=== PATIENT | female | born 1965 | race Caucasian/White ===

== ENCOUNTER 2024-08-22 16:02 | Emergency (ER) | payer SELFPAY ==
--- OUTSIDE RECORDS SUMMARY | 2024-08-22 16:08 | XMS REPORT | Continuity of Care Document ---
Author Name Unknown Address [address] [place] [address] [facility] [place] Address [address] [place] [address] Care Team Providers Care Patent Solicitor Name Role Phone Willis Storey NP Primary Care Physician Lilian Neri Attending Clinician Unavailable Ankush Lewis MD Attending Clinician [phone] Chencho Montana DO Attending Clinician + Carlos Harman MD Attending Clinician [phone] CARLOS HARMAN Attending Clinician Unavailable [place] SERNA Attending Clinician XIOMARA Samuels Attending Clinician MOSHE Galvez Attending Clinician Unavailable ANGELIA ELDER Attending Clinician UnavailYAA Dennis Attending Clinician Unavaila MALISSA Rueda Attending Clinician Unavailable BILLY REYNAGA Attending Clinician Unavailable Pratibha Fitzgerald APRN Attending Clinician Unavail TJ Delatorre Attending Clinician Unav ailable BRITTON LEAL Attending Clinician UnavailSAGAR Krishnamurthy Attending Clinician Unavailable Joey Toure Attending Clinician Unava ilGuille Hutchison Attending Clinician Unavailable Bridgett Flores Attending Clinician Unavailable Nicky Goodwin PROJECT CONTROL ANALYST-C Attending Clinici an Unavailable Tardio-CerecedChencho clark DO Admitting Clinician + TARDIO-CERECEDACHENCHO Admitting Clinician Unav ailable JACKELYN KELLY Admitting Clinician Un available BILLY REYNAGA Admitting Clinician Unavailable Willis Storey Admitting Clinician Unavailab TJ Duncan Admitting Clinician Unav ailable GRAZYNA LOPEZ Admitting Clinician Unavailable Joey Toure Admitting Clinician Unava ilable Guille Montenegro Admitting Clinician Unavailable Bridgett Flores Admitting Clinician Unavailable Payers Payer Name Policy Type Policy Number Effective Date Expirati on Date Source [employer] [facility] [id number] 2023 00:00:00 Problems Condition Name Condition Details Condition Category Status Onset Date Resolution Date Last Treatment Date Treating Clinician Comments Source Alcoholic cirrhosis (CMS/HCC) Alcoholic cirrhosis (CMS/HCC) Disease Recurre [facility] 2023-05 00:00: 00 Reji Doll Anemia Anemia Disease Recurre [facility] 2023-05 00:00: 00 Reji Doll QT prolongati on QT prolongati on Disease Active 2023-05 00:00: 00 Reji Doll Alcohol use Alcohol use Disease Active 2023-05 00:00: 00 Reji Doll Chest pain Chest pain Disease Active 2023-05 00:00: 00 Reji Poon Epic DOC REF, ABN LABS DOC REF, ABN LABS Active 07/21/2023 [facility] Diagnosis Active 3-04 00:00: 00 2023-09-25 12:32:00 Reji Poon CANT STOP HICUPPING CANT STOP HICUPPING Active 01/23/2023 [facility] Diagnosis Active 9 00:00: 00 2023-01-23 15:47:00 Reji Poon ESSENTIAL (PRIMARY) HYPERTENSI ON ESSENTIAL (PRIMARY) HYPERTENSI ON Active [facility] Diagnosis Active 2023-09-25 12:32:00 Reji Poon Alcohol abuse (disorder) Alcohol abuse (disorder) Active Problem 01/26/2023 [facility] Problem Active 2023-01-26 03:28:27 Reji Poon ACUTE AND SUBACUTE HEPATIC FAILURE WITHOUT COMA ACUTE AND SUBACUTE HEPATIC FAILURE WITHOUT COMA Active [facility] Diagnosis Active 2023-08-11 07:36:00 Reji Poon ACUTE AND SUBACUTE HEPATIC FAILURE WITHO ACUTE AND SUBACUTE HEPATIC FAILURE WITHO Active [facility] Diagnosis Active 2023-09-25 12:32:00 Reji Poon ACUTE CHOLECYSTI TIS ACUTE CHOLECYSTI TIS Active [facility] Diagnosis Active 2023-09-25 12:32:00 Reji Poon Hypomagnes emia Hypomagnes emia Disease Resolve d 2023-05 00:00: 00 2024-04-10 00:00:00 2024-04-10 11:29:56 Reji Doll Simple obesity Simple obesity Disease Resolve d 2023-05 00:00: 00 2024-04-10 00:00:00 2024-04-10 11:29:55 Reji Poon Epic Hypokalemi a Hypokalemi a Disease Resolve d 2023-05 00:00: 00 2024-04-10 00:00:00 2024-04-10 11:29:54 Reji Doll History of Past Illness Condition Name Condition Details Condition Category Status Onset Date Resolution Date Last Treatment Date Treating Clinician Comments Source Hiccoughs (finding) Hiccoughs (finding) 01/23/2023 Diagnosis 01/26/2023 [facility] Diagnosis 2022-0 9-07 21:14: 00 2023-01-26 03:28:27 2023-01-26 03:28:27 Reji Poon Chest pain (finding) Chest pain (finding) 01/23/2023 Diagnosis 01/26/2023 [facility] Diagnosis 2022-0 9-07 21:14: 00 2023-01-26 03:28:27 2023-01-26 03:28:27 Reji Poon Allergies, Adverse Reactions, Alerts Allergy Name Allergy Type Status Severity Reaction(s) Onset Date Inactive Date Treating Clinician Comments Source Penicill ins Propensi ty to adverse reaction s Active Hives 2023-05 00:00: 00 Reji Poon [facility] Penicill ins DA Active DC ITCHING 2022-05 0-05 00:00: 00 [facility] Penicill ins DA Active DC ITCHING 2022-05 0-04 00:00: 00 [facility] Social History Social Habit Start Date Stop Date Quantity Comments Source Gender identity 2023-08-29 19:54:18 Identifies as female gender (finding) [facility] History of tobacco use Current smoker [facility] ASSERTION Possible [facility] Sexual orientation [facility] History of Social function 2024-04-10 00:00:00 2024-04-10 00:00:00 [facility] Smoking Status Start Date Stop Date Source Ex-smoker [facility] Medications Ordered Medication Name Filled Medication Name Start Date Stop Date Current Medication? Ordering Clinician Indication Dosage Frequency Signature (SIG) Comments Components Source QUEtiapine (SEROquel) tablet 50 mg QUEtiapine (SEROquel) tablet 50 mg 2023-05 21:00: 00 Yes 50mg Reji Poon [facility] furosemide (Lasix) 20 MG tablet furosemide (Lasix) 20 MG tablet 2023-05 12:40: 14 Yes 20mg Q24H Take 20 mg by mouth daily as needed. Reji Poon [facility] lactulose 20 gram/30 mL oral solution lactulose 20 gram/30 mL oral solution 2023-05 10:30: 00 Yes 20g Take 20 g by mouth 1 time each day at the same time. Reji Poon [facility] FLUoxetine (PROzac) capsule 20 mg FLUoxetine (PROzac) capsule 20 mg 2023-05 09:00: 00 Yes 20mg QD 20 mg, Oral, Daily, First dose on 04/10/24 at 0900 Reji Poon [facility] sodium chloride (NS) 0.9 % flush 10 mL sodium chloride (NS) 0.9 % flush 10 mL 2023-05 09:00: 00 Yes 10mL Q.5D 10 mL, Intravenou s, Every 12 hours scheduled, First dose on 04/10/24 at 0900, Administer at least once every 12 hours Reji Doll thiamine (Vitamin B-1) tablet 100 mg thiamine (Vitamin B-1) tablet 100 mg 2023-05 09:00: 00 04-15 08:59 :00 No 100mg QD 100 mg, Oral, Daily, First dose on 04/10/24 at 0900, For 5 days Reji Doll folic acid (Folvite) tablet 1 mg folic acid (Folvite) tablet 1 mg 2023-05 09:00: 00 04-15 08:59 :00 No 1mg QD 1 mg, Oral, Daily, First dose on 04/10/24 at 0900, For 5 days Reji Doll multivitami n (Theragran- M) tablet 1 tablet multivitami n (Theragran- M) tablet 1 tablet 2023-05 09:00: 00 04-15 08:59 :00 No 1{tbl} QD 1 tablet, Oral, Daily, First dose on 04/10/24 at 0900, For 5 doses Reji Doll enoxaparin (Lovenox) syringe 40 mg enoxaparin (Lovenox) syringe 40 mg 2023-05 08:15: 00 Yes 40mg 40 mg, Subcutaneo us, Every 24 hours, First dose on 04/10/24 at 0815, Indication s: VTE Prophylaxi s Reji Doll gabapentin (Neurontin) capsule 100 mg gabapentin (Neurontin) capsule 100 mg 2023-05 06:00: 00 Yes 100mg Q.[id number] 3D 100 mg, Oral, Every 8 hours scheduled, First dose on 04/10/24 at 0600 Reji Doll magnesium sulfate IVPB 2 g magnesium sulfate IVPB 2 g 2023-05 01:00: 00 04-10 04:14 :00 No 2g 2 g, Intravenou s, at 25 mL/hr, Administer over 2 Hours, Once, On 04/10/24 at 0100, For 1 dose [facility] Epic potassium chloride CR (Klor-Con M20) ER tablet 40 mEq potassium chloride CR (Klor-Con M20) ER tablet 40 mEq 2023-05 01:00: 00 04-10 02:13 :00 No 40meq 40 mEq, Oral, Once, On 04/10/24 at 0100, For 1 dose, For patients able to take medication s orally or via feeding tube >/= 14 Somali, may dissolve each 20 mEq tablet in 4 oz of water. Allow about 2 minutes for the tablets to disintegra te. Stir before giving to prepare slurry and administer . Please exclude patient's with feeding tube less than 14 Somali (Dobhoff, J-tube, etc) and pediatric and patients Do not crush or chew. Reji Doll sodium chloride (NS) 0.9 % flush 10 mL sodium chloride (NS) 0.9 % flush 10 mL 2023-05 00:58: 25 Yes 10mL 10 mL, Intravenou s, As needed, line care, Line Flush, Starting on 04/10/24 at 0058 Reji Doll Influenza Virus Vacc Split PF syringe 0.5 mL Influenza Virus Vacc Split PF syringe 0.5 mL 2023-05 00:58: 18 Yes .5mL 0.5 mL, Intramuscu lar, During hospitaliz ation, Starting on 04/10/24 at 0058, For 1 dose Reji Doll midodrine (Proamatine ) 5 MG tablet midodrine (Proamatine ) 5 MG tablet 2023-05 00:57: 21 Yes 86 5mg Q.[id number] 3D Take 5 mg by mouth in the morning and 5 mg at noon and 5 mg in the evening. Reji Poon Epic potassium chloride IVPB 10 mEq potassium chloride IVPB 10 mEq 2023-05 22:30: 00 04-10 05:51 :00 No 10meq Q1H 10 mEq, Intravenou s, at 100 mL/hr, Administer over 1 Hours, Every 1 hour, First dose on Fri04/09/24 at 2230, For 4 doses Reji Doll potassium chloride CR (Klor-Con M20) ER tablet 40 mEq potassium chloride CR (Klor-Con M20) ER tablet 40 mEq 2023-05 17:55: 00 04-09 18:10 :00 No 40meq 40 mEq, Oral, Once, On Fri04/09/24 at 1755, For 1 dose, For patients able to take medication s orally or via feeding tube >/= 14 Somali, may dissolve each 20 mEq tablet in 4 oz of water. Allow about 2 minutes for the tablets to disintegra te. Stir before giving to prepare slurry and administer . Please exclude patient's with feeding tube less than 14 Somali (Dobhoff, J-tube, etc) and pediatric and patients Do not crush or chew. Reji Doll famotidine (PF) (Pepcid) injection 20 mg famotidine (PF) (Pepcid) injection 20 mg 2023-05 16:55: 00 04-09 17:57 :00 No 20mg 20 mg, Intravenou s, Administer over 2 Minutes, Once, On Fri04/09/24 at 1655, For 1 dose Reji Doll methocarbam ol (Robaxin) tablet 500 mg methocarbam ol (Robaxin) tablet 500 mg 2023-05 16:55: 00 04-09 17:55 :00 No 500mg 500 mg, Oral, Once, On Fri04/09/24 at 1655, For 1 dose Reji Doll HYDROcodone -acetaminop hen (Titonka) 5-325 MG per tablet 1 tablet HYDROcodone -acetaminop hen (Titonka) 5-325 MG per tablet 1 tablet 2023-05 16:55: 00 04-09 17:55 :00 No 1{tbl} 1 tablet, Oral, Once, On Fri04/09/24 at 1655, For 1 dose Reji Doll ondansetron ODT (Zofran-ODT ) 4 MG disintegrat ing tablet ondansetron ODT (Zofran-ODT ) 4 MG disintegrat ing tablet 2023-05 0- 00:00: 00 Yes 4mg Q8H Take 4 mg by mouth every 8 hours if needed for nausea or vomiting. Reji Doll gabapentin (Neurontin) 100 MG capsule gabapentin (Neurontin) 100 MG capsule 7-16 00:00: 00 Yes 100mg Q.[id number] 3D Take 100 mg by mouth in the morning and 100 mg at noon and 100 mg in the evening. Reji Doll FLUoxetine (PROzac) 20 MG capsule FLUoxetine (PROzac) 20 MG capsule 2-15 00:00: 00 Yes 20mg QD Take 20 mg by mouth 1 time each day. Reji Poon [facility] QUEtiapine (SEROquel) 50 MG tablet QUEtiapine (SEROquel) 50 MG tablet 2022-05 2-09 00:00: 00 Yes 50mg Take 50 mg by mouth at bedtime. Reji Doll hydrOXYzine HCl (Atarax) 25 MG tablet hydrOXYzine HCl (Atarax) 25 MG tablet 2022-05 00:00: 00 Yes 1{tbl} Q.5D Take 1 tablet by mouth in the morning and 1 tablet in the evening. Reji Doll Reglan 10 mg oral tablet 01-23 21:13: 00 Yes See Instructio ns, 1 tab PO QID prn hiccups, # 28 tab, 0 Refill(s) Reji Poon Vital Signs Vital Name Observation Time Observation Value Comments S ource Heart rate 2024-04-10 12:31:20 74 /min [facility] Respiratory rate 2024-04-10 12:31:20 16 /min [facility] Oxygen saturation in Arterial blood by Pulse oximetry 2024-04-10 12:31:20 99 /min [facility] Systolic blood pressure 2024-04-10 12:31:10 115 mm[Hg] [facility] Diastolic blood pressure 2024-04-10 12:31:10 59 mm[Hg] [facility] Body temperature 2024-04-10 12:29:42 36.67 Nayana [facility] Body height 2024-04-09 15:22:00 162.6 cm [facility] Body weight 2024-04-09 15:22:00 83.734 kg [facility] BMI 2024-04-09 15:22:00 31.69 kg/m2 [facility] Heart rate 2024-04-10 12:31:20 74 /min [facility] Respiratory rate 2024-04-10 12:31:20 16 /min [facility] Oxygen saturation in Arterial blood by Pulse oximetry 2024-04-10 12:31:20 99 /min [facility] Systolic blood pressure 2024-04-10 12:31:10 115 mm[Hg] [facility] Diastolic blood pressure 2024-04-10 12:31:10 59 mm[Hg] [facility] Body temperature 2024-04-10 12:29:42 36.67 Nayana [facility] Body height 2024-04-09 15:22:00 162.6 cm [facility] Body weight 2024-04-09 15:22:00 83.734 kg [facility] BMI 2024-04-09 15:22:00 31.69 kg/m2 [facility] Temperature Oral (F) 2023-01-23 21:38:00 98.4 F [facility] Heart Rate 2023-01-23 21:38:00 [facility] Systolic (mm Hg) 2023-01-23 21:38:00 [facility] Di[facility] ([facility]) 2023-01-23 21:38:00 [facility] Height 2023-01-23 18:19:00 5 [ft_i] [facility] BMI Calculated 2023-01-23 18:19:00 [facility] Weight 2023-01-23 18:19:00 [facility] Procedures Procedure Date / Time Performed Performing Clinician Source TRANSTHORACIC ECHO (TTE) COMPLETE 2024-04-10 10:21:38 Flores Rebollar [facility] POC GLUCOSE UNSOLICITED RESULTS 2024-04-10 08:32:00 Carlos Harman [facility] BASIC METABOLIC PANEL 2024-04-10 03:51:00 Tardio -Chencho Olea [facility] MAGNESIUM LEVEL 2024-04-10 03:51:00 Tardio-Cerec hankChencho clark [facility] PHOSPHORUS LEVEL 2024-04-10 03:51:00 Tardio-Chencho Harper [facility] COMPLETE BLOOD COUNT W/DIFF AND PLATELET 2024-04-10 03:51:00 Tardio-Cereceda, Stephen [facility] COMPLETE BLOOD COUNT 2024-04-10 03:51:00 Tardio- Cereceda, Stephen [facility] AUTOMATED DIFFERENTIAL 2024-04-10 03:51:00 Smitadi o-Verna Oleais G [facility] POC GLUCOSE UNSOLICITED RESULTS 2024-04-10 00:18:00 Tardio-CerecedVerna clarkStephen [facility] BASIC METABOLIC PANEL 2024-04-09 21:40:00 Ankush Lewis [facility] UA WITH CULTURE IF INDICATED 2024-04-09 18:03:00 Ankush Lewis [facility] TROPONIN I HIGH SENSITIVITY CARESET (1ST HR) 2024-04-09 17:16:00 Brenda Ojeda [facility] XR CHEST 1 VIEW 2024-04-09 16:10:00 Ankush Lewis [facility] COMPREHENSIVE METABOLIC PANEL 2024-04-09 15:47:00 [facility] CREAT[facility] KINASE (CK TOTAL) 2024-04-09 15:47:00 [facility] LIPASE LEVEL 2024-04-09 15:47:00 Juana Ojeda [facility] MAGNESIUM LEVEL 2024-04-09 15:47:00 [facility] B-TYPE NATRIURETIC PEPTIDE 2024-04-09 15:47:00 [facility] COMPLETE BLOOD COUNT W/DIFF AND PLATELET 2024-04-09 15:47:00 Brenda Ojeda [facility] PROTIME-INR 2024-04-09 15:47:00 Juana Ojeda [facility] PTT 2024-04-09 15:47:00 [facility]OPONIN I HIGH SENSITIVITY CARESET 2024-04-09 15:47:00 Brenda Ojeda [facility] TROPONIN I HIGH SENSITIVITY CARESET (BASELINE) 2024-04-09 15:47:00 Brenda Ojedazabeth [facility] COMPLETE BLOOD COUNT 2024-04-09 15:47:00 Brenda Ojedazabeth [facility] AUTOMATED DIFFERENTIAL 2024-04-09 15:47:00 [facility] UA with culture if indicated 2024-04-09 00:00:00 [facility] [id number] 2023-04-22 00:00:00 [id number] [facility] [id number] 2023-02-20 00:00:00 [id number] [facility] ECG 12 lead (arrhythmia) [facility] Encounters Start Date/Time End Date/Time Encounter Type Admission Type Attending [facility] Care Facility Care Department Encounter ID Source 2024-04-13 00:00:00 2024-04-13 17:57:29 Patient Outreach Halle, Mara [facility] [id number] [facility] 2024-04-09 15:46:00 2024-04-10 12:40:00 Emergency Ankush LewisChencho Harper Dereje [facility] [id number] [facility] 2024-04-09 15:46:00 2024-04-10 12:40:00 Emergency Emergency CARLOS HARMAN [facility] General Medicine [id number] MHENE 2024-04-09 00:00:00 2024-04-09 20:28:49 [id number] [facility] 2024-02-13 17:15:00 2024-02-13 23:43:00 Emergency E [place] SERNA [place] [id number] [facility] 2024-02-06 18:16:00 2024-02-06 23:36:00 Emergency E XIOMARA CHRIS NE [place] [id number] [facility] 2024-01-06 15:02:00 2024-01-06 20:39:00 Emergency E MOSHE CARL [place]SE [place] [id number] [facility] 2023-12-30 16:14:00 2023-12-30 23:23:00 Emergency E XIOMARA CHRIS [place] [id number] [facility] 2023-12-11 15:33:00 2023-12-12 23:29:00 Emergency E ANGELIA ELDER MONSE [place] [id number] [facility] 2023-11-30 16:08:00 2023-12-02 16:19:00 Inpatient E YAA LOZANO [facility] MED [id number] [facility] 2023-11-25 10:02:00 2023-11-25 12:04:00 Emergency E MALISSA ZELAYA NE NE [id number] [facility] 2023-11-07 12:50:00 2023-11-13 13:09:00 Outpatient BILLY REYNAGA [facility] [id number] [facility] 2023-11-04 11:13:00 2023-11-07 12:14:00 Emergency E MOSHE CARL NE NE [id number] [facility] 2023-10-17 12:54:00 2023-10-17 12:54:00 Outpatient Pratibha Agustin [facility] [id number] [facility] 2023-09-04 10:54:00 2023-09-08 15:39:00 Inpatient E TJ MALAVE [place] MED [id number] [facility] 2023-09-07 09:00:00 2023-09-07 09:00:00 Outpatient BRITTON LEAL [facility] [id number] [facility] 2023-07-21 22:30:00 2023-08-08 14:26:00 Inpatient E SAGAR HINKLE [facility] [id number] [facility] 2023-06-29 19:34:00 2023-07-04 11:35:00 Inpatient EM Joey Toure HCAKW MAS [id number] [facility] 2023-04-22 09:27:00 2023-04-26 15:20:00 Inpatient EM Guille Montenegro HCAKW CARD [id number] [facility] 2023-02-20 14:58:00 2023-02-22 14:54:00 Inpatient EM Bridgett Flores HCAKW CARD [id number] [facility] 2023-01-23 12:47:00 2023-01-23 16:40:00 Emergency E MOSHE CARL [facility] [id number] [facility] 2022-11-13 16:14:00 2022-11-13 16:14:00 Outpatient ETHAN Moralesalmaz Nicky zuñiga HCAKW CPUL [id number] [facility] Results Test Description Test Time Test Comments Results Result Co mments Source [facility] [id number] 08:40:09* Test Item Value Reference Range Interpretation Comme nts POC Glu (test code = 6271897516) 102 mg/dL 70-99 H POC Performing Location (carlos t code = 7667382072) NE CDU Lab Interpretation (test cod e = 59228-4) Abnormal [facility] [id number] 00:20:32* Test Item Value Reference Range Interpretation Comme nts POC Glu (test code = 9101598586) 86 mg/dL 70-99 POC Glu Comment 1 (test code = 2003442206) Notified RN/MD POC Glu Comment 2 (test code = 7815362056) Cleaned Meter POC Performing Location (carlos t code = 8532060550) NE LAB [facility]- TOE(S) 2+V [id number] 15:00:00 [facility] 1965 Sex: F FAX: Willis Preston [phone] [place]: St: [facility] FAX: Nikkie Fitzgeraldreiveda DELI CLERK [phone] Name: ZAK MANDEL [facility] : 1965 Age/S: 57/F [address] Unit #: [id number] Loc: [place] [address] Phys: Pratibha Fitzgerald APRN Acct: [id number] Dis Date: Status: [facility] CLI PHONE #: [phone] Exam Date: 10/17/2023 1334 FAX #: [phone] Reason: CONTUSION OF RT LESSER TOE WO DAMAG E TO NAIL EXAMS: CPT CODE: [id number] XR TOE(S) 2+V RT [id number] EXAM: - XR TOE(S) 2+V RT LOCATION: [id number]: 57 years-year old Female with CONTUSION OF RT LESSER TOE WO DAMAGE TO NAIL COMPARISON: None available time of interpretation. FINDINGS: Frontal, oblique, and lateral views of the right 3rd toe are provided. There is a mildly displaced fracture of the 3rd proximal phalanx diaphysis. Remote fractures of the 4th and 5th proximal phalanges. No soft tissue findings are apparent. IMPRESSION: 1. Mildly displaced fracture of the 3rd proximal phalanx diaphysis. 2. Remote fractures of the 4th and 5th proximal phalanges. at 1500 Reported and signed by: Kingston Strickland MD CC: Willis Storey ORDNANCE OFFICER; Pratibha Fitzgerald Technologist:ROXY MA Trnscrd Date/Time/By: 10/23/2023 (1500) : By: [email or web address] PAGE 1 Signed Report FAX: Willis Preston [phone] [place]: St: [facility]P FAX: Pratibha Fitzgerald APRN [phone] Name: ZAK MANDEL JG [facility] : 1965 Age/S: 57/F [address] Unit #: [id number] Loc: [place] [address] Phys: Pratibha Fitzegrald APRN Acct: [id number] Dis Date: Status: [facility] CLI PHONE #: [phone] Exam Date: 10/17/2023 1334 FAX #: [phone] Reason: CONTUSION OF RT LESSER TOE WO DAMAGE TO NAIL EXAMS: CPT CODE: [id number] XR TOE(S) 2+V RT 29555 (Continued) Orig Print D/T: S: 10/23/2023 (1504) PAGE2 Signed Report- XR HIP W/PEL UNI 2+V RT 2023-10-23 15:00:00 [facility] : 1965 Sex: F FAX: Willis Preston [phone] [place]: St: [facility] FAX: Pratibha Fitzgerald DELI CLERK [phone] Name: ZAK MANDEL [facility] : 1965 Age/S: 57/F [address] Unit #: [id number] Loc: [place] [address] Phys: Pratibha Fitzgerald APRN Acct: [id number] Dis Date: Status: DEP CLI PHONE #: [phone] Exam Date: 10/17/2023 [facility] FAX #: [phone] Reason: PAIN IN RT HIP EXAMS: CPT CODE: [id number] XR HIP W/PEL UNI 2+[place] [id number] EXAM: - XR HIP W/PEL UNI 2+V RT LOCATION: H57 HISTORY: 57 years-year old Female with PAIN IN RT HIP COMPARISON: None available time of interpretation. FINDINGS: APand frog-leg lateral views of the right hip and single view of the pelvis are provided. No fractureor dislocation. Hip joint spaces are preserved. No soft tissue findings are apparent. IMPRESSION: No significant findings. at 1500 Reported and signed by: Kingston Strickland MD CC: Willis Storey ORDNANCE OFFICER; Pratibha Fitzgerald Technologist: ROXY MA Trnscrd Date/Time/By: 10/23/2023 (1500) : By: [email or web address] PAGE 1 Signed Report FAX: Willis Preston [phone] [place]: St: [facility]P FAX: Pratibha Fitzgerald DELI CLERK [phone] Name: ZAK MANDEL [facility] Abbi : 1965 Age/S: 57/F [address] Unit #: [id number] Loc: [place], [place] [address]Zrws: Pratibha Fitzgerald [place] Acct: [id number] Dis Date: Status: DEP CLI PHONE #: [phone] Exam Date: 10/17/2023 1333 FAX #: [phone] Reason: PAIN IN RT HIP EXAMS: CPT CODE: [id number] XR HIP W/PEL UNI 2+V [place] [id number] (Continued) Orig Print D/T: S: 10/23/2023 (1504) PAGE 2 Signed ReportCBC W/MANUAL [id number] 06:32:00* Test Item Value Reference Range Interpretation Comme nts WHITE BLOOD CELL (test code = WBC) 10.6 x10 3/uL 5.0-12.0 N RED BLOOD CELL (test code = RBC) 3.35 x10 6/uL 4.20-5.40 L HEMOGLOBIN (test code = HGB) 10.5 g/dL 12.0-16.0 L HEMATOCRIT (test code = HCT) 31.7 % 36.0-46.0 L MEAN CELL VOLUME (test code = MCV) 95 fL 81-99 N MEAN CELL HGB (test code = MCH) 31.3 pg 27-31 H MEAN CELL HGB CONCENTRATION (test code = MCHC) 33.1 g/dL 33-37 N RED CELL DISTRIBUTION WIDTH (test code = RDW) 19.9 % 11.5-15.5 H PLATELET COUNT (test code = PLT) 200 x10 3/uL 130-400 N MEAN PLATELET VOLUME (test c ode = MPV) 11.2 fL 9.4-16.4 N TOTAL CELLS COUNTED (test co de = TCC) 100 #CELLS SEGMENTED NEUTROPHILS (test code = SEG) 62 % 43-65 N LYMPHOCYTE (test code = LYMPH) 11 % 20.5-45.5 L ATYPICAL LYMPH (test code = ALYMPH) 12 % 0-1 H MONOCYTE (test code = MON) 15 % 5.5-11.7 H EOSINOPHIL (test code = EOS) 1 % 0.9-2.9 N POLYCHROMASIA (test code = POLC) 1+ NONE SEEN A HYPOCHROMIA (test code = HYPO) 1+ NONE SEEN A ANISOCYTOSIS (test code = ANISO) 2+ NONE SEEN A MACROCYTOSIS (test code = MACR) 2+ NONE SEEN A TARGET CELLS (test code = TGT) 2+ NONE SEEN A PLATELET ESTIMATE (test code = PLTEST) ADEQUATE ADEQUATE PLATELET MORPHOLOGY (test co de = PLTMORPH) NORMAL NORMAL COMPREHENSIVE METABOLIC [id number] 06:08:00* Test Item Value Reference Range Interpretation Comme nts SODIUM (test code = NA) 134 mmol/L 137-145 L POTASSIUM (test code = K) 3.8 mmol/L 3.4-5.0 N CHLORIDE (test code = CL) 99 mmol/L 98-107 N CARBON DIOXIDE (test code = CO2) 28 mmol/L 22-30 N ANION GAP (test code = GAP) 12 mmol/L 10-20 N GLUCOSE (test code = GLU) 86 mg/dL 74-106 N BLOOD UREA NITROGEN (test code = BUN) 4 mg/dL 7-17 L GLOMERULAR FILTRATION RATE (test code = GFR) 109 mL/min The Glomerular Filtration Rate is a calculated parameterbased on serum Creatinine, patient age and sex. GFR valuesless than 60 mL/min/1.73 square meters are indicative ofChronic Kidney Disease. Values less than 15 mL/min/1.73square meters indicate Kidney failure. The calculation forGFR is based on the CKD-EPI (2020) calculation. This formulais race indifferent and is the recommended formula for GFRby the National Kidney Foundation for Adults.The GFR will not calculate if the sex is unknown or if thepatient's age is <18 years. CREATININE (test code = CREAT) < 0.5 mg/dL 0.5-1.0 L TOTAL PROTEIN (test code = PROT) 5.8 g/dL 6.3-8.2 L "A positive bias may occur for patients taking Eltrombopag(a bone marrow stimulant used to treat thrombocytopenia andaplastic anemia)." ALBUMIN (test code = ALB) 3.0 g/dL 3.5-5.0 L CALCIUM (test code = CA) 8.6 mg/dL 8.4-10.2 N BILIRUBIN TOTAL (test code = BILT) 7.1 mg/dL 0.2-1.3 H "A positive b ias may occur for patients taking Eltrombopag(a bone marrow stimulant used to treat thrombocytopenia andaplastic anemia)." BILIRUBIN CONJUGATED (test code = BILCON) 3.7 mg/dL 0-0.3 H "A positive bias may occur for patients taking Eltrombopag(a bone marrow stimulant used to treat thrombocytopenia andaplastic anemia)." CONJUGATE D BILIRUBIN IS THE REPLACEMENT ASSAY FOR DIRECTBILIRUBIN. BILIRUBIN UNCONJUGATED (test code = BILUNC) 0.9 mg/dL 0-1.1 N SGOT/AST (test code = AST) 268 U/L 15-46 H SGPT/ALT (test code = ALT) 70 U/L 0-34 H ALKALINE PHOSPHATASE (test code = ALKP) 276 U/L 38-126 H INDEX HEMOLYSIS (test code = HEMINDEX) 21 Index/DL 0-100 N PROTHROMBIN [id number] 05:45:00* Test Item Value Reference Range Interpretation Comme nts PROTHROMBIN TIME PATIENT (test code = PTP) 17.3 SECONDS 9.4-12.5 H INTERNATIONAL NORMAL RATIO (test code = INR) 1.5 The INR is to be used only for monitoring ORAL ANTICOAGULANTTHERAPY. Indication INR Value1. Prophylaxis/treatment of: Venous Thrombosis, Pulmonary Embolism 2.0 - 3.02. Prevention of systemic embolism from: Tissue heart valves 2.0 - 3.0 Acute myocardial infarction (to present systemic embolism)* 2.0 - 3.0 Valvular heart disease 2.0 - 3.0 Atrial fibrillation 2.0 - 3.03. Mechanical prosthetic valves (high risk) 2.5 - 3.5 * If oral anticoagulant therapy is elected to preventrecurrent myocardial infarction, an INR of 2.5-3.5 isrecommended, consistent with Food and Drug Administrationrecommen dations. [id number] 05:31:00* Test Item Value Reference Range Interpretation Comme nts GLUBED (test code = GLUBED) 89 MG/DL 74-106 N [id number] 21:45:00* Test Item Value Reference Range Interpretation Comme nts GLUBED (test code = GLUBED) 85 MG/DL 74-106 N - HEPA IMAG INCL GB W [id number] 17:48:00 [facility] 1965 Sex: F FAX: Joey Toure [place]: St: ADM FAX: Ethan Short DO FAX: Willis Preston [phone] Name: ZAK MANDEL [facility] : 1965 Age/S: 57/F [address] Unit #: [id number] Loc: [address] [address] Phys: Ethan Short DO R1 Acct: [id number] Dis Date: Status: ADM IN PHONE #:[phone] Exam Date: 07/03/2023 1000 FAX #: [phone] Reason: dilated CBD, hydrop gallbladder EXAMS: CPT CODE: [id number] HEPA IMAG INCL GB W PHA [id number] EXAM: - HEPA IMAG INCL GB W PHA HISTORY: Dilated CBD, hydrops gallbladder. LOCATION CODE:T18 TECHNIQUE: Hepatobiliary imaging was obtained asper standard protocol after intravenous administration of 6.0 mCi Tc-99m mebrofenin. Additionally, the patient received 4.4 mcg CCK (sincalide) intravenously. COMPARISON: US 06/29/2023. CT 06/29/2023..FINDINGS: There is prompt, homogeneous uptake of radiopharmaceutical throughout the liver. There isprompt identification of the biliary tree, gallbladder, and bowel. The gallbladder ejection fraction is 21%. (Normal gallbladder ejection fraction is > 35%.) IMPRESSION: Abnormally low ejection fraction suggestive of biliary dyskinesia. Otherwise, unremarkable exam. at 1748 Reported and signed by: HUNG HOPKINS CC: Joey Toure MD; Ethan Short DO; Willis Storey ORDNANCE OFFICER Technologist: ATILIO SMITH (CT) [facility] [address] Date/Time/By: 07/03/2023 (4194) : By: [id number] PAGE 1 Signed Report FAX: Joey Toure: St: ADM FAX: Ethan Short DO FAX: Willis Preston Rafia [phone] Name: ZAK MANDEL [facility] : 1965 Age/S: 57/F [address] Unit #: [id number] Loc: [address] [address] Phys:Ethan Short DO R1 Acct: [id number] Dis Date: Status: ADM IN PHONE #: [phone] Exam Date: 07/03/2023 1000 FAX #: [phone] Reason: dilated CBD, hydrop gallbladder EXAMS: CPT CODE: [id number] HEPA IMAG INCL GB W PHA [id number] (Continued) Orig Print D/T: S: 07/03/2023 (8299) PAGE 2 Signed [id number] 16:20:00* Test Item Value Reference Range Interpretation Comme nts GLUBED (test code = GLUBED) 83 MG/DL 74-106 N [id number] 05:11:00* Test Item Value Reference Range Interpretation Comme nts GLUBED (test code = GLUBED) 77 MG/DL 74-106 N COMPREHENSIVE METABOLIC [id number] 05:00:00* Test Item Value Reference Range Interpretation Comme nts SODIUM (test code = NA) 133 mmol/L 137-145 L POTASSIUM (test code = K) 3.7 mmol/L 3.4-5.0 N CHLORIDE (test code = CL) 99 mmol/L 98-107 N CARBON DIOXIDE (test code = CO2) 29 mmol/L 22-30 N ANION GAP (test code = GAP) 9 mmol/L 10-20 L GLUCOSE (test code = GLU) 64 mg/dL 74-106 L BLOOD UREA NITROGEN (test code = BUN) 4 mg/dL 7-17 L GLOMERULAR FILTRATION RATE (test code = GFR) 115 mL/min The Glomerular Filtration Rate is a calculated parameterbased on serum Creatinine, patient age and sex. GFR valuesless than 60 mL/min/1.73 square meters are indicative ofChronic Kidney Disease. Values less than 15 mL/min/1.73square meters indicate Kidney failure. The calculation forGFR is based on the CKD-EPI (202) calculation. This formulais race indifferent and is the recommended formula for GFRby the National Kidney Foundation for Adults.The GFR will not calculate if the sex is unknown or if thepatient's age is <18 years. CREATININE (test code = CREAT) < 0.4 mg/dL 0.5-1.0 L TOTAL PROTEIN (test code = PROT) 5.2 g/dL 6.3-8.2 L "A positive bias may occur for patients taking Eltrombopag(a bone marrow stimulant used to treat thrombocytopenia andaplastic anemia)." ALBUMIN (test code = ALB) 2.6 g/dL 3.5-5.0 L CALCIUM (test code = CA) 8.3 mg/dL 8.4-10.2 L BILIRUBIN TOTAL (test code = BILT) 6.3 mg/dL 0.2-1.3 H "A positive b ias may occur for patients taking Eltrombopag(a bone marrow stimulant used to treat thrombocytopenia andaplastic anemia)." BILIRUBIN CONJUGATED (test code = BILCON) 3.4 mg/dL 0-0.3 H "A positive bias may occur for patients taking Eltrombopag(a bone marrow stimulant used to treat thrombocytopenia andaplastic anemia)." CONJUGATE D BILIRUBIN IS THE REPLACEMENT ASSAY FOR DIRECTBILIRUBIN. BILIRUBIN UNCONJUGATED (test code = BILUNC) 1.0 mg/dL 0-1.1 N SGOT/AST (test code = AST) 282 U/L 15-46 H SGPT/ALT (test code = ALT) 83 U/L 0-34 H ALKALINE PHOSPHATASE (test code = ALKP) 270 U/L 38-126 H INDEX HEMOLYSIS (test code = HEMINDEX) < 15 Index/DL 0-100 N CBC W/AUTO [id number] 04:45:00* Test Item Value Reference Range Interpretation Comme nts WHITE BLOOD CELL (test code = WBC) 9.9 x10 3/uL 5.0-12.0 N RED BLOOD CELL (test code = RBC) 3.43 x10 6/uL 4.20-5.40 L HEMOGLOBIN (test code = HGB) 10.7 g/dL 12.0-16.0 L HEMATOCRIT (test code = HCT) 32.2 % 36.0-46.0 L MEAN CELL VOLUME (test code = MCV) 94 fL 81-99 N MEAN CELL HGB (test code = MCH) 31.2 pg 27-31 H MEAN CELL HGB CONCENTRATION (test code = MCHC) 33.2 g/dL 33-37 N RED CELL DISTRIBUTION WIDTH (test code = RDW) 18.9 % 11.5-15.5 H PLATELET COUNT (test code = PLT) 195 x10 3/uL 130-400 N MEAN PLATELET VOLUME (test c ode = MPV) 11.0 fL 9.4-16.4 N NEUTROPHIL % (test code = NT%) 59.2 % 43-65 N IMMATURE GRANULOCYTE % (test code = IG%) 0.8 % 0.0-2.0 N LYMPHOCYTE % (test code = LY%) 19.3 % 20.5-45.5 L MONOCYTE % (test code = MO%) 17.6 % 5.5-11.7 H EOSINOPHIL % (test code = EO%) 2.5 % 0.9-2.9 N BASOPHIL % (test code = BA%) 0.6 % 0.2-1.0 N NUCLEATED RBC % (test code = NRBC%) 0.0 % 0-1.0 N NEUTROPHIL # (test code = NT#) 5.84 x10 3/uL 2.2-4.8 H IMMATURE GRANULOCYTE # (test code = IG#) 0.08 x10 3/uL 0-0.03 H LYMPHOCYTE # (test code = LY#) 1.91 x10 3/uL 1.3-2.9 N MONOCYTE # (test code = MO#) 1.74 x10 3/uL 0.3-0.8 H EOSINOPHIL # (test code = EO#) 0.25 x10 3/uL 0.0-0.2 H BASOPHIL # (test code = BA#) 0.06 x10 3/uL 0.0-0.1 N PROTHROMBIN [id number] 04:44:00* Test Item Value Reference Range Interpretation Comme nts PROTHROMBIN TIME PATIENT (test code = PTP) 16.8 SECONDS 9.4-12.5 H INTERNATIONAL NORMAL RATIO (test code = INR) 1.5 The INR is to be used only for monitoring ORAL ANTICOAGULANTTHERAPY. Indication INR Value1. Prophylaxis/treatment of: Venous Thrombosis, Pulmonary Embolism 2.0 - 3.02. Prevention of systemic embolism from: Tissue heart valves 2.0 - 3.0 Acute myocardial infarction (to present systemic embolism)* 2.0 - 3.0 Valvular heart disease 2.0 - 3.0 Atrial fibrillation 2.0 - 3.03. Mechanical prosthetic valves (high risk) 2.5 - 3.5 * If oral anticoagulant therapy is elected to preventrecurrent myocardial infarction, an INR of 2.5-3.5 isrecommended, consistent with Food and Drug Administrationrecommen dations. [id number] 16:37:00* Test Item Value Reference Range Interpretation Comme nts GLUBED (test code = GLUBED) 78 MG/DL 74-106 N [id number] 12:42:00* Test Item Value Reference Range Interpretation Comme nts GLUBED (test code = GLUBED) 92 MG/DL 74-106 N COMPREHENSIVE METABOLIC [id number] 05:54:00* Test Item Value Reference Range Interpretation Comme nts SODIUM (test code = NA) 133 mmol/L 137-145 L POTASSIUM (test code = K) 3.9 mmol/L 3.4-5.0 N CHLORIDE (test code = CL) 98 mmol/L 98-107 N CARBON DIOXIDE (test code = CO2) 28 mmol/L 22-30 N ANION GAP (test code = GAP) 11 mmol/L 10-20 N GLUCOSE (test code = GLU) 61 mg/dL 74-106 L BLOOD UREA NITROGEN (test code = BUN) 5 mg/dL 7-17 L GLOMERULAR FILTRATION RATE (test code = GFR) 115 mL/min The Glomerular Filtration Rate is a calculated parameterbased on serum Creatinine, patient age and sex. GFR valuesless than 60 mL/min/1.73 square meters are indicative ofChronic Kidney Disease. Values less than 15 mL/min/1.73square meters indicate Kidney failure. The calculation forGFR is based on the CKD-EPI (202) calculation. This formulais race indifferent and is the recommended formula for GFRby the National Kidney Foundation for Adults.The GFR will not calculate if the sex is unknown or if thepatient's age is <18 years. CREATININE (test code = CREAT) < 0.4 mg/dL 0.5-1.0 L TOTAL PROTEIN (test code = PROT) 5.7 g/dL 6.3-8.2 L "A positive bias may occur for patients taking Eltrombopag(a bone marrow stimulant used to treat thrombocytopenia andaplastic anemia)." ALBUMIN (test code = ALB) 3.2 g/dL 3.5-5.0 L CALCIUM (test code = CA) 8.5 mg/dL 8.4-10.2 N BILIRUBIN TOTAL (test code = BILT) 5.7 mg/dL 0.2-1.3 H "A positive b ias may occur for patients taking Eltrombopag(a bone marrow stimulant used to treat thrombocytopenia andaplastic anemia)." BILIRUBIN CONJUGATED (test code = BILCON) 3.6 mg/dL 0-0.3 H "A positive bias may occur for patients taking Eltrombopag(a bone marrow stimulant used to treat thrombocytopenia andaplastic anemia)." CONJUGATE D BILIRUBIN IS THE REPLACEMENT ASSAY FOR DIRECTBILIRUBIN. BILIRUBIN UNCONJUGATED (test code = BILUNC) 0.8 mg/dL 0-1.1 N SGOT/AST (test code = AST) 328 U/L 15-46 H SGPT/ALT (test code = ALT) 82 U/L 0-34 H ALKALINE PHOSPHATASE (test code = ALKP) 234 U/L 38-126 H INDEX HEMOLYSIS (test code = HEMINDEX) 31 Index/DL 0-100 N [id number] 05:54:00* Test Item Value Reference Range Interpretation Comme nts PHOSPHOROUS (test code = PHOS) 2.5 mg/dL 2.5-4.5 N [id number] 05:54:00* Test Item Value Reference Range Interpretation Comme nts MAGNESIUM (test code = MAG) 1.9 mg/dL 1.6-2.3 N [id number] 05:37:00* Test Item Value Reference Range Interpretation Comme nts GLUBED (test code = GLUBED) 76 MG/DL 74-106 N CBC W/AUTO [id number] 05:03:00* Test Item Value Reference Range Interpretation Comme nts WHITE BLOOD CELL (test code = WBC) 9.7 x10 3/uL 5.0-12.0 N RED BLOOD CELL (test code = RBC) 3.27 x10 6/uL 4.20-5.40 L HEMOGLOBIN (test code = HGB) 10.3 g/dL 12.0-16.0 L HEMATOCRIT (test code = HCT) 31.5 % 36.0-46.0 L MEAN CELL VOLUME (test code = MCV) 96 fL 81-99 N MEAN CELL HGB (test code = MCH) 31.5 pg 27-31 H MEAN CELL HGB CONCENTRATION (test code = MCHC) 32.7 g/dL 33-37 L RED CELL DISTRIBUTION WIDTH (test code = RDW) 18.6 % 11.5-15.5 H PLATELET COUNT (test code = PLT) 148 x10 3/uL 130-400 N MEAN PLATELET VOLUME (test c ode = MPV) 11.5 fL 9.4-16.4 N NEUTROPHIL % (test code = NT%) 59.5 % 43-65 N IMMATURE GRANULOCYTE % (test code = IG%) 0.5 % 0.0-2.0 N LYMPHOCYTE % (test code = LY%) 23.9 % 20.5-45.5 N MONOCYTE % (test code = MO%) 13.5 % 5.5-11.7 H EOSINOPHIL % (test code = EO%) 2.0 % 0.9-2.9 N BASOPHIL % (test code = BA%) 0.6 % 0.2-1.0 N NUCLEATED RBC % (test code = NRBC%) 0.0 % 0-1.0 N NEUTROPHIL # (test code = NT#) 5.78 x10 3/uL 2.2-4.8 H IMMATURE GRANULOCYTE # (test code = IG#) 0.05 x10 3/uL 0-0.03 H LYMPHOCYTE # (test code = LY#) 2.32 x10 3/uL 1.3-2.9 N MONOCYTE # (test code = MO#) 1.31 x10 3/uL 0.3-0.8 H EOSINOPHIL # (test code = EO#) 0.19 x10 3/uL 0.0-0.2 N BASOPHIL # (test code = BA#) 0.06 x10 3/uL 0.0-0.1 N [id number] 21:16:00* Test Item Value Reference Range Interpretation Comme nts GLUBED (test code = GLUBED) 101 MG/DL 74-106 N [id number] 17:12:00* Test Item Value Reference Range Interpretation Comme nts GLUBED (test code = GLUBED) 87 MG/DL 74-106 N [id number] 11:58:00* Test Item Value Reference Range Interpretation Comme nts GLUBED (test code = GLUBED) 103 MG/DL 74-106 N [id number] 06:06:00* Test Item Value Reference Range Interpretation Comme nts GLUBED (test code = GLUBED) 75 MG/DL 74-106 N COMPREHENSIVE METABOLIC [id number] 04:57:00* Test Item Value Reference Range Interpretation Comme nts SODIUM (test code = NA) 132 mmol/L 137-145 L POTASSIUM (test code = K) 3.3 mmol/L 3.4-5.0 L CHLORIDE (test code = CL) 97 mmol/L 98-107 L CARBON DIOXIDE (test code = CO2) 30 mmol/L 22-30 N ANION GAP (test code = GAP) 9 mmol/L 10-20 L GLUCOSE (test code = GLU) 73 mg/dL 74-106 L BLOOD UREA NITROGEN (test code = BUN) 5 mg/dL 7-17 L GLOMERULAR FILTRATION RATE (test code = GFR) 115 mL/min The Glomerular Filtration Rate is a calculated parameterbased on serum Creatinine, patient age and sex. GFR valuesless than 60 mL/min/1.73 square meters are indicative ofChronic Kidney Disease. Values less than 15 mL/min/1.73square meters indicate Kidney failure. The calculation forGFR is based on the CKD-EPI (2020) calculation. This formulais race indifferent and is the recommended formula for GFRby the National Kidney Foundation for Adults.The GFR will not calculate if the sex is unknown or if thepatient's age is <18 years. CREATININE (test code = CREAT) < 0.4 mg/dL 0.5-1.0 L TOTAL PROTEIN (test code = PROT) 5.8 g/dL 6.3-8.2 L "A positive bias may occur for patients taking Eltrombopag(a bone marrow stimulant used to treat thrombocytopenia andaplastic anemia)." ALBUMIN (test code = ALB) 3.3 g/dL 3.5-5.0 L CALCIUM (test code = CA) 8.4 mg/dL 8.4-10.2 N BILIRUBIN TOTAL (test code = BILT) 6.0 mg/dL 0.2-1.3 H "A positive b ias may occur for patients taking Eltrombopag(a bone marrow stimulant used to treat thrombocytopenia andaplastic anemia)." BILIRUBIN CONJUGATED (test code = BILCON) 3.4 mg/dL 0-0.3 H "A positive bias may occur for patients taking Eltrombopag(a bone marrow stimulant used to treat thrombocytopenia andaplastic anemia)." CONJUGATE D BILIRUBIN IS THE REPLACEMENT ASSAY FOR DIRECTBILIRUBIN. BILIRUBIN UNCONJUGATED (test code = BILUNC) 1.1 mg/dL 0-1.1 N SGOT/AST (test code = AST) 354 U/L 15-46 H SGPT/ALT (test code = ALT) 77 U/L 0-34 H ALKALINE PHOSPHATASE (test code = ALKP) 290 U/L 38-126 H INDEX HEMOLYSIS (test code = HEMINDEX) 19 Index/DL 0-100 N [id number] 04:57:00* Test Item Value Reference Range Interpretation Comme nts PHOSPHOROUS (test code = PHOS) 2.4 mg/dL 2.5-4.5 L [id number] 04:57:00* Test Item Value Reference Range Interpretation Comme nts MAGNESIUM (test code = MAG) 1.7 mg/dL 1.6-2.3 N CBC W/AUTO [id number] 04:37:00* Test Item Value Reference Range Interpretation Comme nts WHITE BLOOD CELL (test code = WBC) 9.5 x10 3/uL 5.0-12.0 N RED BLOOD CELL (test code = RBC) 3.49 x10 6/uL 4.20-5.40 L HEMOGLOBIN (test code = HGB) 10.8 g/dL 12.0-16.0 L HEMATOCRIT (test code = HCT) 33.0 % 36.0-46.0 L MEAN CELL VOLUME (test code = MCV) 95 fL 81-99 N MEAN CELL HGB (test code = MCH) 30.9 pg 27-31 N MEAN CELL HGB CONCENTRATION (test code = MCHC) 32.7 g/dL 33-37 L RED CELL DISTRIBUTION WIDTH (test code = RDW) 17.4 % 11.5-15.5 H PLATELET COUNT (test code = PLT) 159 x10 3/uL 130-400 N MEAN PLATELET VOLUME (test c ode = MPV) 11.3 fL 9.4-16.4 N NEUTROPHIL % (test code = NT%) 63.7 % 43-65 N IMMATURE GRANULOCYTE % (test code = IG%) 0.5 % 0.0-2.0 N LYMPHOCYTE % (test code = LY%) 22.7 % 20.5-45.5 N MONOCYTE % (test code = MO%) 9.6 % 5.5-11.7 N EOSINOPHIL % (test code = EO%) 2.7 % 0.9-2.9 N BASOPHIL % (test code = BA%) 0.8 % 0.2-1.0 N NUCLEATED RBC % (test code = NRBC%) 0.0 % 0-1.0 N NEUTROPHIL # (test code = NT#) 6.04 x10 3/uL 2.2-4.8 H IMMATURE GRANULOCYTE # (test code = IG#) 0.05 x10 3/uL 0-0.03 H LYMPHOCYTE # (test code = LY#) 2.15 x10 3/uL 1.3-2.9 N MONOCYTE # (test code = MO#) 0.91 x10 3/uL 0.3-0.8 H EOSINOPHIL # (test code = EO#) 0.26 x10 3/uL 0.0-0.2 H BASOPHIL # (test code = BA#) 0.08 x10 3/uL 0.0-0.1 N [id number] 21:35:00* Test Item Value Reference Range Interpretation Comme nts GLUBED (test code = GLUBED) 109 MG/DL 74-106 H [id number] 16:29:00* Test Item Value Reference Range Interpretation Comme nts GLUBED (test code = GLUBED) 88 MG/DL 74-106 N [id number] 11:46:00* Test Item Value Reference Range Interpretation Comme nts GLUBED (test code = GLUBED) 106 MG/DL 74-106 N COMPREHENSIVE METABOLIC [id number] 06:13:00* Test Item Value Reference Range Interpretation Comme nts SODIUM (test code = NA) 135 mmol/L 137-145 L POTASSIUM (test code = K) 3.4 mmol/L 3.4-5.0 N CHLORIDE (test code = CL) 98 mmol/L 98-107 CARBON DIOXIDE (test code = CO2) 34 mmol/L 22-30 H ANION GAP (test code = GAP) 6 mmol/L 10-20 L GLUCOSE (test code = GLU) 68 mg/dL 74-106 L BLOOD UREA NITROGEN (test code = BUN) 7 mg/dL 7-17 N GLOMERULAR FILTRATION RATE (test code = GFR) 115 mL/min The Glomerular Filtration Rate is a calculated parameterbased on serum Creatinine, patient age and sex. GFR valuesless than 60 mL/min/1.73 square meters are indicative ofChronic Kidney Disease. Values less than 15 mL/min/1.73square meters indicate Kidney failure. The calculation forGFR is based on the CKD-EPI (2020) calculation. This formulais race indifferent and is the recommended formula for GFRby the National Kidney Foundation for Adults.The GFR will not calculate if the sex is unknown or if thepatient's age is <18 years. CREATININE (test code = CREAT) < 0.4 mg/dL 0.5-1.0 L TOTAL PROTEIN (test code = PROT) 6.0 g/dL 6.3-8.2 L "A positive bias may occur for patients taking Eltrombopag(a bone marrow stimulant used to treat thrombocytopenia andaplastic anemia)." ALBUMIN (test code = ALB) 3.4 g/dL 3.5-5.0 L CALCIUM (test code = CA) 8.4 mg/dL 8.4-10.2 N BILIRUBIN TOTAL (test code = BILT) 4.8 mg/dL 0.2-1.3 H "A positive b ias may occur for patients taking Eltrombopag(a bone marrow stimulant used to treat thrombocytopenia andaplastic anemia)." BILIRUBIN CONJUGATED (test code = BILCON) 1.9 mg/dL 0-0.3 H "A positive bias may occur for patients taking Eltrombopag(a bone marrow stimulant used to treat thrombocytopenia andaplastic anemia)." CONJUGATE D BILIRUBIN IS THE REPLACEMENT ASSAY FOR DIRECTBILIRUBIN. BILIRUBIN UNCONJUGATED (test code = BILUNC) 1.8 mg/dL 0-1.1 H SGOT/AST (test code = AST) 250 U/L 15-46 H SGPT/ALT (test code = ALT) 65 U/L 0-34 H ALKALINE PHOSPHATASE (test code = ALKP) 268 U/L 38-126 H INDEX HEMOLYSIS (test code = HEMINDEX) 15 Index/DL 0-100 N [id number] 06:13:00* Test Item Value Reference Range Interpretation Comme nts PHOSPHOROUS (test code = PHOS) 3.6 mg/dL 2.5-4.5 N [id number] 06:13:00* Test Item Value Reference Range Interpretation Comme nts MAGNESIUM (test code = MAG) 1.4 mg/dL 1.6-2.3 L VITAMIN [id number] 06:13:00* Test Item Value Reference Range Interpretation Comme nts VITAMIN B12 (test code = VITB12) > 1000 pg/mL 239-931 H A positive bias may occur for patients taking BIOTINsupplements. FOLIC [id number] 06:13:00* Test Item Value Reference Range Interpretation Comme nts FOLIC ACID (test code = FOL) 7.28 ng/mL REFERENCE RANGE: 2.76 - >20 ng/mL A positive bias may occur on patients taking BIOTINsupplements. TSH REFLEX TO [id number] 06:13:00* Test Item Value Reference Range Interpretation Comme nts TSH REFLEX TO FT4 (test code = TSHREFLEX) 2.860 MIU/L 0.465-4.68 N A positive bias may occur for patients taking BIOTINsupplements. [id number] 06:02:00* Test Item Value Reference Range Interpretation Comme nts TROPONIN-I (test code = TROPI) < 0.012 ng/mL 0.012-0.033 L Please be advised of the updated reference ranges for the new Chemistry instrumentation. VITROS TROPONIN I CRITERIANORMAL PATIENT W/O CIRCULATING TNI: 0.012-0.033 ng/mLAMI DIAGNOSTIC CUTOFF: >/= 0.120 ng/mL~~~~~~~~~~~~~~~~~~~~~~ ~~~~~~~~~~~~~~~~~~~~~~~~~~~ ~~~~~~~~~~The use of serial sampling and testing protocol is arecommended practice.An elevated troponin level alone is often not sufficient fordiagnosis of myocardial infarction. Troponin results obtained by different assays may vary.Evaluation of the extent of myocardial damage based onincrease of troponin would be valid only if similarmethodology is used.~~~~~~~~~~~~~~~~~~~~~~ ~~~~~~~~~~~~~~~~~~~~~~~~~~~ ~~~~~~~~~~ A POSITIVE BIAS MAY OCCUR FOR PATIENTS TAKING BIOTIN SUPPLEMENTS~~~~~~~~~~~~~~~~ ~~~~~~~~~~~~~~~~~~~~~~~~~~~ ~~~~~~~~~~~~~~~~ [id number] 05:58:00* Test Item Value Reference Range Interpretation Comme nts GLUBED (test code = GLUBED) 68 MG/DL 74-106 L CBC W/AUTO [id number] 04:58:00* Test Item Value Reference Range Interpretation Comme nts WHITE BLOOD CELL (test code = WBC) 9.7 x10 3/uL 5.0-12.0 N RED BLOOD CELL (test code = RBC) 3.43 x10 6/uL 4.20-5.40 L HEMOGLOBIN (test code = HGB) 10.7 g/dL 12.0-16.0 L HEMATOCRIT (test code = HCT) 32.3 % 36.0-46.0 L MEAN CELL VOLUME (test code = MCV) 94 fL 81-99 N MEAN CELL HGB (test code = MCH) 31.2 pg 27-31 H MEAN CELL HGB CONCENTRATION (test code = MCHC) 33.1 g/dL 33-37 N RED CELL DISTRIBUTION WIDTH (test code = RDW) 17.5 % 11.5-15.5 H PLATELET COUNT (test code = PLT) 161 x10 3/uL 130-400 N MEAN PLATELET VOLUME (test c ode = MPV) 11.6 fL 9.4-16.4 N NEUTROPHIL % (test code = NT%) 64.1 % 43-65 N IMMATURE GRANULOCYTE % (test code = IG%) 0.6 % 0.0-2.0 N LYMPHOCYTE % (test code = LY%) 23.1 % 20.5-45.5 N MONOCYTE % (test code = MO%) 10.0 % 5.5-11.7 N EOSINOPHIL % (test code = EO%) 1.5 % 0.9-2.9 N BASOPHIL % (test code = BA%) 0.7 % 0.2-1.0 N NUCLEATED RBC % (test code = NRBC%) 0.0 % 0-1.0 N NEUTROPHIL # (test code = NT#) 6.24 x10 3/uL 2.2-4.8 H IMMATURE GRANULOCYTE # (test code = IG#) 0.06 x10 3/uL 0-0.03 H LYMPHOCYTE # (test code = LY#) 2.25 x10 3/uL 1.3-2.9 N MONOCYTE # (test code = MO#) 0.97 x10 3/uL 0.3-0.8 H EOSINOPHIL # (test code = EO#) 0.15 x10 3/uL 0.0-0.2 N BASOPHIL # (test code = BA#) 0.07 x10 3/uL 0.0-0.1 N LIPID PROFILE (CORONARY RISK)2023-06-29 23:49:00* Test Item Value Reference Range Interpretation Comme nts TRIGLYCERIDES (test code = TRIG) 163 mg/dL TRIGLYCERIDES REFERENCE RANGE:Normal: <150 mg/dLBorderline High: 150-199 mg/dLHigh: 200-499 mg/dLVery High: >=500 mg/dL CHOLESTEROL (test code = CHOL) 215 mg/dL CHOLESTEROL REFERENCE RANGE:DESIRABLE: < 200 mg/dLBORDERLINE: 200-239 mg/dLHIGH: >=240 mg/dL HDL CHOLESTEROL (test code = HDL) 91 mg/dL 40-59 H LIPOPROTEIN LDL (test code = LDLC) 116.98 mg/dL 32-99 H CORONARY RISK FACTOR (test code = RISK) 2.36 CHOL/HDL RISK MALE: 1/2 AVG 3.43 FEMALE: 1/2 AVG 3.27 AVG 4.97 AVG 4.44 2X AVG 9.55 2X AVG 7.05 3X AVG 23.39 3X AVG 11.04~~~~~~~~~~~~~~~ ~~~~~~~~~~~~~~~~~~~~ ~~~~~~~~~~~~~~~~~~~~ ~~~~~National Cholesterol Education (NCEP) Guidelines:~~~~~~~~~ ~~~~~~~~~~~~~~~~~~~~ ~~~~~~~~~~~~~~~~~~~~ ~~~~~~~~~~~ HDL Cholesterol<40mg/d L: HDL Cholesterol (Major risk factor for CHD)>60mg/dL: HDL Cholesterol (Negative risk factor for CHD)40-59mg/dL: Borderline Risk LDL Cholesterol<100mg/ dL: Desirable LDL-C iqpyuxidisryt506-638 mg/dL: Borderline High Risk LDL-C gxxupwtfujsqb328-912 mg/dL: High risk LDL-C concentration HDL-LDL Cholesterol is affected by a number of factors suchas smoking, age and sex.~~~~~~~~~~~~~~~~ ~~~~~~~~~~~~~~~~~~~~ ~~~~~~~~~~~~~~~~~~~~ ~~~~ PROTHROMBIN [id number] 23:43:00* Test Item Value Reference Range Interpretation Comme nts PROTHROMBIN TIME PATIENT (test code = PTP) 13.2 SECONDS 9.4-12.5 H INTERNATIONAL NORMAL RATIO (test code = INR) 1.2 The INR is to be used only for monitoring ORAL ANTICOAGULANTTHERAPY. Indication INR Value1. Prophylaxis/treatment of: Venous Thrombosis, Pulmonary Embolism 2.0 - 3.02. Prevention of systemic embolism from: Tissue heart valves 2.0 - 3.0 Acute myocardial infarction (to present systemic embolism)* 2.0 - 3.0 Valvular heart disease 2.0 - 3.0 Atrial fibrillation 2.0 - 3.03. Mechanical prosthetic valves (high risk) 2.5 - 3.5 * If oral anticoagulant therapy is elected to preventrecurrent myocardial infarction, an INR of 2.5-3.5 isrecommended, consistent with Food and Drug Administrationrecommen dations. THROMBOPLASTIN TIME [id number] 23:43:00* Test Item Value Reference Range Interpretation Comme nts THROMBOPLASTIN TIME PARTIAL (test code = PTT) 27.5 SECONDS 23.4-37.0 N Therapeutic Rang e for Heparin EFFECTIVE 11/25/12 Heparin IU/mL aPTT Seconds0.3 64.30.7 88.8 [id number] 22:18:00* Test Item Value Reference Range Interpretation Comme nts GLUBED (test code = GLUBED) 101 MG/DL 74-106 N - US ABDOMEN [id number] 17:43:00 [facility] 1965 Sex: F FAX: Babs Perez [place]: St: REG FAX: Willis Preston [phone] Name: PHILLIP MANDELZAK [facility] : 1965 Age/S: 57/F [address] Unit #: [id number] Loc: [place] [address] Phys: Babs Perez ORDNANCE OFFICER Acct: [id number] Dis Date: Status: REG ER PHONE #: [phone] Exam Date: 1703 FAX #: [phone] Reason: abd pain EXAMS: CPT CODE: [id number] US ABDOMEN LTD 53057PPKX: Abdominal ultrasound limited to the right upper quadrant Location: H24 HISTORY: Abdominal pain. COMPARISON: None available TECHNIQUE: Static, nicolas-scale images of the abdomen limited to the right upper quadrant were obtained. FINDINGS: Liver demonstrates diffusely increased echogenicity and coarsened echotexture. It measures 17.8 cm in length No focal mass lesions are identified. There is no ascites. Gallbladder is moderately distended. No gallbladder wall thickening. No gallstones or pericholecystic fluid. The common duct measures 7 mm which is mildly dilated. No intrahepatic biliary dilatation is seen. The pancreas is suboptimally visualized secondary to overlying gas. The right kidney measures 10.3 cm . Cortical thickness is normal. No mass or obstruction is present. The visualized aorta and inferior vena cava appear unremarkable. IMPRESSION: 1. Hepatomegaly with fatty infiltra tion of liver versus further hepatocellular disease. Please correlate with hepatic profile. 2. Hydropic gallbladder. No further sonographic evidence for acute cholecystitis. 3. Dilation of the commonbile duct. Please correlate with hepatic profile. Consider further characterization with ERCP or MRCP if of continued concern. PAGE 1 Signed Report (CONTINUED) FAX: Babs Perez [place]: St: REG FAX: Willis Preston [phone] Name: ZAK MANDEL [facility] : 1965 Age/S: 57/F [address] Unit #: [id number] Loc: [place] [address] Phys: Babs Perez ORDNANCE OFFICER Acct: [id number] Dis Date: Status: REG ER PHONE #: [phone] Exam Date: 06/29/20231702 FAX #: [phone] Reason: abd pain EXAMS: CPT CODE: [id number] US ABDOMEN LTD 80054 (Continued) Electronically Signedby Ke Bullard MD on 06/29/2023 at 1743 Reported and signed by: Ke Bullard MD CC: Babs Perez ORDNANCE OFFICER; Willis Storey NP Technologist: LUDA DOHERTY Trnwird Date/Time/By: 06/29/2023 (174) : By: [email or web address] PAGE 2 Signed Report FAX: Babs Perez [place]: St: [facility] FAX: Willis Preston [phone] Name: ZAK MANDEL [facility] : 1965 Age/S: 57/F [address] Unit #: [id number] Loc: [place] [address] Phys: Babs Perez NP Acct: [id number] Dis Date: Status:REG ER PHONE #: [phone] Exam Date: 06/29/20231702 FAX #: [phone] Reason: abd pain EXAMS: CPT CODE: [id number] US ABDOMEN LTD 90702 (Continued) Orig Print D/T: S: 06/29/2023 (1746) PAGE 3 Si gned ReportPOC VENOUS BLOOD [id number] 15:44:00* Test Item Value Reference Range Interpretation Comme nts ALLENS TEST (test code = ALLENS) Positive POC IONIZED CALCIUM (test code = POCCA) 1.07 MMOL/L 1.15-1.33 L POC VENOUS BLOOD GAS PH (carlos t code = POCPHV) 7.46 7.31-7.41 H POC VENOUS BLOOD GAS PCO2 (test code = ARMZAB6F) 44.1 mm/Hg 41-51 N POC VENOUS BLOOD GAS PO2 (test code = GILKY1X) 25.7 mm/Hg 30-40 L POC HCO3 VENOUS (test code = MTTEKB2I) 31.0 mmol/L 23-28 H POC BASE EXCESS VENOUS (test code = POCBEV) 6.1 mmol/L -2-+3 H POC O2 SATURATION VENOUS (test code = SLYU1YW) 50.0 % 50.0-80.0 N SODIUM (test code = NA/VBG) 139 mmol/l 138-146 N POTASSIUM (test code = K/VBG) 3.4 mmol/L 3.5-4.5 L CHLORIDE (test code = CL/VBG) 98 MEQ/L GLUCOSE (test code = GLU/VBG) 119 mg/dL 74-100 H POC SAMPLE SOURCE (test code = POCSAMPLE) Venous Descript Specimen Critical: Notify physician DR PIERRE (29-Jun-2414:43:53) No Read Back Indicated- CT ABD PELVIS [id number] 15:28:00 [facility] : 1965 Sex: F FAX: Babs Perez [place]: [facility]: [facility] FAX: Willis Preston [phone] Name: ZAK MANDEL [facility] AbbiDOB: 1965 Age/S: 57/F [address] Unit: [id number] Loc: [place] [address] Phys: Babs Perez ORDNANCE OFFICER Acct: [id number] Dis Date: Status: REG ER PHONE #: [phone] Exam Date: 06/29/2023 1430 FAX #: [phone] Reason: PERIUMBILICAL PAIN EXAMS: CPT CODE: [id number] CT ABD PELVIS W/CONT 32437 EXAM: - CT ABD PELVIS W/CONT Location: H24 INDICATION: PERIUMBILICAL PAIN COMPARISON:None Technique: Axial images of the abdomen, and pelvis were obtained after the administration of 100 mL Isovue 300 intravenous contrast. Coronal and sagittal reformatted images were created. One or more of the following dose reduction techniques were used: Automated exposure control, adjustment ofthe mA and/or kV according to patient size, and/or utilization of iterative reconstruction technique. GFR: , Creatinine: mg/dL DLP: mGy-cm. FINDINGS: Abdomen Lower thorax: No visualized abnormality. Hepatobiliary: Liver is enlarged. Extensive fatty infiltration is present. No discrete mass lesionsare seen. No biliary ductal dilatation. Gallbladder: No visualized abnormality. Spleen: No visualized abnormality. Pancreas: No visualized abnormality. Adrenals: No visualized abnormality. Kidneys: No visualized abnormality. Bowel: The small and large bowel loops are normal in caliber. There is noabnormal mural thickening or obstruction. A normal caliber appendix is seen in the right lower quadrant. Postoperative changes from sleeve gastrectomy. There is a small hiatal hernia. Vessels: No visualized abnormality. PAGE 1 Signed Report (CONTINUED) FAX: Babs Perez [place]: St: REG FAX: Willis Preston [phone] Name: ZAK MANDEL [facility] Abbi : 1965 Age/S: 57/F [address] Unit: [id number] Loc: [place] [address] Phys: Babs Perez NP Acct: [id number] Dis Date: Status: REG ER PHONE #: [phone] Exam Date: 06/29/2023 1430 FAX #: [phone] Reason: PERIUMBILICAL PAIN EXAMS: CPT CODE: [id number] CT ABD PELVIS W/CONT 12844 (Continued) Lymph nodes: No l ymphadenopathy Peritoneum/retroperitoneum: No intraabdominal free air or free fluid. FINDINGS: Pelvis Pelvic organs/bladder: The uterus and adnexa are within normal limits. The bladder is collapsed.There is no free pelvic fluid. Lymph nodes: No pelvic or inguinal adenopathy. Bones/soft tissues: Spondylosis noted in the lower lumbar spine. No discrete osteolytic or osteosclerotic lesions are seen. IMPRESSION: 1. Hepatomegaly with hepatic steatosis. Please correlate with hepatic profile. 2. Postoperative changes from sleeve gastrectomy.. at 1528 Reported and signed by: Ke Bullard MD CC: Babs Perez ORDNANCE OFFICER; Willis Ceballos chnologist: KEVIN MOSS Trnscrd Dt/Tm: 06/29/2023 (1528) [email or web address] OrigPrint D/T: S: 06/29/2023 (1531 PAGE 2 Signed ReportUA RFLX MICR CULT IF [id number] 14:10:00* Test Item Value Reference Range Interpretation Comme nts UA COLOR (test code = COLU) Dark-Maries Yellow UA APPEARANCE (test code = APPU) Turbid Clear A UA GLUCOSE DIPSTICK (test code = DGLUU) 50 (1+) Negative A UA BILIRUBIN DIPSTICK (test code = BILU) 2+ Negative A UA KETONE DIPSTICK (test code = KETU) Trace mg/dL Negative A UA SPECIFIC GRAVITY (test code = SGU) 1.039 <1.030 A UA BLOOD DIPSTICK (test code = JESSIE) 1+ Negative A UA PH DIPSTICK (test code = ARTHUR) 6.0 5.0-8.0 UA PROTEIN DIPSTICK (test code = PROU) 100 (2+) mg/dL Negative A UA UROBILINOGEN DIPSTICK (test code = URO) 4 mg/dL Negative UA NITRITE DIPSTICK (test code = PAPA) Negative Negative UA LEUKOCYTE ESTERASE DIPSTICK (test code = LEUU) NEGATIVE Negative UA WBC (test code = WBCUR) 51-100 /HPF See_Comment A >10 WBC/HPF = PYURIA PRESENT URINE CULTURE PROCESSED [Automated message] The system which generated this result transmitted reference range: <4-5. The reference range was not used to interpret this result as normal/abnormal. UA RBC (test code = RBCU) 11-20 /HPF See_Comment A [Automated message] The system which generated this result transmitted reference range: <4-5. The reference range was not used to interpret this result as normal/abnormal. UA BACTERIA (test code = BACU) None /HPF None-Rare UA SQUAMOUS CELLS (test code = SQU) 6-15 (FEW) /HPF See_Comment A [Automated message] The system which generated this result transmitted reference range: 0-5 (RARE). The reference range was not used to interpret this result as normal/abnormal. UA HYALINE CAST (test code = HYALU) >30 /LPF See_Comment A [Automated message] The system which generated this result transmitted reference range: <4-5. The reference range was not used to interpret this result as normal/abnormal. UA MUCUS (test code = MUCU) 4+ /LPF See_Comment A [Automated message] The system which generated this result transmitted reference range: <Rare. The reference range was not used to interpret this result as normal/abnormal. Indication for culture: RiskForSepsis-no oth srcSOURCE OF URINE: CLEAN CATCH BASIC METABOLIC [id number] 13:40:00* Test Item Value Reference Range Interpretation Comme nts SODIUM (test code = NA) 140 mmol/L 137-145 N POTASSIUM (test code = K) 3.6 mmol/L 3.4-5.0 N CHLORIDE (test code = CL) 88 mmol/L 98-107 L CARBON DIOXIDE (test code = CO2) 28 mmol/L 22-30 N ANION GAP (test code = GAP) 27 mmol/L 10-20 H GLUCOSE (test code = GLU) 126 mg/dL 74-106 H BLOOD UREA NITROGEN (test code = BUN) 7 mg/dL 7-17 N GLOMERULAR FILTRATION RATE (test code = GFR) 109 mL/min The Glomerular Filtration Rate is a calculated parameterbased on serum Creatinine, patient age and sex. GFR valuesless than 60 mL/min/1.73 square meters are indicative ofChronic Kidney Disease. Values less than 15 mL/min/1.73square meters indicate Kidney failure. The calculation forGFR is based on the CKD-EPI (202) calculation. This formulais race indifferent and is the recommended formula for GFRby the National Kidney Foundation for Adults.The GFR will not calculate if the sex is unknown or if thepatient's age is <18 years. CREATININE (test code = CREAT) 0.5 mg/dL 0.5-1.0 N CALCIUM (test code = CA) 9.2 mg/dL 8.4-10.2 N INDEX HEMOLYSIS (test code = HEMINDEX) < 15 Index/DL 0-100 N LIVER FUNCTION [id number] 13:40:00* Test Item Value Reference Range Interpretation Comme nts TOTAL PROTEIN (test code = PROT) 8.1 g/dL 6.3-8.2 N "A positive bias may occur for patients taking Eltrombopag(a bone marrow stimulant used to treat thrombocytopenia andaplastic anemia)." ALBUMIN (test code = ALB) 4.5 g/dL 3.5-5.0 N BILIRUBIN TOTAL (test code = BILT) 5.9 mg/dL 0.2-1.3 H "A positive b ias may occur for patients taking Eltrombopag(a bone marrow stimulant used to treat thrombocytopenia andaplastic anemia)." BILIRUBIN CONJUGATED (test code = BILCON) 2.0 mg/dL 0-0.3 H "A positive bias may occur for patients taking Eltrombopag(a bone marrow stimulant used to treat thrombocytopenia andaplastic anemia)." CONJUGATED BILIRUBIN IS THE REPLACEMENT ASSAY FOR DIRECTBILIRUBIN. BILIRUBIN UNCONJUGATED (test code = BILUNC) 2.3 mg/dL 0-1.1 H SGOT/AST (test code = AST) 356 U/L 15-46 H SGPT/ALT (test code = ALT) 85 U/L 0-34 H ALKALINE PHOSPHATASE (test code = ALKP) 392 U/L 38-126 H [id number] 13:40:00* Test Item Value Reference Range Interpretation Comme nts LIPASE (test code = LIP) 182 U/L 23-300 N CBC W/AUTO [id number] 13:24:00* Test Item Value Reference Range Interpretation Comme nts WHITE BLOOD CELL (test code = WBC) 10.3 x10 3/uL 5.0-12.0 N RED BLOOD CELL (test code = RBC) 4.06 x10 6/uL 4.20-5.40 L HEMOGLOBIN (test code = HGB) 12.6 g/dL 12.0-16.0 N HEMATOCRIT (test code = HCT) 37.3 % 36.0-46.0 N MEAN CELL VOLUME (test code = MCV) 92 fL 81-99 N MEAN CELL HGB (test code = MCH) 31.0 pg 27-31 N MEAN CELL HGB CONCENTRATION (test code = MCHC) 33.8 g/dL 33-37 N RED CELL DISTRIBUTION WIDTH (test code = RDW) 17.2 % 11.5-15.5 H PLATELET COUNT (test code = PLT) 200 x10 3/uL 130-400 N MEAN PLATELET VOLUME (test c ode = MPV) 11.0 fL 9.4-16.4 N NEUTROPHIL % (test code = NT%) 82.0 % 43-65 H IMMATURE GRANULOCYTE % (test code = IG%) 0.5 % 0.0-2.0 N LYMPHOCYTE % (test code = LY%) 9.1 % 20.5-45.5 L MONOCYTE % (test code = MO%) 7.7 % 5.5-11.7 N EOSINOPHIL % (test code = EO%) 0.0 % 0.9-2.9 L BASOPHIL % (test code = BA%) 0.7 % 0.2-1.0 N NUCLEATED RBC % (test code = NRBC%) 0.0 % 0-1.0 N NEUTROPHIL # (test code = NT#) 8.43 x10 3/uL 2.2-4.8 H IMMATURE GRANULOCYTE # (test code = IG#) 0.05 x10 3/uL 0-0.03 H LYMPHOCYTE # (test code = LY#) 0.93 x10 3/uL 1.3-2.9 L MONOCYTE # (test code = MO#) 0.79 x10 3/uL 0.3-0.8 N EOSINOPHIL # (test code = EO#) 0.00 x10 3/uL 0.0-0.2 N BASOPHIL # (test code = BA#) 0.07 x10 3/uL 0.0-0.1 N [id number] 12:46:00* Test Item Value Reference Range Interpretation Comme nts GLUBED (test code = GLUBED) 107 MG/DL 74-106 H [id number] 08:44:00* Test Item Value Reference Range Interpretation Comme nts GLUBED (test code = GLUBED) 137 MG/DL 74-106 H BASIC METABOLIC [id number] 06:03:00* Test Item Value Reference Range Interpretation Comme nts SODIUM (test code = NA) 140 mmol/L 137-145 N POTASSIUM (test code = K) 3.4 mmol/L 3.4-5.0 N CHLORIDE (test code = CL) 101 mmol/L 98-107 N CARBON DIOXIDE (test code = CO2) 32 mmol/L 22-30 H ANION GAP (test code = GAP) 9 GLUCOSE (test code = GLU) 91 mg/dL 74-106 N BLOOD UREA NITROGEN (test code = BUN) 3 mg/dL 7-17 L GLOMERULAR FILTRATION RATE (test code = GFR) 109 mL/min The Glomerular Filtration Rate is a calculated parameterbased on serum Creatinine, patient age and sex. GFR valuesless than 60 mL/min/1.73 square meters are indicative ofChronic Kidney Disease. Values less than 15 mL/min/1.73square meters indicate Kidney failure. The calculation forGFR is based on the CKD-EPI (2020) calculation. This formulais race indifferent and is the recommended formula for GFRby the National Kidney Foundation for Adults.The GFR will not calculate if the sex is unknown or if thepatient's age is <18 years. CREATININE (test code = CREAT) 0.5 mg/dL 0.5-1.0 N CALCIUM (test code = CA) 8.5 mg/dL 8.4-10.2 N INDEX HEMOLYSIS (test code = HEMINDEX) 17 Index/DL 0-100 N [id number] 06:03:00* Test Item Value Reference Range Interpretation Comme nts MAGNESIUM (test code = MAG) 1.5 mg/dL 1.6-2.3 L CBC W/AUTO [id number] 05:33:00* Test Item Value Reference Range Interpretation Comme nts WHITE BLOOD CELL (test code = WBC) 6.7 x10 3/uL 5.0-12.0 N RED BLOOD CELL (test code = RBC) 3.33 x10 6/uL 4.20-5.40 L HEMOGLOBIN (test code = HGB) 10.4 g/dL 12.0-16.0 L HEMATOCRIT (test code = HCT) 31.6 % 36.0-46.0 L MEAN CELL VOLUME (test code = MCV) 95 fL 81-99 N MEAN CELL HGB (test code = MCH) 31.2 pg 27-31 H MEAN CELL HGB CONCENTRATION (test code = MCHC) 32.9 g/dL 33-37 L RED CELL DISTRIBUTION WIDTH (test code = RDW) 18.1 % 11.5-15.5 H PLATELET COUNT (test code = PLT) 173 x10 3/uL 130-400 N MEAN PLATELET VOLUME (test c ode = MPV) 11.2 fL 9.4-16.4 N NEUTROPHIL % (test code = NT%) 52.6 % 43-65 N IMMATURE GRANULOCYTE % (test code = IG%) 0.3 % 0.0-2.0 N LYMPHOCYTE % (test code = LY%) 25.4 % 20.5-45.5 N MONOCYTE % (test code = MO%) 15.9 % 5.5-11.7 H EOSINOPHIL % (test code = EO%) 5.1 % 0.9-2.9 H BASOPHIL % (test code = BA%) 0.7 % 0.2-1.0 N NUCLEATED RBC % (test code = NRBC%) 0.0 % 0-1.0 N NEUTROPHIL # (test code = NT#) 3.54 x10 3/uL 2.2-4.8 N IMMATURE GRANULOCYTE # (test code = IG#) 0.02 x10 3/uL 0-0.03 N LYMPHOCYTE # (test code = LY#) 1.71 x10 3/uL 1.3-2.9 N MONOCYTE # (test code = MO#) 1.07 x10 3/uL 0.3-0.8 H EOSINOPHIL # (test code = EO#) 0.34 x10 3/uL 0.0-0.2 H BASOPHIL # (test code = BA#) 0.05 x10 3/uL 0.0-0.1 N [id number] 21:48:00* Test Item Value Reference Range Interpretation Comme nts GLUBED (test code = GLUBED) 110 MG/DL 74-106 H [id number] 17:23:00* Test Item Value Reference Range Interpretation Comme nts GLUBED (test code = GLUBED) 94 MG/DL 74-106 N [id number] 12:12:00* Test Item Value Reference Range Interpretation Comme nts GLUBED (test code = GLUBED) 99 MG/DL 74-106 N [id number] 09:48:00* Test Item Value Reference Range Interpretation Comme nts GLUBED (test code = GLUBED) 119 MG/DL 74-106 H [id number] 07:25:00* Test Item Value Reference Range Interpretation Comme nts PHOSPHOROUS (test code = PHOS) 2.7 mg/dL 2.5-4.5 N [id number] 07:25:00* Test Item Value Reference Range Interpretation Comme nts MAGNESIUM (test code = MAG) 1.5 mg/dL 1.6-2.3 L COMPREHENSIVE METABOLIC [id number] 07:25:00* Test Item Value Reference Range Interpretation Comme nts SODIUM (test code = NA) 139 mmol/L 137-145 N POTASSIUM (test code = K) 3.7 mmol/L 3.4-5.0 N CHLORIDE (test code = CL) 104 mmol/L 98-107 N CARBON DIOXIDE (test code = CO2) 30 mmol/L 22-30 N ANION GAP (test code = GAP) 9 GLUCOSE (test code = GLU) 93 mg/dL 74-106 N BLOOD UREA NITROGEN (test code = BUN) 2 mg/dL 7-17 L GLOMERULAR FILTRATION RATE (test code = GFR) 115 mL/min The Glomerular Filtration Rate is a calculated parameterbased on serum Creatinine, patient age and sex. GFR valuesless than 60 mL/min/1.73 square meters are indicative ofChronic Kidney Disease. Values less than 15 mL/min/1.73square meters indicate Kidney failure. The calculation forGFR is based on the CKD-EPI (2020) calculation. This formulais race indifferent and is the recommended formula for GFRby the National Kidney Foundation for Adults.The GFR will not calculate if the sex is unknown or if thepatient's age is <18 years. CREATININE (test code = CREAT) < 0.4 mg/dL 0.5-1.0 L TOTAL PROTEIN (test code = PROT) 6.1 g/dL 6.3-8.2 L "A positive bias may occur for patients taking Eltrombopag(a bone marrow stimulant used to treat thrombocytopenia andaplastic anemia)." ALBUMIN (test code = ALB) 3.6 g/dL 3.5-5.0 N CALCIUM (test code = CA) 8.3 mg/dL 8.4-10.2 L BILIRUBIN TOTAL (test code = BILT) 1.3 mg/dL 0.2-1.3 N "A positive b ias may occur for patients taking Eltrombopag(a bone marrow stimulant used to treat thrombocytopenia andaplastic anemia)." BILIRUBIN CONJUGATED (test code = BILCON) 0 mg/dL 0-0.3 N "A positive bias may occur for patients taking Eltrombopag(a bone marrow stimulant used to treat thrombocytopenia andaplastic anemia)." CONJUGATE D BILIRUBIN IS THE REPLACEMENT ASSAY FOR DIRECTBILIRUBIN. BILIRUBIN UNCONJUGATED (test code = BILUNC) 0.6 mg/dL 0-1.1 N SGOT/AST (test code = AST) 177 U/L 15-46 H SGPT/ALT (test code = ALT) 59 U/L 0-34 H ALKALINE PHOSPHATASE (test code = ALKP) 146 U/L 38-126 H INDEX HEMOLYSIS (test code = HEMINDEX) 26 Index/DL 0-100 N CBC W/AUTO [id number] 07:08:00* Test Item Value Reference Range Interpretation Comme nts WHITE BLOOD CELL (test code = WBC) 7.2 x10 3/uL 5.0-12.0 N RED BLOOD CELL (test code = RBC) 3.66 x10 6/uL 4.20-5.40 L HEMOGLOBIN (test code = HGB) 11.6 g/dL 12.0-16.0 L HEMATOCRIT (test code = HCT) 35.5 % 36.0-46.0 L MEAN CELL VOLUME (test code = MCV) 97 fL 81-99 N MEAN CELL HGB (test code = MCH) 31.7 pg 27-31 H MEAN CELL HGB CONCENTRATION (test code = MCHC) 32.7 g/dL 33-37 L RED CELL DISTRIBUTION WIDTH (test code = RDW) 17.7 % 11.5-15.5 H PLATELET COUNT (test code = PLT) 155 x10 3/uL 130-400 N MEAN PLATELET VOLUME (test c ode = MPV) 11.2 fL 9.4-16.4 N NEUTROPHIL % (test code = NT%) 54.1 % 43-65 N IMMATURE GRANULOCYTE % (test code = IG%) 0.4 % 0.0-2.0 N LYMPHOCYTE % (test code = LY%) 25.5 % 20.5-45.5 N MONOCYTE % (test code = MO%) 13.7 % 5.5-11.7 H EOSINOPHIL % (test code = EO%) 5.3 % 0.9-2.9 H BASOPHIL % (test code = BA%) 1.0 % 0.2-1.0 N NUCLEATED RBC % (test code = NRBC%) 0.0 % 0-1.0 N NEUTROPHIL # (test code = NT#) 3.91 x10 3/uL 2.2-4.8 N IMMATURE GRANULOCYTE # (test code = IG#) 0.03 x10 3/uL 0-0.03 N LYMPHOCYTE # (test code = LY#) 1.84 x10 3/uL 1.3-2.9 N MONOCYTE # (test code = MO#) 0.99 x10 3/uL 0.3-0.8 H EOSINOPHIL # (test code = EO#) 0.38 x10 3/uL 0.0-0.2 H BASOPHIL # (test code = BA#) 0.07 x10 3/uL 0.0-0.1 N [id number] 21:16:00* Test Item Value Reference Range Interpretation Comme nts GLUBED (test code = GLUBED) 93 MG/DL 74-106 N [id number] 16:50:00* Test Item Value Reference Range Interpretation Comme nts GLUBED (test code = GLUBED) 106 MG/DL 74-106 N [id number] 12:45:00* Test Item Value Reference Range Interpretation Comme nts GLUBED (test code = GLUBED) 120 MG/DL 74-106 H [id number] 08:44:00* Test Item Value Reference Range Interpretation Comme nts GLUBED (test code = GLUBED) 121 MG/DL 74-106 H - US ABDOMEN [id number] 07:20:00 [facility] : 1965 Sex: F FAX: Bobby Huber DO R1 [place]: St: ADM FAX: Guille Montenegro DO FAX: Willis Preston [phone] Name: MANDEL,ZAK [facility] : 1965 Age/S: 57/F [id number] Unit #: [id number] Loc: C.[address] [place] [address] Phys: Bobby Hubre Acct: [id number] Dis Date: Status: ADM IN PHONE #: [phone] Exam Date: 04/23/20232005 FAX #: [phone] Reason: Suspect Alcoholic Cirrhosis EXAMS: CPTCODE: [id number] US ABDOMEN LTD 09350 EXAM: - US ABDOMEN LTD HISTORY: Suspect Alcoholic Cirrhosis Location code:C3 COMPARISON: None available time of interpretation. TECHNIQUE: Grayscale B-mode and color Doppler sonographic images of the right upper quadrant were obtained. FINDINGS: Liver: Right hepatic lobe length: 17.7 cm Parenchyma/Contour: Increased echogenicity to the hepatic parenchyma is present. Main portal vein: Patent with normal (hepatopetal) flow. Biliary ducts: No intrahepatic biliary ductal dilation. Common duct measures 5 mm in diameter at the mark hepatis. Gallbladder: Unremarkable. No cholelithiasis. No gallbladder wall thickening or pericholecystic fluid. Pancreas: The visualized portions of the pancreas are unremarkable. Right Kidney: The right kidney has a normal sonographic appearance. No solid mass lesion is seen. No hydronephrosis is present. Renal cortical thickness and echogenicity is within normal limits. Length: 10.2 cm Other: No ascites in the visualized abdomen. IMPRESSION: 1. Hepatomegaly with hepatic steatosis is present. at 0720 Reported and signed by: Kevin Linn MD PAGE 1 Signed Report (CONTINUED) FAX: Bobby Huber DO R1 [place]: St: [facility] FAX: Guille Montenegro DO FAX: Willis Preston [phone] Name: ZAK MANDEL [facility] : 1965 Age/S: 57/F [address] Unit #: [id number] Loc: C.[address] [place] [address] Phys: Bobby Huber DO Acct: [id number] Dis Date: Status: ADM IN PHONE #: [phone] Exam Date: 04/23/20232005 FAX #: [phone] Reason: Suspect Alcoholic Cirrhosis EXAMS: CPT CODE: [id number] ABDOMEN LTD 02537 (Continued) CC: Bobby Huber DO; Guille Montenegro DO; Willis Storey NP Technologist: KATHERINE Barroso Date/Time/By: 04/24/2023 (0720) : By: [email or web address] PAGE 2 Signed Report FAX: MayoPaulBobby DO R1 [place]: St: ADM FAX: Guille Montenegro DO FAX: Willis Preston [phone] Name: ZAK MANDEL [facility] : 1965 Age/S: 57/F [address] Unit #: [id number] Loc: [address] [place] [id number] Phys: Bobby Huber DO Acct: [id number] Dis Date: Status: ADM IN PHONE #: [phone] Exam Date: 04/23/20232005 FAX #: [phone] Reason: Suspect Alcoholic Cirrhosis EXAMS: CPT CODE: [id number] ABDOMEN LTD 28942 (Continued) Orig Print D/T: S: 04/24/2023 (0723) PAGE 3 Signed Report COMPREHENSIVE METABOLIC [id number] 06:17:00* Test Item Value Reference Range Interpretation Comme nts SODIUM (test code = NA) 141 mmol/L 137-145 N POTASSIUM (test code = K) 3.4 mmol/L 3.4-5.0 N CHLORIDE (test code = CL) 105 mmol/L 98-107 N CARBON DIOXIDE (test code = CO2) 31 mmol/L 22-30 H ANION GAP (test code = GAP) 8 GLUCOSE (test code = GLU) 88 mg/dL 74-106 N BLOOD UREA NITROGEN (test code = BUN) 5 mg/dL 7-17 L GLOMERULAR FILTRATION RATE (test code = GFR) 109 mL/min The Glomerular Filtration Rate is a calculated parameterbased on serum Creatinine, patient age and sex. GFR valuesless than 60 mL/min/1.73 square meters are indicative ofChronic Kidney Disease. Values less than 15 mL/min/1.73square meters indicate Kidney failure. The calculation forGFR is based on the CKD-EPI (202) calculation. This formulais race indifferent and is the recommended formula for GFRby the National Kidney Foundation for Adults.The GFR will not calculate if the sex is unknown or if thepatient's age is <18 years. CREATININE (test code = CREAT) 0.5 mg/dL 0.5-1.0 N TOTAL PROTEIN (test code = PROT) 5.8 g/dL 6.3-8.2 L "A positive bias may occur for patients taking Eltrombopag(a bone marrow stimulant used to treat thrombocytopenia andaplastic anemia)." ALBUMIN (test code = ALB) 3.3 g/dL 3.5-5.0 L CALCIUM (test code = CA) 8.2 mg/dL 8.4-10.2 L BILIRUBIN TOTAL (test code = BILT) 1.6 mg/dL 0.2-1.3 H "A positive b ias may occur for patients taking Eltrombopag(a bone marrow stimulant used to treat thrombocytopenia andaplastic anemia)." BILIRUBIN CONJUGATED (test code = BILCON) 0 mg/dL 0-0.3 N "A positive bias may occur for patients taking Eltrombopag(a bone marrow stimulant used to treat thrombocytopenia andaplastic anemia)." CONJUGATE D BILIRUBIN IS THE REPLACEMENT ASSAY FOR DIRECTBILIRUBIN. BILIRUBIN UNCONJUGATED (test code = BILUNC) 0.7 mg/dL 0-1.1 N SGOT/AST (test code = AST) 201 U/L 15-46 H SGPT/ALT (test code = ALT) 51 U/L 0-34 H ALKALINE PHOSPHATASE (test code = ALKP) 146 U/L 38-126 H INDEX HEMOLYSIS (test code = HEMINDEX) < 15 Index/DL 0-100 N [id number] 06:17:00* Test Item Value Reference Range Interpretation Comme nts PHOSPHOROUS (test code = PHOS) 2.4 mg/dL 2.5-4.5 L [id number] 06:17:00* Test Item Value Reference Range Interpretation Comme nts MAGNESIUM (test code = MAG) 1.7 mg/dL 1.6-2.3 N CBC W/AUTO [id number] 06:06:00* Test Item Value Reference Range Interpretation Comme nts WHITE BLOOD CELL (test code = WBC) 6.7 x10 3/uL 5.0-12.0 N RED BLOOD CELL (test code = RBC) 3.40 x10 6/uL 4.20-5.40 L HEMOGLOBIN (test code = HGB) 10.5 g/dL 12.0-16.0 L HEMATOCRIT (test code = HCT) 32.9 % 36.0-46.0 L MEAN CELL VOLUME (test code = MCV) 97 fL 81-99 N MEAN CELL HGB (test code = MCH) 30.9 pg 27-31 N MEAN CELL HGB CONCENTRATION (test code = MCHC) 31.9 g/dL 33-37 L RED CELL DISTRIBUTION WIDTH (test code = RDW) 17.4 % 11.5-15.5 H PLATELET COUNT (test code = PLT) 128 x10 3/uL 130-400 L MEAN PLATELET VOLUME (test c ode = MPV) 11.2 fL 9.4-16.4 N NEUTROPHIL % (test code = NT%) 50.8 % 43-65 N IMMATURE GRANULOCYTE % (test code = IG%) 0.3 % 0.0-2.0 N LYMPHOCYTE % (test code = LY%) 31.0 % 20.5-45.5 N MONOCYTE % (test code = MO%) 11.4 % 5.5-11.7 N EOSINOPHIL % (test code = EO%) 5.6 % 0.9-2.9 H BASOPHIL % (test code = BA%) 0.9 % 0.2-1.0 N NUCLEATED RBC % (test code = NRBC%) 0.0 % 0-1.0 N NEUTROPHIL # (test code = NT#) 3.42 x10 3/uL 2.2-4.8 N IMMATURE GRANULOCYTE # (test code = IG#) 0.02 x10 3/uL 0-0.03 N LYMPHOCYTE # (test code = LY#) 2.09 x10 3/uL 1.3-2.9 N MONOCYTE # (test code = MO#) 0.77 x10 3/uL 0.3-0.8 N EOSINOPHIL # (test code = EO#) 0.38 x10 3/uL 0.0-0.2 H BASOPHIL # (test code = BA#) 0.06 x10 3/uL 0.0-0.1 N [id number] 12:16:00* Test Item Value Reference Range Interpretation Comme nts GLUBED (test code = GLUBED) 89 MG/DL 74-106 N ACUTE HEPATITIS [id number] 08:23:00* Test Item Value Reference Range Interpretation Comme nts HEP A AB TOTAL ONLY (test code = HAVAB) POSITIVE NEGATIVE A A COPY OF TH IS RESULT MUST BE SENT TO INFECTION CONTROL- ~~~~~~~~~~~~~~~~~~~~~~~~ ~~~~~~~~~~~~~~~~~~~~~~~~ ~~~~~~~~~~~~THIS TEST DETECTS TOTAL ANTIBODIES TO HEPATITIS A, AND DOESNOT DIFFERENTIATE BETWEEN IGG AND IGM.~~~~~~~~~~~~~~~~~~~~ ~~~~~~~~~~~~~~~~~~~~~~~~ ~~~~~~~~~~~~~~~~ A POSITIVE BIAS MAY OCCUR IN PATIENTS TAKING BIOTIN SUPPLEMENTS~~~~~~~~~~~~~ ~~~~~~~~~~~~~~~~~~~~~~~~ ~~~~~~~~~~~~~~~~~~~~~~~ HEP A AB IGM QUAL (test code = HAVMAB) NEGATIVE NEGATIVE A positive bias may occur for patients taking BIOTINsupplements. AG HEPATITIS B SURFACE (test code = HBSAG) NEGATIVE NEGATIVE HEP B CORE AB IGM QL (test code = HBCMAB) NEGATIVE NEGATIVE AB HEPATITIS C (test code = HCVAB) NEGATIVE NEGATIVE COMPREHENSIVE METABOLIC [id number] 06:40:00* Test Item Value Reference Range Interpretation Comme nts SODIUM (test code = NA) 138 mmol/L 137-145 N POTASSIUM (test code = K) 3.1 mmol/L 3.4-5.0 L CHLORIDE (test code = CL) 101 mmol/L 98-107 N CARBON DIOXIDE (test code = CO2) 31 mmol/L 22-30 H ANION GAP (test code = GAP) 10 GLUCOSE (test code = GLU) 86 mg/dL 74-106 N BLOOD UREA NITROGEN (test code = BUN) 6 mg/dL 7-17 L GLOMERULAR FILTRATION RATE (test code = GFR) 109 mL/min The Glomerular Filtration Rate is a calculated parameterbased on serum Creatinine, patient age and sex. GFR valuesless than 60 mL/min/1.73 square meters are indicative ofChronic Kidney Disease. Values less than 15 mL/min/1.73square meters indicate Kidney failure. The calculation forGFR is based on the CKD-EPI (202) calculation. This formulais race indifferent and is the recommended formula for GFRby the National Kidney Foundation for Adults.The GFR will not calculate if the sex is unknown or if thepatient's age is <18 years. CREATININE (test code = CREAT) 0.5 mg/dL 0.5-1.0 N TOTAL PROTEIN (test code = PROT) 5.7 g/dL 6.3-8.2 L "A positive bias may occur for patients taking Eltrombopag(a bone marrow stimulant used to treat thrombocytopenia andaplastic anemia)." ALBUMIN (test code = ALB) 3.4 g/dL 3.5-5.0 L CALCIUM (test code = CA) 8.0 mg/dL 8.4-10.2 L BILIRUBIN TOTAL (test code = BILT) 1.9 mg/dL 0.2-1.3 H "A positive b ias may occur for patients taking Eltrombopag(a bone marrow stimulant used to treat thrombocytopenia andaplastic anemia)." BILIRUBIN CONJUGATED (test code = BILCON) 0 mg/dL 0-0.3 N "A positive bias may occur for patients taking Eltrombopag(a bone marrow stimulant used to treat thrombocytopenia andaplastic anemia)." CONJUGATE D BILIRUBIN IS THE REPLACEMENT ASSAY FOR DIRECTBILIRUBIN. BILIRUBIN UNCONJUGATED (test code = BILUNC) 1.0 mg/dL 0-1.1 N SGOT/AST (test code = AST) 192 U/L 15-46 H SGPT/ALT (test code = ALT) 57 U/L 0-34 H ALKALINE PHOSPHATASE (test code = ALKP) 140 U/L 38-126 H INDEX HEMOLYSIS (test code = HEMINDEX) < 15 Index/DL 0-100 N [id number] 06:40:00* Test Item Value Reference Range Interpretation Comme nts PHOSPHOROUS (test code = PHOS) 2.8 mg/dL 2.5-4.5 N [id number] 06:40:00* Test Item Value Reference Range Interpretation Comme nts MAGNESIUM (test code = MAG) 1.9 mg/dL 1.6-2.3 N CBC W/AUTO [id number] 06:02:00* Test Item Value Reference Range Interpretation Comme nts WHITE BLOOD CELL (test code = WBC) 8.2 x10 3/uL 5.0-12.0 N RED BLOOD CELL (test code = RBC) 3.48 x10 6/uL 4.20-5.40 L HEMOGLOBIN (test code = HGB) 10.9 g/dL 12.0-16.0 L HEMATOCRIT (test code = HCT) 33.3 % 36.0-46.0 L MEAN CELL VOLUME (test code = MCV) 96 fL 81-99 N MEAN CELL HGB (test code = MCH) 31.3 pg 27-31 H MEAN CELL HGB CONCENTRATION (test code = MCHC) 32.7 g/dL 33-37 L RED CELL DISTRIBUTION WIDTH (test code = RDW) 17.1 % 11.5-15.5 H PLATELET COUNT (test code = PLT) 120 x10 3/uL 130-400 L MEAN PLATELET VOLUME (test c ode = MPV) 11.6 fL 9.4-16.4 N NEUTROPHIL % (test code = NT%) 58.5 % 43-65 N IMMATURE GRANULOCYTE % (test code = IG%) 0.5 % 0.0-2.0 N LYMPHOCYTE % (test code = LY%) 25.0 % 20.5-45.5 N MONOCYTE % (test code = MO%) 10.7 % 5.5-11.7 N EOSINOPHIL % (test code = EO%) 4.4 % 0.9-2.9 H BASOPHIL % (test code = BA%) 0.9 % 0.2-1.0 N NUCLEATED RBC % (test code = NRBC%) 0.0 % 0-1.0 N NEUTROPHIL # (test code = NT#) 4.81 x10 3/uL 2.2-4.8 H IMMATURE GRANULOCYTE # (test code = IG#) 0.04 x10 3/uL 0-0.03 H LYMPHOCYTE # (test code = LY#) 2.05 x10 3/uL 1.3-2.9 N MONOCYTE # (test code = MO#) 0.88 x10 3/uL 0.3-0.8 H EOSINOPHIL # (test code = EO#) 0.36 x10 3/uL 0.0-0.2 H BASOPHIL # (test code = BA#) 0.07 x10 3/uL 0.0-0.1 N [id number] 23:36:00* Test Item Value Reference Range Interpretation Comme [facility] GLUBED (test code = GLUBED) 75 MG/DL 74-106 N [id number] 22:07:00* Test Item Value Reference Range Interpretation Comme nts GLUBED (test code = GLUBED) 67 MG/DL 74-106 L LIPID PROFILE (CORONARY RISK)2023-04-22 11:37:00* Test Item Value Reference Range Interpretation Comme nts TRIGLYCERIDES (test code = TRIG) 143 mg/dL TRIGLYCERIDES REFERENCE RANGE:Normal: <150 mg/dLBorderline High: 150-199 mg/dLHigh: 200-499 mg/dLVery High: >=500 mg/dL CHOLESTEROL (test code = CHOL) 226 mg/dL CHOLESTEROL REFERENCE RANGE:DESIRABLE: < 200 mg/dLBORDERLINE: 200-239 mg/dLHIGH: >=240 mg/dL HDL CHOLESTEROL (test code = HDL) > 110 mg/dL 40-59 H LIPOPROTEIN LDL (test code = LDLC) 103.48 mg/dL 32-99 H CORONARY RISK FACTOR (test code = RISK) 2.00 CHOL/HDL RISK MALE: 1/2 AVG 3.43 FEMALE: 1/2 AVG 3.27 AVG 4.97 AVG 4.44 2X AVG 9.55 2X AVG 7.05 3X AVG 23.39 3X AVG 11.04~~~~~~~~~~~~~~~ ~~~~~~~~~~~~~~~~~~~~ ~~~~~~~~~~~~~~~~~~~~ ~~~~~National Cholesterol Education (NCEP) Guidelines:~~~~~~~~~ ~~~~~~~~~~~~~~~~~~~~ ~~~~~~~~~~~~~~~~~~~~ ~~~~~~~~~~~ HDL Cholesterol<40mg/d L: HDL Cholesterol (Major risk factor for CHD)>60mg/dL: HDL Cholesterol (Negative risk factor for CHD)40-59mg/dL: Borderline Risk LDL Cholesterol<100mg/ dL: Desirable LDL-C -906 mg/dL: Borderline High Risk LDL-C hycyfalgzbaaw001-376 mg/dL: High risk LDL-C concentration HDL-LDL Cholesterol is affected by a number of factors suchas smoking, age and sex.~~~~~~~~~~~~~~~~ ~~~~~~~~~~~~~~~~~~~~ ~~~~~~~~~~~~~~~~~~~~ ~~~~ [id number] 11:32:00* Test Item Value Reference Range Interpretation Comme nts AMMONIA (test code = AMM) 48 umol/L 9-30 HH BASIC METABOLIC [id number] 08:25:00* Test Item Value Reference Range Interpretation Comme nts SODIUM (test code = NA) 136 mmol/L 137-145 L POTASSIUM (test code = K) 3.8 mmol/L 3.4-5.0 N CHLORIDE (test code = CL) 94 mmol/L 98-107 L CARBON DIOXIDE (test code = CO2) 28 mmol/L 22-30 N ANION GAP (test code = GAP) 18 GLUCOSE (test code = GLU) 92 mg/dL 74-106 N BLOOD UREA NITROGEN (test code = BUN) 9 mg/dL 7-17 N GLOMERULAR FILTRATION RATE (test code = GFR) 105 mL/min The Glomerular Filtration Rate is a calculated parameterbased on serum Creatinine, patient age and sex. GFR valuesless than 60 mL/min/1.73 square meters are indicative ofChronic Kidney Disease. Values less than 15 mL/min/1.73square meters indicate Kidney failure. The calculation forGFR is based on the CKD-EPI (2020) calculation. This formulais race indifferent and is the recommended formula for GFRby the National Kidney Foundation for Adults.The GFR will not calculate if the sex is unknown or if thepatient's age is <18 years. CREATININE (test code = CREAT) 0.6 mg/dL 0.5-1.0 N CALCIUM (test code = CA) 9.0 mg/dL 8.4-10.2 N INDEX HEMOLYSIS (test code = HEMINDEX) 87 Index/DL 0-100 N LIVER FUNCTION [id number] 08:25:00* Test Item Value Reference Range Interpretation Comme nts TOTAL PROTEIN (test code = PROT) 7.1 g/dL 6.3-8.2 N "A positive bias may occur for patients taking Eltrombopag(a bone marrow stimulant used to treat thrombocytopenia andaplastic anemia)." ALBUMIN (test code = ALB) 4.4 g/dL 3.5-5.0 N BILIRUBIN TOTAL (test code = BILT) 2.9 mg/dL 0.2-1.3 H "A positive b ias may occur for patients taking Eltrombopag(a bone marrow stimulant used to treat thrombocytopenia andaplastic anemia)." BILIRUBIN CONJUGATED (test code = BILCON) 0.5 mg/dL 0-0.3 H "A positive bias may occur for patients taking Eltrombopag(a bone marrow stimulant used to treat thrombocytopenia andaplastic anemia)." CONJUGATED BILIRUBIN IS THE REPLACEMENT ASSAY FOR DIRECTBILIRUBIN. BILIRUBIN UNCONJUGATED (test code = BILUNC) 1.1 mg/dL 0-1.1 N SGOT/AST (test code = AST) 229 U/L 15-46 H SGPT/ALT (test code = ALT) 68 U/L 0-34 H ALKALINE PHOSPHATASE (test code = ALKP) 167 U/L 38-126 H [id number] 08:25:00* Test Item Value Reference Range Interpretation Comme nts MAGNESIUM (test code = MAG) 1.2 mg/dL 1.6-2.3 L [id number] 08:25:00* Test Item Value Reference Range Interpretation Comme nts ALCOHOL (test code = ALC) < 10 mg/dL <10 ~~~~~~~~~~~~~~~~ ~~~~~~ ~~~~~~~~~~~~~~~~~~~~~~ ~~~~~~ RESULTS ARE TO BE USED FOR MEDICAL PURPOSES ONLY.FOR LEGAL PURPOSES THE SPECIMEN MUST BE COLLECTED BY A CHAINOF CUSTODY. LEGAL TESTING IS NOT PERFORMED BY THIS FACILITY. ~~~~~~~~~~~~~~~~~~~~~~ ~~~~~~~~~~~~~~~~~~~~~~ ~~~~~~ PROTHROMBIN [id number] 07:57:00* Test Item Value Reference Range Interpretation Comme nts PROTHROMBIN TIME PATIENT (test code = PTP) 13.4 SECONDS 9.4-12.5 H INTERNATIONAL NORMAL RATIO (test code = INR) 1.2 The INR is to be used only for monitoring ORAL ANTICOAGULANTTHERAPY. Indication INR Value1. Prophylaxis/treatment of: Venous Thrombosis, Pulmonary Embolism 2.0 - 3.02. Prevention of systemic embolism from: Tissue heart valves 2.0 - 3.0 Acute myocardial infarction (to present systemic embolism)* 2.0 - 3.0 Valvular heart disease 2.0 - 3.0 Atrial fibrillation 2.0 - 3.03. Mechanical prosthetic valves (high risk) 2.5 - 3.5 * If oral anticoagulant therapy is elected to preventrecurrent myocardial infarction, an INR of 2.5-3.5 isrecommended, consistent with Food and Drug Administrationrecommen dations. CBC W/AUTO [id number] 07:55:00* Test Item Value Reference Range Interpretation Comme nts WHITE BLOOD CELL (test code = WBC) 8.3 x10 3/uL 5.0-12.0 N RED BLOOD CELL (test code = RBC) 3.96 x10 6/uL 4.20-5.40 L HEMOGLOBIN (test code = HGB) 12.3 g/dL 12.0-16.0 N HEMATOCRIT (test code = HCT) 37.6 % 36.0-46.0 N MEAN CELL VOLUME (test code = MCV) 95 fL 81-99 N MEAN CELL HGB (test code = MCH) 31.1 pg 27-31 H MEAN CELL HGB CONCENTRATION (test code = MCHC) 32.7 g/dL 33-37 L RED CELL DISTRIBUTION WIDTH (test code = RDW) 17.0 % 11.5-15.5 H PLATELET COUNT (test code = PLT) 144 x10 3/uL 130-400 N MEAN PLATELET VOLUME (test c ode = MPV) 11.7 fL 9.4-16.4 N NEUTROPHIL % (test code = NT%) 74.8 % 43-65 H IMMATURE GRANULOCYTE % (test code = IG%) 0.5 % 0.0-2.0 N LYMPHOCYTE % (test code = LY%) 15.1 % 20.5-45.5 L MONOCYTE % (test code = MO%) 8.2 % 5.5-11.7 N EOSINOPHIL % (test code = EO%) 0.6 % 0.9-2.9 L BASOPHIL % (test code = BA%) 0.8 % 0.2-1.0 N NUCLEATED RBC % (test code = NRBC%) 0.0 % 0-1.0 N NEUTROPHIL # (test code = NT#) 6.24 x10 3/uL 2.2-4.8 H IMMATURE GRANULOCYTE # (test code = IG#) 0.04 x10 3/uL 0-0.03 H LYMPHOCYTE # (test code = LY#) 1.26 x10 3/uL 1.3-2.9 L MONOCYTE # (test code = MO#) 0.68 x10 3/uL 0.3-0.8 N EOSINOPHIL # (test code = EO#) 0.05 x10 3/uL 0.0-0.2 N BASOPHIL # (test code = BA#) 0.07 x10 3/uL 0.0-0.1 N DRUGS OF ABUSE [id number] 07:47:00* Test Item Value Reference Range Interpretation Comme nts UR COCAINE (test code = COCAU) NEGATIVE NEGATIVE CUTOFF >/= 300 N G/ML UR THC CANABINOIDS QL SQN (test code = CANU) NEGATIVE NEGATIVE CUTOFF >/ = 20 NG/ML UR AMPHETAMINE QL SQN (test code = AMPHU) NEGATIVE NEGATIVE CUTOFF >/= 5 00 NG/ML UR BARBITURATE QUAL (test code = BARBQLU) NEGATIVE NEGATIVE CUTOFF >/= 200 NG/ML UR BENZODIAZEPINE (test code = BENZU) POSITIVE NEGATIVE A CUTOFF >/= 200 N G/ML UR OPIATES QUAL (test code = OPIAQLU) NEGATIVE NEGATIVE CUTOFF >/= 300 N G/ML UR PHENCYCLIDINE (PCP) (test code = PHENCU) NEGATIVE NEGATIVE CUTOFF >/= 25 NG/ML A Positive drug screen result provides only a "PreliminaryPositive" test result.If a confirmation of positive result is necessary, a morespecific confirmatory test must be ordered by the physician. Drug screens are performed for medical (i.e. treatment)purposes only. Unconfirmed screening results must not beused for non-medical purposes (e.g employment testing). UA RFLX MICR CULT IF [id number] 07:15:00* Test Item Value Reference Range Interpretation Comme nts UA GLUCOSE DIPSTICK (test code = DGLUU) Negative MG/DL Negative UA BILIRUBIN DIPSTICK (test code = BILU) 1+ Negative A UA KETONE DIPSTICK (test code = KETU) 15 (1+) mg/dL Negative A UA SPECIFIC GRAVITY (test code = SGU) 1.021 <1.030 UA BLOOD DIPSTICK (test code = JESSIE) Negative Negative UA PH DIPSTICK (test code = ARTHUR) 6.0 5.0-8.0 UA PROTEIN DIPSTICK (test code = PROU) 30 (1+) mg/dL Negative A UA UROBILINOGEN DIPSTICK (test code = URO) 4.0 mg/dL Negative A UA NITRITE DIPSTICK (test code = PAPA) Negative Negative UA LEUKOCYTE ESTERASE DIPSTICK (test code = LEUU) NEGATIVE Negative UA WBC (test code = WBCUR) 0-3 /HPF See_Comment <10 WBC/HPF = PYURIA ABSENT URINE CULTURE NOT INDICATED [Automated message] The system which generated this result transmitted reference range: <4-5. The reference range was not used to interpret this result as normal/abnormal. UA RBC (test code = RBCU) 0-3 /HPF See_Comment [Automated message] The system which generated this result transmitted reference range: <4-5. The reference range was not used to interpret this result as normal/abnormal. UA BACTERIA (test code = BACU) Rare /HPF None-Rare UA COLOR (test code = COLU) Sera Yellow A UA APPEARANCE (test code = APPU) Clear Clear UA SQUAMOUS CELLS (test code = SQU) 6-15 (FEW) /HPF See_Comment A [Automated message] The system which generated this result transmitted reference range: 0-5 (RARE). The reference range was not used to interpret this result as normal/abnormal. UA HYALINE CAST (test code = HYALU) 6-10 /LPF See_Comment A [Automated message] The system which generated this result transmitted reference range: <4-5. The reference range was not used to interpret this result as normal/abnormal. UA MUCUS (test code = MUCU) 1+ /LPF See_Comment A [Automated message] The system which generated this result transmitted reference range: <Rare. The reference range was not used to interpret this result as normal/abnormal. Indication for culture: Suprapubic PainSOURCE OF URINE: CLEAN CATCHUR HCG QUAL 2023-04-22 07:15:00* Test Item Value Reference Range Interpretation Comme nts UR HCG QUAL (test code = HCGQLU) NEGATIVE NEGATIVE Indication for culture: Suprapubic PainSOURCE OF URINE: CLEAN CATCH- DUP VEIN UNI [id number] 14:15:00 [facility] : 1965 Sex: F FAX: Bridgett Falcon DO [place]: St: ADM FAX: Willis Preston [phone] FAX: Dea Johnson MD R2 Name: ZAK MANDEL [facility] : 1965 Age/S: 57/F [address] Unit #: [id number] Loc: C.[address] [place] [address] Phys: Dea Johnson MD R2 Acct: [id number] Dis Date: Status: ADM IN PHONE #: [phone] Exam Date: 02/22/2023 1358 FAX #: [phone] Reason: left leg hematoma EXAMS: CPT CODE: [id number] [place] [id number] LOCATION: H19 INDICATION:Hematoma STUDY: Duplex venous ultrasound examination of the left leg. COMPARISON: None TECHNIQUE: Grayscale, color Doppler and spectral images of the left lower extremity venous system was performed. FINDINGS: The common femoral, femoral (proximal, mid, and distal aspects), popliteal, anterior tibial and posterior tibial veins are compressiblewithout evidence of a filling defect to suggest venous thrombosis. Spectral images demonstrate normal augmentation. In the area of concern is a hypoechoic structure measuring 2.9 x 1.0 x 4.0 cm without internal vascularity. IMPRESSION: No evidence of DVT within the visualized portions of the deep veins. Hypoechoic area within the subcutaneous fat at the area of concern, this could reflect a chronic hematoma or other fluid collection. An abscess is not entirely excluded. Electronically Signedby Hemant Brito MD on 02/22/2023 at 1415 Reported and signed by: Hemant Brito MD CC: Bridgett Flores DO; Willis Storey ORDNANCE OFFICER; Dea Johnson MD Technologist: MANUEL FERRO [facility] Date/Time/By: ([id number]) : By: [email or web address] PAGE 1 Signed Report FAX: Bridgett Falcon DO [place]: St: [facility] FAX: Willis Preston [phone] FAX: Dea Johnson MD R2 Name: ZAK MANDEL [facility] : 1965 Age/S: 57/F [address] Unit #: [id number] Loc: C.[id number] [place] [address] Phys: Dea Johnson MD R2 Acct: [id number] Dis Date: Status: ADM IN PHONE #: [phone] Exam Date: 02/22/2023 9604 FAX #: [phone] Reason: left leg hematoma EXAMS: CPT CODE: [id number] [place] [address] (Continued) Orig Print D/T: S: 02/22/2023 (5738) PAGE 2 Signed ReportGLUBED 2023-02-22 13:07:00* Test Item Value Reference Range Interpretation Comme nts GLUBED (test code = GLUBED) 122 MG/DL 74-106 H [id number] 09:08:00* Test Item Value Reference Range Interpretation Comme nts GLUBED (test code = GLUBED) 100 MG/DL 74-106 N COMPREHENSIVE METABOLIC [id number] 05:22:00* Test Item Value Reference Range Interpretation Comme nts SODIUM (test code = NA) 135 mmol/L 137-145 L POTASSIUM (test code = K) 3.4 mmol/L 3.4-5.0 N CHLORIDE (test code = CL) 103 mmol/L 98-107 N CARBON DIOXIDE (test code = CO2) 27 mmol/L 22-30 N ANION GAP (test code = GAP) 8 GLUCOSE (test code = GLU) 102 mg/dL 74-106 N BLOOD UREA NITROGEN (test code = BUN) 5 mg/dL 7-17 L GLOMERULAR FILTRATION RATE (test code = GFR) 109 mL/min The Glomerular Filtration Rate is a calculated parameterbased on serum Creatinine, patient age and sex. GFR valuesless than 60 mL/min/1.73 square meters are indicative ofChronic Kidney Disease. Values less than 15 mL/min/1.73square meters indicate Kidney failure. The calculation forGFR is based on the CKD-EPI (2020) calculation. This formulais race indifferent and is the recommended formula for GFRby the National Kidney Foundation for Adults.The GFR will not calculate if the sex is unknown or if thepatient's age is <18 years. CREATININE (test code = CREAT) 0.5 mg/dL 0.5-1.0 N TOTAL PROTEIN (test code = PROT) 6.9 g/dL 6.3-8.2 N "A positive bias may occur for patients taking Eltrombopag(a bone marrow stimulant used to treat thrombocytopenia andaplastic anemia)." ALBUMIN (test code = ALB) 4.0 g/dL 3.5-5.0 N CALCIUM (test code = CA) 8.6 mg/dL 8.4-10.2 N BILIRUBIN TOTAL (test code = BILT) 2.2 mg/dL 0.2-1.3 H "A positive b ias may occur for patients taking Eltrombopag(a bone marrow stimulant used to treat thrombocytopenia andaplastic anemia)." BILIRUBIN CONJUGATED (test code = BILCON) 0 mg/dL 0-0.3 N "A positive bias may occur for patients taking Eltrombopag(a bone marrow stimulant used to treat thrombocytopenia andaplastic anemia)." CONJUGATE D BILIRUBIN IS THE REPLACEMENT ASSAY FOR DIRECTBILIRUBIN. BILIRUBIN UNCONJUGATED (test code = BILUNC) 1.6 mg/dL 0-1.1 H SGOT/AST (test code = AST) 197 U/L 15-46 H SGPT/ALT (test code = ALT) 64 U/L 0-34 H ALKALINE PHOSPHATASE (test code = ALKP) 137 U/L 38-126 H INDEX HEMOLYSIS (test code = HEMINDEX) < 15 Index/DL 0-100 N [id number] 05:22:00* Test Item Value Reference Range Interpretation Comme nts PHOSPHOROUS (test code = PHOS) 2.6 mg/dL 2.5-4.5 N [id number] 05:22:00* Test Item Value Reference Range Interpretation Comme nts MAGNESIUM (test code = MAG) 1.6 mg/dL 1.6-2.3 N CBC W/AUTO [id number] 04:57:00* Test Item Value Reference Range Interpretation Comme nts WHITE BLOOD CELL (test code = WBC) 6.8 x10 3/uL 5.0-12.0 N RED BLOOD CELL (test code = RBC) 3.89 x10 6/uL 4.20-5.40 L HEMOGLOBIN (test code = HGB) 11.9 g/dL 12.0-16.0 L HEMATOCRIT (test code = HCT) 36.3 % 36.0-46.0 N MEAN CELL VOLUME (test code = MCV) 93 fL 81-99 N MEAN CELL HGB (test code = MCH) 30.6 pg 27-31 N MEAN CELL HGB CONCENTRATION (test code = MCHC) 32.8 g/dL 33-37 L RED CELL DISTRIBUTION WIDTH (test code = RDW) 18.1 % 11.5-15.5 H PLATELET COUNT (test code = PLT) 138 x10 3/uL 130-400 N MEAN PLATELET VOLUME (test c ode = MPV) 10.9 fL 9.4-16.4 N NEUTROPHIL % (test code = NT%) 61.8 % 43-65 N IMMATURE GRANULOCYTE % (test code = IG%) 0.3 % 0.0-2.0 N LYMPHOCYTE % (test code = LY%) 25.2 % 20.5-45.5 N MONOCYTE % (test code = MO%) 8.3 % 5.5-11.7 N EOSINOPHIL % (test code = EO%) 4.0 % 0.9-2.9 H BASOPHIL % (test code = BA%) 0.4 % 0.2-1.0 N NUCLEATED RBC % (test code = NRBC%) 0.0 % 0-1.0 N NEUTROPHIL # (test code = NT#) 4.22 x10 3/uL 2.2-4.8 N IMMATURE GRANULOCYTE # (test code = IG#) 0.02 x10 3/uL 0-0.03 N LYMPHOCYTE # (test code = LY#) 1.72 x10 3/uL 1.3-2.9 N MONOCYTE # (test code = MO#) 0.57 x10 3/uL 0.3-0.8 N EOSINOPHIL # (test code = EO#) 0.27 x10 3/uL 0.0-0.2 H BASOPHIL # (test code = BA#) 0.03 x10 3/uL 0.0-0.1 N [id number] 20:55:00* Test Item Value Reference Range Interpretation Comme nts GLUBED (test code = GLUBED) 118 MG/DL 74-106 H [id number] 17:29:00* Test Item Value Reference Range Interpretation Comme nts GLUBED (test code = GLUBED) 101 MG/DL 74-106 N [id number] 12:58:00* Test Item Value Reference Range Interpretation Comme nts GLUBED (test code = GLUBED) 106 MG/DL 74-106 N [id number] 09:27:00* Test Item Value Reference Range Interpretation Comme nts GLUBED (test code = GLUBED) 97 MG/DL 74-106 N HGBA1C - GLYCOSYLATED [id number] 06:51:00* Test Item Value Reference Range Interpretation Comme nts GLYCOSYLATED HEMOGLOBIN (HA1C) (test code = GLYHGB) 4.7 % 0-5.9 N Current dexter delines recommend a treatment goal of <7% fordiabetic patients. A1c may be overestimated in diabeticpatients exhibiting poor control and who are alsoheterozygous or homozygous for HgbS or HgbC. Totalglycohemoglobin is a better indicator of diabetic control inpatients with these hemoglobin variants. COMPREHENSIVE METABOLIC [id number] 05:38:00* Test Item Value Reference Range Interpretation Comme nts SODIUM (test code = NA) 134 mmol/L 137-145 L POTASSIUM (test code = K) 3.8 mmol/L 3.4-5.0 N CHLORIDE (test code = CL) 99 mmol/L 98-107 N CARBON DIOXIDE (test code = CO2) 24 mmol/L 22-30 N ANION GAP (test code = GAP) 15 GLUCOSE (test code = GLU) 76 mg/dL 74-106 N BLOOD UREA NITROGEN (test code = BUN) 7 mg/dL 7-17 N GLOMERULAR FILTRATION RATE (test code = GFR) 115 mL/min The Glomerular Filtration Rate is a calculated parameterbased on serum Creatinine, patient age and sex. GFR valuesless than 60 mL/min/1.73 square meters are indicative ofChronic Kidney Disease. Values less than 15 mL/min/1.73square meters indicate Kidney failure. The calculation forGFR is based on the CKD-EPI (202) calculation. This formulais race indifferent and is the recommended formula for GFRby the National Kidney Foundation for Adults.The GFR will not calculate if the sex is unknown or if thepatient's age is <18 years. CREATININE (test code = CREAT) < 0.4 mg/dL 0.5-1.0 L TOTAL PROTEIN (test code = PROT) 6.8 g/dL 6.3-8.2 N "A positive bias may occur for patients taking Eltrombopag(a bone marrow stimulant used to treat thrombocytopenia andaplastic anemia)." ALBUMIN (test code = ALB) 3.8 g/dL 3.5-5.0 N CALCIUM (test code = CA) 8.2 mg/dL 8.4-10.2 L BILIRUBIN TOTAL (test code = BILT) 2.1 mg/dL 0.2-1.3 H "A positive b ias may occur for patients taking Eltrombopag(a bone marrow stimulant used to treat thrombocytopenia andaplastic anemia)." BILIRUBIN CONJUGATED (test code = BILCON) 0 mg/dL 0-0.3 N "A positive bias may occur for patients taking Eltrombopag(a bone marrow stimulant used to treat thrombocytopenia andaplastic anemia)." CONJUGATE D BILIRUBIN IS THE REPLACEMENT ASSAY FOR DIRECTBILIRUBIN. BILIRUBIN UNCONJUGATED (test code = BILUNC) 1.4 mg/dL 0-1.1 H SGOT/AST (test code = AST) 220 U/L 15-46 H SGPT/ALT (test code = ALT) 73 U/L 0-34 H ALKALINE PHOSPHATASE (test code = ALKP) 130 U/L 38-126 H INDEX HEMOLYSIS (test code = HEMINDEX) 59 Index/DL 0-100 N [id number] 05:38:00* Test Item Value Reference Range Interpretation Comme nts PHOSPHOROUS (test code = PHOS) 2.0 mg/dL 2.5-4.5 L [id number] 05:38:00* Test Item Value Reference Range Interpretation Comme nts MAGNESIUM (test code = MAG) 2.2 mg/dL 1.6-2.3 N CBC W/AUTO [id number] 05:18:00* Test Item Value Reference Range Interpretation Comme nts WHITE BLOOD CELL (test code = WBC) 7.1 x10 3/uL 5.0-12.0 N RED BLOOD CELL (test code = RBC) 4.03 x10 6/uL 4.20-5.40 L HEMOGLOBIN (test code = HGB) 12.7 g/dL 12.0-16.0 N HEMATOCRIT (test code = HCT) 37.8 % 36.0-46.0 N MEAN CELL VOLUME (test code = MCV) 94 fL 81-99 N MEAN CELL HGB (test code = MCH) 31.5 pg 27-31 H MEAN CELL HGB CONCENTRATION (test code = MCHC) 33.6 g/dL 33-37 N RED CELL DISTRIBUTION WIDTH (test code = RDW) 18.3 % 11.5-15.5 H PLATELET COUNT (test code = PLT) 154 x10 3/uL 130-400 N MEAN PLATELET VOLUME (test c ode = MPV) 11.3 fL 9.4-16.4 N NEUTROPHIL % (test code = NT%) 54.9 % 43-65 N IMMATURE GRANULOCYTE % (test code = IG%) 0.4 % 0.0-2.0 N LYMPHOCYTE % (test code = LY%) 29.9 % 20.5-45.5 N MONOCYTE % (test code = MO%) 10.6 % 5.5-11.7 N EOSINOPHIL % (test code = EO%) 3.3 % 0.9-2.9 H BASOPHIL % (test code = BA%) 0.9 % 0.2-1.0 N NUCLEATED RBC % (test code = NRBC%) 0.0 % 0-1.0 N NEUTROPHIL # (test code = NT#) 3.87 x10 3/uL 2.2-4.8 N IMMATURE GRANULOCYTE # (test code = IG#) 0.03 x10 3/uL 0-0.03 N LYMPHOCYTE # (test code = LY#) 2.11 x10 3/uL 1.3-2.9 N MONOCYTE # (test code = MO#) 0.75 x10 3/uL 0.3-0.8 N EOSINOPHIL # (test code = EO#) 0.23 x10 3/uL 0.0-0.2 H BASOPHIL # (test code = BA#) 0.06 x10 3/uL 0.0-0.1 N [id number] 20:59:00* Test Item Value Reference Range Interpretation Comme nts GLUBED (test code = GLUBED) 105 MG/DL 74-106 N [id number] 17:55:00* Test Item Value Reference Range Interpretation Comme nts GLUBED (test code = GLUBED) 92 MG/DL 74-106 N [id number] 15:54:00* Test Item Value Reference Range Interpretation Comme nts AMMONIA (test code = AMM) < 9 umol/L 9-30 L COMPREHENSIVE METABOLIC [id number] 15:53:00* Test Item Value Reference Range Interpretation Comme nts SODIUM (test code = NA) 138 mmol/L 137-145 N POTASSIUM (test code = K) 3.8 mmol/L 3.4-5.0 N CHLORIDE (test code = CL) 101 mmol/L 98-107 N CARBON DIOXIDE (test code = CO2) 26 mmol/L 22-30 N ANION GAP (test code = GAP) 15 GLUCOSE (test code = GLU) 86 mg/dL 74-106 N BLOOD UREA NITROGEN (test code = BUN) 6 mg/dL 7-17 L GLOMERULAR FILTRATION RATE (test code = GFR) 109 mL/min The Glomerular Filtration Rate is a calculated parameterbased on serum Creatinine, patient age and sex. GFR valuesless than 60 mL/min/1.73 square meters are indicative ofChronic Kidney Disease. Values less than 15 mL/min/1.73square meters indicate Kidney failure. The calculation forGFR is based on the CKD-EPI (2020) calculation. This formulais race indifferent and is the recommended formula for GFRby the National Kidney Foundation for Adults.The GFR will not calculate if the sex is unknown or if thepatient's age is <18 years. CREATININE (test code = CREAT) 0.5 mg/dL 0.5-1.0 N TOTAL PROTEIN (test code = PROT) 7.4 g/dL 6.3-8.2 N "A positive bias may occur for patients taking Eltrombopag(a bone marrow stimulant used to treat thrombocytopenia andaplastic anemia)." ALBUMIN (test code = ALB) 4.3 g/dL 3.5-5.0 N CALCIUM (test code = CA) 8.1 mg/dL 8.4-10.2 L BILIRUBIN TOTAL (test code = BILT) 2.1 mg/dL 0.2-1.3 H "A positive b ias may occur for patients taking Eltrombopag(a bone marrow stimulant used to treat thrombocytopenia andaplastic anemia)." BILIRUBIN CONJUGATED (test code = BILCON) 0 mg/dL 0-0.3 N "A positive bias may occur for patients taking Eltrombopag(a bone marrow stimulant used to treat thrombocytopenia andaplastic anemia)." CONJUGATE D BILIRUBIN IS THE REPLACEMENT ASSAY FOR DIRECTBILIRUBIN. BILIRUBIN UNCONJUGATED (test code = BILUNC) 1.0 mg/dL 0-1.1 N SGOT/AST (test code = AST) 317 U/L 15-46 H SGPT/ALT (test code = ALT) 89 U/L 0-34 H ALKALINE PHOSPHATASE (test code = ALKP) 153 U/L 38-126 H INDEX HEMOLYSIS (test code = HEMINDEX) < 15 Index/DL 0-100 N [id number] 15:53:00* Test Item Value Reference Range Interpretation Comme nts PHOSPHOROUS (test code = PHOS) 3.4 mg/dL 2.5-4.5 N GAMMA GLUTAMYL [id number] 15:53:00* Test Item Value Reference Range Interpretation Comme nts GAMMA GLUTAMYL TRANSPEPTIDAS E (test code = GGT) 662 U/L 12-58 H [id number] 15:53:00* Test Item Value Reference Range Interpretation Comme nts AMYLASE (test code = ANURADHA) 56 U/L 30-110 N [id number] 15:53:00* Test Item Value Reference Range Interpretation Comme nts LIPASE (test code = LIP) 98 U/L 23-300 N [id number] 15:53:00* Test Item Value Reference Range Interpretation Comme nts MAGNESIUM (test code = MAG) 1.3 mg/dL 1.6-2.3 L [id number] 15:53:00* Test Item Value Reference Range Interpretation Comme nts ALCOHOL (test code = ALC) < 10 mg/dL <10 ~~~~~~~~~~~~~~~~ ~~~~~~ ~~~~~~~~~~~~~~~~~~~~~~ ~~~~~~ RESULTS ARE TO BE USED FOR MEDICAL PURPOSES ONLY.FOR LEGAL PURPOSES THE SPECIMEN MUST BE COLLECTED BY A CHAINOF CUSTODY. LEGAL TESTING IS NOT PERFORMED BY THIS FACILITY. ~~~~~~~~~~~~~~~~~~~~~~ ~~~~~~~~~~~~~~~~~~~~~~ ~~~~~~ CBC W/AUTO [id number] 15:33:00* Test Item Value Reference Range Interpretation Comme nts WHITE BLOOD CELL (test code = WBC) 7.4 x10 3/uL 5.0-12.0 N RED BLOOD CELL (test code = RBC) 4.05 x10 6/uL 4.20-5.40 L HEMOGLOBIN (test code = HGB) 12.5 g/dL 12.0-16.0 N HEMATOCRIT (test code = HCT) 37.9 % 36.0-46.0 N MEAN CELL VOLUME (test code = MCV) 94 fL 81-99 N MEAN CELL HGB (test code = MCH) 30.9 pg 27-31 N MEAN CELL HGB CONCENTRATION (test code = MCHC) 33.0 g/dL 33-37 N RED CELL DISTRIBUTION WIDTH (test code = RDW) 18.3 % 11.5-15.5 H PLATELET COUNT (test code = PLT) 161 x10 3/uL 130-400 N MEAN PLATELET VOLUME (test c ode = MPV) 10.4 fL 9.4-16.4 N NEUTROPHIL % (test code = NT%) 76.5 % 43-65 H IMMATURE GRANULOCYTE % (test code = IG%) 1.0 % 0.0-2.0 N LYMPHOCYTE % (test code = LY%) 13.7 % 20.5-45.5 L MONOCYTE % (test code = MO%) 7.5 % 5.5-11.7 N EOSINOPHIL % (test code = EO%) 0.3 % 0.9-2.9 L BASOPHIL % (test code = BA%) 1.0 % 0.2-1.0 N NUCLEATED RBC % (test code = NRBC%) 0.0 % 0-1.0 N NEUTROPHIL # (test code = NT#) 5.63 x10 3/uL 2.2-4.8 H IMMATURE GRANULOCYTE # (test code = IG#) 0.07 x10 3/uL 0-0.03 H LYMPHOCYTE # (test code = LY#) 1.01 x10 3/uL 1.3-2.9 L MONOCYTE # (test code = MO#) 0.55 x10 3/uL 0.3-0.8 N EOSINOPHIL # (test code = EO#) 0.02 x10 3/uL 0.0-0.2 N BASOPHIL # (test code = BA#) 0.07 x10 3/uL 0.0-0.1 N PROTHROMBIN [id number] 15:28:00* Test Item Value Reference Range Interpretation Comme nts PROTHROMBIN TIME PATIENT (test code = PTP) 12.6 SECONDS 9.4-12.5 H INTERNATIONAL NORMAL RATIO (test code = INR) 1.1 The INR is to be used only for monitoring ORAL ANTICOAGULANTTHERAPY. Indication INR Value1. Prophylaxis/treatment of: Venous Thrombosis, Pulmonary Embolism 2.0 - 3.02. Prevention of systemic embolism from: Tissue heart valves 2.0 - 3.0 Acute myocardial infarction (to present systemic embolism)* 2.0 - 3.0 Valvular heart disease 2.0 - 3.0 Atrial fibrillation 2.0 - 3.03. Mechanical prosthetic valves (high risk) 2.5 - 3.5 * If oral anticoagulant therapy is elected to preventrecurrent myocardial infarction, an INR of 2.5-3.5 isrecommended, consistent with Food and Drug Administrationrecommen dations. THROMBOPLASTIN TIME [id number] 15:28:00* Test Item Value Reference Range Interpretation Comme nts THROMBOPLASTIN TIME PARTIAL (test code = PTT) 33.7 SECONDS 23.4-37.0 N Therapeutic Rang e for Heparin EFFECTIVE 11/25/12 Heparin IU/mL aPTT Seconds0.3 64.30.7 88.8 BASIC METABOLIC [id number] 20:31:00* Test Item Value Reference Range Interpretation Comme nts SODIUM (test code = NA) 147 mmol/L 137-145 H POTASSIUM (test code = K) 3.5 mmol/L 3.4-5.0 N CHLORIDE (test code = CL) 107 mmol/L 98-107 N CARBON DIOXIDE (test code = CO2) 28 mmol/L 22-30 N ANION GAP (test code = GAP) 16 GLUCOSE (test code = GLU) 91 mg/dL 74-106 N BLOOD UREA NITROGEN (test code = BUN) 7 mg/dL 7-17 N GLOMERULAR FILTRATION RATE (test code = GFR) 105 mL/min The Glomerular Filtration Rate is a calculated parameterbased on serum Creatinine, patient age and sex. GFR valuesless than 60 mL/min/1.73 square meters are indicative ofChronic Kidney Disease. Values less than 15 mL/min/1.73square meters indicate Kidney failure. The calculation forGFR is based on the CKD-EPI (2020) calculation. This formulais race indifferent and is the recommended formula for GFRby the National Kidney Foundation for Adults.The GFR will not calculate if the sex is unknown or if thepatient's age is <18 years. CREATININE (test code = CREAT) 0.6 mg/dL 0.5-1.0 N CALCIUM (test code = CA) 8.5 mg/dL 8.4-10.2 N INDEX HEMOLYSIS (test code = HEMINDEX) 29 Index/DL 0-100 N LIVER FUNCTION [id number] 20:31:00* Test Item Value Reference Range Interpretation Comme nts TOTAL PROTEIN (test code = PROT) 7.6 g/dL 6.3-8.2 N "A positive bias may occur for patients taking Eltrombopag(a bone marrow stimulant used to treat thrombocytopenia andaplastic anemia)." ALBUMIN (test code = ALB) 4.4 g/dL 3.5-5.0 N BILIRUBIN TOTAL (test code = BILT) 1.2 mg/dL 0.2-1.3 N "A positive b ias may occur for patients taking Eltrombopag(a bone marrow stimulant used to treat thrombocytopenia andaplastic anemia)." BILIRUBIN CONJUGATED (test code = BILCON) 0 mg/dL 0-0.3 N "A positive bias may occur for patients taking Eltrombopag(a bone marrow stimulant used to treat thrombocytopenia andaplastic anemia)." CONJUGATED BILIRUBIN IS THE REPLACEMENT ASSAY FOR DIRECTBILIRUBIN. BILIRUBIN UNCONJUGATED (test code = BILUNC) 0.2 mg/dL 0-1.1 N SGOT/AST (test code = AST) 510 U/L 15-46 H SGPT/ALT (test code = ALT) 107 U/L 0-34 H ALKALINE PHOSPHATASE (test code = ALKP) 152 U/L 38-126 H [id number] 20:31:00* Test Item Value Reference Range Interpretation Comme nts ACETAMINOPHEN (test code = ACET) <10 ug/mL 10-30 L [id number] 20:31:00* Test Item Value Reference Range Interpretation Comme nts SALICYLATE (test code = HERBER) < 1.0 mg/dL Negative <2.0 mg/dLTherapeutic Range <20 mg/dL [id number] 20:31:00* Test Item Value Reference Range Interpretation Comme nts ALCOHOL (test code = ALC) 394 mg/dL <10 HH ~~~~~~~~~~~~~~~~ ~~~~~~~ ~~~~~~~~~~~~~~~~~~~~~~~ ~~~~ RESULTS ARE TO BE USED FOR MEDICAL PURPOSES ONLY.FOR LEGAL PURPOSES THE SPECIMEN MUST BE COLLECTED BY A CHAINOF CUSTODY. LEGAL TESTING IS NOT PERFORMED BY THIS FACILITY. ~~~~~~~~~~~~~~~~~~~~~~~ ~~~~~~~~~~~~~~~~~~~~~~~ ~~~~ DRUGS OF ABUSE [id number] 20:13:00* Test Item Value Reference Range Interpretation Comme nts UR COCAINE (test code = COCAU) NEGATIVE NEGATIVE CUTOFF >/= 300 N G/ML UR THC CANABINOIDS QL SQN (test code = CANU) NEGATIVE NEGATIVE CUTOFF >/ = 20 NG/ML UR AMPHETAMINE QL SQN (test code = AMPHU) NEGATIVE NEGATIVE CUTOFF >/= 5 00 NG/ML UR BARBITURATE QUAL (test code = BARBQLU) NEGATIVE NEGATIVE CUTOFF >/= 200 NG/ML UR BENZODIAZEPINE (test code = BENZU) NEGATIVE NEGATIVE CUTOFF >/= 200 N G/ML UR OPIATES QUAL (test code = OPIAQLU) NEGATIVE NEGATIVE CUTOFF >/= 300 N G/ML UR PHENCYCLIDINE (PCP) (test code = PHENCU) NEGATIVE NEGATIVE CUTOFF >/= 25 NG/ML A Positive drug screen result provides only a "PreliminaryPositive" test result.If a confirmation of positive result is necessary, a morespecific confirmatory test must be ordered by the physician. Drug screens are performed for medical (i.e. treatment)purposes only. Unconfirmed screening results must not beused for non-medical purposes (e.g employment testing). URINALYSIS [id number] 20:11:00* Test Item Value Reference Range Interpretation Comme nts UA COLOR (test code = COLU) Yellow Yellow UA APPEARANCE (test code = APPU) Clear Clear UA GLUCOSE DIPSTICK (test code = DGLUU) Negative Negative UA BILIRUBIN DIPSTICK (test code = BILU) Negative Negative UA KETONE DIPSTICK (test code = KETU) Trace mg/dL Negative A UA SPECIFIC GRAVITY (test code = SGU) 1.009 <1.030 UA BLOOD DIPSTICK (test code = JESSIE) Negative Negative UA PH DIPSTICK (test code = ARTHUR) 6.0 5.0-8.0 UA PROTEIN DIPSTICK (test code = PROU) NEGATIVE mg/dL Negative UA UROBILINOGEN DIPSTICK (test code = URO) 4.0 mg/dL Negative A UA NITRITE DIPSTICK (test code = PAPA) Negative Negative UA LEUKOCYTE ESTERASE DIPSTICK (test code = LEUU) NEGATIVE Negative UA WBC (test code = WBCU) 0-3 /HPF See_Comment [Automated message] The system which generated this result transmitted reference range: <4-5. The reference range was not used to interpret this result as normal/abnormal. UA RBC (test code = RBCU) NONE /HPF See_Comment [Automated message] The system which generated this result transmitted reference range: <4-5. The reference range was not used to interpret this result as normal/abnormal. UA BACTERIA (test code = BACU) None /HPF None-Rare UA SQUAMOUS CELLS (test code = SQU) 0-5 (RARE) /HPF See_Comment [Automated message] The system which generated this result transmitted reference range: 0-5 (RARE). The reference range was not used to interpret this result as normal/abnormal. UA MUCUS (test code = MUCU) Rare /LPF See_Comment A [Automated message] The system which generated this result transmitted reference range: <Rare. The reference range was not used to interpret this result as normal/abnormal. CBC W/AUTO [id number] 19:40:00* Test Item Value Reference Range Interpretation Comme nts WHITE BLOOD CELL (test code = WBC) 8.9 x10 3/uL 5.0-12.0 N RED BLOOD CELL (test code = RBC) 4.13 x10 6/uL 4.20-5.40 L HEMOGLOBIN (test code = HGB) 12.7 g/dL 12.0-16.0 N HEMATOCRIT (test code = HCT) 38.2 % 36.0-46.0 N MEAN CELL VOLUME (test code = MCV) 93 fL 81-99 N MEAN CELL HGB (test code = MCH) 30.8 pg 27-31 N MEAN CELL HGB CONCENTRATION (test code = MCHC) 33.2 g/dL 33-37 N RED CELL DISTRIBUTION WIDTH (test code = RDW) 18.8 % 11.5-15.5 H PLATELET COUNT (test code = PLT) 135 x10 3/uL 130-400 N MEAN PLATELET VOLUME (test c ode = MPV) 12.4 fL 9.4-16.4 N NEUTROPHIL % (test code = NT%) 43.1 % 43-65 N IMMATURE GRANULOCYTE % (test code = IG%) 0.7 % 0.0-2.0 N LYMPHOCYTE % (test code = LY%) 44.8 % 20.5-45.5 N MONOCYTE % (test code = MO%) 5.5 % 5.5-11.7 N EOSINOPHIL % (test code = EO%) 4.8 % 0.9-2.9 H BASOPHIL % (test code = BA%) 1.1 % 0.2-1.0 H NUCLEATED RBC % (test code = NRBC%) 0.0 % 0-1.0 N NEUTROPHIL # (test code = NT#) 3.85 x10 3/uL 2.2-4.8 N IMMATURE GRANULOCYTE # (test code = IG#) 0.06 x10 3/uL 0-0.03 H LYMPHOCYTE # (test code = LY#) 4.00 x10 3/uL 1.3-2.9 H MONOCYTE # (test code = MO#) 0.49 x10 3/uL 0.3-0.8 N EOSINOPHIL # (test code = EO#) 0.43 x10 3/uL 0.0-0.2 H BASOPHIL # (test code = BA#) 0.10 x10 3/uL 0.0-0.1 N [id number] 19:44:30* Test Item Value Reference Range Interpretation Comme nts RADRPT (test code = RADRPT) PROCEDURE INFORMATION: Exam: XR Chest Exam date and time: 01/23/2023 2:29 PM Age: 57 years old Clinical indication: /sharp chest pain TECHNIQUE: Imaging protocol: Radiologic exam of the chest. Views: 1 view. COMPARISON: No relevant prior studies available. FINDINGS: Lungs: No confuent reticular opacities. No consolidation. Pleural spaces: No pleural effusion. No pneumothorax. Heart/Mediastinum: Within normal limits. Bones/joints: Unremarkable as visualized. IMPRESSION: No acute cardiopulmonary findings. Madie Walker DO On 01/23/2023 14:43:17; [id number] [id number] 19:37:00* Test Item Value Reference Range Interpretation Comme nts HS Troponin I 1 Hr (test cod e = HS Troponin I 1 Hr) 3 [facility] AND [id number] 18:46:00* Test Item Value Reference Range Interpretation Comme nts UA Color (test code = UA Color) Colorless *NA*(01/23/23 1:46 PM) [facility] HospitalGrdgkkjCSRKQDVYG4555-40-35 18:31:00* Test Item Value Reference Range Interpretation Comme nts Glucose Lvl (test code = Glucose Lvl) 106 70-99 [facility]ul[facility]FW[facility]NYF6262-76-30 18:31:00* Test Item Value Reference Range Interpretation Comme nts WBC (test code = WBC) 7.9 3.7-10.4 [facility]2023-06-28 17:04:00 [facility] : 1965 Sex: F FAX: Aron Goodwin [place]: St: REG FAX: Willis Preston [phone] [facility]: 1965 Age/S: 56/F [address] Unit #: [id number] Loc: [place] [address] Phys: Nicky Goodwin 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 The original markings on the machine state right lower extremity, but the images have been edited by the electro mechanical technologist to show that this is for the leftlower extremity. The worksheet also states left lower extremity. COMPARISON: None FINDINGS: Vascular: Sonographic interrogation of the lower extremity venous system demonstrates appropriate flow, phasicity, and augmentation where possible. There is no evidence of venous thrombus. IMPRESSION: 1. Noevidence of venous thrombus. at 1704 Reported and signed by: MOSES DE SOUZA MD CC: Nicky Goodwin; Willis Storey NP Technologist: LONG Bell Trnalejandro Date/Time/By: 11/13/2022 (1701) : By: [email or web address] PAGE 1 Signed Report FAX: Aron Goodwin [place]: St: REG FAX: Willis Preston [phone] Name: ZAK MANDEL [facility] : 1965 Age/S: 56/F [address] Unit #: [id number] Loc: [place] [address] Phys: Nicky Goodwin Acct: [id number] Dis Date: Status: REG CLI PHONE #: [phone] Exam Date: 11/13/20221700 FAX #: [phone] Reason: EDEMA EXAMS: CPT CODE: [id number] [place] [address] (Continued) Orig Print D/T: S: 11/13/2022 (1707) PAGE 2 Signed Report Consult Notes Date/Time Note Provider Source 2024-04-10 09:48:46 Consults Cardiology [facility] History Of Present Illness 58-year-old woman past medical history alcoholic cirrhosis, alcohol use presenting with chest pain. Patient stated that chest pain has been going on for a week, randomly comes and goes, left precordial, radiates to left shoulder and left fingers tingling, episodes last for a while. Upon chart review, 04/10/2024 sodium/potassium/renal function/troponin x 2/WBC unremarkable, mag 1.92, H&H /29.2. 04/10/2024 EKG sinus rhythm 60s, prolonged QT. Cardiology was consulted for chest pain. 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 Past Medical History She has no past medical history on file. Surgical History She has no past surgical history on file. Social History She reports that she has quit smoking. She has never been exposed to tobacco smoke. She does not have any smokeless tobacco history on file. No history on file for alcohol use and drug use. Family History No family history on file. Allergies Penicillins Medications Medications Prior to Admission Medication Sig Dispense Refill Last Dose/Taking FLUoxetine (PROzac) 20 MG capsule Take 20 mg by mouth 1 time each day. 04/09/2024 Morning furosemide (Lasix) 20 MG tablet Take 20 mg by mouth daily as needed. 04/09/2024 Morning gabapentin (Neurontin) 100 MG capsule Take 100 mg by mouth in the morning and 100 mg at noon and 100 mg in the evening. Past Week hydrOXYzine HCl (Atarax) 25 MG tablet Take 1 tablet by mouth in the morning and 1 tablet in the evening. Past Month lactulose 20 gram/30 mL oral solution Take 20 g by mouth 1 time each day at the same time. 04/09/2024 Morning midodrine (Proamatine) 5 MG tablet Take 5 mg by mouth in the morning and 5 mg at noon and 5 mg in the evening. Past Week ondansetron ODT (Zofran-ODT) 4 MG disintegrating tablet Take 4 mg by mouth every 8 hours if needed for nausea or vomiting. More than a month QUEtiapine (SEROquel) 50 MG tablet Take 50 mg by mouth at bedtime. Past Month Review of Systems Constitutional: Negative. HENT: Negative. Eyes: Negative. Respiratory: Negative. Cardiovascular: Positive for chest pain. Gastrointestinal: Negative. Endocrine: Negative. Genitourinary: Negative. Musculoskeletal: Negative. Skin: Negative. Allergic/Immunologic: Negative. Neurological: Negative. Hematological: Negative. Psychiatric/Behavioral: Negative. Physical Exam: Constitutional: Appearance: Normal appearance. HENT: Head: Normocephalic and atraumatic. Nose: Nose normal. Mouth/Throat: Mouth: Mucous membranes are moist. Eyes: Extraocular Movements: Extraocular movements intact. Cardiovascular: Rate and Rhythm: Normal rate and regular rhythm. Pulses: Normal pulses. Heart sounds: Normal heart sounds. Pulmonary: Effort: Pulmonary effort is normal. Breath sounds: Normal breath sounds. Abdominal: Palpations: Abdomen is soft. Musculoskeletal: General: Normal range of motion. Cervical back: Normal range of motion and neck supple. Skin: General: Skin is warm and dry. Capillary Refill: Capillary refill takes less than 2 seconds. Neurological: General: No focal deficit present. Mental Status: She is alert and oriented to person, place, and time. Psychiatric: Mood and Affect: Mood normal. Behavior: Behavior normal. Last Recorded Vitals Blood pressure 101/54, pulse 72, temperature 36.6 ?C (97.8 ?F), resp. rate 16, height 1.626 m (5' 4"), weight 83.7 kg (184 lb 9.6 oz), SpO2 100%. Assessment & Plan 58-year-old woman past medical history alcoholic cirrhosis, alcohol use presenting with chest pain. Patient stated that chest pain has been going on for a week, randomly comes and goes, left precordial, radiates to left shoulder and left fingers tingling, episodes last for a while. Upon chart review, 04/10/2024 sodium/potassium/renal function/troponin x 2/WBC unremarkable, mag 1.92, H&H 9/29.2. 04/10/2024 EKG sinus rhythm 60s, prolonged QT. Cardiology was consulted for chest pain. 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 #Precordial chest pain #Prolonged QT -Troponin x2 unremarkable. ACS has been ruled out -Prolonged QT on EKG due to antidepressant, antipsychotic, hypokalemia upon arrival -Echo pending. If echo ok, can be discharged from cardiology standpoint and follow up with us outpatient for further cardiac work up including stress test. Plan was discussed with primary. On behalf of [facility], thank you kindly for the consult. Plan was discussed with Dr. Mao. Cosigned by Kaden Mao MD at 04/10/2024 11:45 AM [facility]ITY [facility] PROGRAM COORDINATOR [facility] COORDINATOR [facility]GRAM COORDINATOR Associated attestation - Kaden Mao MD - 04/10/2024 11:45 AM COMMUNITY HEALTH PROGRAM COORDINATOR Agree with ORDNANCE OFFICER note. ECHO is normal, BP is stable, troponins are negative. Potassium is being replaced. She does not need any further inpatient workup and can be dispo home from cardiac standpoint for outpatient evaluation. [facility] 2024-04-10 09:47:20 NUTRITION ASSESSMENT - ADULT Nutrition Diagnosis: Nutrition Diagnosis: No nutrition diagnosis at this time No nutrition diagnosis at this time. Can update as more intake/ info is available. Interventions: Continue with current diet at this time. Care Coordination Orders Placed This Encounter Procedures Inpatient consult to Hospitalist Standing Status: Standing Number of Occurrences: 1 Reason for Consult?: Hypokalemia, QTc prolongation Inpatient screening referral to Nutrition Services Standing Status: Standing Number of Occurrences: 1 Inpatient consult to Cardiology Standing Status: Standing Number of Occurrences: 1 Reason for Consult?: chest pain Nutrition Diet / Supplement / Parenteral / Enteral Orders Dietary Orders (From admission, onward) Start Ordered 04/10/24 0059 Adult Diet Heart Healthy Diet effective now Question: Diet type Answer: Heart Healthy 04/10/24 0058 Nutrition Medications folic acid - 1 MG multivitamin thiamine - 100 MG Labs Nutrition Labs (720h ago, onward) Start Ordered 04/10/24 0300 Phosphorus Level Morning draw Question: Release to patient Answer: Immediate 04/10/248 04/10/24 0300 Magnesium Level Morning draw Question: Release to patient Answer: Immediate 04/10/245704/10/24 0300 Basic Metabolic Panel Morning draw Question: Release to patient Answer: Immediate 04/10/248 04/09/242121 Basic metabolic panel STAT Question: Release to patient Answer: Immediate 04/09/24212004/09/24 151 Comprehensive metabolic panel STAT Question: Release to patient Answer: Immediate 04/09/24 15104/09/24 1519 Magnesium level STAT Question: Release to patient Answer: Immediate 04/09/24 151 *K had been low but is now improved. Lytes are being corrected. NUTRITION RISK: Moderate, in 5-7 days Next Date for Nutrition Services Follow Up: 04/16/24 Will follow as a moderate risk as intake pattern is not established. Current Nutrition: Dietary Orders (From admission, onward) Start Ordered 04/10/2458 Adult Diet Heart Healthy Diet effective now Question: Diet type Answer: Heart Healthy 04/10/2457 TPN Orders (720h ago, onward) None No data found. Nutrition Visit Information: (04/10). Pt seen this AM. No notes wounds. Last BM prior to admission. Labs reviewed. Wt reviewed. No wt hx in EMR. Fluid related wt changes are anticipated. Folic acid and thiamin noted. Chest pain reported. No nausea, vomiting, diarrhea, constipation. No chewing/swallowing issues. Current diet is appropriate at this time. Anthropometrics: Height: 162.6 cm (5' 4") Height Method: Stated Weight: 83.7 kg (184 lb 9.6 oz) Body mass index is 31.69 kg/m?. [place] body weight: 54.7 kg (120 lb 9.5 oz) Adjusted ideal body weight: 66.3 kg (146 lb 3.1 oz) No wt hx available. Pt unsure of UBW. Estimated Nutrition Needs: Calculated Energy Needs Using Equations Height: 1.626 m (5' 4") Temp: 36.6 ?C (97.8 ?F) Estimated Protein Needs (g/kg) Protein Lower Range: 1.0 (g/kg) Protein Upper Range: 1.2 Fluid Needs Fluid Needs Method: mL/kg/day (mL/kg) Fluid Needs: 25 Nutrition Physical Findings per vacuum kettle cook: Orientation Level: Oriented X4 Gastrointestinal (WDL): X Abdomen Inspection: Soft Abdominal Tenderness: Soft Bowel Sounds: All quadrants Bowel Sounds (All Quadrants): Active Last BM Date: 04/06/24 LUE: Full movement RUE: Full movement LLE: Full movement RLE: Full movement Nutrition Focused Physical Exam - Muscles and Fat: Assessment of Muscle Status Date Assessed: 04/10/24 Muscle Status: No deficits noted Assessment of Fat Status Date Assessed: 04/10/24 Fat Status: No deficits noted Basic Information: Admitting diagnosis: Hypokalemia [E87.6] Prolonged Q-T interval on ECG [R94.31] Chest pain, unspecified type [R07.9] Clinical course: 58-year-old female with past medical history of alcoholic cirrhosis, alcohol use presenting with chest pain. Patient states that she has been having chest pain for the past 6 days. Located on the left side of her chest and radiates to her left arm. Mainly worsening with movement. States it is worse when she is laying in her bed And Goes up to stand. Some associated pain with movement of her upper extremities. 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 In the ED troponin was negative x 2. Reports tenderness to palpation on the left side of her chest wall. Health Status: Allergies Allergen Reactions Penicillins Hives Current Facility-Administered Medications: enoxaparin (Lovenox) syringe 40 mg, 40 mg, Subcutaneous, q24h, Carlos Harman MD, 40 mg at 04/10/24 0920 FLUoxetine (PROzac) capsule 20 mg, 20 mg, Oral, Daily, CHERY Mistry, 20 mg at 04/10/24 0920 folic acid (Folvite) tablet 1 mg, 1 mg, Oral, Daily, Stephen Tardio-Cereceda, DO, 1 mg at 04/10/24 0920 gabapentin (Neurontin) capsule 100 mg, 100 mg, Oral, q8h ARACELY, Stephen Tardio-Cereceda, DO, 100 mg at 04/10/24 0616 Influenza Virus Vacc Split PF syringe 0.5 mL, 0.5 mL, Intramuscular, During hospitalization, Stephen Tardio-Cereceda, DO lactulose (Chronulac) 10 GM/15ML solution 20 g, 20 g, Oral, q24h, CHERY Mistry midodrine (Proamatine) tablet 5 mg, 5 mg, Oral, TID PRN, Stephen Tardio-Cereceda, DO multivitamin (Theragran-M) tablet 1 tablet, 1 tablet, Oral, Daily, Stephen Tardio-Cereceda, DO, 1 tablet at 04/10/24 0920 QUEtiapine (SEROquel) tablet 50 mg, 50 mg, Oral, Nightly, CHERY Mistry sodium chloride (NS) 0.9 % flush 10 mL, 10 mL, Intravenous, q12h ARACELY, Stephen Tardio-Cereceda, DO sodium chloride (NS) 0.9 % flush 10 mL, 10 mL, Intravenous, PRN, Tsephen Tardio-Cereceda, DO thiamine (Vitamin B-1) tablet 100 mg, 100 mg, Oral, Daily, Stephen Tardio-Cereceda, DO, 100 mg at 04/10/24 0920 Food Insecurity: No Food Insecurity (04/10/2024) Hunger Vital Sign Worried About Running Out of Food in the Last Year: Never true Ran Out of Food in the Last Year: Never true Review / Management: LABS 72 HRS: Sodium Lvl Date/Time Value Ref Range Status 04/10/2024 03:51 AM 143 136 - 145 mEq/L Final Potassium Lvl Date/Time Value Ref Range Status 04/10/2024 03:51 AM 4.0 3.4 - 4.5 mEq/L Final Comment: This result was previously suppressed from the chart. Magnesium Date/Time Value Ref Range Status 04/10/2024 03:51 AM 1.92 1.6 - 2.60 mg/dL Final Phosphorus Lvl Date/Time Value Ref Range Status 04/10/2024 03:51 AM 3.0 2.4 - 5.1 mg/dL Final Albumin Lvl Date/Time Value Ref Range Status 04/09/2024 03:47 PM 3.3 (L) 3.4 - 5.0 g/dL Final Glucose Lvl Date/Time Value Ref Range Status 04/10/2024 03:51 AM 87 70 - 99 mg/dL Final Comment: Adult reference range values reflect the clinical guidelines of the [place] [employer]. POC Glu Date/Time Value Ref Range Status 04/10/2024 08:32 AM 102 (H) 70 - 99 mg/dL Final Creatinine Lvl Date/Time Value Ref Range Status 04/10/2024 03:51 AM 0.67 0.55 - 1.02 mg/dL Final BUN Date/Time Value Ref Range Status 04/10/2024 03:51 AM 11 9 - 23 mg/dL Final Iron Date/Time Value Ref Range Status 07/25/2023 03:53 PM 42 (L) 45 - 160 mcg/dl Final Comment: Lab test performed by: [facility] [address] [id number] ADRIAN BOONE MD,PHD. TIBC Date/Time Value Ref Range Status 07/25/2023 03:53 PM 127 (L) 250 - 450 mcg/dl Final % Iron Saturation Date/Time Value Ref Range Status 07/25/2023 03:53 PM 33 16 - 45 % (calc) Final Ferritin Lvl Date/Time Value Ref Range Status 07/25/2023 03:53 PM 202 5 - 204 ng/mL Final Calcium Lvl Date/Time Value Ref Range Status 04/10/2024 03:51 AM 8.8 8.3 - 10.6 mg/dL Final I/O 24 HRS: No intake or output data in the 24 hours ending 04/10/24 0949 Monitoring and Evaluation: Weights, labs, oral intakes, skin integrity GOAL: >90% of estimated needs met: Susan Will MS, RD [facility] History and Physical Notes Date/Time Note Provider Source 2024-04-10 00:59:09 History of Present Illness 58-year-old female with past medical history of alcoholic cirrhosis, alcohol use presenting with chest pain. Patient states that she has been having chest pain for the past 6 days. Located on the left side of her chest and radiates to her left arm. Mainly worsening with movement. States it is worse when she is laying in her bed And Goes up to stand. Some associated pain with movement of her upper extremities. 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 In the ED troponin was negative x 2. Reports tenderness to palpation on the left side of her chest wall. Labs showed potassium of 2.8. EKG showed prolongation of QTc to 518. Previous EKGs with a 460s. ED gave potassium however repeat was still low at 2.8. Requested admission for further repletion and telemetry monitoring. Patient is on daily furosemide. States she was previously taking potassium supplementation but ran out. ROS 12 point ROS negative other than above Vitals Blood pressure 117/58, pulse 62, temperature 36.6 ?C (97.9 ?F), temperature source Oral, resp. rate 19, height 1.626 m (5' 4"), weight 83.7 kg (184 lb 9.6 oz), SpO2 97%. Physical Exam Vitals signs reviewed GEN: No acute distress, Conversant EYES: anicteric sclerae HENT: Atraumatic, Moist mucous membranes NECK: trachea midline, supple LUNGS: Clear to auscultation bilaterally, no respiratory distress Chest tenderness to palpation CV: Regular rate and rhythm, no peripheral edema ABD: soft, nontender, nondistended PSYCH: Appropriate affect, alert and orientated to person, place, and time Labs and Images Labs and images reviewed as below Assessment & Plan Hypokalemia Presenting with low potassium that did not improve with supplementation in the ED. Assiciatd with prolonged QTC to 518 compared from baseline of 450-470 Will give PO and IV potassium Give magnesium IV Cont to trend labs and replete as needed Telemetry Hold furosemide for now Hypomagnesemia QT prolongation Chest pain Appears mostly musculoskeletal Troponin neg x2 Conservative management Alcoholic cirrhosis (CMS/HCC) (HCC) Will hold furosemide as above Consider spironolactone on dc Simple obesity Per bmi Anemia Chronically low Denies any bleeding Alcohol use [facility] protocol with folic acid and thiamine DVT Prophylaxis scd Disposition Admit to Inpatient [facility] PROGRAM COORDINATOR Lang Poon Notes Date/Time Note Provider Source [id number] 17:57:39* Lilian Neri - 04/13/2024 5:56 PM COMMUNITY HEALTH PROGRAM COORDINATOR Patient declines additional follow up. Case to be closed. [facility]2024-11-26 17:57:39 [facility] [id number] 17:57:39 [facility] [id number] 12:40:18* Behavioral Health - Outpatient (Routine) - Pending Review Specialty Diagnoses / Procedures Referred By Dileep ann Referred To Contact Behavioral Health / Psychiatry Diagnoses Depression, unspecified depression type Procedures LA OFFICE/OUTPATIENT NEW HIGH MDM 60-[place] [address] [place] [address] Phone: tel: fax: [facility] Phone: tel: Referral ID Status Reason Start Date Expiration Date Visits Requested Visits Authorized [id number] Pending Review Specialty Services Required 10/07/[address] [facility]2024-11-23 12:40:18* * Auth/Cert (Routine) Specialty Diagnoses / Procedures Referred By Dileep ann Referred To Contact Diagnoses Hypokalemia Prolonged Q-T interval on ECG Chest pain, unspecified type Procedures [place] [address] [place] [address] Phone: tel: fax: [facility] (Clinical Observation) [address] [place] [address] Phone: tel: Referral ID Status Reason Start Date Expiration Date Visits Re quested Visits Authorized [id number] 1 1 [facility] [id number] 12:40:18 [facility] [id number] 12:40:18* Audit-C Score Answer Date of Assessment Author 5 04/10/2024 12:30 AM Maddie Bills RN * Intimate Partner Violence Question Answer Date of Assessment Author Within the last year, have y ou been humiliated or emotionally abused in other ways by your partner or ex-partner? No 04/10/2024 12:30 AM COMMUNITY HEALTH PROGRAM COORDINATOR Hare, Sahra, RN Within the last year, have y ou been afraid of your partner or ex-partner? No 04/10/2024 12:30 AM Sahra Bills R N Within the last year, have y ou been raped or forced to have any kind of sexual activity by your partner or ex-partner? No 04/10/2024 12:30 AM Sahra Bills R N Within the last year, have y ou been kicked, hit, slapped, or otherwise physically hurt by your partner or ex-partner? No 04/10/2024 12:30 AM Sahra Bills R N * * Calculated C-SSRS Risk Score (Lifetime/Recent) Answer Date of Assessment Author Moderate Risk 04/09/2024 11:51 PM Maddie Bills RN * [place] Suicide Severity Rating Scale (Screener/Recent Self-Report) Question Answer Date of Assessment Author 1. Wish to be (Past 1 Month) No 024 11:51 PM Sahra Bills RN 2. Non-Specific Active Suici shama Thoughts (Past 1 Month) No 04/09/2024 11:51 PM Kate Bills RN 6. Suicidal Behavior (Lifetime) Yes 4 11:51 PM Sahra Bills RN 6. Suicidal Behavior (3 Months) No 4 11:51 PM Sahra Bills RN [facility] [id number] 12:40:18Pending Results Scheduled Orders Name Type Priority Associated Diagnoses Orde r Schedule UA with culture if indicated Lab STAT STAT (Lab) for 1 Occurrences starting 04/09/2024 until 04/09/2024 Scheduled Referrals Name Type Priority Associated Diagnoses Orde r Schedule Ambulatory referral to Behavioral Health Outpatient Referral Routine Depression, unspecified depression type Expected: 04/10/2024 (Approximate), Expires: 10/08/2024 Health Maintenance Due Date Last Done Comments CT Colonography 1965 Colonoscopy 1965 Colorectal Cancer Screening 1965 Diabetes: Hemoglobin A1C 1965 FIT-DNA 1965 FIT 1965 FOBT 1965 Lipid Panel 1965 Sigmoidoscopy 1965 Annual Physical 1968 Pneumococcal Vaccine: Pediat rics (0 to 5 Years) and At-Risk Patients (6 to 64 Years) (1 of 2 - PCV) 12/18/1971 Diabetes: Foot Exam 12/18/1975 Diabetes: Retinopathy Screening 12/18/1975 DTaP/Tdap/Td Vaccines (1 - Tdap) 1984 Diabetes: Urine Protein Screening 1984 Hepatitis A Vaccines (1 of 2 - Risk 2-dose series) 1984 Hepatitis B Vaccines (1 of 3 - 19+ 3-dose series) 1984 Pap Smear 1986 Cervical Cancer Screening 12/18/1995 HPV/Cotest 12/18/1995 Mammogram 2005 Zoster Vaccines (1 of 2) 12/18/2015 Influenza Vaccine (#1) 2024 HIB Vaccines Aged Out No longer eligi ble based on patient's age to complete this topic HPV Vaccines Aged Out No longer eligi ble based on patient's age to complete this topic IPV Vaccines Aged Out No longer eligi ble based on patient's age to complete this topic Meningococcal Vaccine Aged Out No tori olivia eligible based on patient's age to complete this topic Rotavirus Vaccines Aged Out No longer eligible based on patient's age to complete this topic [facility] [id number] 12:40:18 Diagnosis Chest pain - Primary Unspecified chest pain Hypokalemia Hypopotassemia Prolonged Q-T interval on ECG Nonspecific abnormal electrocardiogram (ECG) (EKG) Chest pain, unspecified type Depression, unspecified depr ession type Hypokalemia Hypopotassemia Hypomagnesemia Disorders of magnesium metabolism QT prolongation Alcoholic cirrhosis (CMS/HCC) (HCC) Alcoholic cirrhosis of liver Simple obesity Obesity, unspecified Anemia Unspecified anemia Alcohol use Other problems related to lifestyle [facility] [id number] 12:40:18 [facility] [id number] 11:59:14 Images from the original note were not included. [id number] What Is Angina? Angina is a warning sign that your heart muscle isn't getting enough oxygen-rich blood and is at risk for damage. Medicines, certain medical procedures, and lifestyle changes can help control angina. Talk with your healthcare provider about how to prevent angina and what to do if you get it. How does angina feel? Angina is most often described as chest pain, but this can be misleading. Angina isn't always painful, and it isn?t always felt in the chest. Angina might feel like: ? Discomfort, an aching, sharp, dull, or burning sensation, tightness or squeezing, or pressure that comes and goes. You may feel it in your chest, back, belly (abdomen), arm, shoulder, neck, or jaw. Other symptoms may include: ? Severe tiredness (fatigue) that gets worse, or feeling more tired than normal for no clear reason ? Shortness of breath while doing something that used to be easy ? Heartburn, indigestion, upset stomach (nausea), rapid heart rate, or sweating ? Feeling lightheaded or fainting Call 911 Call 911 right away if any of your symptoms: ? Last more than a few minutes ? Go away and come back ? Happen at rest and don't go away after taking nitroglycerin as prescribed by your healthcare provider ? Keep getting worse You could be having a heart attack (acute myocardial infarction). Don't drive to the hospital yourself or have someone else drive you. Call 911 for an ambulance to transport you. The emergency medical numerical control operator can start treating you right away. When does angina happen? ? Angina usually happens during activity. It can also occur when you have emotional stress or after a large meal. Sometimes angina can happen when the weather is too hot or too cold. All of these things can put more stress on your body and your heart. ? You may have unstable angina if angina: o Starts occurring more often o Lasts longer o Happens even when you're resting, sleeping, or doing little physical activity o Causes more discomfort It?s a sign that your heart problem may be getting worse. You need to call your healthcare provider right away. Last Reviewed Date: 2023 00:00:00 ? 0634-1513 [employer]. All rights reserved. This information is not intended as a substitute for professional medical care. Always follow your healthcare professional's instructions. [facility] [id number] 11:59:13 Images from the original note were not included. [id number] Chest Wall Pain: Costochondritis The chest pain that you have had today is caused by costochondritis. This condition is caused by an inflammation of the cartilage that joins your ribs to your breastbone. It's not caused by heart or lung problems. Your care team has made sure that the chest pain you feel is not from a life-threatening cause of chest pain such as heart attack or blood clot in the lung. The inflammation may have been brought on by a blow to the chest, lifting heavy objects, intense exercise, or an illness that made you cough and sneeze a lot. It often occurs during times of emotional stress. It can be painful, but it's not dangerous. The pain gets worse with movement and certain positions. The pain may also be worse when you take a deep breath, cough, or sneeze. Costochondritis usually goes away in 1 to 2 weeks. But it may happen again. Rarely, a more serious condition may cause similar symptoms. That?s why it?s important to watch for the warning signs listed below. Home care Follow these guidelines when caring for yourself at home: ? If you feel that emotional stress is a cause of your condition, think about what's causing the stress. It may or may not be obvious. Learn healthy ways to deal with the stress in your life. These can include regular exercise, muscle relaxation, meditation, or taking a little time out for yourself. ? You may use acetaminophen, ibuprofen, or naproxen to control pain, unless another pain medicine was prescribed. If you have liver or kidney disease or ever had a stomach ulcer, talk with your health care provider before using these medicines. ? A hot, wet compress or heating pad can help ease the pain. Use this with or without a medicated skin cream that helps relieves pain. ? Do stretches as advised by your provider. You may need to rest for the first few days. Avoid strenuous activity that makes the pain worse. ? Take any prescribed medicines as directed. Follow-up care Follow up with your health care provider, or as advised. Call 911 Call 911 if: ? The pain feels different, gets worse, lasts longer, or spreads into your shoulder, arm, neck, jaw, or back. ? You faint. ? You have shortness of breath or trouble breathing. When to get medical advice Call your health care provider or seek medical care right away if: ? Pain gets worse when you breathe. ? You feel weak or dizzy. ? You cough up dark-colored sputum or blood. ? You have a fever of 100.4?F (38?C) or higher, or as advised by your provider. Last Reviewed Date: 2024 00:00:00 ? [id number] [employer]. All rights reserved. This information is not intended as a substitute for professional medical care. Always follow your healthcare professional's instructions. [facility]2024-11-23 11:59:11 Images from the original note were not included. [id number] Uncertain Causes of Chest Pain Chest pain can happen for a number of reasons. Sometimes the cause can't be determined. If your condition does not seem serious, and your pain does not appear to be coming from your heart, your healthcare provider may recommend watching it closely. Sometimes the signs of a serious problem take more time to appear. Many problems not related to your heart can cause chest pain. These include: ? Musculoskeletal. Costochondritis is an inflammation of the tissues around the ribs that can occur from trauma or overuse injuries, or a strain of the muscles of the chest wall. ? Respiratory. Pneumonia, collapsed lung (pneumothorax), or inflammation of the lining of the chest and lungs (pleurisy). ? Gastrointestinal. Esophageal reflux, heartburn, ulcers, or gallbladder disease. ? Anxiety and panic disorders ? Nerve compression and inflammation ? Rare problems such as aortic aneurysm or aortic dissection (a swelling of the large artery coming out of the heart or a tear in the wall of the artery), or pulmonary embolism (a blood clot in the lungs). Home care After your visit, follow these recommendations: ? Rest today and avoid strenuous activity. ? Take any prescribed medicine as directed. ? Be aware of any recurrent chest pain and notice any changes Follow-up care Follow up with your healthcare provider if you don't start to feel better within 24 hours, or as advised. Call 911 Call 911 if any of these occur: ? A change in the type of pain: if it feels different, becomes more severe, lasts longer, or begins to spread into your shoulder, arm, neck, jaw or back ? Shortness of breath or increased pain with breathing ? Weakness, dizziness, or fainting ? Rapid heartbeat ? Crushing sensation in your chest ? Coughing up more than a small amount of blood. When to seek medical advice Call your healthcare provider right away if any of the following occur: ? Cough with dark colored sputum (phlegm) or small amount of blood ? Fever of 100.4?F (38?C) or higher, or as directed by your healthcare provider ? Swelling, pain or redness in one leg Last Reviewed Date: 2021 00:00:00 ? [id number] [employer]. All rights reserved. This information is not intended as a substitute for professional medical care. Always follow your healthcare professional's instructions. [facility]2024-11-23 09:31:55 The patient is Moderately Stable - Low risk of patient condition declining or worsening The patient's goals for the shift include To feel better The clinical goals for the shift include Clinical improvement [facility]2024-11-22 23:51:00 The patient is Moderately Stable - Low risk of patient condition declining or worsening The patient's goals for the shift include remaining fall free. The clinical goals for the shift include remaining fall free. [facility]2024-11-22 20:28:58* Lilian Neri - 04/09/2024 8:22 PM [facility] Patient FTF to request assistance with healthcare services. CHW educated patient on PCP/Medical Home or provided CHW educated patient on Good Rx or provided CHW educated patient on Nurse Health Line or provided CHW educated patient on Educate on ER usage or provided Continuing Care [address] [address] Request Status: Accepted Services: Disease Management, Disease Screenings, Health Education, Housing Insecurity Services, Medications for Mental Health, Mental Health Services, Primary Care Resource for: Adolescent Education, Caregiver Education and Work, Caregiver Health, Child Education, Depression, Housing Stability, Stress Good RX No address on file Website: www.[employer] Request Status: Accepted Services: Prescription Assistance Resource for: Financial Resource Strain Nurse Health Line No address on file Request Status: Accepted Services: Help Hotlines Resource for: Caregiver Health, Depression, Stress Patient stated is waiting for [facility] Approval. Follow up needed active. Follow up by ER Navigator or case to be closed. N [id number] 20:28:58 [facility] CenterDhgsrhi3702-18-80 20:28:58 [facility] [id number] 20:28:58* Calculated C-SSRS Risk Score (Lifetime/Recent) Answer Date of Assessment Author No Risk Indicated 04/09/2024 3:25 PM Edita Caceres RN * [place] Suicide Severity Rating Scale (Screener/Recent Self-Report) Question Answer Date of Assessment Author 1. Wish to be (Past 1 Month) No 024 3:25 PM Edita Caceres RN 2. Non-Specific Active Suici shama Thoughts (Past 1 Month) No 04/09/2024 3:25 PM Edita Caecres, CHRIS 6. Suicidal Behavior (Lifetime) No 4 3:25 PM Edita Caceres RN [facility] [id number] 14:30:00* PROCEDURE INFORMATION: Exam: US Abdomen, Limited Exam date and time: 07/31/2023 2:38 PM Age: 57 years old Clinical indication: Other- see reason for consult/para TECHNIQUE: Imaging protocol: Real time ultrasound of the abdomen with image documentation. Limited exam focused on the appendix. COMPARISON: ABDOMEN RUQ US 07/21/2023 7:38 PM FINDINGS: Intraperitoneal space: Limited evaluation of the abdomen demonstrates no significant ascites. IMPRESSION: No significant ascites. Dagmar Granda MD On 07/31/2023 15:19:01; [id number] 20:50:00* Radiation Dose CTDIVOL = 0 (mGy): DLP = 1363 (mGy-cm) PROCEDURE INFORMATION: Exam: CT Abdomen And Pelvis Without Contrast Exam date and time: 07/28/2023 8:57 PM Age: 57 years old Clinical indication: /hx of ETOH hepatitis and worsening abdominal pain TECHNIQUE: Imaging protocol: Computed tomography of the abdomen and pelvis without contrast. Radiation optimization: All CT scans at this facility use at least one of these dose optimization techniques: automated exposure control; mA and/or kV adjustment per patient size (includes targeted exams where dose is matched to clinical indication); or iterative reconstruction. COMPARISON: ABDOMEN WO CONTRAST MRI 07/22/2023 1:21 AM RADIATION DOSE METRICS: Total DLP (mGy-cm): 1363 FINDINGS: Lungs: Hypoventilation atelectasis. Liver: Diffuse decreased attenuation of the liver parenchyma. Hepatomegaly, stable. Gallbladder and bile ducts: Again, the gallbladder is significantly distended containing small gallstones. Pancreas: Normal. No ductal dilation. Spleen: Normal. No splenomegaly. Adrenal glands: Normal. No mass. Kidneys and ureters: Normal. No hydronephrosis. Stomach and bowel: Status post gastric bypass. Appendix: Appendix not definitively identified. No secondary evidence of appendicitis. Intraperitoneal space: Small to moderate volume ascites. No intra-abdominal free air. No suspicious fluid collection. Vasculature: Unremarkable. No abdominal aortic aneurysm. Lymph nodes: Unremarkable. No enlarged lymph nodes. Urinary bladder: Unremarkable as visualized. Reproductive: Unremarkable as visualized. Bones/joints: Unremarkable. No acute fracture. Soft tissues: Mild anasarca. IMPRESSION: 1. Again, the gallbladder is significantly distended containing small gallstones. Mild pericholecystic fluid unchanged. If there is concern for acute cholecystitis, consider further evaluation with nuclear medicine HIDA scan. 2. Stable hepatomegaly. Diffuse decreased attenuation of the liver parenchyma may reflect hepatic steatosis versus intrinsic limiting. 3. Small to moderate volume ascites. Gisela Amato MD On 07/29/2023 09:32:01; [id number] 01:57:20* PROCEDURE INFORMATION: Exam: MR Abdomen Without Contrast Exam date and time: 07/22/2023 1:21 AM Age: 57 years old Clinical indication: /elevate t bili TECHNIQUE: Imaging protocol: Magnetic resonance imaging of the abdomen without contrast. COMPARISON: ABDOMEN/PELVIS W IV CONTRAST CT 07/21/2023 8:56 PM FINDINGS: Liver: Liver shows enlargement up to 23.1 cm size. Hepatic parenchyma shows signal loss on out of phase images. No mass. Gallbladder and bile ducts: Distended gallbladder shows fluid fluid level. No ductal dilation. Common bile duct shows normal caliber up to 6 mm diameter without appreciable filling defect. Nonspecific trace pericholecystic fluid Pancreas: Unremarkable. No ductal dilation. Spleen: Unremarkable. No splenomegaly. Adrenal glands: Unremarkable. No mass. Kidneys and ureters: Unremarkable. No solid mass. No hydronephrosis. Stomach and bowel: Visualized stomach and intestines are unremarkable. Intraperitoneal space: Nonspecific trace ascites in the paracolic gutters. Vasculature: No abdominal aortic aneurysm. Bones/joints: Unremarkable. Soft tissues: Unremarkable. IMPRESSION: Gallbladder fluid fluid level suggestive of sludge. Nonspecific trace ascites and pericholecystic fluid Hepatomegaly and hepatic steatosis Amaury Akers MD On 07/22/2023 03:05:00; [id number] 20:50:00* Radiation Dose CTDIVOL = 0 (mGy): DLP = 1155 (mGy-cm) PROCEDURE INFORMATION: Exam: CT Abdomen And Pelvis With Contrast Exam date and time: 07/21/2023 8:56 PM Age: 57 years old Clinical indication: /abd pain TECHNIQUE: Imaging protocol: Computed tomography of the abdomen and pelvis with contrast. Radiation optimization: All CT scans at this facility use at least one of these dose optimization techniques: automated exposure control; mA and/or kV adjustment per patient size (includes targeted exams where dose is matched to clinical indication); or iterative reconstruction. Contrast material: OMNI 350; Contrast volume: 75 ml; Contrast route: INTRAVENOUS (IV); COMPARISON: ABDOMEN RUQ US 07/21/2023 7:38 PM RADIATION DOSE METRICS: Total DLP (mGy-cm): 1155 FINDINGS: Liver: Hepatomegaly with mildly nodular liver contour compatible with cirrhosis. No liver mass. Gallbladder and bile ducts: Hydropic gallbladder with mild hyperdense gallbladder stones/sludge. Trace pericholecystic fluid is noted, nonspecific in the setting of cirrhosis and ascites. Pancreas: Normal. No ductal dilation. Spleen: Spleen is normal in size and appearance. Adrenal glands: Normal. No mass. Kidneys and ureters: Normal. No hydronephrosis. Stomach and bowel: Changes of gastric sleeve. No acute abnormality of the stomach. Normal duodenum. Normal small bowel. Mild colonic diverticulosis. No CT evidence of acute diverticulitis. Appendix: Appendix not visualized. No CT evidence of acute appendicitis. Intraperitoneal space: Mild ascites in the abdomen and pelvis. Vasculature: No acute vascular abnormality. No abdominal aortic aneurysm. Lymph nodes: Unremarkable. No enlarged lymph nodes. Urinary bladder: Unremarkable as visualized. Reproductive: Unremarkable as visualized. Bones/joints: No acute osseous abnormality or aggressive osseous lesion. Moderate to severe degenerative facet arthrosis at the lumbosacral junction. Soft tissues: Jnka-qc-rdqzqzzf superficial soft tissue edema noted. IMPRESSION: 1. Hepatomegaly with mildly nodular liver contour compatible with cirrhosis. 2. Mild ascites in the abdomen and pelvis. 3. Hydropic gallbladder with mild hyperdense gallbladder stones/sludge. 4. Trace pericholecystic fluid is noted, nonspecific in the setting of cirrhosis and ascites. 5. If there is concern for acute cholecystitis, consider further evaluation with nuclear medicine HIDA scan. 6. Zdzq-jf-tnkwkgdi superficial soft tissue edema noted. 7. Mild colonic diverticulosis and other chronic findings as described. Rusty Peterson MD On 07/21/2023 22:15:34; [id number] 19:30:00* PROCEDURE INFORMATION: Exam: US Abdomen, Limited; Right Upper Quadrant Exam date and time: 07/21/2023 7:38 PM Age: 57 years old Clinical indication: Pain; Additional info: /abd pain TECHNIQUE: Imaging protocol: Real time ultrasound of the abdomen with image documentation. Limited exam focused on the right upper quadrant. COMPARISON: No relevant prior studies available. FINDINGS: Limitations: Limited due to bowel gas and patient's body habitus. Liver: Liver is enlarged. Liver measures 20.6 cm. No focal liver lesion is seen. Mildly increased echogenicity of the liver parenchyma. Gallbladder: Gallbladder is distended up to 11 cm. Thickened gallbladder wall up to 6.7 mm. Sonographic Eid sign is negative. Sludge seen in the gallbladder. There are no gallstones or pericholecystic fluid. Biliary ducts: The intrahepatic bile ducts are not dilated. The common bile duct is not seen, obscured by bowel gas. Pancreas: The visualized portions of the pancreas appear unremarkable. Right kidney: The right kidney measures 9.7 x 4.4 x 5.8 cm. Cortical thickness is 1.12 cm. There is normal renal contour and morphology, with normal parenchymal echotexture. There is no hydronephrosis. Aorta: Visualized portions appear unremarkable. Inferior vena cava: Visualized portions appear unremarkable. Portal venous: Main portal vein shows hepatopetal flow. Intraperitoneal space: There is trace right abdominal ascites. IMPRESSION: 1. Distended gallbladder with thickened wall, positive sonographic Eid sign and gallbladder sludge may represent acalculous cholecystitis in appropriate clinical setting. Nuclear medicine HIDA scan may be beneficial. 2. Hepatomegaly. Hepatic steatosis. 3. CBD is not visualized, obscured by bowel gas. Catalino Felton MD On 07/21/2023 20:47:27; [id number] 16:20:00* PROCEDURE INFORMATION: Exam: XR Chest Exam date and time: 07/21/2023 4:38 PM Age: 57 years old Clinical indication: /sob, fluid overload TECHNIQUE: Imaging protocol: Radiologic exam of the chest. Views: 1 view. COMPARISON: CR CHEST 1VIEW DX 01/23/2023 2:29 PM FINDINGS: Lungs: Mild prominence of the interstitium which may relate to mild edema. Correlate for superimposed infiltrate. Pleural spaces: No pleural effusion. No pneumothorax. Heart/Mediastinum: No cardiomegaly. Diaphragm: Stable elevation of the right hemidiaphragm. Bones/joints: No acute fracture. IMPRESSION: Mild prominence of the interstitium which may relate to mild edema. Correlate for superimposed infiltrate. Cal Garcia MD On 07/21/2023 16:54:13; [id number] [facility] [id number] 10:46:[id number] [facility] [address] [place] [address] PATIENT NAME: ZAK MANDEL ADMIT DATE: 06/29/23 ACCOUNT NO: [id number] ROOM NO: [place] [address] AGE: 57 REPORT TYPE: 360 - QUERY RESPONSE DOCUMENT SEX: F ADMITTING PHYSICIAN:Joey Toure MD ATTENDING PHYSICIAN:Joey Toure MD Provider Query QUERY TEXT: POA Indicator 360MD Query related questions should be directed to:[facility] Coding Query Helpline Please indicate if the diagnosis of [alcoholic hepatitis] was present on admission? The patient's Clinical Indicators include: alcoholic hepatitis-Hospitalist progress note 06/30/2023 Options provided: -- Yes -- No -- W -- Other - I will add my own diagnosis -- Dismiss - Not applicable / Not valid -- Dismiss - Clinically unable to determine / Unknown -- Assign to another provider QUERY RESPONSE: Yes- The condition was present at the time of inpatient admission. Query created by: Jonathan Anna on 07/08/2023 12:31 AM at 1046 PATIENT NAME: ZAK MANDEL 10:46:00 [id number] [facility] [address] [place] [address] PATIENT NAME: ZAK MANDEL ADMIT DATE: 06/29/23 ACCOUNT NO: [id number] ROOM NO: [place] [address] AGE: 57 REPORT TYPE: 360 - QUERY RESPONSE DOCUMENT SEX: F ADMITTING PHYSICIAN:Joey Toure MD ATTENDING PHYSICIAN:Joey Toure MD Provider Query QUERY TEXT: Condition General 360MD Query related questions should be directed to:[facility] Coding Query Helpline Based on your medical judgment and the clinical indicators listed below kindly specify the underlying cause of the patient's Abdominal pain (Alcohol withdrawal,Alcoholic hepatitis,Abdominal pain unspecified, or other more appropriate diagnosis)? The patient's Clinical Indicators include: alcohol withdrawal-DS 07/04/2023 alcoholic hepatitis-DS 07/04/2023 Patient feels much better.Abdominal pain is very mild-Gastroenterology progress note 07/04/2023 Options provided: -- Respond - Create new note now -- Dismiss - Not applicable / Not valid -- Dismiss - Clinically unable to determine / Unknown -- Assign to another provider QUERY RESPONSE: Provider was clinically unable to determine a response for this query Query created by: Jonathan Anna on 07/08/2023 1:14 AM at 1046 PATIENT NAME: ZAK MANDEL 11:08:00 [facility] Gastroenterology Progress Note REPORT#:[id number] REPORT STATUS: Signed REPORT INITIALIZATION DATE:07/04/23 TIME: 110 PATIENT: ZAK MANDEL UNIT #: [id number] ROOM[address]BED: [address] : [address] AGE: 57 SEX: F ATTEND: Joey Toure MD ADM AUTHOR: Vaughn Montenegro MD REPT SERVICE DT/TIME: 07/04/23 1108 * ALL edits or amendments must be made on the electronic/computer document * Subjective HPI: Patient feels much better. Abdominal pain is very mild. She was able to tolerate a sandwich from [employer] this morning. HIDA scan shows good adequate uptake and passage into the bowel. Gallbladder EF is 21%. Objective General VS/I O: Last Documented: Result Date Time Pulse Ox 94 07/04 826 B/P 99/64 07/04 826 B/P Mean 75.8 07/04 826 O2 Delivery Room air 07/04 826 Temp 97.9 07/04 826 Pulse 98 07/04 826 Resp 17 07/04 826 24 hour I O ending at 0700: 07/04 0700 07/03 1900 Intake Total 180 Output Total Balance 180 Intake, Oral 180 PATIENT WEIGHT: Weight (lb): 242 Weight (oz): 8.14 Weight (kg): 110.000 Medications: Active Meds + DC'd Last 24 Hrs Polyethylene Glycol (MIRALAX) 1 PKT DAILY PRN PRN PO (CKD) Diazepam (VALIUM) 5 MG DAILY PO Sincalide (KINEVAC) 4.4 MCG ONCE IV (DC) Dextrose/Water (D10%W) 125 ML ASDIR PRN IV (CKD) Ondansetron HCl (ZOFRAN 4 MG/2 ML INJ) 8 MG Q8H IV Fluoxetine HCl (PROzac) 20 MG DAILY PO Folic Acid (FOLIC ACID) 1 MG DAILY PO Multivitamins Therapeutic (THERAGRAN) 1 TAB DAILY PO Sodium Chloride (SODIUM CHLORIDE FLUSH) 5 ML Q12HR IV Thiamine HCl (VITAMIN B-1) 100 MG DAILY PO Insulin Human Lispro (HumaLOG) LOW DOSE SCALE Q6HR SUBQ Glucagon (GLUCAGON) 1 MG ASDIR PRN IM Sodium Chloride (SODIUM CHLORIDE 0.9%) 250 ML ASDIR PRN IV Sodium Chloride (NACL 0.9%) 10 ML ASDIR PRN IV Sodium Chloride (SODIUM CHLORIDE FLUSH) 5 ML ASDIR PRN IV Acetaminophen (TYLENOL REGULAR) 650 MG Q6H PRN PRN PO Lidocaine (LIDODERM) 2 PATCH DAILY TOPICAL Morphine Sulfate (morphine) 2 MG Q4H PRN PRN IV Naloxone HCl (NARCAN) 0.4 MG Q2M PRN PRN IV Oxycodone HCl (ROXICODONE,OXYIR) 5 MG Q4H PRN PRN PO Lorazepam (LORazepam) 1 MG Q2H PRN PRN PO Lorazepam (LORazepam) 2 MG Q2H PRN PRN PO Lorazepam (ATIVAN) 1 MG Q2H PRN PRN IV Lorazepam (ATIVAN) 2 MG Q2H PRN PRN IV Dietitian nutrition assessment The data set between the solid lines has been imported from the dietitian's assessment. BMI Calculated: 44.4 Nutrition related diagnosis: Nutrition diagnosis details: Nutrition problem: Nutrition etiology: Nutrition signs and symptoms: Nutrition prescription: Dietitian name: Assessment completed: Physical Exam General appearance: alert, awake Neck: full range of motion Abdomen: non-tender, soft Extremities: moves all, normal range of motion Neuro/TALENT ACQUISITION ASSOCIATE: alert, oriented X 3 Skin: dry, intact Results Findings/Data: Laboratory Tests 07/04/23 05: [Embedded Image Not Available] Creatinine < 0.5 L Laboratory Tests 07/04 0502 2110 1534 Chemistry Sodium (137 - 145 mmol/L) 134 L Potassium (3.4 - 5.0 mmol/L) 3.8 Chloride (98 - 107 mmol/L) 99 Carbon Dioxide (22 - 30 mmol/L) 28 Anion Gap (10 - 20 mmol/L) 12 BUN (7 - 17 mg/dL) 4 L Creatinine (0.5 - 1.0 mg/dL) < 0.5 L Glomerular Filtr Rate (mL/min) 109 Glucose (74 - 106 mg/dL) 86 POC Glucose (74 - 106 MG/DL) 89 85 83 Calcium (8.4 - 10.2 mg/dL) 8.6 Total Bilirubin (0.2 - 1.3 mg/dL) 7.1 H Conjugated Bilirubin (0 - 0.3 mg/dL) 3.7 H Unconjugated Bilirubin (0 - 1.1 mg/dL) 0.9 AST (15 - 46 U/L) 268 H ALT (0 - 34 U/L) 70 H Total Alk Phosphatase (38 - 126 U/L) 276 H Total Protein (6.3 - 8.2 g/dL) 5.8 L Albumin (3.5 - 5.0 g/dL) 3.0 L Specimen Hemolysis (0 - 100 Index/DL) 21 Laboratory Tests 07/04 521 Coagulation INR 1.5 PT Patient/Control Mix (9.4 - 12.5 SECONDS) 17.3 H Laboratory Tests 07/04 521 Hematology WBC (5.0 - 12.0 x10 3/uL) 10.6 RBC (4.20 - 5.40 x10 6/uL) 3.35 L Hgb (12.0 - 16.0 g/dL) 10.5 L Hct (36.0 - 46.0 %) 31.7 L MCV (81 - 99 fL) 95 MCH (27 - 31 pg) 31.3 H MCHC (33 - 37 g/dL) 33.1 RDW (11.5 - 15.5 %) 19.9 H Plt Count (130 - 400 x10 3/uL) 200 MPV (9.4 - 16.4 fL) 11.2 Total Counted (#CELLS) 100 Seg Neutrophils % (43 - 65 %) 62 Lymphocytes % (Manual) (20.5 - 45.5 %) 11 L Atypical Lymphs % (0 - 1 %) 12 H Monocytes % (Manual) (5.5 - 11.7 %) 15 H Eosinophils % (Manual) (0.9 - 2.9 %) 1 Platelet Estimate (ADEQUATE) ADEQUATE Plt Morphology Comment (NORMAL) NORMAL Polychromasia (NONE SEEN) 1+ H Hypochromasia (NONE SEEN) 1+ H Anisocytosis (NONE SEEN) 2+ H Macrocytosis (NONE SEEN) 2+ H Target Cells (NONE SEEN) 2+ H Diagnosis, Assessment Plan Free Text A P: Patient is a 57 year old female with hx of alcohol abuse, HTN admitted due to alcohol withdrawal. Suspect patient with alcoholic hepatitis. RUQ US negative, mild dilation. HIDA scan shows adequate uptake and passage into bowels. EF 21%. She is clinically improved with stable LFTs. Does not meet criteria for steroids. Suspect gallbladder dyskinesia 2/2 hepatic inflammation Recs: - Aggressive oral nutrition - Okay to discharge home from gi standpoint. Can follow up with me to trend labs - Alcohol cessation. Counseled patient. - Consider outpatient surgical eval for gallbladder dyskinesia if symptoms persists, but needs to stop alcohol at 1112 RPT #:[id number] END OF [id number] 11:04:00 [facility] ([facility]) Clinical Note REPORT#:[id number] REPORT STATUS: Signed REPORT INITIALIZATION DATE:07/04/23 TIME: 1103 PATIENT: ZAK MANDEL UNIT #: [id number] ROOM[address]: [address] : [address] AGE: 57 SEX: F ATTEND: Joey Toure MD ADM AUTHOR: Joey Toure MD REPT SERVICE DT/TIME: 07/04/23 1104 * ALL edits or amendments must be made on the electronic/computer document * Clinical Note Note: I have seen and examined the patient with resident team, agree with plan. Subjective: No chest pain or Shortness of breath. No nausea or vomitng. No abdominal pain. No obvious bleeding. Looks comfortable in the bed. Tolerating diet, feels ready to go home. General appearance: Alert and comfortable CVS: Normal s1 s2 Lungs: Cleart to ascultation bilaterally Abdomen: soft, BS+, no tenderness Extremities: No lower extremity edema 57 yo with ETOH abuse, advised to quit. Hepatomegaly/ fatty liver, CBD dilatation, HIDA showed biliary dyskinesia, GI On board, rec o/p f/u. MIcroscopic hematuria will need f/u with PCP. Plan discussed with patient, answered all ?'s. DC hoome today. f/u with PCP and GI. f/u with surgery PRN if develops abdpain. Total time spent today greater than 36 minutes. at 1105 RPT #:[id number] END OF [id number] 10:10:00 [facility] Hospitalist Discharge Summary REPORT#:[id number] REPORT STATUS: Signed REPORT INITIALIZATION DATE:07/04/23 TIME: 1010 PATIENT: ZAK MANDEL UNIT #: [id number] ROOM/BED: [address] : [birth year] AGE: 57 SEX: F ATTEND: Joey Toure MD ADM AUTHOR: Candi Vasquez MD R1 REPT SERVICE DT/TIME: 07/04/23 1010 * ALL edits or amendments must be made on the electronic/computer document * Candi Vasquez 07/04/23 1010: General Information Discharge date: 07/04/23 Discharge diagnosis: alcohol withdrawal, alcoholic hepatitis Hospital course: This is a 57 yo F with pmh of alcohol abuse and HTN who presented to [facility] with sxs of alcohol withdrawal. CIWA on admit 16. In the ED, she was given 1L LR, 5mg diazepam, and 100mg thiamine. Her vitals were significant for BP 178/113 and tachycardia 110. Labs significant for AST 356, ALT 85, alk phos 392, unconjugated bili 2.3, con bili 2. She was treated for alcohol withdrawal during admit. She was started on diazepam tid which was tapered the last few days. CT abd/pel showed hepatomegaly with hepatic steatosis. Abd US showed the same + hydropic gallbladder and dilated CBD 7mm. GI was consulted and ordered MRCP to rule out biliary obstruction. Pt was unable to perform MRCP due to having metal plate in arm so HIDA scan was ordered instead. HIDA results showed low gallbladder EF 21% suggesting biliary dyskinesis and no stones. Her home lisinopril was held due to her SBP being in 90-100s. She was advised to discontinue on discharge and to f/u with her PCP within 1-2 weeks. She was also advised to f/u with GI, Dr. Montenegro in 1-2 weeks. Recommend to pt to f/u with surgery for evaluation of biliary dyskinesia if her sxs worsen/persists. She was advised to take to her PCP about resuming acamprosate for her alcohol use. She was explained to complications of fpc alcohol use and she verbally understood the risks and was agreeable to stop. Refills were sent for fluoxetine and prescription was sent for protonix. Free Text DxA P Notes Free text DxA P notes: 57 yo F pmh of depression, alcohol abuse, and hypertension presented to the ED with tremors and vomiting being admitted for alcohol withdrawal #Alcohol Withdrawal #hx Alcohol abuse PAWSS: 7 - CIWA: 16 on admit > 7 > 0 - CIWA protocol in place - started on folate, mutivitamin, and diazepam tid - continue to monitor for sxs of withdrawal - we will start tapering diazepam bid > daily #alcoholic hepatitis #hepatomegaly #hepatic steatosis - 3 year hx of heavy alcohol abuse - AST 356, ALT 85, alk phos 392 - Maddrey's score: 6.9 > good prognosis, no need for glucocorticoid therapy - Abs us shows hepatomegaly with fatty infiltration - pt also takes 2 tylenol daily and was advised to decrease/stop her intake - pt was informed - GI consulted: ordered HIDA > 21% EF of gallbladder, biliary dyskinesia likely hepatic inflammation - daily LFTs #Hydropic Gallbladder #CBD dilation without stone #hepatomegaly - afebrile, WBC 10.3 - on admit: Total Bili 4.3, ConBili 2, Uncongbili 2.3 - Abd US shows CBD dilation 7mm without stone, hydropic gallbladder - GI consulted: unable to perform MRCP as pt has metal plate in arm - HIDA ordered; 21% EF of gallbladder, biliary dyskinesia likely hepatic inflammation #Mixed Metabolic alkalosis and acidosis #Metabolic acidosis with AG #Metabolic alkalosis likely 2/2 to alcohol abuse and vomitng - pH 7.46/44/31; AG 24 - will continue to monitor - zofran prn for nausua #Asymptomatic bacteruria afebrile, HR 110, WBC 10.3 - UA: +1blood, WBC 51-100, (-)estrase/nitrite - UC negative - no need for abx #HTN - holding home lisinopril 40mg due to low BP #Depression -resume home prozac 20mg DVT: Lovenox Diet: FLD Code: Full Discussed with Dr. Toure Med Rec Med Rec Discharge meds: Stop taking the following medications: LISINOPRIL (ZESTRIL) 20 MG TAB 40 MILLIGRAM ORAL DAILY. FLUoxetine (PROzac) 20 MG CAP 20 MILLIGRAM ORAL DAILY. Days = 30 Qty = 30 Continue taking these medications: ERGOCALCIFEROL (VITAMIN D2) 1,250 MCG (50,000 UNIT) CAP 50,000 UNITS ORAL EVERY 7 DAYS. Comments: TAKE 1 CAPSULE BY MOUTH ONCE A WEEK FOR 12 WEEKS; #12 - SIG Obtained From [facility] THIAMINE (VITAMIN B-1) 100 MG TAB 100 MILLIGRAM ORAL DAILY. Days = 30 Qty = 30 FOLIC ACID (FOLIC ACID) 0.4 MG TAB 0.4 MILLIGRAM ORAL DAILY. Days = 30 Qty = 30 CYANOCOBALAMIN (VITAMIN B-12) 50 MCG TAB 50 MICROGRAM ORAL DAILY. Days = 30 Qty = 30 Start taking the following new medications: FLUoxetine (PROzac) 20 MG CAP 20 MILLIGRAM ORAL EVERY MORNING. Days = 30 Qty = [address] (PROTONIX) 40 MG TAB.DR 40 MILLIGRAM ORAL DAILY. Qty = 30 No Refills Objective VS/I O Last Documented: Result Date Time Pulse Ox 94 07/04 826 B/P 99/64 07/04 826 B/P Mean 75.8 07/04 826 O2 Delivery Room air 07/04 826 Temp 36.6 07/04 826 Pulse 98 07/04 826 Resp 17 07/04 826 24 hour I O ending at 0700: 07/04 0700 07/03 1900 Intake Total 180 Output Total Balance 180 Intake, Oral 180 General appearance: alert, awake, oriented Head/Eyes: atraumatic, normocephalic ENT: dry mucosal membrane, normal dentition Neck: full range of motion, non-tender Cardiovascular: normal heart sounds, regular rate rhythm Respiratory: aerating well, clear to auscultation, symmetric expansion Abdomen: obese, non-tender, normal bowel sounds, soft Genitourinary: flank pain, no urinary catheter Extremities: moves all, no edema Results Findings/Data: Laboratory Tests: 07/04 07/04 07/03 07/03 0522 0502 2110 1534 Chemistry Sodium (137 - 145 mmol/L) 134 L Potassium (3.4 - 5.0 mmol/L) 3.8 Chloride (98 - 107 mmol/L) 99 Carbon Dioxide (22 - 30 mmol/L) 28 Anion Gap (10 - 20 mmol/L) 12 BUN (7 - 17 mg/dL) 4 L Creatinine (0.5 - 1.0 mg/dL) < 0.5 L Glomerular Filtr Rate (mL/min) 109 Glucose (74 - 106 mg/dL) 86 POC Glucose (74 - 106 MG/DL) 89 85 83 Calcium (8.4 - 10.2 mg/dL) 8.6 Total Bilirubin (0.2 - 1.3 mg/dL) 7.1 H Conjugated Bilirubin (0 - 0.3 mg/dL) 3.7 H Unconjugated Bilirubin (0 - 1.1 mg/dL) 0.9 AST (15 - 46 U/L) 268 H ALT (0 - 34 U/L) 70 H Total Alk Phosphatase (38 - 126 U/L) 276 H Total Protein (6.3 - 8.2 g/dL) 5.8 L Albumin (3.5 - 5.0 g/dL) 3.0 L Specimen Hemolysis (0 - 100 Index/DL) 21 Coagulation INR 1.5 PT Patient/Control Mix (9.4 - 12.5 SECONDS) 17.3 H Hematology WBC (5.0 - 12.0 x10 3/uL) 10.6 RBC (4.20 - 5.40 x10 6/uL) 3.35 L Hgb (12.0 - 16.0 g/dL) 10.5 L Hct (36.0 - 46.0 %) 31.7 L MCV (81 - 99 fL) 95 MCH (27 - 31 pg) 31.3 H MCHC (33 - 37 g/dL) 33.1 RDW (11.5 - 15.5 %) 19.9 H Plt Count (130 - 400 x10 3/uL) 200 MPV (9.4 - 16.4 fL) 11.2 Total Counted (#CELLS) 100 Seg Neutrophils % (43 - 65 %) 62 Lymphocytes % (Manual) (20.5 - 45.5 %) 11 L Atypical Lymphs % (0 - 1 %) 12 H Monocytes % (Manual) (5.5 - 11.7 %) 15 H Eosinophils % (Manual) (0.9 - 2.9 %) 1 Platelet Estimate (ADEQUATE) ADEQUATE Plt Morphology Comment (NORMAL) NORMAL Polychromasia (NONE SEEN) 1+ H Hypochromasia (NONE SEEN) 1+ H Anisocytosis (NONE SEEN) 2+ H Macrocytosis (NONE SEEN) 2+ H Target Cells (NONE SEEN) 2+ H Results: labs reviewed, vital signs reviewed, current med profile rev'd Discharge Instructions PCP PCP follow-up: PCP: Willis Storey NP Discharge to: Home/Self Care Additional Discharge Routines: PCP Follow-Up, [employer] Follow-Up Diet: Regular Follow-up Appointments PCP follow-up: PCP: Willis Storey NP PCP follow up timeframe: In 6 days Special instructions: f/u with PCP in 1 week with CBC, CMP and UA Consulting provider 1: Provider 1: Vaughn Montenegro MD Provider 1 (free text): f/u with GI clinc in 1-2 weeks Specialty: Gastroenterology Consulting provider 2: Provider 2 (free-text): f/u with surgery as needed Special instructions: quit alcohol Joey Tourerafia 07/05/23 1233: Attestations Physician Attestation Agree w/findings plan: I have seen and examined the patient with resident team, agree with plan. Subjective: No chest pain or Shortness of breath. No nausea or vomitng. No abdominal pain. No obvious bleeding. Looks comfortable in the bed. Tolerating diet, feels ready to go home. General appearance: Alert and comfortable CVS: Normal s1 s2 Lungs: Cleart to ascultation bilaterally Abdomen: soft, BS+, no tenderness Extremities: No lower extremity edema 57 yo with ETOH abuse, advised to quit. Hepatomegaly/ fatty liver, CBD dilatation, HIDA showed biliary dyskinesia, GI On board, rec o/p f/u. MIcroscopic hematuria will need f/u with PCP. Plan discussed with patient, answered all ?'s. DC hoome today. f/u with PCP and GI. f/u with surgery PRN if develops abdpain. Total time spent today greater than 36 minutes. at 1446 at 1233 RPT #:[id number] END OF [id number] 16:43:00 [facility] Gastroenterology Progress Note REPORT#:[id number] REPORT STATUS: Signed REPORT INITIALIZATION DATE:07/03/23 TIME: 1642 PATIENT: ZAK MANDEL UNIT #: [id number] ROOM/BED: [address] : [birth year] AGE: 57 SEX: F ATTEND: Joey Toure MD ADM AUTHOR: Ethan Short DO R1 REPT SERVICE DT/TIME: 07/03/23 1643 * ALL edits or amendments must be made on the electronic/computer document * Ethan Short 07/03/23 1643: Subjective Chief complaint: Nausea HPI: Patient going to [facility] today. Continues to have nausea, unable to keep down solid food. Able to tolerate liquids. Review of Systems GI: Reports: nausea, vomiting. All systems rev neg: except as marked Objective General VS/I O: Last Documented: Result Date Time Pulse Ox 97 07/03 1535 B/P 114/80 07/03 153 B/P Mean 91.6 07/03 153 O2 Delivery Room air 07/03 1534 Temp 36.8 07/03 153 Pulse 103 07/03 153 Resp 17 07/03 1535 24 hour I O ending at 0700: 07/03 0700 07/02 1900 Intake Total 220 Output Total Balance 220 Intake, Oral 220 Number Voids 3 PATIENT WEIGHT: Weight (lb): 242 Weight (oz): 8.14 Weight (kg): 110.000 Physical Exam Neck: full range of motion Respiratory: aerating well, clear to auscultation Abdomen: tenderness (epigastric) Extremities: moves all, normal range of motion Neuro/TALENT ACQUISITION ASSOCIATE: alert, oriented X 3 Skin: dry, intact Results Findings/Data: Laboratory Tests 07/03/23 0405: [Embedded Image Not Available] Creatinine < 0.4 L Laboratory Tests 07/03 07/03 07/03 1534 0459 0405 Chemistry Sodium (137 - 145 mmol/L) 133 L Potassium (3.4 - 5.0 mmol/L) 3.7 Chloride (98 - 107 mmol/L) 99 Carbon Dioxide (22 - 30 mmol/L) 29 Anion Gap (10 - 20 mmol/L) 9 L BUN (7 - 17 mg/dL) 4 L Creatinine (0.5 - 1.0 mg/dL) < 0.4 L Glomerular Filtr Rate (mL/min) 115 Glucose (74 - 106 mg/dL) 64 L POC Glucose (74 - 106 MG/DL) 83 77 Calcium (8.4 - 10.2 mg/dL) 8.3 L Total Bilirubin (0.2 - 1.3 mg/dL) 6.3 H Conjugated Bilirubin (0 - 0.3 mg/dL) 3.4 H Unconjugated Bilirubin (0 - 1.1 mg/dL) 1.0 AST (15 - 46 U/L) 282 H ALT (0 - 34 U/L) 83 H Total Alk Phosphatase (38 - 126 U/L) 270 H Total Protein (6.3 - 8.2 g/dL) 5.2 L Albumin (3.5 - 5.0 g/dL) 2.6 L Specimen Hemolysis (0 - 100 Index/DL) < 15 Laboratory Tests 07/03 404 Coagulation INR 1.5 PT Patient/Control Mix (9.4 - 12.5 SECONDS) 16.8 H Laboratory Tests 07/03 404 Hematology WBC (5.0 - 12.0 x10 3/uL) 9.9 RBC (4.20 - 5.40 x10 6/uL) 3.43 L Hgb (12.0 - 16.0 g/dL) 10.7 L Hct (36.0 - 46.0 %) 32.2 L MCV (81 - 99 fL) 94 MCH (27 - 31 pg) 31.2 H MCHC (33 - 37 g/dL) 33.2 RDW (11.5 - 15.5 %) 18.9 H Plt Count (130 - 400 x10 3/uL) 195 MPV (9.4 - 16.4 fL) 11.0 Neut % (Auto) (43 - 65 %) 59.2 Lymph % (Auto) (20.5 - 45.5 %) 19.3 L [place] % (Auto) (5.5 - 11.7 %) 17.6 H Eos % (Auto) (0.9 - 2.9 %) 2.5 Baso % (Auto) (0.2 - 1.0 %) 0.6 Neut # (Auto) (2.2 - 4.8 x10 3/uL) 5.84 H Lymph # (Auto) (1.3 - 2.9 x10 3/uL) 1.91 [place] # (Auto) (0.3 - 0.8 x10 3/uL) 1.74 H Eos # (Auto) (0.0 - 0.2 x10 3/uL) 0.25 H Baso # (Auto) (0.0 - 0.1 x10 3/uL) 0.06 Immature Gran % (0.0 - 2.0 %) 0.8 Nucleated RBC % (0 - 1.0 %) 0.0 Diagnosis, Assessment Plan Free Text A P: Patient is a 57 year old female with hx of alcohol abuse, HTN admitted due to alcohol withdrawal. GI was consulted due to dilated 7mm CBD and elevated LFTs. #Hydropic Gallbladder #alcoholic hepatitis #CBD dilation without stone #hepatomegaly and steatosis #elevated ammonia -afebrile, WBC 10.3, has RUQ tenderness -Dilated CBD 7mm on US -ConBili 3.6<3.4<2, Uncongbili 0.8<1.1<2.3 -AST 356, ALT 85, alk phos 392, ggt 662 -ammonia 48 -US: Hepatomegaly with fatty infiltration of liver versus further hepatocellular disease. CBD 7mm, gallbladder moderately distended -MDF 14 therefore no steroids indicated for alcoholic hepatitis -MRCP cannot ne performed due metal plate in patient's left arm not compatible with MRI, HIDA pending -if positive HIDA will consider ERCP with Dr. Weston -continue supportive care for alcoholic hepatitis, if can't tolerate fluids then will consider NG tube for feeding Plan discussed with Vaughn Lynch 07/03/232044: Attestations Teaching Physician Attestation F/U visit w/ resident: I saw the patient with the resident and agree with the resident's findings and plan. Patient feeling much better today. HIDA scan completed today shows good uptake and passage into small bowel. EF shows 21%. Possible delay in setting of alcoholic hepatitis. Can consider outpatient surgical evaluation if RUQ abdominal pain discomfort persists. LFTs stable. Agressive nutriiton. No steroids indicated. Alcohol cessation. at 1645 at 204 RPT #:[id number] END OF [id number] 06:50:00 [facility] REPORT#:[id number] REPORT STATUS: Signed REPORT INITIALIZATION DATE:07/03/23 TIME: 649 PATIENT: ZAK MANDEL UNIT #: [id number] ROOM/BED: [address] : [birth year] AGE: 57 SEX: F ATTEND: Joey Toure MD ADM AUTHOR: Candi Vasquez MD R1 REPT SERVICE DT/TIME: 07/03/23 0650 * ALL edits or amendments must be made on the electronic/computer document * Candi Vasqeuz 07/03/23 0650: Subjective Chief complaint: Alcohol withdrawal HPI: pt seen today at bedside, no acute events overnight; CIWA 0; denies n/v/abd pain; is feeling the best she's felt since admit; states she stills feels slight vibration of her skin but better than before went for first part of HIDA this AM, will be going back after 11am; had large BMs last night Review of Systems Free Text ROS Notes Free Text ROS Notes: 10 point ros negative except as documented for hpi Objective General VS/I O: Vital Signs: Date Time Temp Pulse Resp B/P B/P Pulse O2 O2 Flow FiO2 Mean Ox Delivery Rate 07/03 0419 36.9 94 13 120/72 87.7 95 07/02 2359 36.8 99 13 109/69 81.9 94 07/02 2013 36.7 113 14 126/79 95.0 96 07/02 1154 98 17 92/61 71.5 95 24 hour I O ending at 0700: 07/03 0700 07/02 1900 Intake Total 220 Output Total Balance 220 Intake, Oral 220 Number Voids 3 PATIENT WEIGHT: Weight (lb): 242 Weight (oz): 8.14 Weight (kg): 110.000 Medications: Active Meds + DC'd Last 24 Hrs Polyethylene Glycol (MIRALAX) 1 PKT DAILY PRN PRN PO (CKD) Diazepam (VALIUM) 5 MG DAILY PO Sincalide (KINEVAC) 4.4 MCG ONCE IV (CKD) Dextrose/Water (D10%W) 125 ML ASDIR PRN IV (CKD) Ondansetron HCl (ZOFRAN 4 MG/2 ML INJ) 8 MG Q8H IV Lactated Ringer's (LACTATED RINGERS) 500 ML BOLUS ONCE ONE IV (DC) Diazepam (VALIUM) 5 MG BID PO (DC) Polyethylene Glycol (MIRALAX) 1 PKT BID PO (DC) Sennosides (SENNA) 1 TAB DAILY PO (DC) Fluoxetine HCl (PROzac) 20 MG DAILY PO Folic Acid (FOLIC ACID) 1 MG DAILY PO Multivitamins Therapeutic (THERAGRAN) 1 TAB DAILY PO Sodium Chloride (SODIUM CHLORIDE FLUSH) 5 ML Q12HR IV Thiamine HCl (VITAMIN B-1) 100 MG DAILY PO Insulin Human Lispro (HumaLOG) LOW DOSE SCALE Q6HR SUBQ Dextrose/Water (DEXTROSE 50% SYR) 25 ML ASDIR PRN IV (DC) Glucagon (GLUCAGON) 1 MG ASDIR PRN IM Ondansetron HCl (ZOFRAN 4 MG/2 ML INJ) 4 MG Q4H PRN PRN IV (DC) Sodium Chloride (SODIUM CHLORIDE 0.9%) 250 ML ASDIR PRN IV Sodium Chloride (NACL 0.9%) 10 ML ASDIR PRN IV Sodium Chloride (SODIUM CHLORIDE FLUSH) 5 ML ASDIR PRN IV Acetaminophen (TYLENOL REGULAR) 650 MG Q6H PRN PRN PO Lidocaine (LIDODERM) 2 PATCH DAILY TOPICAL Morphine Sulfate (morphine) 2 MG Q4H PRN PRN IV Naloxone HCl (NARCAN) 0.4 MG Q2M PRN PRN IV Oxycodone HCl (ROXICODONE,OXYIR) 5 MG Q4H PRN PRN PO Lorazepam (LORazepam) 1 MG Q2H PRN PRN PO Lorazepam (LORazepam) 2 MG Q2H PRN PRN PO Lorazepam (ATIVAN) 1 MG Q2H PRN PRN IV Lorazepam (ATIVAN) 2 MG Q2H PRN PRN IV Physical Exam General appearance: alert, awake, oriented Head/Eyes: atraumatic, normocephalic ENT: dry mucosal membrane, normal dentition Neck: full range of motion, non-tender Cardiovascular: normal heart sounds, regular rate rhythm Respiratory: aerating well, clear to auscultation, symmetric expansion Abdomen: obese, non-tender, normal bowel sounds, soft Genitourinary: flank pain, no urinary catheter Extremities: moves all, no edema Results Findings/Data: Laboratory Tests 07/03 07/03 07/02 07/02 0459 0405 1540 1152 Chemistry Sodium (137 - 145 mmol/L) 133 L Potassium (3.4 - 5.0 mmol/L) 3.7 Chloride (98 - 107 mmol/L) 99 Carbon Dioxide (22 - 30 mmol/L) 29 Anion Gap (10 - 20 mmol/L) 9 L BUN (7 - 17 mg/dL) 4 L Creatinine (0.5 - 1.0 mg/dL) < 0.4 L Glomerular Filtr Rate (mL/min) 115 Glucose (74 - 106 mg/dL) 64 L POC Glucose (74 - 106 MG/DL) 77 78 92 Calcium (8.4 - 10.2 mg/dL) 8.3 L Total Bilirubin (0.2 - 1.3 mg/dL) 6.3 H Conjugated Bilirubin (0 - 0.3 mg/dL) 3.4 H Unconjugated Bilirubin (0 - 1.1 mg/dL) 1.0 AST (15 - 46 U/L) 282 H ALT (0 - 34 U/L) 83 H Total Alk Phosphatase (38 - 126 U/L) 270 H Total Protein (6.3 - 8.2 g/dL) 5.2 L Albumin (3.5 - 5.0 g/dL) 2.6 L Specimen Hemolysis (0 - 100 Index/DL) < 15 Laboratory Tests 07/03 0405 Coagulation INR 1.5 PT Patient/Control Mix (9.4 - 12.5 SECONDS) 16.8 H Laboratory Tests 07/03 0405 Hematology WBC (5.0 - 12.0 x10 3/uL) 9.9 RBC (4.20 - 5.40 x10 6/uL) 3.43 L Hgb (12.0 - 16.0 g/dL) 10.7 L Hct (36.0 - 46.0 %) 32.2 L MCV (81 - 99 fL) 94 MCH (27 - 31 pg) 31.2 H MCHC (33 - 37 g/dL) 33.2 RDW (11.5 - 15.5 %) 18.9 H Plt Count (130 - 400 x10 3/uL) 195 MPV (9.4 - 16.4 fL) 11.0 Neut % (Auto) (43 - 65 %) 59.2 Lymph % (Auto) (20.5 - 45.5 %) 19.3 L [place] % (Auto) (5.5 - 11.7 %) 17.6 H Eos % (Auto) (0.9 - 2.9 %) 2.5 Baso % (Auto) (0.2 - 1.0 %) 0.6 Neut # (Auto) (2.2 - 4.8 x10 3/uL) 5.84 H Lymph # (Auto) (1.3 - 2.9 x10 3/uL) 1.91 [place] # (Auto) (0.3 - 0.8 x10 3/uL) 1.74 H Eos # (Auto) (0.0 - 0.2 x10 3/uL) 0.25 H Baso # (Auto) (0.0 - 0.1 x10 3/uL) 0.06 Immature Gran % (0.0 - 2.0 %) 0.8 Nucleated RBC % (0 - 1.0 %) 0.0 Results: labs reviewed, vital signs reviewed, current med profile rev'd Diagnosis, Assessment Plan Free Text DxA P Notes Free text DxA P notes: 57 yo F pmh of depression, alcohol abuse, and hypertension presented to the ED with tremors and vomiting being admitted for alcohol withdrawal #Alcohol Withdrawal #hx Alcohol abuse PAWSS: 7 - CIWA: 16 on admit > 7 > 0 - CIWA protocol in place - started on folate, mutivitamin, and diazepam tid - continue to monitor for sxs of withdrawal - we will start tapering diazepam bid > daily #alcoholic hepatitis #hepatomegaly - 3 year hx of heavy alcohol abuse - AST 356, ALT 85, alk phos 392 - Maddrey's score: 6.9 > good prognosis, no need for glucocorticoid therapy - Abs us shows hepatomegaly with fatty infiltration - pt also takes 2 tylenol daily and was advised to decrease/stop her intake - pt was informed - GI consulted: awaiting HIDA results - daily LFTs #Hydropic Gallbladder #CBD dilation without stone #hepatomegaly #hepatic steatosis - afebrile, WBC 10.3 - on admit: Total Bili 4.3, ConBili 2, Uncongbili 2.3 - Abd US shows CBD dilation 7mm without stone, hydropic gallbladder - GI consulted: unable to perform MRCP as pt has metal plate in arm - HIDA ordered; per GI, if positive, will consider ERCP with Dr. Weston #Mixed Metabolic alkalosis and acidosis #Metabolic acidosis with AG #Metabolic alkalosis likely 2/2 to alcohol abuse and vomitng - pH 7.46/44/31; AG 24 - will continue to monitor - zofran prn for nausua #Asymptomatic bacteruria afebrile, HR 110, WBC 10.3 - UA: +1blood, WBC 51-100, (-)estrase/nitrite - UC negative - no need for abx #HTN - holding home lisinopril 40mg due to low BP #Depression -resume home prozac 20mg Plan: - f/u HIDA results - will discharge today or tmr depending of HIDA results DVT: Lovenox Diet: FLD Code: Full Discussed with Joey Mullins 07/03/23 1702: Attestations Physician Attestation Agree w/findings plan: I have seen and examined the patient with resident team, agree with plan. Subjective: No chest pain or Shortness of breath. Nausea and vomitng better today. No abdominal pain. No obvious bleeding. Looks comfortable in the bed. General appearance: Alert and comfortable CVS: Normal s1 s2 Lungs: Cleart to ascultation bilaterally Abdomen: soft, BS+, no tenderness Extremities: No lower extremity edema 57 yo with ETOH abuse, advised to quit. Hepatomegaly/ fatty liver, CBD dilatation, HIDA scan pending, GI On board. MIcroscopic hematuria will need f/u with PCP. Plan discussed with patient, answered all ?'s. DC barrier: pending HIDA scan at 1215 at 1703 RPT #:[id number] END OF [id number] 11:48:00 [facility] ([facility] Clinical Note REPORT#:[id number] REPORT STATUS: Signed REPORT INITIALIZATION DATE:07/02/23 TIME: 114 PATIENT: ZAK MANDEL UNIT #: [id number] ROOM/BED: [address] : [birth year] AGE: 57 SEX: F ATTEND: Joey Toure MD ADM AUTHOR: Joey Toure MD REPT SERVICE DT/TIME: 07/02/23 1148 * ALL edits or amendments must be made on the electronic/computer document * Clinical Note Note: I have seen and examined the patient with resident team, agree with plan. Subjective: No chest pain or Shortness of breath. c/o Nausea, had 1 vomitng yesterday and 1 this morning. No abdominal pain. No obvious bleeding. Looks comfortable in the bed. General appearance: Alert and comfortable CVS: Normal s1 s2 Lungs: Cleart to ascultation bilaterally Abdomen: soft, BS+, no tenderness Extremities: No lower extremity edema 57 yo with ETOH abuse, advised to quit. Hepatomegaly/ fatty liver, CBD dilatation, plan for HIDA scan today, GI On board. MIcroscopic hematuria will need f/u with PCP. Plan discussed with patient, answered all ?'s at 1149 RPT #:[id number] END OF [id number] 11:08:00 [facility] ([facility]) Gastroenterology Progress Note REPORT#:[id number] REPORT STATUS: Signed REPORT INITIALIZATION DATE:07/02/23 TIME: 1108 PATIENT: ZAK MANDEL UNIT #: [id number] ROOM/BED: [address] : [birth year] AGE: 57 SEX: F ATTEND: Joey Toure MD ADM AUTHOR: Ethan Short DO R1 REPT SERVICE DT/TIME: 07/02/23 1108 * ALL edits or amendments must be made on the electronic/computer document * Ethan Short 07/02/23 1108: Subjective Chief complaint: Nausea HPI: Patient continues to report nausea and some RUQ pain. Vomited today with breakfast. Will have HIDA today. Denies hallucinations. Review of Systems GI: Reports: abdominal pain, nausea, vomiting. All systems rev neg: except as marked Objective General VS/I O: Last Documented: Result Date Time Pulse Ox 93 07/02 814 B/P 114/75 07/02 814 B/P Mean 88.3 07/02 0815 Temp 36.6 07/02 08 Pulse 105 07/02 08 Resp 18 07/02 0815 O2 Delivery Room air 07/01 1541 PATIENT WEIGHT: Weight (lb): 242 Weight (oz): 8.14 Weight (kg): 110.000 Physical Exam Neck: full range of motion Respiratory: aerating well, clear to auscultation Abdomen: tenderness (epigastric) Extremities: moves all, normal range of motion Neuro/TALENT ACQUISITION ASSOCIATE: alert, oriented X 3 Skin: dry, intact Results Findings/Data: Laboratory Tests 07/02/23 0420: [Embedded Image Not Available] Creatinine < 0.4 L Laboratory Tests 07/02 07/02 07/01 07/01 07/01 0458 0420 2054 1540 1116 Chemistry Sodium (137 - 145 mmol/L) 133 L Potassium (3.4 - 5.0 mmol/L) 3.9 Chloride (98 - 107 mmol/L) 98 Carbon Dioxide (22 - 30 mmol/L) 28 Anion Gap (10 - 20 mmol/L) 11 BUN (7 - 17 mg/dL) 5 L Creatinine (0.5 - 1.0 mg/dL) < 0.4 L Glomerular Filtr Rate (mL/min) 115 Glucose (74 - 106 mg/dL) 61 L POC Glucose (74 - 106 MG/DL) 76 101 87 103 Calcium (8.4 - 10.2 mg/dL) 8.5 Phosphorus (2.5 - 4.5 mg/dL) 2.5 Magnesium (1.6 - 2.3 mg/dL) 1.9 Total Bilirubin (0.2 - 1.3 mg/dL) 5.7 H Conjugated Bilirubin (0 - 0.3 mg/dL) 3.6 H Unconjugated Bilirubin (0 - 1.1 mg/dL) 0.8 AST (15 - 46 U/L) 328 H ALT (0 - 34 U/L) 82 H Total Alk Phosphatase (38 - 126 U/L) 234 H Total Protein (6.3 - 8.2 g/dL) 5.7 L Albumin (3.5 - 5.0 g/dL) 3.2 L Specimen Hemolysis (0 - 100 Index/DL) 31 Laboratory Tests 07/02 0420 Hematology WBC (5.0 - 12.0 x10 3/uL) 9.7 RBC (4.20 - 5.40 x10 6/uL) 3.27 L Hgb (12.0 - 16.0 g/dL) 10.3 L Hct (36.0 - 46.0 %) 31.5 L MCV (81 - 99 fL) 96 MCH (27 - 31 pg) 31.5 H MCHC (33 - 37 g/dL) 32.7 L RDW (11.5 - 15.5 %) 18.6 H Plt Count (130 - 400 x10 3/uL) 148 MPV (9.4 - 16.4 fL) 11.5 Neut % (Auto) (43 - 65 %) 59.5 Lymph % (Auto) (20.5 - 45.5 %) 23.9 [place] % (Auto) (5.5 - 11.7 %) 13.5 H Eos % (Auto) (0.9 - 2.9 %) 2.0 Baso % (Auto) (0.2 - 1.0 %) 0.6 Neut # (Auto) (2.2 - 4.8 x10 3/uL) 5.78 H Lymph # (Auto) (1.3 - 2.9 x10 3/uL) 2.32 [place] # (Auto) (0.3 - 0.8 x10 3/uL) 1.31 H Eos # (Auto) (0.0 - 0.2 x10 3/uL) 0.19 Baso # (Auto) (0.0 - 0.1 x10 3/uL) 0.06 Immature Gran % (0.0 - 2.0 %) 0.5 Nucleated RBC % (0 - 1.0 %) 0.0 Diagnosis, Assessment Plan Free Text A P: Patient is a 57 year old female with hx of alcohol abuse, HTN admitted due to alcohol withdrawal. GI was consulted due to dilated 7mm CBD and elevated LFTs. #Hydropic Gallbladder #alcoholic hepatitis #CBD dilation without stone #hepatomegaly and steatosis #elevated ammonia -afebrile, WBC 10.3, has RUQ tenderness -Dilated CBD 7mm on US -ConBili 3.6<3.4<2, Uncongbili 0.8<1.1<2.3 -AST 356, ALT 85, alk phos 392, ggt 662 -ammonia 48 -US: Hepatomegaly with fatty infiltration of liver versus further hepatocellular disease. CBD 7mm, gallbladder moderately distended -MDF 14 therefore no steroids indicated for alcoholic hepatitis -MRCP cannot ne performed due metal plate in patient's left arm not compatible with MRI, HIDA pending -if positive HIDA will consider ERCP with Dr. Weston -continue supportive care for alcoholic hepatitis, if can't tolerate fluids then will consider NG tube for feeding Plan discussed with Vaughn Lynch 07/02/23 6271: Attestations Teaching Physician Attestation F/U visit w/ resident: I saw the patient with the resident and agree with the resident's findings and plan. Unable to tolerate solid foods today. She prefers full liquid diet. She is able to tolerate full liquid and able to eat entire plate. Patient with plans for HIDA today to assess hydropic GB/dilated CBD. Do ssuspect it may be related to alcoholic liver disease. Steroids not indicated due to low MDF. Recommend agressive nutrition with ensure supplements. Monitor LFTs and INR. at 1435 at 7271 RPT #:[id number] END OF [id number] 06:49:00 [facility] Hospitalist Progress Note REPORT#:[id number] REPORT STATUS: Signed REPORT INITIALIZATION DATE:07/02/23 TIME: 648 PATIENT: ZAK MANDEL UNIT #: [id number] ROOM/BED: [address] : [birth year] AGE: 57 SEX: F ATTEND: Joey Toure MD ADM AUTHOR: Candi Vasquez MD R1 REPT SERVICE DT/TIME: 07/02/23 0649 * ALL edits or amendments must be made on the electronic/computer document * Candi Vasquez 07/02/23 0649: Subjective Chief complaint: Alcohol withdrawal HPI: pt seen today at bedside, no acute events overnight; CIWA 0; complaining of n/v when she eats' made NPO for lunch as HIDA is scheduled for around that time Review of Systems Free Text ROS Notes Free Text ROS Notes: 10 point ros negative except as documented for hpi Objective General VS/I O: Vital Signs: Date Time Temp Pulse Resp B/P B/P Pulse O2 O2 Flow FiO2 Mean Ox Delivery Rate 07/02 1154 98 17 92/61 71.5 95 07/02 0815 36.6 105 18 114/75 88.3 93 07/02 0459 36.8 87 14 101/68 78.8 93 07/02 0040 36.6 88 14 104/65 78.3 95 07/01 2055 37.4 105 14 102/63 76.2 96 07/01 1541 37.0 109 17 100/67 77.8 93 Room air PATIENT WEIGHT: Weight (lb): 242 Weight (oz): 8.14 Weight (kg): 110.000 Medications: Active Meds + DC'd Last 24 Hrs Diazepam (VALIUM) 5 MG BID PO Polyethylene Glycol (MIRALAX) 1 PKT BID PO (CKD) Sennosides (SENNA) 1 TAB DAILY PO (CKD) Polyethylene Glycol (MIRALAX) 1 PKT DAILY PO (DC) Lactated Ringer's (LACTATED RINGERS) 500 ML BOLUS ONCE ONE IV (DC) Diazepam (VALIUM) 5 MG TID PO (DC) Fluoxetine HCl (PROzac) 20 MG DAILY PO Folic Acid (FOLIC ACID) 1 MG DAILY PO Multivitamins Therapeutic (THERAGRAN) 1 TAB DAILY PO Sodium Chloride (SODIUM CHLORIDE FLUSH) 5 ML Q12HR IV Thiamine HCl (VITAMIN B-1) 100 MG DAILY PO Insulin Human Lispro (HumaLOG) LOW DOSE SCALE Q6HR SUBQ Dextrose/Water (DEXTROSE 50% SYR) 25 ML ASDIR PRN IV (CKD) Glucagon (GLUCAGON) 1 MG ASDIR PRN IM Ondansetron HCl (ZOFRAN 4 MG/2 ML INJ) 4 MG Q4H PRN PRN IV Sodium Chloride (SODIUM CHLORIDE 0.9%) 250 ML ASDIR PRN IV Sodium Chloride (NACL 0.9%) 10 ML ASDIR PRN IV Sodium Chloride (SODIUM CHLORIDE FLUSH) 5 ML ASDIR PRN IV Acetaminophen (TYLENOL REGULAR) 650 MG Q6H PRN PRN PO Lidocaine (LIDODERM) 2 PATCH DAILY TOPICAL Morphine Sulfate (morphine) 2 MG Q4H PRN PRN IV (DA) Naloxone HCl (NARCAN) 0.4 MG Q2M PRN PRN IV Oxycodone HCl (ROXICODONE,OXYIR) 5 MG Q4H PRN PRN PO (DA) Lorazepam (LORazepam) 1 MG Q2H PRN PRN PO Lorazepam (LORazepam) 2 MG Q2H PRN PRN PO Lorazepam (ATIVAN) 1 MG Q2H PRN PRN IV Lorazepam (ATIVAN) 2 MG Q2H PRN PRN IV Physical Exam General appearance: alert, awake, oriented Head/Eyes: atraumatic, normocephalic ENT: dry mucosal membrane, normal dentition Neck: full range of motion, non-tender Cardiovascular: normal heart sounds, regular rate rhythm Respiratory: aerating well, clear to auscultation, symmetric expansion Abdomen: obese, tenderness (moderate RUQ), normal bowel sounds, soft Genitourinary: flank pain, no urinary catheter Extremities: moves all, no edema Results Findings/Data: Laboratory Tests 07/02 07/02 07/01 07/01 3898 0420 2054 1540 Chemistry Sodium (137 - 145 mmol/L) 133 L Potassium (3.4 - 5.0 mmol/L) 3.9 Chloride (98 - 107 mmol/L) 98 Carbon Dioxide (22 - 30 mmol/L) 28 Anion Gap (10 - 20 mmol/L) 11 BUN (7 - 17 mg/dL) 5 L Creatinine (0.5 - 1.0 mg/dL) < 0.4 L Glomerular Filtr Rate (mL/min) 115 Glucose (74 - 106 mg/dL) 61 L POC Glucose (74 - 106 MG/DL) 76 101 87 Calcium (8.4 - 10.2 mg/dL) 8.5 Phosphorus (2.5 - 4.5 mg/dL) 2.5 Magnesium (1.6 - 2.3 mg/dL) 1.9 Total Bilirubin (0.2 - 1.3 mg/dL) 5.7 H Conjugated Bilirubin (0 - 0.3 mg/dL) 3.6 H Unconjugated Bilirubin (0 - 1.1 mg/dL) 0.8 AST (15 - 46 U/L) 328 H ALT (0 - 34 U/L) 82 H Total Alk Phosphatase (38 - 126 U/L) 234 H Total Protein (6.3 - 8.2 g/dL) 5.7 L Albumin (3.5 - 5.0 g/dL) 3.2 L Specimen Hemolysis (0 - 100 Index/DL) 31 Laboratory Tests 07/02 0420 Hematology WBC (5.0 - 12.0 x10 3/uL) 9.7 RBC (4.20 - 5.40 x10 6/uL) 3.27 L Hgb (12.0 - 16.0 g/dL) 10.3 L Hct (36.0 - 46.0 %) 31.5 L MCV (81 - 99 fL) 96 MCH (27 - 31 pg) 31.5 H MCHC (33 - 37 g/dL) 32.7 L RDW (11.5 - 15.5 %) 18.6 H Plt Count (130 - 400 x10 3/uL) 148 MPV (9.4 - 16.4 fL) 11.5 Neut % (Auto) (43 - 65 %) 59.5 Lymph % (Auto) (20.5 - 45.5 %) 23.9 [place] % (Auto) (5.5 - 11.7 %) 13.5 H Eos % (Auto) (0.9 - 2.9 %) 2.0 Baso % (Auto) (0.2 - 1.0 %) 0.6 Neut # (Auto) (2.2 - 4.8 x10 3/uL) 5.78 H Lymph # (Auto) (1.3 - 2.9 x10 3/uL) 2.32 [place] # (Auto) (0.3 - 0.8 x10 3/uL) 1.31 H Eos # (Auto) (0.0 - 0.2 x10 3/uL) 0.19 Baso # (Auto) (0.0 - 0.1 x10 3/uL) 0.06 Immature Gran % (0.0 - 2.0 %) 0.5 Nucleated RBC % (0 - 1.0 %) 0.0 Results: labs reviewed, vital signs reviewed, current med profile rev'd Diagnosis, Assessment Plan Free Text DxA P Notes Free text DxA P notes: 57 yo F pmh of depression, alcohol abuse, and hypertension presented to the ED with tremors and vomiting being admitted for alcohol withdrawal #Alcohol Withdrawal #hx Alcohol abuse PAWSS: 7 - CIWA: 16 on admit > 7 > 0 - CIWA protocol in place - started on folate, mutivitamin, and diazepam tid - continue to monitor for sxs of withdrawal - we will start tapering diazepam to bid, will decrease to dx tomorrow #alcoholic hepatitis #hepatomegaly - 3 year hx of heavy alcohol abuse - AST 356, ALT 85, alk phos 392 - Maddrey's score: 6.9 > good prognosis, no need for glucocorticoid therapy - Abs us shows hepatomegaly with fatty infiltration - pt also takes 2 tylenol daily and was advised to decrease/stop her intake - pt was informed - GI consulted: awaiting HIDA - daily LFTs #Hydropic Gallbladder #CBD dilation without stone #hepatomegaly #hepatic steatosis - afebrile, WBC 10.3 - on admit: Total Bili 4.3, ConBili 2, Uncongbili 2.3 - Abd US shows CBD dilation 7mm without stone, hydropic gallbladder - GI consulted: unable to perform MRCP as pt has metal plate in arm - HIDA ordered; per GI, if positive, will consider ERCP with Dr. Weston #Mixed Metabolic alkalosis and acidosis #Metabolic acidosis with AG #Metabolic alkalosis likely 2/2 to alcohol abuse and vomitng - pH 7.46/44/31; AG 24 - will continue to monitor - zofran prn for nausua #Asymptomatic bacteruria afebrile, HR 110, WBC 10.3 - UA: +1blood, WBC 51-100, (-)estrase/nitrite - UC negative - no need for abx #HTN - holding home lisinopril 40mg due to low BP #Depression -resume home prozac 20mg Plan: - f/u HIDA results DVT: Lovenox Diet: FLD Code: Full Discussed with Joey Mullins 07/02/23 1321: Attestations Physician Attestation Agree w/findings plan: I have seen and examined the patient with resident team, agree with plan. Subjective: No chest pain or Shortness of breath. c/o Nausea, had 1 vomitng yesterday and 1 this morning. No abdominal pain. No obvious bleeding. Looks comfortable in the bed. General appearance: Alert and comfortable CVS: Normal s1 s2 Lungs: Cleart to ascultation bilaterally Abdomen: soft, BS+, no tenderness Extremities: No lower extremity edema 57 yo with ETOH abuse, advised to quit. Hepatomegaly/ fatty liver, CBD dilatation, plan for HIDA scan today, GI On board. MIcroscopic hematuria will need f/u with PCP. Plan discussed with patient, answered all ?'s at 1159 at 1321 RPT #:[id number] END OF [id number] 09:08:00 [facility] ([facility]) Gastroenterology Progress Note REPORT#:[id number] REPORT STATUS: Signed REPORT INITIALIZATION DATE:07/01/23 TIME: 907 PATIENT: ZAK MANDEL UNIT #: [id number] ROOM/BED: [address] : [birth year] AGE: 57 SEX: F ATTEND: Joey Toure MD ADM AUTHOR: Ethan Short DO R1 REPT SERVICE DT/TIME: 07/01/23 0908 * ALL edits or amendments must be made on the electronic/computer document * Ethan Short 07/01/23 0908: Subjective Chief complaint: Nausea HPI: Patient continues to report nausea and some RUQ pain. Denies hallucinations today. Review of Systems All systems rev neg: except as marked Objective General VS/I O: Last Documented: Result Date Time Pulse Ox 93 07/01 1118 B/P 96/63 07/01 1118 B/P Mean 73.7 07/01 1118 O2 Delivery Room air 07/01 111 Temp 37.0 07/01 111 Pulse 87 07/01 1118 Resp 16 07/01 1118 24 hour I O ending at 0700: 07/01 0700 06/30 1900 Intake Total 1220.00 Output Total Balance 1220.00 Intake, IV 900.00 Intake, Oral 320 Patient 110 kg Weight Weight Estimated Measurement Method PATIENT WEIGHT: Weight (lb): 242 Weight (oz): 8.14 Weight (kg): 110.000 Physical Exam Neck: full range of motion Respiratory: aerating well, clear to auscultation Abdomen: tenderness (epigastric) Extremities: moves all, normal range of motion Neuro/TALENT AC[employer]ISITION ASSOCIATE: alert, oriented X 3 Skin: dry, intact Results Findings/Data: Laboratory Tests 07/01/23 0409: [Embedded Image Not Available] Creatinine < 0.4 L Laboratory Tests 07/01 07/01 07/01 06/30 06/30 1116 0540 0409 2021 1551 Chemistry Sodium (137 - 145 mmol/L) 132 L Potassium (3.4 - 5.0 mmol/L) 3.3 L Chloride (98 - 107 mmol/L) 97 L Carbon Dioxide (22 - 30 mmol/L) 30 Anion Gap (10 - 20 mmol/L) 9 L BUN (7 - 17 mg/dL) 5 L Creatinine (0.5 - 1.0 mg/dL) < 0.4 L Glomerular Filtr Rate (mL/min) 115 Glucose (74 - 106 mg/dL) 73 L POC Glucose (74 - 106 MG/DL) 103 75 109 H 88 Calcium (8.4 - 10.2 mg/dL) 8.4 Phosphorus (2.5 - 4.5 mg/dL) 2.4 L Magnesium (1.6 - 2.3 mg/dL) 1.7 Total Bilirubin (0.2 - 1.3 mg/dL) 6.0 H Conjugated Bilirubin (0 - 0.3 mg/dL) 3.4 H Unconjugated Bilirubin (0 - 1.1 mg/dL) 1.1 AST (15 - 46 U/L) 354 H ALT (0 - 34 U/L) 77 H Total Alk Phosphatase (38 - 126 U/L) 290 H Total Protein (6.3 - 8.2 g/dL) 5.8 L Albumin (3.5 - 5.0 g/dL) 3.3 L Specimen Hemolysis (0 - 100 Index/DL) 19 Laboratory Tests 07/01 0409 Hematology WBC (5.0 - 12.0 x10 3/uL) 9.5 RBC (4.20 - 5.40 x10 6/uL) 3.49 L Hgb (12.0 - 16.0 g/dL) 10.8 L Hct (36.0 - 46.0 %) 33.0 L MCV (81 - 99 fL) 95 MCH (27 - 31 pg) 30.9 MCHC (33 - 37 g/dL) 32.7 L RDW (11.5 - 15.5 %) 17.4 H Plt Count (130 - 400 x10 3/uL) 159 MPV (9.4 - 16.4 fL) 11.3 Neut % (Auto) (43 - 65 %) 63.7 Lymph % (Auto) (20.5 - 45.5 %) 22.7 [place] % (Auto) (5.5 - 11.7 %) 9.6 Eos % (Auto) (0.9 - 2.9 %) 2.7 Baso % (Auto) (0.2 - 1.0 %) 0.8 Neut # (Auto) (2.2 - 4.8 x10 3/uL) 6.04 H Lymph # (Auto) (1.3 - 2.9 x10 3/uL) 2.15 [place] # (Auto) (0.3 - 0.8 x10 3/uL) 0.91 H Eos # (Auto) (0.0 - 0.2 x10 3/uL) 0.26 H Baso # (Auto) (0.0 - 0.1 x10 3/uL) 0.08 Immature Gran % (0.0 - 2.0 %) 0.5 Nucleated RBC % (0 - 1.0 %) 0.0 Diagnosis, Assessment Plan Free Text A P: Patient is a 57 year old female with hx of alcohol abuse, HTN admitted due to alcohol withdrawal. GI was consulted due to dilated 7mm CBD and elevated LFTs. #Hydropic Gallbladder #elevated liver enzymes #CBD dilation without stone #hepatomegaly and steatosis #elevated ammonia -afebrile, WBC 10.3, has RUQ tenderness -Dilated CBD 7mm on US -ConBili 3.4<2, Uncongbili 1.1<2.3 -AST 356, ALT 85, alk phos 392, ggt 662 -alcoholic hepatitis vs. obstructive hepatitis -ammonia 48 -US: Hepatomegaly with fatty infiltration of liver versus further hepatocellular disease. CBD 7mm, gallbladder moderately distended -MDF 14 therefore no steroids indicated for alcoholic hepatitis -MRCP cannot ne performed due metal plate in patient's left arm not compatible with MRI, HIDA ordered -if positive HIDA will consider ERCP with Dr. Weston Plan discussed with Vaughn Lynch 07/01/232045: Attestations Teaching Physician Attestation F/U visit w/ resident: I saw the patient with the resident and agree with the resident's findings and plan. Feels better today. Abdominal pain better as well but still there. Suspect hydropic gallbladder with CBD dilation 2/2 alcoholic hepatitis. Unable to obtain mrcp due to metal plate in arm. Will check HIDA scan. Contineu agressive nutrition. Supplement with ensure/glucerna. at 1204 at 2049 RPT #:[id number] END OF [id number] 06:26:00 [facility]) Hospitalist Progress Note REPORT#:[id number] REPORT STATUS: Signed REPORT INITIALIZATION DATE:07/01/23 TIME: 625 PATIENT: ZAK MANDEL UNIT #: [id number] ROOM/BED: [address] : [birth year] AGE: 57 SEX: F ATTEND: Joey Toure MD ADM AUTHOR: Candi Vasquez MD R1 REPT SERVICE DT/TIME: 07/01/23625 * ALL edits or amendments must be made on the electronic/computer document * Candi Vasquez 07/01/23 0626: Subjective Chief complaint: Alcohol withdrawal HPI: pt seen today at bedside, no acute events overnight; CIWA 0; is feeling much better and relaxed Review of Systems Free Text ROS Notes Free Text ROS Notes: 10 point ros negative except as documented for hpi Objective General VS/I O: Vital Signs: Date Time Temp Pulse Resp B/P B/P Pulse O2 O2 Flow FiO2 Mean Ox Delivery Rate 07/01 1118 37.0 87 16 96/63 73.7 93 Room air 07/01 0810 37.1 81 16 93/59 70.2 97 Room air 07/01 0541 36.8 81 18 98/65 76.2 95 07/01 0101 36.9 87 18 94/55 67.7 95 06/30 1552 36.8 80 16 98/65 75.8 94 Room air 24 hour I O ending at 0700: 07/01 0700 06/30 1900 Intake Total 1220.00 Output Total Balance 1220.00 Intake, IV 900.00 Intake, Oral 320 Patient 110 kg Weight Weight Estimated Measurement Method PATIENT WEIGHT: Weight (lb): 242 Weight (oz): 8.14 Weight (kg): 110.000 Medications: Active Meds + DC'd Last 24 Hrs Lactated Ringer's (LACTATED RINGERS) 500 ML BOLUS ONCE ONE IV (DC) Magnesium (MAGNESIUM SULFATE 1GM) 100 ML ONCE ONE IV (DC) Potassium Chloride (K-DUR) 40 MEQ ONCE ONE PO (DC) Diazepam (VALIUM) 5 MG TID PO Fluoxetine HCl (PROzac) 20 MG DAILY PO Folic Acid (FOLIC ACID) 1 MG DAILY PO Lisinopril (LISINOPRIL) 40 MG DAILY PO (DC) Multivitamins Therapeutic (THERAGRAN) 1 TAB DAILY PO Sodium Chloride (SODIUM CHLORIDE FLUSH) 5 ML Q12HR IV Thiamine HCl (VITAMIN B-1) 100 MG DAILY PO Insulin Human Lispro (HumaLOG) LOW DOSE SCALE Q6HR SUBQ Dextrose/Water (DEXTROSE 50% SYR) 25 ML ASDIR PRN IV (CKD) Glucagon (GLUCAGON) 1 MG ASDIR PRN IM Ondansetron HCl (ZOFRAN 4 MG/2 ML INJ) 4 MG Q4H PRN PRN IV Sodium Chloride (SODIUM CHLORIDE 0.9%) 250 ML ASDIR PRN IV Sodium Chloride (NACL 0.9%) 10 ML ASDIR PRN IV Sodium Chloride (SODIUM CHLORIDE FLUSH) 5 ML ASDIR PRN IV Acetaminophen (TYLENOL REGULAR) 650 MG Q6H PRN PRN PO Lidocaine (LIDODERM) 2 PATCH DAILY TOPICAL Morphine Sulfate (morphine) 2 MG Q4H PRN PRN IV Naloxone HCl (NARCAN) 0.4 MG Q2M PRN PRN IV Oxycodone HCl (ROXICODONE,OXYIR) 5 MG Q4H PRN PRN PO Lactated Ringer's (LACTATED RINGERS) 1,000 ML .[id number] IV (DC) Lorazepam (LORazepam) 1 MG Q2H PRN PRN PO Lorazepam (LORazepam) 2 MG Q2H PRN PRN PO Lorazepam (ATIVAN) 1 MG Q2H PRN PRN IV Lorazepam (ATIVAN) 2 MG Q2H PRN PRN IV Physical Exam General appearance: awake, oriented Head/Eyes: atraumatic, normocephalic ENT: dry mucosal membrane, normal dentition Neck: full range of motion, non-tender Cardiovascular: normal heart sounds, regular rate rhythm Respiratory: aerating well, clear to auscultation, symmetric expansion Abdomen: obese, tenderness (moderate RUQ), normal bowel sounds, soft Genitourinary: flank pain, no urinary catheter Extremities: moves all, no edema Results Findings/Data: Laboratory Tests 07/01 07/01 07/01 06/30 06/30 1116 0540 0409 2022 1551 Chemistry Sodium (137 - 145 mmol/L) 132 L Potassium (3.4 - 5.0 mmol/L) 3.3 L Chloride (98 - 107 mmol/L) 97 L Carbon Dioxide (22 - 30 mmol/L) 30 Anion Gap (10 - 20 mmol/L) 9 L BUN (7 - 17 mg/dL) 5 L Creatinine (0.5 - 1.0 mg/dL) < 0.4 L Glomerular Filtr Rate (mL/min) 115 Glucose (74 - 106 mg/dL) 73 L POC Glucose (74 - 106 MG/DL) 103 75 109 H 88 Calcium (8.4 - 10.2 mg/dL) 8.4 Phosphorus (2.5 - 4.5 mg/dL) 2.4 L Magnesium (1.6 - 2.3 mg/dL) 1.7 Total Bilirubin (0.2 - 1.3 mg/dL) 6.0 H Conjugated Bilirubin (0 - 0.3 mg/dL) 3.4 H Unconjugated Bilirubin (0 - 1.1 mg/dL) 1.1 AST (15 - 46 U/L) 354 H ALT (0 - 34 U/L) 77 H Total Alk Phosphatase (38 - 126 U/L) 290 H Total Protein (6.3 - 8.2 g/dL) 5.8 L Albumin (3.5 - 5.0 g/dL) 3.3 L Specimen Hemolysis (0 - 100 Index/DL) 19 Laboratory Tests 07/01 0409 Hematology WBC (5.0 - 12.0 x10 3/uL) 9.5 RBC (4.20 - 5.40 x10 6/uL) 3.49 L Hgb (12.0 - 16.0 g/dL) 10.8 L Hct (36.0 - 46.0 %) 33.0 L MCV (81 - 99 fL) 95 MCH (27 - 31 pg) 30.9 MCHC (33 - 37 g/dL) 32.7 L RDW (11.5 - 15.5 %) 17.4 H Plt Count (130 - 400 x10 3/uL) 159 MPV (9.4 - 16.4 fL) 11.3 Neut % (Auto) (43 - 65 %) 63.7 Lymph % (Auto) (20.5 - 45.5 %) 22.7 [place] % (Auto) (5.5 - 11.7 %) 9.6 Eos % (Auto) (0.9 - 2.9 %) 2.7 Baso % (Auto) (0.2 - 1.0 %) 0.8 Neut # (Auto) (2.2 - 4.8 x10 3/uL) 6.04 H Lymph # (Auto) (1.3 - 2.9 x10 3/uL) 2.15 [place] # (Auto) (0.3 - 0.8 x10 3/uL) 0.91 H Eos # (Auto) (0.0 - 0.2 x10 3/uL) 0.26 H Baso # (Auto) (0.0 - 0.1 x10 3/uL) 0.08 Immature Gran % (0.0 - 2.0 %) 0.5 Nucleated RBC % (0 - 1.0 %) 0.0 Results: labs reviewed, vital signs reviewed, current med profile rev'd Diagnosis, Assessment Plan Free Text DxA P Notes Free text DxA P notes: 57 yo F pmh of depression, alcohol abuse, and hypertension presented to the ED with tremors and vomiting being admitted for alcohol withdrawal #Alcohol Withdrawal #hx Alcohol abuse PAWSS: 7 - CIWA: 16 on admit > 7 - CIWA protocol in place - started on folate, mutivitamin, and diazepam tid - continue to monitor for sxs of withdrawal #alcoholic hepatitis #hepatomegaly - 3 year hx of heavy alcohol abuse - AST 356, ALT 85, alk phos 392 - Maddrey's score: 6.9 > good prognosis, no need for glucocorticoid therapy - Abs us shows hepatomegaly with fatty infiltration - pt also takes 2 tylenol daily and was adivsed to decrease/stop her intake - pt was informed - GI consulted - daily LFTs #Hydropic Gallbladder #CBD dilation without stone #hepatomegaly #hepatic steatosis - afebrile, WBC 10.3 - on admit: Total Bili 4.3, ConBili 2, Uncongbili 2.3 - Abd US shows CBD dilation 7mm without stone, hydropic gallbladder - GI consulted: unable to perform MRCP as pt has metal plate in arm - HIDA ordered; per GI, if positive, will consider ERCP with Dr. Weston #Mixed Metabolic alkalosis and acidosis #Metabolic acidosis with AG #Metabolic alkalosis likely 2/2 to alcohol abuse and vomitng - pH 7.46/44/31; AG 24 - will continue to monitor - zofran prn for nausua #Asymptomatic bacteruria afebrile, HR 110, WBC 10.3 - UA: +1blood, WBC 51-100, (-)estrase/nitrite - UC negative - no need for abx #HTN - holding home lisinopril 40mg due to low BP #Depression -resume home prozac 20mg DVT: Lovenox Diet: regular Code: Full Discussed with Joey Mullins 07/01/23 2210: Attestations Physician Attestation Agree w/findings plan: I have seen and examined the patient with resident team, agree with plan. Subjective: No chest pain or Shortness of breath. No Nausea or abdominal pain. No obvious bleeding. Looks comfortable in the bed. General appearance: Alert and comfortable CVS: Normal s1 s2 Lungs: Cleart to ascultation bilaterally Abdomen: soft, BS+, no tenderness Extremities: No lower extremity edema 57 yo with ETOH abuse, advised to quit. Hepatomegaly/ fatty liver, CBD dilatation, plan for ERCP, GI On board. MIcroscopic hematuria will need f/u with PCP. Plan discussed with patient, answered all ?'s at 1306 at 2210 RPT #:[id number] END OF [id number] 08:55:00 [facility] ([facility]) GE Consultation Note REPORT#:[id number] REPORT STATUS: Signed REPORT INITIALIZATION DATE:06/30/23 TIME: 854 PATIENT: ZAK MANDEL UNIT #: [id number] ROOM/BED: [address] : [birth year] AGE: 57 SEX: F ATTEND: Layla Mott MD ADM AUTHOR: Ethan Short DO R1 REPT SERVICE DT/TIME: 06/30/23 0855 * ALL edits or amendments must be made on the electronic/computer document * Ethan Short 06/30/23 0855: History of Present Illness Chief complaint: Nausea HPI: Patient is a 57 year old female with pmh of depression, alcohol abuse, and hypertension presented to the ED with tremors and vomiting being admitted for alcohol withdrawal Patient was hospitalized 04/26/23 for alcohol withdrawal and supposed to take acamprostate but wanted to try and taper off alcohol on her own. Patient reports drinking 1 bottle of vodka daily prior to quitting drinking. She attempted to stop drinking on Friday but had some tremorts with chills, diaphoresis and developed tactiles hallucination in her legs which is what brought her in. In the ED patient had AST 300, ALT 85, ALP 392, GGT 600. US abd showed hepatomegaly with fatty infiltration of liver versus further hepatocellular disease, dilated CBD 7mm, gallbladder moderately distended. GI was consulted for liver failure and dilated CBD. MRCP pending. History - Adult longitudinal Past medical history: Reports: Diabetes mellitus, Hypertension. Past surgical history: Reports: Bariatric procedure. Alcohol use: Alcohol use (15 or more drinks per week) Drug use: Denies recreational drugs Smoking status for patients 13 years old or older: Never Smoker Allergies: Coded Allergies: Penicillins (Mild, ITCHING 02/20/23) REDNESS,RASH Ambulatory status: Independent Review of Systems GI: Reports: nausea. Psych: Reports: other (tactile hallucination). All systems rev neg: except as marked Objective Physical Exam VS/I O: Last Documented: Result Date Time Pulse Ox 94 06/30 155 B/P 98/65 06/30 1552 B/P Mean 75.8 06/30 1552 O2 Delivery Room air 06/30 155 Temp 36.8 06/30 1552 Pulse 80 06/30 1552 Resp 16 06/30 1552 24 hour I O ending at 0700: 06/30 0700 06/29 1900 Intake Total 920.00 Output Total Balance 920.00 Intake, IV 900.00 Intake, Oral 20 Patient 110 kg Weight Weight Estimated Measurement Method PATIENT WEIGHT: Weight (lb): 242 Weight (oz): 8.14 Weight (kg): 110.000 General appearance: alert, awake, oriented Neck: full range of motion Respiratory: aerating well, clear to auscultation Abdomen: tenderness (epigastric) Extremities: moves all, normal range of motion Neuro/TALENT ACQUISITION ASSOCIATE: alert, oriented X 3 Skin: dry, intact Results Findings/Data: Laboratory Tests 06/30/23 0328: [Embedded Image Not Available] Creatinine < 0.4 L Laboratory Tests 02/12 02/12 02/12 02/12 02/12 1551 1134 0442 0328 0328 Chemistry Sodium (137 - 145 mmol/L) 135 L Potassium (3.4 - 5.0 mmol/L) 3.4 Chloride (98 - 107 mmol/L) 98 Carbon Dioxide (22 - 30 mmol/L) 34 H Anion Gap (10 - 20 mmol/L) 6 L BUN (7 - 17 mg/dL) 7 Creatinine (0.5 - 1.0 mg/dL) < 0.4 L Glomerular Filtr Rate (mL/min) 115 Glucose (74 - 106 mg/dL) 68 L POC Glucose (74 - 106 MG/DL) 88 106 68 L Calcium (8.4 - 10.2 mg/dL) 8.4 Phosphorus (2.5 - 4.5 mg/dL) 3.6 Magnesium (1.6 - 2.3 mg/dL) 1.4 L Total Bilirubin (0.2 - 1.3 mg/dL) 4.8 H Conjugated Bilirubin (0 - 0.3 mg/dL) 1.9 H Unconjugated Bilirubin (0 - 1.1 1.8 H mg/dL) AST (15 - 46 U/L) 250 H ALT (0 - 34 U/L) 65 H Total Alk Phosphatase (38 - 126 U/L) 268 H Troponin I (0.012 - 0.033 ng/mL) < 0.012 L Total Protein (6.3 - 8.2 g/dL) 6.0 L Albumin (3.5 - 5.0 g/dL) 3.4 L Vitamin B12 (239 - 931 pg/mL) > 1000 H Folate (ng/mL) 7.28 TSH (0.465 - 4.68 MIU/L) 2.860 Specimen Hemolysis (0 - 100 15 Index/DL) 06/291 8 Chemistry POC Glucose (74 - 106 MG/DL) 101 Triglycerides (mg/dL) 163 Cholesterol (mg/dL) 215 LDL Cholesterol Measurd (32 - 99 mg/dL) 116.98 H HDL Cholesterol (40 - 59 mg/dL) 91 H Coronary Risk Interp 2.36 Laboratory Tests 06/29 2141 Coagulation INR 1.2 PTT (Jennifer) (23.4 - 37.0 SECONDS) 27.5 PT Patient/Control Mix (9.4 - 12.5 SECONDS) 13.2 H Laboratory Tests 02/12 0328 Hematology WBC (5.0 - 12.0 x10 3/uL) 9.7 RBC (4.20 - 5.40 x10 6/uL) 3.43 L Hgb (12.0 - 16.0 g/dL) 10.7 L Hct (36.0 - 46.0 %) 32.3 L MCV (81 - 99 fL) 94 MCH (27 - 31 pg) 31.2 H MCHC (33 - 37 g/dL) 33.1 RDW (11.5 - 15.5 %) 17.5 H Plt Count (130 - 400 x10 3/uL) 161 MPV (9.4 - 16.4 fL) 11.6 Neut % (Auto) (43 - 65 %) 64.1 Lymph % (Auto) (20.5 - 45.5 %) 23.1 [place] % (Auto) (5.5 - 11.7 %) 10.0 Eos % (Auto) (0.9 - 2.9 %) 1.5 Baso % (Auto) (0.2 - 1.0 %) 0.7 Neut # (Auto) (2.2 - 4.8 x10 3/uL) 6.24 H Lymph # (Auto) (1.3 - 2.9 x10 3/uL) 2.25 [place] # (Auto) (0.3 - 0.8 x10 3/uL) 0.97 H Eos # (Auto) (0.0 - 0.2 x10 3/uL) 0.15 Baso # (Auto) (0.0 - 0.1 x10 3/uL) 0.07 Immature Gran % (0.0 - 2.0 %) 0.6 Nucleated RBC % (0 - 1.0 %) 0.0 Diagnosis, Assessment Plan Free Text DxA P Notes Free Text DxA P Notes: Patient is a 57 year old female with hx of alcohol abuse, HTN admitted due to alcohol withdrawal. GI was consulted due to dilated 7mm CBD and elevated LFTs. #Hydropic Gallbladder #elevated liver enzymes #CBD dilation without stone #hepatomegaly and steatosis #elevated ammonia -afebrile, WBC 10.3, eid negative -Dilated CBD 7mm on US -ConBili 2, Uncongbili 2.3 -AST 356, ALT 85, alk phos 392, ggt 662 -alcoholic hepatitis vs. obstructive hepatitis -ammonia 48 -US: Hepatomegaly with fatty infiltration of liver versus further hepatocellular disease. CBD 7mm, gallbladder moderately distended -MRCP orderd Plan discussed with Vaughn Lynch 06/30/23 1550: Attestations Teaching Physician Attestation 1st visit w/ resident: I was present with the resident during the history and exam. I discussed the case with the resident and agree with the findings and plan as documented in the resident's note. 57 year old female with a hx of depression, etoh abuse, htn who presentsed with fatigue, tremors, and worsening RUQ abdominal pain. She was found to have elevated liver enzymes on admission. TB 4.3, AP 392, AST 356, ALT 85. She had RUQ US that showed hepatic steatosis, hydropic gallbladder and dilated CBD. Unclear if her elevation is secondary to alcoholic hepatitis vs gallstone disease? No gallstones or sludge seen on US though. Would obtain MRCP but patient has metal plate (not MRI compatible) in her arm. Dilation and hydropic gallbladder 2/2 alcoholic hepatitis vs obstruction. Will d/w Dr Weston for possible ERCP. Otherwise MDF is 14, no steroids are indicated in this patient if it was truly all alcoholic hepatitis. Continue supportive care with agressive nutrition. Supplement at bedtime. at 1825 at 3751 RPT #:[id number] END OF [id number] 06:41:00 [facility] REPORT#:[id number] REPORT STATUS: Signed REPORT INITIALIZATION DATE:06/30/23 TIME: 640 PATIENT: ZAK MANDEL UNIT #: [id number] ROOM/BED: [address] : [birth year] AGE: 57 SEX: F ATTEND: Joey Toure MD ADM AUTHOR: Candi Vasquez MD R1 REPT SERVICE DT/TIME: 06/30/23 0641 * ALL edits or amendments must be made on the electronic/computer document * Candi Vasquez 06/30/23 0641: Subjective Chief complaint: Alcohol withdrawal HPI: pt seen today at bedside AAOx3, no acute events overnight; CIWA score 7: slight tremors and sweating, mod itching and pins/needles sensation; endorses RUQ abd pain, eid sign positive, has pain after eating for the last year Review of Systems Free Text ROS Notes Free Text ROS Notes: 10 point ros negative except as documented for hpi Objective General VS/I O: Vital Signs: Date Time Temp Pulse Resp B/P B/P Pulse O2 O2 Flow FiO2 Mean Ox Delivery Rate 06/30 0758 36.7 91 17 121/79 93.0 95 Room air 06/30 0444 36.9 77 17 116/74 88.3 94 06/30 0005 36.8 83 16 112/73 86.3 94 06/29 2053 36.6 88 20 132/85 100.4 94 06/29 1407 36.9 87 18 143/83 102.9 94 06/29 1218 36.9 110 18 178/113 134.6 97 06/29 1218 36.9 110 18 178/113 134.6 97 24 hour I O ending at 0700: 06/30 0700 06/29 1900 Intake Total 920.00 Output Total Balance 920.00 Intake, IV 900.00 Intake, Oral 20 Patient 110 kg Weight Weight Estimated Measurement Method PATIENT WEIGHT: Weight (lb): Weight (oz): Weight (kg): 110.000 Medications: Active Meds + DC'd Last 24 Hrs Diazepam (VALIUM) 5 MG TID PO Fluoxetine HCl (PROzac) 20 MG DAILY PO Folic Acid (FOLIC ACID) 1 MG DAILY PO Lisinopril (LISINOPRIL) 40 MG DAILY PO Multivitamins Therapeutic (THERAGRAN) 1 TAB DAILY PO Sodium Chloride (SODIUM CHLORIDE FLUSH) 5 ML Q12HR IV Thiamine HCl (VITAMIN B-1) 100 MG DAILY PO Magnesium Sulfate (MAGNESIUM SULFATE 2GM) 50 ML ONCE ONE IV (DC) Insulin Human Lispro (HumaLOG) LOW DOSE SCALE Q6HR SUBQ Dextrose/Water (DEXTROSE 50% SYR) 25 ML ASDIR PRN IV (CKD) Glucagon (GLUCAGON) 1 MG ASDIR PRN IM Ondansetron HCl (ZOFRAN 4 MG/2 ML INJ) 4 MG Q4H PRN PRN IV Sodium Chloride (SODIUM CHLORIDE 0.9%) 250 ML ASDIR PRN IV Sodium Chloride (NACL 0.9%) 10 ML ASDIR PRN IV Sodium Chloride (SODIUM CHLORIDE FLUSH) 5 ML ASDIR PRN IV Acetaminophen (TYLENOL REGULAR) 650 MG Q6H PRN PRN PO Lidocaine (LIDODERM) 2 PATCH DAILY TOPICAL Morphine Sulfate (morphine) 2 MG Q4H PRN PRN IV Naloxone HCl (NARCAN) 0.4 MG Q2M PRN PRN IV Oxycodone HCl (ROXICODONE,OXYIR) 5 MG Q4H PRN PRN PO Lactated Ringer's (LACTATED RINGERS) 1,000 ML .[id number] IV Lorazepam (LORazepam) 1 MG Q2H PRN PRN PO Lorazepam (LORazepam) 2 MG Q2H PRN PRN PO Lorazepam (ATIVAN) 1 MG Q2H PRN PRN IV Lorazepam (ATIVAN) 2 MG Q2H PRN PRN IV Lorazepam (LORazepam) 2 MG Q2H PRN PRN PO (DC) Lorazepam (LORazepam) 4 MG Q2H PRN PRN PO (DC) Lorazepam (ATIVAN) 2 MG Q2H PRN PRN IV (DC) Lorazepam (ATIVAN) 4 MG Q2H PRN PRN IV (DC) Multivitamins (MVI-12) 10 ML ONCE ONE IV (DC) Thiamine HCl (THIAMINE HCL) 100 MG Folic Acid (FOLVITE MDV) 1 MG Sodium Chloride (SODIUM CHLORIDE 0.9%) 1,000 ML Sodium Chloride (SODIUM CHLORIDE FLUSH) 5 ML Q12HR IV (DC) Sodium Chloride (SODIUM CHLORIDE FLUSH) 5 ML ASDIR PRN IV (DC) Sodium Chloride (NACL 0.9%) 10 ML ASDIR PRN IV (DC) Sodium Chloride (SODIUM CHLORIDE 0.9%) 250 ML ASDIR PRN IV (DC) Morphine Sulfate (morphine) 4 MG Q4H PRN PRN IV (DC) Ondansetron HCl (ZOFRAN 4 MG/2 ML INJ) 4 MG Q4H PRN PRN IV (DC) Thiamine HCl (THIAMINE HCL) 100 MG X1ED STA IV (DC) Diazepam (VALIUM) 5 MG X1ED STA PO (DC) Iopamidol (ISOVUE-370 100ML) 85 ML .STK-MED ONE IV (DC) Lactated Ringer's (LACTATED RINGERS) 1,000 ML X1ED STA IV (DC) Ondansetron HCl (ZOFRAN 4 MG/2 ML INJ) 4 MG X1ED STA IV (DC) Morphine Sulfate (morphine) 4 MG X1ED STA IV (DC) Physical Exam General appearance: alert, awake, oriented Head/Eyes: atraumatic, normocephalic ENT: dry mucosal membrane, normal dentition Neck: full range of motion, non-tender Cardiovascular: normal heart sounds, regular rate rhythm Respiratory: aerating well, clear to auscultation, symmetric expansion Abdomen: obese, tenderness (moderate RUQ), normal bowel sounds, soft Genitourinary: flank pain, no urinary catheter Extremities: moves all, no edema Results Findings/Data: Laboratory Tests 06/29 1540 Blood Gas Gaston Test Positive VBG pH (7.31 - 7.41) 7.46 H VBG pCO2 (41 - 51 mm/Hg) 44.1 VBG pO2 (30 - 40 mm/Hg) 25.7 L VBG HCO3 (23 - 28 mmol/L) 31.0 H VBG O2 Saturation (50.0 - 80.0 %) 50.0 VBG Base Excess (-2 - +3 mmol/L) 6.1 H Sodium (138 - 146 mmol/l) 139 Potassium (3.5 - 4.5 mmol/L) 3.4 L Chloride (MEQ/L) 98 Glucose (74 - 100 mg/dL) 119 H Ionized Calcium (1.15 - 1.33 MMOL/L) 1.07 L Instrument (Specimen Descript) Venous Laboratory Tests 06/30 06/30 06/30 06/29 0442 0328 0328 2141 Chemistry Sodium (137 - 145 mmol/L) 135 L Potassium (3.4 - 5.0 mmol/L) 3.4 Chloride (98 - 107 mmol/L) 98 Carbon Dioxide (22 - 30 mmol/L) 34 H Anion Gap (10 - 20 mmol/L) 6 L BUN (7 - 17 mg/dL) 7 Creatinine (0.5 - 1.0 mg/dL) < 0.4 L Glomerular Filtr Rate (mL/min) 115 Glucose (74 - 106 mg/dL) 68 L POC Glucose (74 - 106 MG/DL) 68 L Calcium (8.4 - 10.2 mg/dL) 8.4 Phosphorus (2.5 - 4.5 mg/dL) 3.6 Magnesium (1.6 - 2.3 mg/dL) 1.4 L Total Bilirubin (0.2 - 1.3 mg/dL) 4.8 H Conjugated Bilirubin (0 - 0.3 mg/dL) 1.9 H Unconjugated Bilirubin (0 - 1.1 mg/dL) 1.8 H AST (15 - 46 U/L) 250 H ALT (0 - 34 U/L) 65 H Total Alk Phosphatase (38 - 126 U/L) 268 H Troponin I (0.012 - 0.033 ng/mL) < 0.012 L Total Protein (6.3 - 8.2 g/dL) 6.0 L Albumin (3.5 - 5.0 g/dL) 3.4 L Triglycerides (mg/dL) 163 Cholesterol (mg/dL) 215 LDL Cholesterol Me[place] (32 - 99 mg/dL) 116.98 H HDL Cholesterol (40 - 59 mg/dL) 91 H Coronary Risk Interp 2.36 Vitamin B12 (239 - 931 pg/mL) > 1000 H Folate (ng/mL) 7.28 TSH (0.465 - 4.68 MIU/L) 2.860 Specimen Hemolysis (0 - 100 Index/DL) 06/29 2058 1302 Chemistry Sodium (137 - 145 mmol/L) 140 Potassium (3.4 - 5.0 mmol/L) 3.6 Chloride (98 - 107 mmol/L) 88 L Carbon Dioxide (22 - 30 mmol/L) 28 Anion Gap (10 - 20 mmol/L) 27 H BUN (7 - 17 mg/dL) 7 Creatinine (0.5 - 1.0 mg/dL) 0.5 Glomerular Filtr Rate (mL/min) 109 Glucose (74 - 106 mg/dL) 126 H POC Glucose (74 - 106 MG/DL) 101 Calcium (8.4 - 10.2 mg/dL) 9.2 Total Bilirubin (0.2 - 1.3 mg/dL) 5.9 H Conjugated Bilirubin (0 - 0.3 mg/dL) 2.0 H Unconjugated Bilirubin (0 - 1.1 mg/dL) 2.3 H AST (15 - 46 U/L) 356 H ALT (0 - 34 U/L) 85 H Total Alk Phosphatase (38 - 126 U/L) 392 H Total Protein (6.3 - 8.2 g/dL) 8.1 Albumin (3.5 - 5.0 g/dL) 4.5 Lipase (23 - 300 U/L) 182 Specimen Hemolysis (0 - 100 Index/DL) < 15 Laboratory Tests 06/29 2142 Coagulation INR 1.2 PTT (Dillon) (23.4 - 37.0 SECONDS) 27.5 PT Patient/Control Mix (9.4 - 12.5 SECONDS) 13.2 H Laboratory Tests 06/30 06/29 0328 1302 Hematology WBC (5.0 - 12.0 x10 3/uL) 9.7 10.3 RBC (4.20 - 5.40 x10 6/uL) 3.43 L 4.06 L Hgb (12.0 - 16.0 g/dL) 10.7 L 12.6 Hct (36.0 - 46.0 %) 32.3 L 37.3 MCV (81 - 99 fL) 94 92 MCH (27 - 31 pg) 31.2 H 31.0 MCHC (33 - 37 g/dL) 33.1 33.8 RDW (11.5 - 15.5 %) 17.5 H 17.2 H Plt Count (130 - 400 x10 3/uL) 161 200 MPV (9.4 - 16.4 fL) 11.6 11.0 Neut % (Auto) (43 - 65 %) 64.1 82.0 H Lymph % (Auto) (20.5 - 45.5 %) 23.1 9.1 L [place] % (Auto) (5.5 - 11.7 %) 10.0 7.7 Eos % (Auto) (0.9 - 2.9 %) 1.5 0.0 L Baso % (Auto) (0.2 - 1.0 %) 0.7 0.7 Neut # (Auto) (2.2 - 4.8 x10 3/uL) 6.24 H 8.43 H Lymph # (Auto) (1.3 - 2.9 x10 3/uL) 2.25 0.93 L [place] # (Auto) (0.3 - 0.8 x10 3/uL) 0.97 H 0.79 Eos # (Auto) (0.0 - 0.2 x10 3/uL) 0.15 0.00 Baso # (Auto) (0.0 - 0.1 x10 3/uL) 0.07 0.07 Immature Gran % (0.0 - 2.0 %) 0.6 0.5 Nucleated RBC % (0 - 1.0 %) 0.0 0.0 Laboratory Tests 06/29 1302 Urines Urine Color (Yellow) Dark-Maries Urine Appearance (Clear) Turbid H Urine pH (5.0 - 8.0) 6.0 Ur Specific [place] (<1.030) 1.039 H Urine Protein (Negative mg/dL) 100 (2+) H Urine Glucose (UA) (Negative) 50 (1+) H Urine Ketones (Negative mg/dL) Trace H Urine Blood (Negative) 1+ H Urine Nitrite (Negative) Negative Urine Bilirubin (Negative) 2+ H Urine Urobilinogen (Negative mg/dL) 4 Ur Leukocyte Esterase (Negative) NEGATIVE Urine RBC (<4 - 5 /HPF) 11-20 H Urine WBC (<4 - 5 /HPF) 51-100 H Ur Squamous Epith Cells (0 - 5 (RARE) /HPF) 6-15 (FEW) H Urine Bacteria (None - Rare /HPF) None Hyaline Casts (<4 - 5 /LPF) >30 H Urine Mucus (<Rare /LPF) 4+ H Radiology data: Recent Impressions: CAT SCAN - CT ABD PELVIS W/CONT 06/29 1330 Report Impression - Status: SIGNED Entered: 06/29/2023 1531 IMPRESSION: 1. Hepatomegaly with hepatic steatosis. Please correlate with hepatic profile. 2. Postoperative changes from sleeve gastrectomy.. Impression By: Ke Mcneill MD ULTRASOUND - US ABDOMEN LTD 06/29 1703 Report Impression - Status: SIGNED Entered: 06/29/2023 1746 IMPRESSION: 1. Hepatomegaly with fatty infiltration of liver versus further hepatocellular disease. Please correlate with hepatic profile. 2. Hydropic gallbladder. No further sonographic evidence for acute cholecystitis. 3. Dilation of the common bile duct. Please correlate with hepatic profile. Consider further characterization with ERCP or MRCP if of continued concern. Impression By: Ke Mcneill MD Results: labs reviewed, vital signs reviewed, CT results reviewed, US results reviewed, current med profile rev'd Diagnosis, Assessment Plan Free Text DxA P Notes Free text DxA P notes: 57 yo F pmh of depression, alcohol abuse, and hypertension presented to the ED with tremors and vomiting being admitted for alcohol withdrawal #Alcohol Withdrawal #hx Alcohol abuse PAWSS: 7 - CIWA: 16 on admit > 7 - CIWA protocol in place - started on folate, mutivitamin, and diazepam tid - continue to monitor for sxs of withdrawal #alcoholic hepatitis #hepatomegaly - 3 year hx of heavy alcohol abuse - AST 356, ALT 85, alk phos 392 - Maddrey's score: 6.9 > good prognosis, no need for glucocorticoid therapy - Abs us shows hepatomegaly with fatty infiltration - pt also takes 2 tylenol daily and was adivsed to decrease/stop her intake - pt was informed - GI consulted - daily LFTs #Hydropic Gallbladder #CBD dilation without stone #hepatomegaly #hepatic steatosis - afebrile, WBC 10.3 - on admit: Total Bili 4.3, ConBili 2, Uncongbili 2.3 - Abd US shows CBD dilation 7mm without stone, hydropic gallbladder - GI consulted: ordered MRCP #Mixed Metabolic alkalosis and acidosis #Metabolic acidosis with AG #Metabolic alkalosis likely 2/2 to alcohol abuse and vomitng - pH 7.46/44/31; AG 24 - will continue to monitor - zofran prn for nausua #Asymptomatic bacteruria afebrile, HR 110, WBC 10.3 - UA: +1blood, WBC 51-100, (-)estrase/nitrite - UC negative - will continue to monitor #HTN -resume home linsiopril 40mg #Depression -resume home prozac 20mg DVT: Lovenox Diet: Clears Code: Full Discussed with Layla Alberto 07/28/23 1359: Attestations Physician Attestation Agree w/findings plan: I personally saw and examined the patient. I have reviewed and agree with the resident's findings, including all diagnostic interpretations and treatment plan as written. I was present for the louis portions of any procedures performed. at 1503 at 1259 RPT #:[id number] END OF [id number] 20:11:00 [facility] ([facility]) Hospitalist History Physical REPORT#:[id number] REPORT STATUS: Signed REPORT INITIALIZATION DATE:06/29/23 TIME: 2010 PATIENT: ZAK MANDEL UNIT #: [id number] ROOM[address]BED: [address] : [birth year] AGE: 57 SEX: F ATTEND: Layla Mott MD ADM AUTHOR: Adia Medina DO R1 REPT SERVICE DT/TIME: 06/29/232010 * ALL edits or amendments must be made on the electronic/computer document * Adia Medina 06/29/232010: History of Present Illness HPI Chief complaint: Alcohol withdrawal HPI: 57 yo F pmh of depression, alcohol abuse, and hypertension presented to the ED with tremors and vomiting being admitted for alcohol withdrawal Patient was hospitalized 04/26/23 for alcohol withdrawal and supposed to take acamprostate but wanted to try and taper off alcohol on her own and went to . She was sober for 2 weeks but was prompted to drink after issues at work and stopped going to . Since then she has been drinking about 1 pint of vodka per day. She attempted to stop drinking on but had some hallucinations and started to drink stop hallucinations. Patient attempted to stop drinking again at 10pm but woke up at 4 am and started vomiting with tremors, chills, diaphoresis and became increasingly anxious due to tactiles distubance in her legs then developed a headache. She had her last drink around that time but her told her to come to the hospital for help. She currently has some hallucincations where strings are coming from ceilings and pictures/windows start to move. She has some minor anxiety. Patient reports chest pain closer to her shoulders that is worse with touch. She reports feeling dizzy and getting short of breath when walking and when laying flat. She reports belching, bloating, and nausea. She denies auditory hallucinations, dysuria. PCP: Dr. Storey ([facility]) PMed Lisinopril 40mg Prozac 20mg Allergies: penicillins Famhx Father: unknown Mother: Alcohol withdrawal Social etho: 3 years ago started drinking when she moved from [place] Smoke: Quit smoking in 2006 Drug: Quit Meth 2006 Currently lives with ED Course: BP 178/83, afebrile, HR 110, WBC 10.3, Hbg 12.6, MVC 92, Na 140, Cl 88, HCO 28, AG 24, Tbili 4.3, AST 356, ALT 85, alk phos 392, UA: +1blood, WBC 51 -100, (-)estrase/nitrite, US: Hepatomegaly with fatty infiltration of liver versus further hepatocellular disease. CBD 7mm. diazepam 5mg, zofran, 1 L LR, Morphine, GI consulted, Toxocology consulted History Social History Alcohol use: Alcohol use (15 or more drinks per week) Drug use: Denies recreational drugs Smoking status for patients 13 years old or older: Never Smoker Medication/Allergy-Vaccine Hx Allergies: Coded Allergies: Penicillins (Mild, ITCHING 02/20/23) REDNESS,RASH Review of Systems Free Text ROS Notes Free Text ROS Notes: 10 point ros negative except as documented for hpi OBJECTIVE VS/I O: Vital Signs Date Temp Pulse Resp B/P B/P Mean Pulse Ox FiO2 06/29-06/30 36.6-36.9 83-110 16-20 112-178/73-11 86.3-134.6 94-97 3 Last Documented: Result Date Time Pulse Ox 94 06/30 0005 B/P 112/73 06/30 0005 B/P Mean 86.3 06/30 0005 Temp 36.8 06/30 0005 Pulse 83 06/30 0005 Resp 16 06/30 0005 24 hour I O ending at 0700: 06/30 0700 06/29 1900 Intake Total 920.00 Output Total Balance 920.00 Intake, IV 900.00 Intake, Oral 20 Patient 110 kg Weight Weight Estimated Measurement Method Patient Weight and BMI Weight (kg): 110.000 BMI: 44.4 General appearance: alert, awake, oriented Head/Eyes: atraumatic ENT: dry mucosal membrane Neck: full range of motion Cardiovascular: normal heart sounds, regular rate rhythm Respiratory: aerating well, clear to auscultation, symmetric expansion Abdomen: obese, tenderness, normal bowel sounds, soft Genitourinary: flank pain Extremities: moves all, no edema Results Radiology data: Recent Impressions: CAT SCAN - CT ABD PELVIS W/CONT 06/29 1330 Report Impression - Status: SIGNED Entered: 06/29/2023 1531 IMPRESSION: 1. Hepatomegaly with hepatic steatosis. Please correlate with hepatic profile. 2. Postoperative changes from sleeve gastrectomy.. Impression By: Ke Mcneill MD ULTRASOUND - US ABDOMEN LTD 06/29 1703 Report Impression - Status: SIGNED Entered: 06/29/2023 1746 IMPRESSION: 1. Hepatomegaly with fatty infiltration of liver versus further hepatocellular disease. Please correlate with hepatic profile. 2. Hydropic gallbladder. No further sonographic evidence for acute cholecystitis. 3. Dilation of the common bile duct. Please correlate with hepatic profile. Consider further characterization with ERCP or MRCP if of continued concern. Impression By: Ke Mcneill MD Diagnosis, Assessment Plan Free Text A P: 57 yo F pmh of depression, alcohol abuse, and hypertension presented to the ED with tremors and vomiting being admitted for alcohol withdrawal #Alcohol Withdrawal #Alcohol abuse PAWSS: 7 CIWA: 16 -CIWA protocol -folate -mutivitamin #Hydropic Gallbladder #choledocholithiasis afebrile, WBC 10.3 Dilated CBD 7mm, Total Bili 4.3 ConBili 2, Uncongbili 2.3 AST 356, ALT 85, alk phos 392 US: Hepatomegaly with fatty infiltration of liver versus further hepatocellular disease. CBD 7mm R factor: 0.7 (Cholestatic) -MRCP -GI consulted #Mixed Metabolic alkalosis and acidosis #Metabolic acidosis with AG 2/2 etho #Metabolic alkalosis 2/2 vomiting pH 7.46/44/31; AG 24 -Monitor #Asymptomatic bacteruria afebrile, HR 110, WBC 10.3 UA: +1blood, WBC 51-100, (-)estrase/nitrite -monitor #HTN BP 178/83 -linsiopril 40mg #Depression -prozac 20mg DVT: Lovenox Diet: Clears Code: Full Discussed with Dr. Barnard MIPS Advance Care Planning [x] I confirmed that the patient's Advance Care Plan is present, code status is documented, or surrogate decision maker is listed in the patient s medical record. [SATISFIES [facility] PERFORMANCE] If Yes, Stop Here [facility] Med Reconciliation [x] I have utilized all available immediate resources to obtain, update, or review the patient s current medications (including all prescriptions, over-the- counter products, herbals, cannabis/cannabidiol products, and vitamin/mineral/ dietary (nutritional) supplements). [[facility] PERFORMANCE] If Yes, Stop Here Rashi Barnard 06/30/23 0621: Attestations Physician Attestation Agree w/findings plan: I saw and discussed the patient with the resident and agree with the findings and plan as documented by the resident. at 0504 at 0621 RPT #:[id number] END OF [id number] 19:00:00 [facility]) EMERGENCY PROVIDER REPORT REPORT#:[id number] REPORT STATUS: Signed DATE:06/29/23 TIME: 1899 PATIENT: ZAK MANDEL UNIT #: [id number] ROOM/BED: [address] AGE: 57 SEX: F PCP PHYS: Willis Storey ORDNANCE OFFICER SERVICE AUTHOR: Babs Perez ORDNANCE OFFICER * ALL edits or amendments must be made on the electronic/computer document * Babs Perez 06/29/231899: HPI-Abd Pain F 40 and Over Free Text HPI Notes Free Text HPI Notes 57-year-old female with PMH DM, HTN, sleeve gastrectomy, alcoholism, c/o n/v, R- sided abd pain x5 days, not associated with meals. Reports 7 episodes of vomiting over the last 24 hours. Denies diarrhea, constipation, fever, chills, chest pain, shortness of breath. Reports she drinks "a pint to a fifth" daily x2 years. Last drink yesterday d/t n/v. Reports COVID pna 3 weeks ago. General Confirmed Patient Yes Patient Type New patient Initial Greet Date/Time 06/29/23 1215 Assumed Care at Time 1215 Date 06/29/[address] [facility] Presentation Chief Complaint Abdominal pain Hx Obtained From Patient Sudden in Onset? No Progression since Onset Gradually worsening Quality Aching, Sharp Radiation No: Does not radiate. Migration/Movement None Pain/Sev: Onset Pain level 3 out of 10 Pain/Sev: Current Pain level 9 out of 10 Review of Systems ROS Statements All systems rev neg except as marked. Free Text ROS Notes Free Text ROS Notes ROS Statements All systems rev neg except as marked. CONSTITUTIONAL: denies fever, chills, malaise EYES: Denies blurred vision/visual changes, eye pain Ears: denies ringing in ears, ear pain CARDIOVASCULAR: denies chest pain, palpitations RESPIRATORY: denies shortness of breath, cough GI: denies diarrhea, constipation, blood in vomit or stool, dark tarry stool; reports nausea, vomiting, abdominal pain : denies hematuria, dysuria MUSCULOSKELETAL: denies neck pain, muscle pain, joint pain SKIN: denies lesions, rashes NEUROLOGIC: denies headache, dizziness, numbness, tingling or weakness PSYCHIATRIC: denies mood disturbances, denies problems with anxiety Past Medical History - Adult Stated Complaint VOMITING Allergies Coded Allergies: Penicillins (Mild, ITCHING 02/20/23) REDNESS,RASH Past Medical History: Reports: Diabetes mellitus, Hypertension. Past Surgical History: Reports: Bariatric procedure. Alcohol Use Alcohol use (15 or more drinks per week) Drug Use Denies recreational drugs Smoking status for patients 13 years old or older: Never Smoker Ambulatory Status Independent Physical Exam Vital Signs Vital Signs First Documented: Result Date Time Pulse Ox 97 06/29 1218 B/P 178/113 06/29 1218 B/P Mean 134.6 06/29 1218 Temp 98.4 06/29 1218 Pulse 110 06/29 1218 Resp 18 06/29 1218 Last Documented: Result Date Time Pulse Ox 94 06/29 1407 B/P 143/83 06/29 1407 B/P Mean 102.9 06/29 1407 Temp 98.4 06/29 1407 Pulse 87 / 1407 Resp 18 06/29 1407 Review of Vital Signs Reviewed Free Text PE Notes Free Text PE Notes General: AOx4, appears uncomfortable but nontoxic Head: NC, AT Neck: supple, no JVD Eyes: PERRL, EOMi, no photophobia; +icterus Resp: B/L BS clear, no distress, speaking full sentences CV: RRR, nml cap refill, nml pulses Abd: soft, BS x4, no guarding, no rigidity, no rebound tenderness, negative Eid sign, negative McBurney point tenderness, +TTP RUQ and RLQ Back: FROM w/o pain, No CVAT Ext: no pitting edema. FROM Skin: no rashes/diaphoresis/swelling. nml skin turgor; +mild jaundice Neuro: 5/5 ext strength x4, no focal neuro deficits Psych: nml affect/mood Interpretation Diagnostics Lab Results Interpretation Results Laboratory Tests 06/29/23 1302: [Embedded Image Not Available] Laboratory Tests: 06/29 06/29 1540 1302 Blood Gas Gaston Test Positive VBG pH (7.31 - 7.41) 7.46 H VBG pCO2 (41 - 51 mm/Hg) 44.1 VBG pO2 (30 - 40 mm/Hg) 25.7 L VBG HCO3 (23 - 28 mmol/L) 31.0 H VBG O2 Saturation (50.0 - 80.0 %) 50.0 VBG Base Excess (-2 - +3 mmol/L) 6.1 H Sodium (138 - 146 mmol/l) 139 Potassium (3.5 - 4.5 mmol/L) 3.4 L Chloride (MEQ/L) 98 Glucose (74 - 100 mg/dL) 119 H Ionized Calcium (1.15 - 1.33 MMOL/L) 1.07 L Instrument (Specimen Descript) Venous Chemistry Sodium (137 - 145 mmol/L) 140 Potassium (3.4 - 5.0 mmol/L) 3.6 Chloride (98 - 107 mmol/L) 88 L Carbon Dioxide (22 - 30 mmol/L) 28 Anion Gap (10 - 20 mmol/L) 27 H BUN (7 - 17 mg/dL) 7 Creatinine (0.5 - 1.0 mg/dL) 0.5 Glomerular Filtr Rate (mL/min) 109 Glucose (74 - 106 mg/dL) 126 H Calcium (8.4 - 10.2 mg/dL) 9.2 Total Bilirubin (0.2 - 1.3 mg/dL) 5.9 H Conjugated Bilirubin (0 - 0.3 mg/dL) 2.0 H Unconjugated Bilirubin (0 - 1.1 mg/dL) 2.3 H AST (15 - 46 U/L) 356 H ALT (0 - 34 U/L) 85 H Total Alk Phosphatase (38 - 126 U/L) 392 H Total Protein (6.3 - 8.2 g/dL) 8.1 Albumin (3.5 - 5.0 g/dL) 4.5 Lipase (23 - 300 U/L) 182 Specimen Hemolysis (0 - 100 Index/DL) < 15 Hematology WBC (5.0 - 12.0 x10 3/uL) 10.3 RBC (4.20 - 5.40 x10 6/uL) 4.06 L Hgb (12.0 - 16.0 g/dL) 12.6 Hct (36.0 - 46.0 %) 37.3 MCV (81 - 99 fL) 92 MCH (27 - 31 pg) 31.0 MCHC (33 - 37 g/dL) 33.8 RDW (11.5 - 15.5 %) 17.2 H Plt Count (130 - 400 x10 3/uL) 200 MPV (9.4 - 16.4 fL) 11.0 Neut % (Auto) (43 - 65 %) 82.0 H Lymph % (Auto) (20.5 - 45.5 %) 9.1 L [place] % (Auto) (5.5 - 11.7 %) 7.7 Eos % (Auto) (0.9 - 2.9 %) 0.0 L Baso % (Auto) (0.2 - 1.0 %) 0.7 Neut # (Auto) (2.2 - 4.8 x10 3/uL) 8.43 H Lymph # (Auto) (1.3 - 2.9 x10 3/uL) 0.93 L [place] # (Auto) (0.3 - 0.8 x10 3/uL) 0.79 Eos # (Auto) (0.0 - 0.2 x10 3/uL) 0.00 Baso # (Auto) (0.0 - 0.1 x10 3/uL) 0.07 Immature Gran % (0.0 - 2.0 %) 0.5 Nucleated RBC % (0 - 1.0 %) 0.0 Urines Urine Color (Yellow) Dark-Maries Urine Appearance (Clear) Turbid H Urine pH (5.0 - 8.0) 6.0 Ur Specific [place] (<1.030) 1.039 H Urine Protein (Negative mg/dL) 100 (2+) H Urine Glucose (UA) (Negative) 50 (1+) H Urine Ketones (Negative mg/dL) Trace H Urine Blood (Negative) 1+ H Urine Nitrite (Negative) Negative Urine Bilirubin (Negative) 2+ H Urine Urobilinogen (Negative mg/dL) 4 Ur Leukocyte Esterase (Negative) NEGATIVE Urine RBC (<4 - 5 /HPF) 11-20 H Urine WBC (<4 - 5 /HPF) 51-100 H Ur Squamous Epith Cells (0 - 5 (RARE) /HPF) 6-15 (FEW) H Urine Bacteria (None - Rare /HPF) None Hyaline Casts (<4 - 5 /LPF) >30 H Urine Mucus (<Rare /LPF) 4+ H Microbiology: Date/Time Procedure - Status Source Growth 06/29 1410 Urine Culture - COMP URINE Recent Impressions: CAT SCAN - CT ABD PELVIS W/CONT 06/29 1330 Report Impression - Status: SIGNED Entered: 06/29/2023 1531 IMPRESSION: 1. Hepatomegaly with hepatic steatosis. Please correlate with hepatic profile. 2. Postoperative changes from sleeve gastrectomy.. Impression By: Ke Mcneill MD ULTRASOUND - US ABDOMEN [facility] 06/29 1703 Report Impression - Status: SIGNED Entered: 06/29/2023 1746 IMPRESSION: 1. Hepatomegaly with fatty infiltration of liver versus further hepatocellular disease. Please correlate with hepatic profile. 2. Hydropic gallbladder. No further sonographic evidence for acute cholecystitis. 3. Dilation of the common bile duct. Please correlate with hepatic profile. Consider further characterization with ERCP or MRCP if of continued concern. Impression By: Ke Mcneill MD Lab Imaging Statement Laboratory radiographic studies reviewed and considered in the medical decision-making. ECG #1 Interpretation ECG Documented in MUSE Yes Date 06/29/23 Time 1223 Interpreted by and reviewed by me, ED physician NL ECG Interpretation No STEMI Rate 109 Rhythm sinus tachycardia Re-Evaluation MDM Free Text MDM Notes Additional Text 57-year-old female with PMH DM, HTN, sleeve gastrectomy, alcoholism, c/o n/v, R- sided abd pain x5 days, not associated with meals. Reports 7 episodes of vomiting over the last 24 hours. Denies diarrhea, constipation, fever, chills, chest pain, shortness of breath. Reports she drinks "a pint to a fifth" daily x2 years. Last drink yesterday d/t n/v. Reports COVID pna 3 weeks ago. Broad differentials considered and included below: History obtained from the patient. Independent review and interpretation of studies were performed by me including: -Labs: CBC without leukocytosis to suggest infection, no severe anemia CMP: total bili 5.9, was 1.3 in Apr 2023 conj bili 2.0 uncon bili 2.3 ast 356, was 177 in Apr 2023 alt 85 total alk phos 392 Lipase 182 and without evidence of pancreatitis UA -EKG sinus tachycardia, rate 109 Independent review of study by me including: Imaging: CT AP with contrast shows enlarged liver and extensive fatty infiltration. No acute findings. RUQ ultrasound shows hepatomegaly with steatosis. Gallbladder is moderately distended without wall thickening or pericholecystic fluid. No stones. CBD 7 mm. Medications received in ED: morphine, Zofran, LR, thiamine and Valium Response to therapies and reevaluation: Nausea resolved, pain improved Unlikely AAA- location inconsistent, no bruits Unlikely Mes Isch- HPI inconsistent, does not coincide with meals, other dx more likely Unlikely kidney stone- no radiation to back or CVA tenderness, no dysuria, no hematuria Unlikely Pancreatitis - no h/o alcohol abuse, unlikely gallstone obstructing, location inconsistent Unlikely Diverticulitis - age and location not most common, no h/o diverticula, no fever, no WBC, no bloody stool Discussed case, reviewed labs and imaging with ED attending physician Leo whom subsequently evaluated patient in triage with this job specification writer and agreed with plan for admission. Clinical impression: Liver failure, abdominal pain Reviewed all findings with patient. Social determinants of health that affect the patient's care were factored into the disposition. Shared decision making regarding disposition was discussed along with the risks, benefits, and alternative options. Patient verbalized understanding and is agreeable to the plan for admission due to high risk of morbidity. Discussed case, reviewed labs and imaging with hospitalist whom agrees with plan and will see patient. I consulted with inspection engineer Becki via imobile text at 1921 whom advised serum PT now, thiamine 500 mg IV TID, diazepam IV escalating as needed. Notified hospitalist Akil of Dr. Connell's recommendations. Parts of the note were created using [employer] speech recognition dictation software. All attempts were made to correct any dictation errors at the time of dictation, however there may be some errors present in the makeup artist that were inadvertently overlooked during the dictation. ED Course Medication(s) Ordered Medication(s) Ordered: Central Nervous System Agents Sig/Aracely Start time Last Medication Dose Route Stop Time Status Admin Morphine Sulfate 4 MG Q4H PRN PRN 06/29 1923 AC IV 06/30 0122 Diazepam 5 MG X1ED STA 06/29 1818 DC 06/29 PO 06/29 181 1849 Morphine Sulfate 4 MG X1ED STA 06/29 1230 DC 06/29 IV 06/29 1231 1324 Diagnostic Agents Sig/Aracely Start time Last Medication Dose Route Stop Time Status Admin Iopamidol 85 ML .STK-MED ONE 06/29 1444 DC 06/29 IV 06/29 1445 1444 Electrolytic, Caloric, And Jane Sig/Aracely Start time Last Medication Dose Route Stop Time Status Admin Sodium Chloride 10 ML ASDIR PRN 06/29 1930 AC IV 06/30 0122 Sodium Chloride 250 ML ASDIR PRN 06/29 1930 AC IV 06/30 0122 Lactated Ringer's 1,000 ML X1ED STA 06/29 1231 DC 06/29 IV 06/29 1330 1319 Gastrointestinal Drugs Sig/Aracely Start time Last Medication Dose Route Stop Time Status Admin Ondansetron HCl 4 MG Q4H PRN PRN 06/29 1923 AC IV 06/30 0122 Ondansetron HCl 4 MG X1ED STA 06/29 1231 DC 06/29 IV 06/29 1232 1320 Vitamins Sig/Aracely Start time Last Medication Dose Route Stop Time Status Admin Thiamine HCl 100 MG X1ED STA 06/29 1849 DC IV 06/29 1850 Other Sig/Aracely Start time Last Medication Dose Route Stop Time Status Admin Sodium Chloride 5 ML Q12HR 06/29 2100 AC IV 06/30 0122 Sodium Chloride 5 ML ASDIR PRN 06/29 1930 AC IV 06/30 0122 Differential Diagnosis )( Differential Diagnosis Abdominal aortic aneurysm, Acute abdominal pain, Acute coronary symndrome, Appendicitis, Bowel obstruction, Cholangitis, Cholecystitis, Cholelithiasis, Esophagitis, Gastritis, Gastroenteritis, Hepatitis, Inflam bowel disease, Malignancy, Mesenteric adenitis, Pancreatitis, Pyelonephritis, Urinary tract infection, Urolithiasis Patient Discharge Departure Vital Signs/Condition Vital Signs First Documented: Result Date Time Pulse Ox 97 06/29 1218 B/P 178/113 06/29 1218 B/P Mean 134.6 06/298 Temp 98.4 06/29 121 Pulse 110 06/29 1218 Resp 18 06/29 1218 Last Documented: Result Date Time Pulse Ox 94 06/29 140 B/P 143/83 06/29 140 B/P Mean 102.9 06/29 140 Temp 98.4 06/29 140 Pulse 87 06/29 140 Resp 18 06/29 140 All vital signs available at the time of this entry have been reviewed. Condition Guarded Clinical Impression Clinical Impression Primary Impression: Liver failure Secondary Impressions: Abdominal pain Disposition Decision Hospitalize Hosp Physician Name Rashi Barnard MD [facility] Physician Hospitalist Request Time 1904 Request Date 06/29/23 )( Accepts Hospitalization Yes )( Reason for Hospitalization liver failure, abdominal pain )( Accepted Time 1904 )( Accepted Date 06/29/23 Call Information will see patient, agrees with plan, discussed via imobile text Discharge/Care Plan Counseled Regarding Diagnosis, Lab results, Imaging studies, Need for admission Admit Note I have spoken with the patient and/or caregivers. I have explained the patient's condition, diagnoses and treatment plan based on the information available to me at this time. I have answered the patient's and/or caregiver's questions and addressed any concerns. The patient and/or caregivers have as good an understanding of the patient's diagnosis, condition and treatment plan as can be expected at this point. The patient has been stabilized within the capability of the emergency department. The patient will be transported for further care and management or will be moved to an observation or inpatient service. I have communicated with the staff or medical practitioner taking over this patient's care. Justina Bailey 08/10/23 0757: Past Medical History - Adult Home Medications Active Scripts THIAMINE (VITAMIN B-1) 100 MG PO DAILY 30 Days #30 TABS Ref 2 Prov: 02/22/23 FOLIC ACID 0.4 MG PO DAILY 30 Days #30 TABS Ref 2 Prov: 02/22/23 CYANOCOBALAMIN (VITAMIN B-12) 50 MCG PO DAILY 30 Days #30 TABS Ref 1 Prov: 02/22/23 Reported Medications ERGOCALCIFEROL (VITAMIN D2) 50,000 UNITS PO Q7D Patient Discharge Departure Discharge/Care Plan (Auto) Prescriptions Current Visit Scripts PANTOPRAZOLE DR (PROTONIX) 40 MG PO DAILY PANTOPRAZOLE DR (PROTONIX) 40 MG PO DAILY #30 TABS FLUoxetine (PROzac) 20 MG PO QAM 30 Days #30 CAPS Supervising Physician Note MidLv Saw Pt Alone I have reviewed the PA/ORDNANCE OFFICER's note and plan of care. I was available for consultation as needed at all times during the patient's visit in the emergency department. at 1659 at 0850 RPT #[id number] END OF [id number] [facility] [address] [place] [address] PATIENT NAME: ZAK MANDEL ADMIT DATE: 06/29/23 ACCOUNT NO: [id number] ROOM NO: [facility] AGE: 57 REPORT TYPE: ELECTROCARDIOGRAM SEX: F ADMITTING PHYSICIAN:Joey Toure MD ATTENDING PHYSICIAN:Joey Toure MD Order: [id number] Test Reason : Test Date/Time Stamp: Sun Jun 29 2023 12:23:43 Blood Pressure : / mmHG Vent. Rate : 109 BPM Atrial Rate : 109 BPM P-R Int : 124 ms QRS Dur : 070 ms QT Int : 358 ms P-R-T Axes : 055 063 014 degrees QTc Int : 482 ms Sinus tachycardia Low voltage QRS Nonspecific T wave abnormality Abnormal ECG Confirmed by Efrain De La Rosa ([id number]) on 07/08/2023 11:00:55 PM Referred By: Self Referred Confirmed by:Efrain De La Rosa at 2300 PATIENT NAME: ZAK MANDEL 09:31:00 [facility] ([facility] Hospitalist Discharge Summary REPORT#:[id number] REPORT STATUS: Signed REPORT INITIALIZATION DATE:04/26/23 TIME: 930 PATIENT: ZAK MANDEL UNIT #: [id number] ROOM/BED: [address] : [address] AGE: 57 SEX: F ATTEND: Guille Montenegro DO ADM AUTHOR: Bobby Huber DO R1 REPT SERVICE DT/TIME: 04/26/23930 * ALL edits or amendments must be made on the electronic/computer document * Bobby Huber 04/26/23930: General Information Discharge date: 04/26/23 Discharge diagnosis: #Tremors #Visual Hallucinations #Alcohol Withdrawal #HTN #DM Hospital course: The patient is a 57-year-old woman with PMH of depression, alcohol abuse, and hypertension. She presented to the emergency department reporting hallucinations , specifically mentioning visual disturbances such as seeing spiders on herself. Upon further inquiry, the patient revealed a significant alcohol consumption history, with a baseline of 5-6 shots daily and occasional episodes of increased intake. The last documented alcohol intake occurred two days prior to admission. The patient disclosed experiencing tremors since discontinuing alcohol use, which coincided with the initiation of disulfiram treatment. Notably, she attempted to consume alcohol on the day of admission, resulting in immediate vomiting. In the emergency room, the patient received Valium, leading to a notable improvement in her symptoms. The clinical impression suggests that the patient's presentation is likely attributable to alcohol withdrawal, given her recent cessation and the onset of tremors and hallucinations. The decision to initiate disulfiram treatment may have contributed to the severity of her withdrawal symptoms, as evidenced by the immediate vomiting upon attempting to drink. Pt was started on CIWA Protocol which led to gradual and significant improvement of her symptoms. Patient A psychiatric consultation was obtained and they recommend inpatient voluntary psychiatric care. However, [facility] evaluated patient and recommended outpatient care which the patient is amenable to. She is being discharged today in stable condition free of hallucinations and/or any alcohol withdrawal symptoms with follow-ups scheduled with PCP as well as Psych. She is additionally sent home with Acamprosate, Prozac, and Seroquel. ER Warnings given to patient. Free Text DxA P Notes Free text DxA P notes: Patient is a 57-year-old woman with a history of depression, alcohol abuse, and hypertension who was admitted on 04/22/2023 for hallucinations likely 2/2 alcohol withdrawal. #Tremors #Visual Hallucinations #Alcohol Withdrawal - Likely 2/2 Alcohol withdrawal - Recently started Disulfiram - Last drink 2 days ago - CIIL protocol - Thiamine, folate, multivitamins - Will head counselor alcohol cessation - Naltrexone or Acamprosate on DC - Psych recommends inpatient voluntary psych #HTN - Resume home lisinopril #DM - A1c last admit 4.7 - LDSSI Diet: Regular DVT ppx: Lovenox GI Ppx: None Code status: FULL Case discussed with Dr. Montenegro Med Rec Med Rec Discharge meds: Stop taking the following medications: DIAZEPAM (VALIUM) 2 MG TAB 2 MILLIGRAM ORAL TWICE DAILY NEEDED. as needed for . Continue taking these medications: LISINOPRIL (ZESTRIL) 20 MG TAB 40 MILLIGRAM ORAL DAILY. Comments: TAKE 1 TABLET BY MOUTH ONCE DAILY; #90 - SIG Obtained From [employer] ERGOCALCIFEROL (VITAMIN D2) 1,250 MCG (50,000 UNIT) CAP 50,000 UNITS ORAL EVERY 7 DAYS. Comments: TAKE 1 CAPSULE BY MOUTH ONCE A WEEK FOR 12 WEEKS; #12 - SIG Obtained From [employer] traZODone (DESYREL) 50 MG TAB 50 MILLIGRAM ORAL BEDTIME. as needed for . Comments: TAKE 1/2 (ONE-HALF) TABLET BY MOUTH ONCE DAILY NEEDED AT BEDTIME; #30 - SIG Obtained From [employer] THIAMINE (VITAMIN B-1) 100 MG TAB 100 MILLIGRAM ORAL DAILY. Days = 30 Qty = 30 FOLIC ACID (FOLIC ACID) 0.4 MG TAB 0.4 MILLIGRAM ORAL DAILY. Days = 30 Qty = 30 CYANOCOBALAMIN (VITAMIN B-12) 50 MCG TAB 50 MICROGRAM ORAL DAILY. Days = 30 Qty = 30 Start taking the following new medications: FLUoxetine (PROzac) 20 MG CAP 20 MILLIGRAM ORAL DAILY. Days = 30 Qty = 30 No Refills QUEtiapine (SEROquel) 50 MG TAB 50 MILLIGRAM ORAL BEDTIME. Days = 30 Qty = [address] (CAMPRAL) [address] MG TAB.DR 666 MILLIGRAM ORAL THREE TIMES A DAY. Days = 30 Qty = 180 No Refills Objective VS/I O Last Documented: Result Date Time Pulse Ox 96 04/26 815 B/P 134/92 04/26 815 B/P Mean 105.8 04/26 815 Temp 98.1 04/26 815 Pulse 86 04/26 815 Resp 15 04/26 815 O2 Delivery Room air 04/25 2357 FiO2 21 04/24 2209 O2 Flow Rate 0 04/24 2209 General appearance: alert, awake, oriented Head/Eyes: atraumatic, normocephalic ENT: normal ear left, normal ear right, normal nose Neck: full range of motion, non-tender Cardiovascular: normal capillary refill, regular rate rhythm Respiratory: aerating well, clear to auscultation, symmetric expansion Abdomen: non-tender Extremities: moves all, normal capillary refill Musculoskeletal: normal inspection, painless range of motion Neuro/TALENT ACQUISITION ASSOCIATE: alert, oriented X 3, normal speech Skin: dry, intact Psychiatry: normal affect, normal mood, not homicidal, not suicidal, no hallucinations Results Findings/Data: Laboratory Tests: 04/26 0451 2045 1638 1143 Chemistry Sodium (137 - 145 mmol/L) 140 Potassium (3.4 - 5.0 mmol/L) 3.4 Chloride (98 - 107 mmol/L) 101 Carbon Dioxide (22 - 30 mmol/L) 32 H Anion Gap 9 BUN (7 - 17 mg/dL) 3 L Creatinine (0.5 - 1.0 mg/dL) 0.5 Glomerular Filtr Rate (mL/min) 109 Glucose (74 - 106 mg/dL) 91 POC Glucose (74 - 106 MG/DL) 137 H 110 H 94 99 Calcium (8.4 - 10.2 mg/dL) 8.5 Magnesium (1.6 - 2.3 mg/dL) 1.5 L Specimen Hemolysis (0 - 100 Index/DL) 17 Hematology WBC (5.0 - 12.0 x10 3/uL) 6.7 RBC (4.20 - 5.40 x10 6/uL) 3.33 L Hgb (12.0 - 16.0 g/dL) 10.4 L Hct (36.0 - 46.0 %) 31.6 L MCV (81 - 99 fL) 95 MCH (27 - 31 pg) 31.2 H MCHC (33 - 37 g/dL) 32.9 L RDW (11.5 - 15.5 %) 18.1 H Plt Count (130 - 400 x10 3/uL) 173 MPV (9.4 - 16.4 fL) 11.2 Neut % (Auto) (43 - 65 %) 52.6 Lymph % (Auto) (20.5 - 45.5 %) 25.4 [place] % (Auto) (5.5 - 11.7 %) 15.9 H Eos % (Auto) (0.9 - 2.9 %) 5.1 H Baso % (Auto) (0.2 - 1.0 %) 0.7 Neut # (Auto) (2.2 - 4.8 x10 3/uL) 3.54 Lymph # (Auto) (1.3 - 2.9 x10 3/uL) 1.71 [place] # (Auto) (0.3 - 0.8 x10 3/uL) 1.07 H Eos # (Auto) (0.0 - 0.2 x10 3/uL) 0.34 H Baso # (Auto) (0.0 - 0.1 x10 3/uL) 0.05 Immature Gran % (0.0 - 2.0 %) 0.3 Nucleated RBC % (0 - 1.0 %) 0.0 Results: labs reviewed, vital signs reviewed Discharge Instructions PCP PCP follow-up: PCP: Willis Storey NP Discharge to: Home/Self Care Additional Discharge Routines: PCP Follow-Up Diet: Resume Home Diet/Feeds Activity: Resume Normal Activity, As Tolerated, Appropriate for Age Follow-up Appointments PCP follow-up: PCP: Willis Storey NP PCP follow up timeframe: In 6 days Consulting provider 1: Provider 1: Alexander Casey MD, Julian 04/26/23 1208: Attestations Attestation needed: supervising physician Teaching Physician Attestation F/U visit w/o resident: I personally saw the patient and reviewed the resident's note. I . . . agree with the resident's findings and plan. agree with the resident's findings and plan EXCEPT: I have spent 33 minutes on discharge planning including prescription review, preparation of discharge records, filling out discharge instructions, discussing care plans and patient education and referral forms at 1748 at 1149 RPT #:[id number] END OF [id number] 06:54:00 [facility] REPORT#:[id number] REPORT STATUS: Signed REPORT INITIALIZATION DATE:04/25/23 TIME: 653 PATIENT: ZAK MANDEL UNIT #: [id number] ROOM/BED: [address] : [address] AGE: 57 SEX: F ATTEND: Guille Montenegro DO ADM AUTHOR: Bobby Huber DO R1 REPT SERVICE DT/TIME: 04/25/23 0654 * ALL edits or amendments must be made on the electronic/computer document * Bobby Huber 04/25/23 0654: Subjective Chief complaint: Hallucinations Alcohol Withdrawal HPI: NAEON Psych recommending voluntary inpatient psych, CM consulted. Patient seen and examined bedside; she reports complete resolution of hallucinations and/or any symptoms of alcohol withdrawal. Review of Systems Free Text ROS Notes Free Text ROS Notes: General: No malaise or fever. HEENT: No nasal congestion or nasal secretion. Neurological: No fainting episodes or seizures. Cardiac: No chest pain or palpitations. Pulmonary: No cough or sputum production. Gastrointestinal: No vomiting or diarrhea. Genitourinary: No dysuria or hematuria. Musculoskeletal: No joint pains or arthralgia. Skin: No rashes or lesions. Psychiatric: No depression or panic attacks. Objective General VS/I O: Vital Signs: Date Time Temp Pulse Resp B/P B/P Pulse O2 O2 Flow FiO2 Mean Ox Delivery Rate 04/25 0443 98.2 81 18 148/91 110.1 95 04/25 0105 99.0 73 17 122/68 86.2 94 04/24 2209 Room air 0 21 04/24 2028 98.1 90 18 140/90 106.5 95 04/24 1616 98.4 92 15 156/84 108.1 95 04/24 1206 98.4 91 15 158/90 112.9 93 04/24 0816 99.0 97 15 139/89 106.0 96 04/24 0732 99 Room air 0 21 PATIENT WEIGHT: Weight (lb): Weight (oz): Weight (kg): 100.000 Medications: Active Meds + DC'd Last 24 Hrs Enoxaparin Sodium (LOVENOX) 40 MG DAILY SUBQ Folic Acid (FOLIC ACID) 1 MG DAILY PO Multivitamins Therapeutic (THERAGRAN) 1 TAB DAILY PO Thiamine HCl (VITAMIN B-1) 100 MG DAILY PO Dextrose/Water (D10%W) 125 ML ASDIR PRN IV (CKD) Glucagon (GLUCAGON) 1 MG ASDIR PRN IM Sodium Chloride (SODIUM CHLORIDE FLUSH) 5 ML Q12HR IV Sodium Chloride (SODIUM CHLORIDE 0.9%) 1,000 ML .[id number] IV Flumazenil (ROMAZICON,MAZICON) 0.2 MG ASDIR PRN IV Lorazepam (ATIVAN) 2 MG Q2H PRN PRN IV Lorazepam (ATIVAN) 4 MG Q2H PRN PRN IV Acetaminophen (TYLENOL REGULAR) 650 MG Q6H PRN PRN PO Albuterol/Ipratropium (DUONEB 3MG-0.5MG/3 ML) 3 ML RTQ6H PRN PRN INH Guaifenesin (MUCINEX) 600 MG BID PRN PRN PO Hydralazine HCl (APRESOLINE) 10 MG Q6H PRN PRN IV Naloxone HCl (NARCAN) 0.4 MG Q2M PRN PRN IV Polyethylene Glycol (MIRALAX) 1 PKT DAILY PRN PRN PO (CKD) Dietitian nutrition assessment The data set between the solid lines has been imported from the dietitian's assessment. BMI Calculated: 37.8 Nutrition related diagnosis: Nutrition diagnosis details: Nutrition problem: Nutrition etiology: Nutrition signs and symptoms: Nutrition prescription: Dietitian name: Assessment completed: Physical Exam General appearance: alert, awake, oriented Head/Eyes: atraumatic, normocephalic ENT: normal ear left, normal ear right, normal nose Neck: full range of motion, non-tender Cardiovascular: normal capillary refill, regular rate rhythm Respiratory: aerating well, clear to auscultation, symmetric expansion Abdomen: non-tender Extremities: moves all, normal capillary refill Musculoskeletal: normal inspection, painless range of motion Neuro/TALENT ACQUISITION ASSOCIATE: altered mental status, disoriented Skin: dry, intact Psychiatry: hallucination (Visual, Tactile), not homicidal, not suicidal Results Findings/Data: Laboratory Tests 04/24 1615 1205 0815 Chemistry POC Glucose (74 - 106 MG/DL) 93 106 120 H 121 H Results: labs reviewed, vital signs reviewed Diagnosis, Assessment Plan Free Text DxA P Notes Free text DxA P notes: Patient is a 57-year-old woman with a history of depression, alcohol abuse, and hypertension who was admitted on 04/22/2023 for hallucinations likely 2/2 alcohol withdrawal. #Tremors #Visual Hallucinations #Alcohol Withdrawal - Likely 2/2 Alcohol withdrawal - Recently started Disulfiram - Last drink 2 days ago - [facility] protocol - Thiamine, folate, multivitamins - Will head counselor alcohol cessation - Naltrexone or Acamprosate on DC - Psych recommends inpatient voluntary psych #HTN - Resume home lisinopril #DM - A1c last admit 4.7 - LDSSI Diet: Regular DVT ppx: Lovenox GI Ppx: None Code status: FULL Case discussed with Dr. Montenegro PLAN: - [place] Protocol - Acamprosate on DC - Psych recommends inpatient voluntary psych, CM consulted Guille Montenegro 04/25/23 7770: Attestations Attestation needed: supervising physician Teaching Physician Attestation F/U visit w/o resident: I personally saw the patient and reviewed the resident's note. I . . . agree with the resident's findings and plan. agree with the resident's findings and plan EXCEPT: at 1113 at 1731 RPT #:[id number] END OF [id number] 07:13:00 [facility] REPORT#:[id number] REPORT STATUS: Signed REPORT INITIALIZATION DATE:04/24/23 TIME: 712 PATIENT: ZAK MANDEL UNIT #: [id number] ROOM/BED: [address] : 65 AGE: 57 SEX: F ATTEND: Guille Montenegro DO ADM AUTHOR: Bobby Huber DO R1 REPT SERVICE DT/TIME: 04/24/23712 * ALL edits or amendments must be made on the electronic/computer document * Bobby Huber 04/24/23712: Subjective Chief complaint: Hallucinations Alcohol Withdrawal HPI: NAEON Patient seen and examined bedside. She reports feeling much better than when she came in. She continues to report some visual and auditory hallucinations but continues to deny SI and HI. Review of Systems Free Text ROS Notes Free Text ROS Notes: General: No malaise or fever. HEENT: No nasal congestion or nasal secretion. Neurological: No fainting episodes or seizures. Cardiac: No chest pain or palpitations. Pulmonary: No cough or sputum production. Gastrointestinal: No vomiting or diarrhea. Genitourinary: No dysuria or hematuria. Musculoskeletal: No joint pains or arthralgia. Skin: No rashes or lesions. Psychiatric: No depression or panic attacks. YES Auditory and Visual Hallucinations Objective General VS/I O: Vital Signs: Date Time Temp Pulse Resp B/P B/P Pulse O2 O2 Flow FiO2 Mean Ox Delivery Rate 04/24 519 98.6 96 17 116/71 86.3 97 04/24 102 99.0 92 19 130/85 99.9 93 04/23 2021 98.4 102 17 112/75 87.1 95 04/23 1701 99.1 95 15 116/67 83.5 95 04/23 1151 98.6 88 15 110/76 87.1 93 04/23 0852 97.9 91 18 123/80 94.1 93 PATIENT WEIGHT: Weight (lb): Weight (oz): Weight (kg): 100.000 Medications: Active Meds + DC'd Last 24 Hrs Potassium Chloride (K-DUR) 40 MEQ ONCE ONE PO (DC) Potassium Chloride (K-DUR) 40 MEQ ONCE ONE PO (DC) Folic Acid (FOLIC ACID) 1 MG DAILY PO Multivitamins Therapeutic (THERAGRAN) 1 TAB DAILY PO Thiamine HCl (VITAMIN B-1) 100 MG DAILY PO Potassium Chloride (KCL 10MEQ/100ML) 100 ML Q1HR IV (DC) Magnesium (MAGNESIUM SULFATE 1GM) 100 ML ONCE ONE IV (DC) Dextrose/Water (D10%W) 125 ML ASDIR PRN IV (CKD) Glucagon (GLUCAGON) 1 MG ASDIR PRN IM Sodium Chloride (SODIUM CHLORIDE FLUSH) 5 ML Q12HR IV Sodium Chloride (SODIUM CHLORIDE 0.9%) 1,000 ML .[id number] IV Flumazenil (ROMAZICON,MAZICON) 0.2 MG ASDIR PRN IV Lorazepam (ATIVAN) 2 MG Q2H PRN PRN IV Lorazepam (ATIVAN) 4 MG Q2H PRN PRN IV Lactulose (CONSTULOSE) 30 ML Q3HR PO (DC) Acetaminophen (TYLENOL REGULAR) 650 MG Q6H PRN PRN PO Albuterol/Ipratropium (DUONEB 3MG-0.5MG/3 ML) 3 ML RTQ6H PRN PRN INH Guaifenesin (MUCINEX) 600 MG BID PRN PRN PO Hydralazine HCl (APRESOLINE) 10 MG Q6H PRN PRN IV Naloxone HCl (NARCAN) 0.4 MG Q2M PRN PRN IV Polyethylene Glycol (MIRALAX) 1 PKT DAILY PRN PRN PO (CKD) Dietitian nutrition assessment The data set between the solid lines has been imported from the dietitian's assessment. BMI Calculated: 37.8 Nutrition related diagnosis: Nutrition diagnosis details: Nutrition problem: Nutrition etiology: Nutrition signs and symptoms: Nutrition prescription: Dietitian name: Assessment completed: Physical Exam General appearance: alert, awake, oriented Head/Eyes: atraumatic, normocephalic ENT: normal ear left, normal ear right, normal nose Neck: full range of motion, non-tender Cardiovascular: normal capillary refill, regular rate rhythm Respiratory: aerating well, clear to auscultation, symmetric expansion Abdomen: non-tender Extremities: moves all, normal capillary refill Musculoskeletal: normal inspection, painless range of motion Neuro/TALENT ACQUISITION ASSOCIATE: altered mental status, disoriented Skin: dry, intact Psychiatry: hallucination (Visual, Tactile), not homicidal, not suicidal Results Findings/Data: Laboratory Tests 04/24 04/23 0546 1149 Chemistry Sodium (137 - 145 mmol/L) 141 Potassium (3.4 - 5.0 mmol/L) 3.4 Chloride (98 - 107 mmol/L) 105 Carbon Dioxide (22 - 30 mmol/L) 31 H Anion Gap 8 BUN (7 - 17 mg/dL) 5 L Creatinine (0.5 - 1.0 mg/dL) 0.5 Glomerular Filtr Rate (mL/min) 109 Glucose (74 - 106 mg/dL) 88 POC Glucose (74 - 106 MG/DL) 89 Calcium (8.4 - 10.2 mg/dL) 8.2 L Phosphorus (2.5 - 4.5 mg/dL) 2.4 L Magnesium (1.6 - 2.3 mg/dL) 1.7 Total Bilirubin (0.2 - 1.3 mg/dL) 1.6 H Conjugated Bilirubin (0 - 0.3 mg/dL) 0 Unconjugated Bilirubin (0 - 1.1 mg/dL) 0.7 AST (15 - 46 U/L) 201 H ALT (0 - 34 U/L) 51 H Total Alk Phosphatase (38 - 126 U/L) 146 H Total Protein (6.3 - 8.2 g/dL) 5.8 L Albumin (3.5 - 5.0 g/dL) 3.3 L Specimen Hemolysis (0 - 100 Index/DL) < 15 Laboratory Tests 04/24 0546 Hematology WBC (5.0 - 12.0 x10 3/uL) 6.7 RBC (4.20 - 5.40 x10 6/uL) 3.40 L Hgb (12.0 - 16.0 g/dL) 10.5 L Hct (36.0 - 46.0 %) 32.9 L MCV (81 - 99 fL) 97 MCH (27 - 31 pg) 30.9 MCHC (33 - 37 g/dL) 31.9 L RDW (11.5 - 15.5 %) 17.4 H Plt Count (130 - 400 x10 3/uL) 128 L MPV (9.4 - 16.4 fL) 11.2 Neut % (Auto) (43 - 65 %) 50.8 Lymph % (Auto) (20.5 - 45.5 %) 31.0 [place] % (Auto) (5.5 - 11.7 %) 11.4 Eos % (Auto) (0.9 - 2.9 %) 5.6 H Baso % (Auto) (0.2 - 1.0 %) 0.9 Neut # (Auto) (2.2 - 4.8 x10 3/uL) 3.42 Lymph # (Auto) (1.3 - 2.9 x10 3/uL) 2.09 [place] # (Auto) (0.3 - 0.8 x10 3/uL) 0.77 Eos # (Auto) (0.0 - 0.2 x10 3/uL) 0.38 H Baso # (Auto) (0.0 - 0.1 x10 3/uL) 0.06 Immature Gran % (0.0 - 2.0 %) 0.3 Nucleated RBC % (0 - 1.0 %) 0.0 Radiology data: Recent Impressions: ULTRASOUND - US ABDOMEN LTD 04/23 2006 Report Impression - Status: SIGNED Entered: 04/24/2023 0702 IMPRESSION: 1. Hepatomegaly with hepatic steatosis is present. Impression By: [email or web address] Kevin Uriostegui MD Results: labs reviewed, vital signs reviewed Diagnosis, Assessment Plan Free Text DxA P Notes Free text DxA P notes: Patient is a 57-year-old woman with a history of depression, alcohol abuse, and hypertension who was admitted on 04/22/2023 for hallucinations likely 2/2 alcohol withdrawal. #Tremors #Visual Hallucinations #Alcohol Withdrawal - Likely 2/2 Alcohol withdrawal - Recently started Disulfiram - Last drink 2 days ago - [facility] protocol - Thiamine, folate, multivitamins - Will head counselor alcohol cessation - Naltrexone or Acamprosate on DC #HTN - Resume home lisinopril #DM - A1c last admit 4.7 - LDSSI Diet: Regular DVT ppx: Lovenox GI Ppx: None Code status: FULL Case discussed with Dr. Montenegro PLAN: - [facility] Protocol - Psych Consulted, appreciate recs Guille Montenegro 04/24/23 1333: Attestations Attestation needed: supervising physician Teaching Physician Attestation F/U visit w/o resident: I personally saw the patient and reviewed the resident's note. I . . . agree with the resident's findings and plan. agree with the resident's findings and plan EXCEPT: at 1200 at 1333 RPT #:[id number] END OF [id number] 07:28:00 [facility] REPORT#:[id number] REPORT STATUS: Signed REPORT INITIALIZATION DATE:04/23/23 TIME: 727 PATIENT: ZAK MANDEL UNIT #: [id number] ROOM/BED: [address] : 65 AGE: 57 SEX: F ATTEND: Guille Montenegro DO ADM AUTHOR: Bobby Huber DO R1 REPT SERVICE DT/TIME: 04/23/23727 * ALL edits or amendments must be made on the electronic/computer document * Bobby Huber 04/23/23 0728: Subjective Chief complaint: Hallucinations Alcohol Withdrawal HPI: BLANCA Patient seen and examined bedside. She is now AOx3 and reports she was prescribed disulfiram last week but she started to have tremors and hallucinations prompting her to take a drink. But this led to significant discomfort and vomiting. Today, patient reports no tremors but still continues to have auditory and visual hallucinations. She denies SI or HI. Review of Systems Free Text ROS Notes Free Text ROS Notes: General: No malaise or fever. HEENT: No nasal congestion or nasal secretion. Neurological: No fainting episodes or seizures. Cardiac: No chest pain or palpitations. Pulmonary: No cough or sputum production. Gastrointestinal: No vomiting or diarrhea. Genitourinary: No dysuria or hematuria. Musculoskeletal: No joint pains or arthralgia. Skin: No rashes or lesions. Psychiatric: No depression or panic attacks. YES Auditory and Visual Hallucinations Objective General VS/I O: Vital Signs: Date Time Temp Pulse Resp B/P B/P Pulse O2 O2 Flow FiO2 Mean Ox Delivery Rate 04/23 1151 98.6 88 15 110/76 87.1 93 04/23 0852 97.9 91 18 123/80 94.1 93 04/23 0456 98.6 83 130/83 98.5 99 Room air 04/23 0034 98.6 86 18 129/81 96.6 91 Room air 04/22 2032 98.4 72 18 119/66 83.9 100 Room air 04/22 1800 87 114/68 84 94 04/22 1726 97 97 04/22 1715 105/57 04/22 1610 116 101/55 71 04/22 1609 94 04/22 1500 112 131/88 106 96 24 hour I O ending at 0700: 04/23 0700 04/22 1900 Intake Total Output Total Balance Number 3 Bowel Movements Number 3 Incontinent Voids PATIENT WEIGHT: Weight (lb): Weight (oz): Weight (kg): 100.000 Medications: Active Meds + DC'd Last 24 Hrs Potassium Chloride (K-DUR) 40 MEQ ONCE ONE PO (DC) Folic Acid (FOLIC ACID) 1 MG DAILY PO Multivitamins Therapeutic (THERAGRAN) 1 TAB DAILY PO Thiamine HCl (VITAMIN B-1) 100 MG DAILY PO Potassium Chloride (KCL 10MEQ/100ML) 100 ML Q1HR IV (DC) Magnesium (MAGNESIUM SULFATE 1GM) 100 ML ONCE ONE IV (DC) Dextrose/Water (D10%W) 125 ML ASDIR PRN IV (CKD) Glucagon (GLUCAGON) 1 MG ASDIR PRN IM Sodium Chloride (SODIUM CHLORIDE FLUSH) 5 ML Q12HR IV Magnesium Sulfate (MAGNESIUM SULFATE 2GM) 50 ML ONCE ONE IV (DC) Sodium Chloride (SODIUM CHLORIDE 0.9%) 1,000 ML .[id number] IV Haloperidol Lactate (HALDOL INJ) 5 MG ONCE ONE IV (DC) Dextrose/Water (D5%W) 50 ML Haloperidol Lactate (HALDOL INJ) 5 MG ONCE ONE IV (DC) Flumazenil (ROMAZICON,MAZICON) 0.2 MG ASDIR PRN IV Lorazepam (ATIVAN) 2 MG ONCE ONE IV (DC) Lorazepam (ATIVAN) 2 MG Q2H PRN PRN IV Lorazepam (ATIVAN) 4 MG Q2H PRN PRN IV Lactulose (CONSTULOSE) 30 ML Q3HR PO (DC) Acetaminophen (TYLENOL REGULAR) 650 MG Q6H PRN PRN PO Albuterol/Ipratropium (DUONEB 3MG-0.5MG/3 ML) 3 ML RTQ6H PRN PRN INH Flumazenil (ROMAZICON,MAZICON) 0.2 MG ASDIR PRN IV (DC) Guaifenesin (MUCINEX) 600 MG BID PRN PRN PO Hydralazine HCl (APRESOLINE) 10 MG Q6H PRN PRN IV Lorazepam (LORazepam) 1 MG Q2H PRN PRN PO (DC) Lorazepam (LORazepam) 2 MG Q2H PRN PRN PO (DC) Lorazepam (ATIVAN) 1 MG Q2H PRN PRN IV (DC) Lorazepam (ATIVAN) 2 MG Q2H PRN PRN IV (DC) Lorazepam (ATIVAN) 1 MG Q2H PRN PRN IM (DC) Lorazepam (ATIVAN) 2 MG Q2H PRN PRN IM (DC) Multivitamins (MVI-12) 10 ML ONCE ONE IV (DC) Thiamine HCl (THIAMINE ) 100 MG Folic Acid (FOLVITE MDV) 1 MG Sodium Chloride (SODIUM CHLORIDE 0.9%) 1,000 ML Naloxone HCl (NARCAN) 0.4 MG Q2M PRN PRN IV Polyethylene Glycol (MIRALAX) 1 PKT DAILY PRN PRN PO (CKD) Sodium Chloride (SODIUM CHLORIDE FLUSH) 5 ML ASDIR PRN IV (DC) Sodium Chloride (NACL 0.9%) 10 ML ASDIR PRN IV (DC) Sodium Chloride (SODIUM CHLORIDE 0.9%) 250 ML ASDIR PRN IV (DC) Ondansetron HCl (ZOFRAN 4 MG/2 ML INJ) 4 MG Q4H PRN PRN IV (DC) Dietitian nutrition assessment The data set between the solid lines has been imported from the dietitian's assessment. BMI Calculated: 37.8 Nutrition related diagnosis: Nutrition diagnosis details: Nutrition problem: Nutrition etiology: Nutrition signs and symptoms: Nutrition prescription: Dietitian name: Assessment completed: Physical Exam General appearance: alert, awake, oriented Head/Eyes: atraumatic, normocephalic ENT: normal ear left, normal ear right, normal nose Neck: full range of motion, non-tender Cardiovascular: normal capillary refill, regular rate rhythm Respiratory: aerating well, clear to auscultation, symmetric expansion Abdomen: non-tender Extremities: moves all, normal capillary refill Musculoskeletal: normal inspection, painless range of motion Neuro/TALENT ACQUISITION ASSOCIATE: altered mental status, disoriented Skin: dry, intact Psychiatry: hallucination (Visual, Tactile), not homicidal, not suicidal Results Findings/Data: Laboratory Tests 04/23 04/23 04/22 04/22 4429 3609 4260 2027 Chemistry Sodium (137 - 145 mmol/L) 138 Potassium (3.4 - 5.0 mmol/L) 3.1 L Chloride (98 - 107 mmol/L) 101 Carbon Dioxide (22 - 30 mmol/L) 31 H Anion Gap 10 BUN (7 - 17 mg/dL) 6 L Creatinine (0.5 - 1.0 mg/dL) 0.5 Glomerular Filtr Rate (mL/min) 109 Glucose (74 - 106 mg/dL) 86 POC Glucose (74 - 106 MG/DL) 89 75 67 L Calcium (8.4 - 10.2 mg/dL) 8.0 L Phosphorus (2.5 - 4.5 mg/dL) 2.8 Magnesium (1.6 - 2.3 mg/dL) 1.9 Total Bilirubin (0.2 - 1.3 mg/dL) 1.9 H Conjugated Bilirubin (0 - 0.3 mg/dL) 0 Unconjugated Bilirubin (0 - 1.1 mg/dL) 1.0 AST (15 - 46 U/L) 192 H ALT (0 - 34 U/L) 57 H Total Alk Phosphatase (38 - 126 U/L) 140 H Total Protein (6.3 - 8.2 g/dL) 5.7 L Albumin (3.5 - 5.0 g/dL) 3.4 L Specimen Hemolysis (0 - 100 Index/DL) < 15 Laboratory Tests 04/23 0544 Hematology WBC (5.0 - 12.0 x10 3/uL) 8.2 RBC (4.20 - 5.40 x10 6/uL) 3.48 L Hgb (12.0 - 16.0 g/dL) 10.9 L Hct (36.0 - 46.0 %) 33.3 L MCV (81 - 99 fL) 96 MCH (27 - 31 pg) 31.3 H MCHC (33 - 37 g/dL) 32.7 L RDW (11.5 - 15.5 %) 17.1 H Plt Count (130 - 400 x10 3/uL) 120 L MPV (9.4 - 16.4 fL) 11.6 Neut % (Auto) (43 - 65 %) 58.5 Lymph % (Auto) (20.5 - 45.5 %) 25.0 [place] % (Auto) (5.5 - 11.7 %) 10.7 Eos % (Auto) (0.9 - 2.9 %) 4.4 H Baso % (Auto) (0.2 - 1.0 %) 0.9 Neut # (Auto) (2.2 - 4.8 x10 3/uL) 4.81 H Lymph # (Auto) (1.3 - 2.9 x10 3/uL) 2.05 [place] # (Auto) (0.3 - 0.8 x10 3/uL) 0.88 H Eos # (Auto) (0.0 - 0.2 x10 3/uL) 0.36 H Baso # (Auto) (0.0 - 0.1 x10 3/uL) 0.07 Immature Gran % (0.0 - 2.0 %) 0.5 Nucleated RBC % (0 - 1.0 %) 0.0 Laboratory Tests 04/23 05 Serology Hepatitis A IgM Ab (NEGATIVE) NEGATIVE Hepatitis A Ab Total (NEGATIVE) POSITIVE H Hep Bs Antigen (NEGATIVE) NEGATIVE Hep B Core IgM Ab (NEGATIVE) NEGATIVE Hepatitis C Antibody (NEGATIVE) NEGATIVE Results: labs reviewed, vital signs reviewed Diagnosis, Assessment Plan Free Text DxA P Notes Free text DxA P notes: Patient is a 57-year-old woman with a history of depression, alcohol abuse, and hypertension who was admitted on 04/22/2023 for hallucinations likely 2/2 alcohol withdrawal. #Tremors #Visual Hallucinations #Alcohol Withdrawal - Likely 2/2 Alcohol withdrawal - Recently started Disulfiram - Last drink 2 days ago - [facility] protocol - Thiamine, folate, multivitamins #HTN - Resume home lisinopril #DM - A1c last admit 4.7 - LDSSI Diet: Regular DVT ppx: GI Ppx: None Code status: Case discussed with Dr. Montenegro PLAN: - [facility] Protocol - Psych Consulted, appreciate recs Guille Montenegro 04/23/23 1531: Attestations Attestation needed: supervising physician Teaching Physician Attestation F/U visit w/o resident: I personally saw the patient and reviewed the resident's note. I . . . agree with the resident's findings and plan. agree with the resident's findings and plan EXCEPT: at 1435 at 1531 RPT #:[id number] END OF [id number] 09:42:00 [facility] Hospitalist History Physical REPORT#:[id number] REPORT STATUS: Signed REPORT INITIALIZATION DATE:04/22/23 TIME: 941 PATIENT: ZAK MANDEL UNIT #: [id number] ROOM[facility]BED: [facility]-A : 65 AGE: 57 SEX: F ATTEND: Guille Montenegro DO ADM AUTHOR: Bobby Huber R1 REPT SERVICE DT/TIME: 04/22/23941 * ALL edits or amendments must be made on the electronic/computer document * Bobby Huber 04/22/23 0942: History of Present Illness HPI Chief complaint: Hallucinations Alcohol Withdrawal PCP: PCP: Willis Storey NP HPI: Patient is a 57-year-old woman with a history of depression, alcohol abuse, and hypertension who arrived at the emergency department experiencing hallucinations. She disclosed her last alcohol intake occurred two days ago, but reports a baseline alcohol consumption of 5-6 shots daily, occasionally more. She described hallucinations that started one day ago, including seeing spiders on herself. The patient denied any intention of self-harm or harm to others. Additionally, she mentioned experiencing tremors since discontinuing alcohol use. Of note, She recently initiated disulfiram treatment and attempted to drink today, resulting in immediate vomiting. In the ER; Patient was given Valium which led to improvement of her symptoms. History Smoking status for patients 13 years old or older: Never Smoker Medication/Allergy-Vaccine Hx Allergies: Coded Allergies: Penicillins (Mild, ITCHING 02/20/23) REDNESS,RASH Review of Systems Unable to obtain due to: Pt altered Objective General VS/I O: Vital Signs: Date Time Temp Pulse Resp B/P B/P Pulse O2 O2 Flow FiO2 Mean Ox Delivery Rate 04/22 1037 94 04/22 1001 84 26 164/77 111 93 04/22 0902 24 04/22 0901 97 04/22 0900 86 150/68 98 04/22 0800 87 26 125/57 90 97 04/22 0754 17 04/22 0747 83 133/77 98 98 04/22 0632 24 04/22 0631 82 128/59 85 97 04/22 06 98.8 93 172/116 134.5 95 04/22 0600 98.8 93 172/116 134.5 95 04/22 0555 18 24 hour I O ending at 0700: 04/22 0700 04/21 1900 Intake Total Output Total Balance Patient 100 kg Weight Weight Stated/Reported Measurement Method PATIENT WEIGHT: Weight (lb): Weight (oz): Weight (kg): 100.000 Medications: Active Meds + DC'd Last 24 Hrs Folic Acid (FOLIC ACID) 1 MG DAILY PO (UNV) Multivitamins Therapeutic (THERAGRAN) 1 TAB DAILY PO (UNV) Thiamine HCl (VITAMIN B-1) 100 MG DAILY PO (UNV) Sodium Chloride (SODIUM CHLORIDE FLUSH) 5 ML Q12HR IV Acetaminophen (TYLENOL REGULAR) 650 MG Q6H PRN PRN PO (UNV) Albuterol/Ipratropium (DUONEB 3MG-0.5MG/3 ML) 3 ML RTQ6H PRN PRN INH ( UNV) Flumazenil (ROMAZICON,MAZICON) 0.2 MG ASDIR PRN IV (UNV) Guaifenesin (MUCINEX) 600 MG BID PRN PRN PO (UNV) Hydralazine HCl (APRESOLINE) 10 MG Q6H PRN PRN IV (UNV) Lorazepam (LORazepam) 1 MG Q2H PRN PRN PO (UNV) Lorazepam (LORazepam) 2 MG Q2H PRN PRN PO (UNV) Lorazepam (ATIVAN) 1 MG Q2H PRN PRN IV (UNV) Lorazepam (ATIVAN) 2 MG Q2H PRN PRN IV (UNV) Lorazepam (ATIVAN) 1 MG Q2H PRN PRN IM (UNV) Lorazepam (ATIVAN) 2 MG Q2H PRN PRN IM (UNV) Multivitamins (MVI-12) 10 ML ONCE ONE IV (UNV) Thiamine HCl (THIAMINE ) 100 MG Folic Acid (FOLVITE MDV) 1 MG Sodium Chloride (SODIUM CHLORIDE 0.9%) 1,000 ML Naloxone HCl (NARCAN) 0.4 MG Q2M PRN PRN IV (UNV) Polyethylene Glycol (MIRALAX) 1 PKT DAILY PRN PRN PO (UNV) Sodium Chloride (SODIUM CHLORIDE FLUSH) 5 ML ASDIR PRN IV Sodium Chloride (NACL 0.9%) 10 ML ASDIR PRN IV Sodium Chloride (SODIUM CHLORIDE 0.9%) 250 ML ASDIR PRN IV Ondansetron HCl (ZOFRAN 4 MG/2 ML INJ) 4 MG Q4H PRN PRN IV Magnesium Sulfate (MAGNESIUM SULFATE 2GM) 50 ML X1ED STA IV Diazepam (diazePAM) 10 MG X1ED STA IV (DC) Lactated Ringer's (LACTATED RINGERS) 1,000 ML X1ED STA IV (DC) Thiamine HCl (THIAMINE ) 100 MG X1ED STA IV (DC) Diazepam (diazePAM) 5 MG X1ED STA IV (DC) Physical Exam General appearance: obese, alert, awake Head/Eyes: atraumatic, normocephalic ENT: normal ear left, normal ear right, normal nose Neck: full range of motion, non-tender Cardiovascular: normal capillary refill, regular rate rhythm Respiratory: aerating well, clear to auscultation, symmetric expansion Abdomen: non-tender Extremities: moves all, normal capillary refill Musculoskeletal: normal inspection, painless range of motion Neuro/TALENT ACQUISITION ASSOCIATE: altered mental status, disoriented Skin: dry, intact Psychiatry: abnl judgment/insight, hallucination (Visual, Tactile), not homicidal, not suicidal Results Findings/Data: Laboratory Tests 04/22 0634 Chemistry Sodium (137 - 145 mmol/L) 136 L Potassium (3.4 - 5.0 mmol/L) 3.8 Chloride (98 - 107 mmol/L) 94 L Carbon Dioxide (22 - 30 mmol/L) 28 Anion Gap 18 BUN (7 - 17 mg/dL) 9 Creatinine (0.5 - 1.0 mg/dL) 0.6 Glomerular Filtr Rate (mL/min) 105 Glucose (74 - 106 mg/dL) 92 Calcium (8.4 - 10.2 mg/dL) 9.0 Magnesium (1.6 - 2.3 mg/dL) 1.2 L Total Bilirubin (0.2 - 1.3 mg/dL) 2.9 H Conjugated Bilirubin (0 - 0.3 mg/dL) 0.5 H Unconjugated Bilirubin (0 - 1.1 mg/dL) 1.1 AST (15 - 46 U/L) 229 H ALT (0 - 34 U/L) 68 H Total Alk Phosphatase (38 - 126 U/L) 167 H Total Protein (6.3 - 8.2 g/dL) 7.1 Albumin (3.5 - 5.0 g/dL) 4.4 Specimen Hemolysis (0 - 100 Index/DL) 87 Laboratory Tests 04/22 634 Coagulation INR 1.2 PT Patient/Control Mix (9.4 - 12.5 SECONDS) 13.4 H Laboratory Tests 04/22 634 Hematology WBC (5.0 - 12.0 x10 3/uL) 8.3 RBC (4.20 - 5.40 x10 6/uL) 3.96 L Hgb (12.0 - 16.0 g/dL) 12.3 Hct (36.0 - 46.0 %) 37.6 MCV (81 - 99 fL) 95 MCH (27 - 31 pg) 31.1 H MCHC (33 - 37 g/dL) 32.7 L RDW (11.5 - 15.5 %) 17.0 H Plt Count (130 - 400 x10 3/uL) 144 MPV (9.4 - 16.4 fL) 11.7 Neut % (Auto) (43 - 65 %) 74.8 H Lymph % (Auto) (20.5 - 45.5 %) 15.1 L [place] % (Auto) (5.5 - 11.7 %) 8.2 Eos % (Auto) (0.9 - 2.9 %) 0.6 L Baso % (Auto) (0.2 - 1.0 %) 0.8 Neut # (Auto) (2.2 - 4.8 x10 3/uL) 6.24 H Lymph # (Auto) (1.3 - 2.9 x10 3/uL) 1.26 L [place] # (Auto) (0.3 - 0.8 x10 3/uL) 0.68 Eos # (Auto) (0.0 - 0.2 x10 3/uL) 0.05 Baso # (Auto) (0.0 - 0.1 x10 3/uL) 0.07 Immature Gran % (0.0 - 2.0 %) 0.5 Nucleated RBC % (0 - 1.0 %) 0.0 Laboratory Tests 04/22 0634 Toxicology Urine Opiates Screen (NEGATIVE) NEGATIVE Ur Barbiturates, Qual (NEGATIVE) NEGATIVE Ur Phencyclidine Scrn (NEGATIVE) NEGATIVE Ur Amphetamines Screen (NEGATIVE) NEGATIVE U Benzodiazepines Scrn (NEGATIVE) POSITIVE H Urine Cocaine Screen (NEGATIVE) NEGATIVE Urine Cannabinoids (NEGATIVE) NEGATIVE Ethyl Alcohol (<10 mg/dL) < 10 Laboratory Tests 04/22 0634 Urines Urine Color (Yellow) Sera H Urine Appearance (Clear) Clear Urine pH (5.0 - 8.0) 6.0 Ur Specific [place] (<1.030) 1.021 Urine Protein (Negative mg/dL) 30 (1+) H Urine Glucose (UA) (Negative) Negative Urine Ketones (Negative mg/dL) 15 (1+) H Urine Blood (Negative) Negative Urine Nitrite (Negative) Negative Urine Bilirubin (Negative) 1+ H Urine Urobilinogen (Negative mg/dL) 4.0 H Ur Leukocyte Esterase (Negative) NEGATIVE Urine RBC (<4 - 5 /HPF) 0-3 Urine WBC (<4 - 5 /HPF) 0-3 Ur Squamous Epith Cells (0 - 5 (RARE) /HPF) 6-15 (FEW) H Urine Bacteria (None - Rare /HPF) Rare Hyaline Casts (<4 - 5 /LPF) 6-10 H Urine Mucus (<Rare /LPF) 1+ H Urine HCG, Qual (NEGATIVE) NEGATIVE Results: labs reviewed, vital signs reviewed Diagnosis, Assessment Plan Free Text DxA P Notes Free Text DxA P Notes: Patient is a 57-year-old woman with a history of depression, alcohol abuse, and hypertension who was admitted on 04/22/2023 for hallucinations likely 2/2 alcohol withdrawal. #Tremors #Visual Hallucinations #Alcohol Withdrawal - Likely 2/2 Alcohol withdrawal - Recently started Disulfiram - Last drink 2 days ago - [facility] protocol - Thiamine, folate, multivitamins #HTN - Resume home lisinopril #DM - A1c last admit 4.7 - LDSSI Diet: Regular DVT ppx: GI Ppx: None Code status: Case discussed with Dr. Montenegro PLAN: - [facility] Protocol - Psych Consulted, appreciate recs Quality: Gen Med Crit Care Free Text Quality Notes Free text Quality notes: [facility] Med Reconciliation [X] I have utilized all available immediate resources to obtain, update, or review the patient s current medications (including all prescriptions, over-the- counter products, herbals, cannabis/cannabidiol products, and vitamin/mineral/ dietary (nutritional) supplements). [SATISFIES MIPS PERFORMANCE] If Yes, Stop Here [] The patient is not eligible for medication reconciliation; the patient is in an emergent medical situation where delaying treatment would jeopardize the patient s health. [MIPS PERFORMANCE EXCEPTION/EXCLUSION] [] I did NOT confirm, update or review the patient's current list of medications today. [DOES NOT SATISFY [facility] PERFORMANCE] Guille Montenegro 04/23/23 0925: Attestations Attestation needed: supervising physician Teaching Physician Attestation 1st visit w/o resident: I performed a history and physical examination of the patient and discussed with the resident. I have reviewed the resident's note and . . . agree with the findings and plan as documented in the resident's note. agree with the findings and plan as documented in the resident's note EXCEPT: at 1752 at 0925 RPT #:[id number] END OF [id number] 06:41:00 [facility] ([facility]) EMERGENCY PROVIDER REPORT REPORT#:[id number] REPORT STATUS: Signed DATE:04/22/23 TIME: 640 PATIENT: ZAK MANDEL UNIT #: [id number] ROOM/BED: [place] [address] AGE: 57 SEX: F PCP PHYS: Willis Storey ORDNANCE OFFICER SERVICE AUTHOR: Mandeep Mckeon MD R3 * ALL edits or amendments must be made on the electronic/computer document * Mandeep Mckeon 04/22/23 0641: HPI-General Illness Free Text HPI Notes Free Text HPI Notes 57-year-old female history of depression and alcohol abuse and hypertension presents to ED for hallucinations. Reported last drink was 2 days ago. Normally drinks about 6 shots a day. Has started disulfiram. Notes her baseline she usually drinks 5-6 shots daily. Sometimes more. Had tried to take a drink today but had instantly vomited up from the disulfiram. Patient has been having hallucinations saying she saw spiders on herself and that they started yesterday. Multiple different visual hallucination noted which is corroborated by . Patient denies any desire to hurt self or others. Reports that she has been having tremor since she stopped drinking. Denies any prior history of seizures in the past. Presentation Chief Complaint __ (hallucinations) Review of Systems ROS Statements All systems rev neg except as marked. Past Medical History - Adult Stated Complaint HALLUCINATIONS Allergies Coded Allergies: Penicillins (Mild, ITCHING 02/20/23) REDNESS,RASH Home Medications Active Scripts THIAMINE (VITAMIN B-1) 100 MG PO DAILY 30 Days #30 TABS Ref 2 Prov: 02/22/23 FOLIC ACID 0.4 MG PO DAILY 30 Days #30 TABS Ref 2 Prov: 02/22/23 CYANOCOBALAMIN (VITAMIN B-12) 50 MCG PO DAILY 30 Days #30 TABS Ref 1 Prov: 02/22/23 Reported Medications LISINOPRIL (ZESTRIL) 40 MG PO DAILY ERGOCALCIFEROL (VITAMIN D2) 50,000 UNITS PO Q7D traZODone (DESYREL) 50 MG PO BEDTIME PRN . DIAZEPAM (VALIUM) 2 MG PO BID PRN PRN . Smoking status for patients 13 years old or older: Never Smoker Physical Exam Vital Signs Vital Signs First Documented: Result Date Time Resp 18 04/22 555 Pulse Ox 95 04/22 600 B/P 172/116 04/22 600 B/P Mean 134.5 04/22 600 Temp 98.8 04/22 600 Pulse 93 04/22 600 Last Documented: Result Date Time Resp 24 04/22 902 Pulse Ox 97 04/22 901 B/P 150/68 04/22 900 B/P Mean 98 04/22 900 Pulse 86 04/22 900 Temp 98.8 04/22 600 Review of Vital Signs Reviewed Free Text PE Notes Free Text PE Notes General/Const General/Const Awake, Alert, No acute distress, Cooperative MS Head Head Atraumatic, Normocephalic Resp/Chest Respiratory/Chest Breath sounds NL, Breath sounds = bilat, No respiratory distress Cardiovascular Cardiovascular Heart rate NL, Regular rhythm, Heart sounds NL, Peripheral circulation NL Abdomen/GI Abdomen/GI Soft, Non-tender, No distention Neurologic Neurologic Oriented X3, Speech NL, tremors, visual hallucinations, no asterixis Psychiatric Psychiatric anxious/aggravated mood, confusion Interpretation Diagnostics Lab Results Interpretation Results Laboratory Tests 04/22/23 0634: [Embedded Image Not Available] Laboratory Tests: 04/22 04/22 0634 0634 Chemistry Sodium (137 - 145 mmol/L) 136 L Potassium (3.4 - 5.0 mmol/L) 3.8 Chloride (98 - 107 mmol/L) 94 L Carbon Dioxide (22 - 30 mmol/L) 28 Anion Gap 18 BUN (7 - 17 mg/dL) 9 Creatinine (0.5 - 1.0 mg/dL) 0.6 Glomerular Filtr Rate (mL/min) 105 Glucose (74 - 106 mg/dL) 92 Calcium (8.4 - 10.2 mg/dL) 9.0 Magnesium (1.6 - 2.3 mg/dL) 1.2 L Total Bilirubin (0.2 - 1.3 mg/dL) 2.9 H Conjugated Bilirubin (0 - 0.3 mg/dL) 0.5 H Unconjugated Bilirubin (0 - 1.1 mg/dL) 1.1 AST (15 - 46 U/L) 229 H ALT (0 - 34 U/L) 68 H Total Alk Phosphatase (38 - 126 U/L) 167 H Total Protein (6.3 - 8.2 g/dL) 7.1 Albumin (3.5 - 5.0 g/dL) 4.4 Specimen Hemolysis (0 - 100 Index/DL) 87 Coagulation INR 1.2 PT Patient/Control Mix (9.4 - 12.5 SECONDS) 13.4 H Hematology WBC (5.0 - 12.0 x10 3/uL) 8.3 RBC (4.20 - 5.40 x10 6/uL) 3.96 L Hgb (12.0 - 16.0 g/dL) 12.3 Hct (36.0 - 46.0 %) 37.6 MCV (81 - 99 fL) 95 MCH (27 - 31 pg) 31.1 H MCHC (33 - 37 g/dL) 32.7 L RDW (11.5 - 15.5 %) 17.0 H Plt Count (130 - 400 x10 3/uL) 144 MPV (9.4 - 16.4 fL) 11.7 Neut % (Auto) (43 - 65 %) 74.8 H Lymph % (Auto) (20.5 - 45.5 %) 15.1 L [place] % (Auto) (5.5 - 11.7 %) 8.2 Eos % (Auto) (0.9 - 2.9 %) 0.6 L Baso % (Auto) (0.2 - 1.0 %) 0.8 Neut # (Auto) (2.2 - 4.8 x10 3/uL) 6.24 H Lymph # (Auto) (1.3 - 2.9 x10 3/uL) 1.26 L [place] # (Auto) (0.3 - 0.8 x10 3/uL) 0.68 Eos # (Auto) (0.0 - 0.2 x10 3/uL) 0.05 Baso # (Auto) (0.0 - 0.1 x10 3/uL) 0.07 Immature Gran % (0.0 - 2.0 %) 0.5 Nucleated RBC % (0 - 1.0 %) 0.0 Toxicology Urine Opiates Screen (NEGATIVE) NEGATIVE Ur Barbiturates, Qual (NEGATIVE) NEGATIVE Ur Phencyclidine Scrn (NEGATIVE) NEGATIVE Ur Amphetamines Screen (NEGATIVE) NEGATIVE U Benzodiazepines Scrn (NEGATIVE) POSITIVE H Urine Cocaine Screen (NEGATIVE) NEGATIVE Urine Cannabinoids (NEGATIVE) NEGATIVE Ethyl Alcohol (<10 mg/dL) < 10 Urines Urine Color (Yellow) Sera H Urine Appearance (Clear) Clear Urine pH (5.0 - 8.0) 6.0 Ur Specific [place] (<1.030) 1.021 Urine Protein (Negative mg/dL) 30 (1+) H Urine Glucose (UA) (Negative) Negative Urine Ketones (Negative mg/dL) 15 (1+) H Urine Blood (Negative) Negative Urine Nitrite (Negative) Negative Urine Bilirubin (Negative) 1+ H Urine Urobilinogen (Negative mg/dL) 4.0 H Ur Leukocyte Esterase (Negative) NEGATIVE Urine RBC (<4 - 5 /HPF) 0-3 Urine WBC (<4 - 5 /HPF) 0-3 Ur Squamous Epith Cells (0 - 5 (RARE) /HPF) 6-15 (FEW) H Urine Bacteria (None - Rare /HPF) Rare Hyaline Casts (<4 - 5 /LPF) 6-10 H Urine Mucus (<Rare /LPF) 1+ H Urine HCG, Qual (NEGATIVE) NEGATIVE Re-Evaluation MDM Free Text MDM Notes Free Text MDM Notes Differential includes acute psychosis alcohol withdrawal versus hepatic encephalopathy. Likely alcohol withdrawal as symptoms started after quitting alcohol visual hallucinations and tremors. Valium have been given. Valium had improved symptoms. Patient does not have prior history of seizures however patient is having visual hallucinations so we will admit for alcohol withdrawal and detoxification. Patient's magnesium had come back low. Magnesium provided. Patient has been admitted to medicine for further management as well as made involuntary due to stating that she would kill herself if she went home because she believes her children are trying to kill her. ED Course Medication(s) Ordered Medication(s) Ordered: Central Nervous System Agents Sig/Aracely Start time Last Medication Dose Route Stop Time Status Admin Diazepam 10 MG X1ED STA 04/22 0725 DC 04/22 IV 04/22 0726 0746 Diazepam 5 MG X1ED STA 04/22 0619 DC 04/22 IV 04/22 0620 0658 Electrolytic, Caloric, And Jane Sig/Aracely Start time Last Medication Dose Route Stop Time Status Admin Sodium Chloride 10 ML ASDIR PRN 04/22 0930 AC IV 04/22 1526 Sodium Chloride 250 ML ASDIR PRN 04/22 0930 AC IV 04/22 1526 Lactated Ringer's 1,000 ML X1ED STA 04/22 0621 DC 04/22 IV 04/22 0622 0659 Gastrointestinal Drugs Sig/Aracely Start time Last Medication Dose Route Stop Time Status Admin Ondansetron HCl 4 MG Q4H PRN PRN 04/22 0927 AC IV 04/22 1526 Miscellaneous Therapeutic Agen Sig/Aracely Start time Last Medication Dose Route Stop Time Status Admin Magnesium Sulfate 50 ML X1ED STA 04/22 0916 DC 04/22 IV 04/22 1115 1005 Vitamins Sig/Aracely Start time Last Medication Dose Route Stop Time Status Admin Thiamine HCl 100 MG X1ED STA 04/22 0620 DC 04/22 IV 04/22 0621 0658 Other Sig/Aracely Start time Last Medication Dose Route Stop Time Status Admin Sodium Chloride 5 ML Q12HR 04/22 2100 AC IV 07/20 2101 Sodium Chloride 5 ML ASDIR PRN 04/22 0930 AC IV 04/22 1526 Patient Discharge Departure Vital Signs/Condition Vital Signs First Documented: Result Date Time Resp 18 04/22 0555 Pulse Ox 95 04/22 06 B/P 172/116 04/22 0600 B/P Mean 134.5 12/05 0600 Temp 98.8 04/22 600 Pulse 93 04/22 600 Last Documented: Result Date Time Resp 24 04/22 902 Pulse Ox 97 04/22 901 B/P 150/68 04/22 900 B/P Mean 98 04/22 900 Pulse 86 04/22 900 Temp 98.8 04/22 600 All vital signs available at the time of this entry have been reviewed. Clinical Impression Clinical Impression Primary Impression: Alcohol abuse with withdrawal Secondary Impressions: Delusions Disposition Decision Hospitalize Hosp Physician Name Cruzito Gr MD [facility] Physician Hospitalist Request Time 926 Request Date 04/22/23 )( Accepts Hospitalization Yes )( Reason for Hospitalization hypomagnesium, qt prolongation, alochol withdrawl, delusions and SI )( Accepted Time 927 )( Accepted Date 04/22/23 Call Information will see patient Teo Delacruz 04/22/23 1248: HPI-General Illness General Initial Greet Date/Time 04/22/23 0554 Physical Exam Free Text PE Notes Free Text PE Notes Bizarre delusions. Mild tongue fasciculations. Mild tremor. Pupils are 6 mm and reactive bilaterally. No asterixis. Normal tone throughout. No jaundice. Re-Evaluation MDM Free Text MDM Notes Free Text MDM Notes All diagnoses addressed, and patient specific differential diagnoses/rule out diagnoses: I needed to intervene immediately given evidence of severe alcohol withdrawal, administer diazepam with partial response to 5 mg, full response to 10 mg. However had persistent hallucinations that were disruptive to family and have them afraid that they will not be able to take care of her safely at home, will admit. Considered and ECG to further evaluate for QTc prolongation. Considered associated electrolyte abnormality causing QTc prolongation. No evidence of change in memory or attention to suggest acute delirium with associated intracerebral hemorrhage acute ischemic CVA or infectious precipitant. How existing diagnosis and past medical history contribute to current presentation: History of prior alcohol withdrawal hallucinations increases risk of recurrence and increased risk of failure of outpatient treatment Acuity, severity, and intensity of services provided: Acute severe alcohol withdrawal, acute severe alcohol withdrawal hallucinations with [threat to life or bodily function] Systemic symptoms present? Which?: Hallucinations, tremor Prior external notes reviewed: I independently reviewed the chart for prior visits and included available data in my decision making. This included reviewing the previously listed medical history and this medical history was included in my decision making for this patient. This demonstrated no similar prior presentations for severe alcohol withdrawal requiring ICU admission. Discuss with an independent historian: I discussed with family members at bedside and they were able to provide portions of the history that the patient could not remember or was unable to provide. They were also able to verify the portions of the history that the patient provided. This contributed to my medical decision making as listed above. Independent interpretation of diagnostics (EKG, X-ray, US, Rhythm Strip, NST): EKG independently reviewed and interpreted by me: [Normal sinus rhythm ECG without acute changes. No STEMI. Prolonged QTc] Rhythm strip independently reviewed and interpreted by me: [normal sinus rhythm and rate] Other diagnostic tests (bedside US, XR, US, CT, POC testing, labs): Labs and other studies documented in this note were independently ordered, reviewed and interpreted by me with the following remarkable: Ammonia elevated suggesting possible concurrent hepatic encephalopathy, CBC without evidence of severe anemia or elevated white count to suggest severe inflammatory sponsor infection, urinalysis without evidence of infection, test suggesting no preeclampsia, chemistry without evidence of acute kidney injury or acute electrolyte abnormality, LFTs with elevated bilirubin, AST and ALT elevated consistent with liver dysfunction secondary to alcohol use but inpatient evaluation and treatment and trending of labs to further evaluate, benzodiazepine urine drug screen positive, likely secondary to iatrogenic causes of Discussions with other clinicians or qualified health wound care specialist: I discussed with the hospitalist the history exam and pertinent lab test results up to this point as well as the plan of inpatient care. Hospitalist agreed with admission and will continue plan of care. Reasons for consideration of hospitalization/hospitalization/admission/need for emergent surgery/transfer to higher level of care: Given severe hallucinations and persistent hallucinations despite good response to diazepam will admit Prescription drug management: I reviewed the patients active medications, the need to make changes to the patients medications and considered new medications that may be required. Not currently taking benzodiazepines outpatient to suggest increased risk of failure of outpatient treatment [Parental medications with potential for toxicity were used in order to adequately manage this patient as oral medications were deemed to be medically inappropriate. See included list of drugs, doses, and routes.] Goals of Care discussion: Full code Plan for surgery/procedures: Group CBT Social determinants of health that impacted or limited the diagnosis/treatment: I discussed with the patient their social support, financial restraints, access to care, primary care physician support and other social determinants of health and incorporated their social determinants of health in my medical decision making. Patient has family that is attentive and able to aid with transportation as well as follow-up with her primary care. Has an established primary care as well as means to be able to access the primary care. This would offer support for further outpatient management. Patient Discharge Departure Critical Care Time Spent (minutes): 37 Services Performed Patient management by me, Time spent at bedside, Reviewing test results, Reviewing imaging, Discussing patient care, Documentation in record Separately billable procedures excluded from time. Supervising Physician Note Resident Saw Pt This patient was seen by a resident. I have personally seen the patient, performed the critical or louis portions of the service, and participated in the management of the patient. I have reviewed and agree with the resident's note, and I have reviewed all labs, ECGs, and imaging studies or reports. I agree with this resident's findings, exam and plan. at 1115 at 1254 RPT #:[id number] END OF [id number]:[id number] [facility] [address] [facility] [address] [place] [address] PATIENT NAME: ZAK MANDEL ADMIT DATE: 04/22/23 ACCOUNT NO: [id number] ROOM NO: [facility] AGE: 57 REPORT TYPE: ELECTROCARDIOGRAM SEX: F ADMITTING PHYSICIAN:Guille Montenegro DO ATTENDING PHYSICIAN:Guille Montenegro DO Order: [id number] Test Reason : (Not Selected) Test Date/Time Stamp: FriApr 22 2023 06:24:13 Blood Pressure : 128/071 mmHG Vent. Rate : 081 BPM Atrial Rate : 081 BPM P-R Int : 142 ms QRS Dur : 076 ms QT Int : 414 ms P-R-T Axes : 076 056 032 degrees QTc Int : 480 ms Normal sinus rhythm Low voltage QRS Prolonged QT Abnormal ECG No previous ECGs available Confirmed by Efrain De La Rosa ([id number]) on 05/04/2023 10:07:16 AM Referred By: Self Referred Confirmed by:Efrain De La Rosa at 1007 PATIENT NAME: ZAK MANDEL 13:18:00 [facility] ([facility] Hospitalist Discharge Summary REPORT#:[id number] REPORT STATUS: Signed REPORT INITIALIZATION DATE:02/22/23 TIME: 1317 PATIENT: ZAK MANDEL UNIT #: [id number] ROOM/BED: [address] : [address] AGE: 57 SEX: F ATTEND: Bridgett Flores DO ADM AUTHOR: Dea Johnson MD R2 REPT SERVICE DT/TIME: 02/22/23 1318 * ALL edits or amendments must be made on the electronic/computer document * Dea Johnson 02/22/23 1318: General Information Discharge date: 02/22/23 Discharge diagnosis: MDD, SI, alcohol abuse Hospital course: HPI: "57-year-old female with history of depression and alcohol abuse was brought in with suidical ideation by her . Upon arrival to the ED pt was suicidal and wanted to shoot herself with a gun. Patient also reported severe depression for the past 2 weeks due to stressors at work and conflict with her daughters. She had little interest in things that she normally liked to do. Also had trouble sleeping, and had poor apetite. Pt reporrted she had been binge drinking 1 bottle of vodka every day for the past 3 weeks. Her last drink was this morning. She said she has had long standing depression and has not been on any meds recently and has not seeked professional help in years. Pt denied any fever , chills, chest pain, headache, abdominal pain, sob or any symptoms. In the ED pts vitals intially were AFVSS, however she developed tachycardia and hypertension. Tachy to 116, systolic of 180's. Pt had high alcohol level. CBC, BMP unremarkable. UA negative. AST and ALT were elevated. Upon interview pt said she was feeling better and had no SI/HI, PHQ 9 was very high score of 22. She reports mild tremors that are improved with Ativan, and endorses visual hallucinations consistent with alcohol withdrawal." HOSPTIAL COURSE Pt was admitted for SI and concern for alcohol withdrawal. Pt was started on ciwa protocol. Psych was consulted. She reported mild tremors that improved with Ativan, and endorseed visual hallucinations consistent with alcohol withdrawal. All of her symptoms improved, she denied having any active suicidal ideation, her hallucinations resolved. Pt was cleared by psych for d/c, she didnot having any tremors/hallucinations 24 hrs after her last ativan and she was d/c in stable condittion along with vitamins and counselled regarding alcohol abuse and depression and rec to seek help and f/u with psych and her pcp for further management. Free Text DxA P Notes Free text DxA P notes: 57-year-old female with history of depression and alcohol abuse was brought in with suidical ideation by her . #Major depression disorder -PHQ9 score is 22 -SI on arrival, no active SI/HI -Psych consulted, appreciate recs -Inpatient voluntarily -sitter 1:1 -Suicidal precautions #Tremors 2/2 alcohol withdrawal-resolved #Visual hallucination-improving #Binge drinking -Last drink 02/20 in afternoon -CIIL protocol -Thiamine, folate, multivitamin -Last 1 mg ativan 02/20 9.00 pm, watch for 24 hrs for any withdrawals #HTN -Resumed home lisinopril #DM -A1c 4.7 -LDSS #Left leg hematoma -US left leg Pt is full code DVT ppx hold lovenox, as hematoma Diet regular diet PLAN: Monitor for withdrawal off ativan for 24hrs. Will touch base with psych regarding further plan. F/u left leg US. D/w Dr Flores Med Rec Med Rec Discharge meds: Continue taking these medications: LISINOPRIL (ZESTRIL) 20 MG TAB 40 MILLIGRAM ORAL DAILY. Comments: TAKE 1 TABLET BY MOUTH ONCE DAILY; #90 - SIG Obtained From [employer] ERGOCALCIFEROL (VITAMIN D2) 1,250 MCG (50,000 UNIT) CAP 50,000 UNITS ORAL EVERY 7 DAYS. Comments: TAKE 1 CAPSULE BY MOUTH ONCE A WEEK FOR 12 WEEKS; #12 - SIG Obtained From [employer] traZODone (DESYREL) 50 MG TAB 50 MILLIGRAM ORAL BEDTIME. as needed for . Comments: TAKE 1/2 (ONE-HALF) TABLET BY MOUTH ONCE DAILY NEEDED AT BEDTIME; #30 - SIG Obtained From [employer] DIAZEPAM (VALIUM) 2 MG TAB 2 MILLIGRAM ORAL TWICE DAILY NEEDED. as needed for . Comments: TAKE 1 TABLET BY MOUTH TWICE DAILY NEEDED; #28 - SIG Obtained From [employer] Start taking the following new medications: THIAMINE (VITAMIN B-1) 100 MG TAB 100 MILLIGRAM ORAL DAILY. Days = 30 Qty = 30 Refills = 2 FOLIC ACID (FOLIC ACID) 0.4 MG TAB 0.4 MILLIGRAM ORAL DAILY. Days = 30 Qty = 30 Refills = 2 CYANOCOBALAMIN (VITAMIN B-12) 50 MCG TAB 50 MICROGRAM ORAL DAILY. Days = 30 Qty = 30 Refills = 1 Objective VS/I O Last Documented: Result Date Time Pulse Ox 95 02/22 1233 B/P 134/82 02/22 1233 B/P Mean 99.6 02/22 1233 Temp 98.2 02/22 1233 Pulse 97 02/22 1233 Resp 18 02/22 1233 O2 Delivery Room air 02/212 24 hour I O ending at 0700: 02/22 0700 02/21 1900 Intake Total 1000.00 Output Total Balance 1000.00 Intake, IV 1000.00 Number Voids 2 General appearance: alert, awake, oriented Head/Eyes: atraumatic, clear cornea Neck: full range of motion, non-tender Cardiovascular: normal capillary refill, normal heart sounds Respiratory: aerating well, clear to auscultation, symmetric expansion, no distress Abdomen: non-tender, normal bowel sounds Genitourinary: no flank pain Extremities: moves all Musculoskeletal: normal inspection, left lower extremity superficial bruise Neuro/TALENT ACQUISITION ASSOCIATE: alert, oriented X 3 Psychiatry: normal mood, not suicidal, no hallucinations Results Findings/Data: Laboratory Tests: 02/22 02/22 02/22 02/21 02/21 1232 0828 0342 1948 1705 Chemistry Sodium (137 - 145 mmol/L) 135 L Potassium (3.4 - 5.0 mmol/L) 3.4 Chloride (98 - 107 mmol/L) 103 Carbon Dioxide (22 - 30 mmol/L) 27 Anion Gap 8 BUN (7 - 17 mg/dL) 5 L Creatinine (0.5 - 1.0 mg/dL) 0.5 Glomerular Filtr Rate (mL/min) 109 Glucose (74 - 106 mg/dL) 102 POC Glucose (74 - 106 MG/DL) 122 H 100 118 H 101 Calcium (8.4 - 10.2 mg/dL) 8.6 Phosphorus (2.5 - 4.5 mg/dL) 2.6 Magnesium (1.6 - 2.3 mg/dL) 1.6 Total Bilirubin (0.2 - 1.3 mg/dL) 2.2 H Conjugated Bilirubin (0 - 0.3 mg/dL) 0 Unconjugated Bilirubin (0 - 1.1 mg/dL) 1.6 H AST (15 - 46 U/L) 197 H ALT (0 - 34 U/L) 64 H Total Alk Phosphatase (38 - 126 U/L) 137 H Total Protein (6.3 - 8.2 g/dL) 6.9 Albumin (3.5 - 5.0 g/dL) 4.0 Specimen Hemolysis (0 - 100 Index/DL) < 15 Hematology WBC (5.0 - 12.0 x10 3/uL) 6.8 RBC (4.20 - 5.40 x10 6/uL) 3.89 L Hgb (12.0 - 16.0 g/dL) 11.9 L Hct (36.0 - 46.0 %) 36.3 MCV (81 - 99 fL) 93 MCH (27 - 31 pg) 30.6 MCHC (33 - 37 g/dL) 32.8 L RDW (11.5 - 15.5 %) 18.1 H Plt Count (130 - 400 x10 3/uL) 138 MPV (9.4 - 16.4 fL) 10.9 Neut % (Auto) (43 - 65 %) 61.8 Lymph % (Auto) (20.5 - 45.5 %) 25.2 [place] % (Auto) (5.5 - 11.7 %) 8.3 Eos % (Auto) (0.9 - 2.9 %) 4.0 H Baso % (Auto) (0.2 - 1.0 %) 0.4 Neut # (Auto) (2.2 - 4.8 x10 3/uL) 4.22 Lymph # (Auto) (1.3 - 2.9 x10 3/uL) 1.72 [place] # (Auto) (0.3 - 0.8 x10 3/uL) 0.57 Eos # (Auto) (0.0 - 0.2 x10 3/uL) 0.27 H Baso # (Auto) (0.0 - 0.1 x10 3/uL) 0.03 Immature Gran % (0.0 - 2.0 %) 0.3 Nucleated RBC % (0 - 1.0 %) 0.0 Radiology data: Recent Impressions: ULTRASOUND - DUP VEIN UNI LT 02/22 1359 Report Impression - Status: SIGNED Entered: 02/22/2023 1418 IMPRESSION: No evidence of DVT within the visualized portions of the deep veins. Hypoechoic area within the subcutaneous fat at the area of concern, this could reflect a chronic hematoma or other fluid collection. An abscess is not entirely excluded. 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 Johnson's discharge summary except: The patient's left lower extremity ecchymoses is possibly due to healing seroma. No evidence of infectious etiology was noted. She will need to follow up with her PCP regarding if her redness or edema in her left leg worsens. The patient did not have suicidal ideations >24 hours. Psychiatry was consulted and recommended patient was able to participate in outpatient follow up. Inpatient psychiatry was no longer needed. Patient was discussed with regarding alcohol use cessation. She has positive intentions to quit. Her symptoms and signs have improved, and she is stable to be discharged home with family. Time spent on discharge process: >30 minutes at 1636 at 0038 RPT #:[id number] END OF [id number] 07:30:00 [facility] ([facility]) Hospitalist Progress Note REPORT#:[id number] REPORT STATUS: Signed REPORT INITIALIZATION DATE:02/21/23 TIME: 729 PATIENT: ZAK MANDEL UNIT #: [id number] ROOM/BED: [address] : 65 AGE: 57 SEX: F ATTEND: Bridgett Flores DO ADM AUTHOR: Dea Johnson MD R2 REPT SERVICE DT/TIME: 02/21/23729 * ALL edits or amendments must be made on the electronic/computer document * Dea Johnosn 02/21/23729: Subjective Chief complaint: SI HPI: Pt seen and examined. She seems better on exam, no active SI. No tremors, no active visual hallucniations currently. Last dose of ativan 1 mg yesterday 9 pm. Pt reported a bruise on LLE, on exam appears like superficial hematoma. Pulses good, no sensory/motor weakness of left leg Review of Systems All systems rev neg: except as noted Objective General VS/I O: Vital Signs: Date Time Temp Pulse Resp B/P B/P Pulse O2 O2 Flow FiO2 Mean Ox Delivery Rate 02/21 734 98.1 95 18 165/73 103.5 93 02/21 05 94 Room air 02/21 042 98.4 95 16 153/86 108.2 92 02/21 0043 98.2 94 16 152/84 106.7 94 02/20 1917 98.4 104 16 148/84 105.5 93 02/20 1702 98.2 120 22 121/79 93.2 96 02/20 1649 109 18 144/87 106.0 94 02/20 1355 116 186/123 144.2 94 24 hour I O ending at 0700: 02/21 0700 02/20 1900 Intake Total 600.00 Output Total Balance 600.00 Intake, IV 600.00 Number Voids 1 Patient 102.273 kg Weight Weight Stated/Reported Measurement Method PATIENT WEIGHT: Weight (lb): Weight (oz): Weight (kg): 102.273 Physical Exam General appearance: alert, awake, oriented Head/Eyes: atraumatic, clear cornea Neck: full range of motion, non-tender Cardiovascular: normal capillary refill, normal heart sounds Respiratory: aerating well, clear to auscultation, symmetric expansion, no distress Abdomen: non-tender, normal bowel sounds Genitourinary: no flank pain Extremities: moves all Musculoskeletal: normal inspection, left lower extremity superficial bruise Neuro/TALENT ACQUISITION ASSOCIATE: alert, oriented X 3 Psychiatry: abnl judgment/insight, anxious Results Findings/Data: Laboratory Tests 02/21 02/21 02/21 02/20 02/20 0824 0407 0407 1919 1700 Chemistry Sodium (137 - 145 mmol/L) 134 L Potassium (3.4 - 5.0 mmol/L) 3.8 Chloride (98 - 107 mmol/L) 99 Carbon Dioxide (22 - 30 mmol/L) 24 Anion Gap 15 BUN (7 - 17 mg/dL) 7 Creatinine (0.5 - 1.0 mg/dL) < 0.4 L Glomerular Filtr Rate (mL/min) 115 Glucose (74 - 106 mg/dL) 76 POC Glucose (74 - 106 MG/DL) 97 105 92 Hemoglobin A1c (0 - 5.9 %) 4.7 Calcium (8.4 - 10.2 mg/dL) 8.2 L Phosphorus (2.5 - 4.5 mg/dL) 2.0 L Magnesium (1.6 - 2.3 mg/dL) 2.2 Total Bilirubin (0.2 - 1.3 mg/dL) 2.1 H Conjugated Bilirubin (0 - 0.3 mg/dL) 0 Unconjugated Bilirubin (0 - 1.1 mg/dL) 1.4 H AST (15 - 46 U/L) 220 H ALT (0 - 34 U/L) 73 H Total Alk Phosphatase (38 - 126 U/L) 130 H Total Protein (6.3 - 8.2 g/dL) 6.8 Albumin (3.5 - 5.0 g/dL) 3.8 Specimen Hemolysis (0 - 100 Index/DL) 59 02/20 02/20 1508 1508 Chemistry Sodium (137 - 145 mmol/L) 138 Potassium (3.4 - 5.0 mmol/L) 3.8 Chloride (98 - 107 mmol/L) 101 Carbon Dioxide (22 - 30 mmol/L) 26 Anion Gap 15 BUN (7 - 17 mg/dL) 6 L Creatinine (0.5 - 1.0 mg/dL) 0.5 Glomerular Filtr Rate (mL/min) 109 Glucose (74 - 106 mg/dL) 86 Calcium (8.4 - 10.2 mg/dL) 8.1 L Phosphorus (2.5 - 4.5 mg/dL) 3.4 Magnesium (1.6 - 2.3 mg/dL) 1.3 L Total Bilirubin (0.2 - 1.3 mg/dL) 2.1 H Conjugated Bilirubin (0 - 0.3 mg/dL) 0 Unconjugated Bilirubin (0 - 1.1 mg/dL) 1.0 GGT (12 - 58 U/L) 662 H AST (15 - 46 U/L) 317 H ALT (0 - 34 U/L) 89 H Total Alk Phosphatase (38 - 126 U/L) 153 H Ammonia (9 - 30 umol/L) < 9 L Total Protein (6.3 - 8.2 g/dL) 7.4 Albumin (3.5 - 5.0 g/dL) 4.3 Amylase (30 - 110 U/L) 56 Lipase (23 - 300 U/L) 98 Specimen Hemolysis (0 - 100 Index/DL) < 15 Laboratory Tests 02/20 1508 Coagulation INR 1.1 PTT (Jennifer) (23.4 - 37.0 SECONDS) 33.7 PT Patient/Control Mix (9.4 - 12.5 SECONDS) 12.6 H Laboratory Tests 02/21 02/20 0407 1508 Hematology WBC (5.0 - 12.0 x10 3/uL) 7.1 7.4 RBC (4.20 - 5.40 x10 6/uL) 4.03 L 4.05 L Hgb (12.0 - 16.0 g/dL) 12.7 12.5 Hct (36.0 - 46.0 %) 37.8 37.9 MCV (81 - 99 fL) 94 94 MCH (27 - 31 pg) 31.5 H 30.9 MCHC (33 - 37 g/dL) 33.6 33.0 RDW (11.5 - 15.5 %) 18.3 H 18.3 H Plt Count (130 - 400 x10 3/uL) 154 161 MPV (9.4 - 16.4 fL) 11.3 10.4 Neut % (Auto) (43 - 65 %) 54.9 76.5 H Lymph % (Auto) (20.5 - 45.5 %) 29.9 13.7 L [place] % (Auto) (5.5 - 11.7 %) 10.6 7.5 Eos % (Auto) (0.9 - 2.9 %) 3.3 H 0.3 L Baso % (Auto) (0.2 - 1.0 %) 0.9 1.0 Neut # (Auto) (2.2 - 4.8 x10 3/uL) 3.87 5.63 H Lymph # (Auto) (1.3 - 2.9 x10 3/uL) 2.11 1.01 L [place] # (Auto) (0.3 - 0.8 x10 3/uL) 0.75 0.55 Eos # (Auto) (0.0 - 0.2 x10 3/uL) 0.23 H 0.02 Baso # (Auto) (0.0 - 0.1 x10 3/uL) 0.06 0.07 Immature Gran % (0.0 - 2.0 %) 0.4 1.0 Nucleated RBC % (0 - 1.0 %) 0.0 0.0 Laboratory Tests 02/20 1508 Toxicology Ethyl Alcohol (<10 mg/dL) < 10 Diagnosis, Assessment Plan Free Text DxA P Notes Free text DxA P notes: 57-year-old female with history of depression and alcohol abuse was brought in with suidical ideation by her . #Major depression disorder -PHQ9 score is 22 -SI on arrival, no active SI/HI -Psych consulted, appreciate recs -Inpatient voluntarily -sitter 1:1 -Suicidal precautions #Tremors 2/2 alcohol withdrawal-resolved #Visual hallucination-improving #Binge drinking -Last drink 02/20 in afternoon -CIIL protocol -Thiamine, folate, multivitamin -Last 1 mg ativan 02/20 9.00 pm, watch for 24 hrs for any withdrawals #HTN -Resumed home lisinopril #DM -A1c 4.7 -LDSS #Left leg hematoma -US left leg Pt is full code DVT ppx hold lovenox, as hematoma Diet regular diet PLAN: Monitor for withdrawal off ativan for 24hrs. Will touch base with psych regarding further plan. F/u left leg US. D/w Bridgett Navarro 02/26/23 0034: Attestations Teaching Physician Attestation F/U visit w/ resident: I saw the patient with the resident and . . . agree with the resident's findings and plan. agree with the resident's findings and plan EXCEPT: none Time spent on direct patient care: >35 minutes with >50% time spent on patient coordination and counseling at 1312 at 0034 RPT #:[id number] END OF [id number] 15:38:00 [facility] REPORT#:[id number] REPORT STATUS: Signed REPORT INITIALIZATION DATE:02/20/23 TIME: 1537 PATIENT: ZAK MANDEL UNIT #: [id number] ROOM/BED: [address] : [birth year] AGE: 57 SEX: F ATTEND: Bridgett Flores DO ADM AUTHOR: Dea Johnson MD R2 REPT SERVICE DT/TIME: 02/20/231537 * ALL edits or amendments must be made on the electronic/computer document * Dea Johnson 02/20/231537: History of Present Illness HPI Chief complaint: SI HPI: 57-year-old female with history of depression and alcohol abuse was brought in with suidical ideation by her . Upon arrival to the ED pt was suicidal and wanted to shoot herself with a gun. Patient also reported severe depression for the past 2 weeks due to stressors at work and conflict with her daughters. She had little interest in things that she normally liked to do. Also had trouble sleeping, and had poor apetite. Pt reporrted she had been binge drinking 1 bottle of vodka every day for the past 3 weeks. Her last drink was this morning. She said she has had long standing depression and has not been on any meds recently and has not seeked professional help in years. Pt denied any fever , chills, chest pain, headache, abdominal pain, sob or any symptoms. In the ED pts vitals intially were AFVSS, however she developed tachycardia and hypertension. Tachy to 116, systolic of 180's. Pt had high alcohol level. CBC, BMP unremarkable. UA negative. AST and ALT were elevated. Upon interview pt said she was feeling better and had no SI/HI, PHQ 9 was very high score of 22. She reports mild tremors that are improved with Ativan, and endorses visual hallucinations consistent with alcohol withdrawal. History Smoking status for patients 13 years old or older: Unknown,if ever smoked Medication/Allergy-Vaccine Hx Allergies: Coded Allergies: Penicillins (Mild, ITCHING 02/20/23) REDNESS,RASH Review of Systems Constitutional: Denies: chills, fever, generalized weakness. Respiratory: Denies: productive cough (sputum), SOB. Cardiovascular: Denies: chest pain, edema, orthopnea. GI: Denies: abdominal pain, nausea, vomiting. : Denies: dysuria. Neuro: Denies: headache, lightheaded. Psych: anxiety, depression, suicidal ideation, visual hallucination. Denies: confusion. Objective General VS/I O: Vital Signs: Date Time Temp Pulse Resp B/P B/P Pulse O2 O2 Flow FiO2 Mean Ox Delivery Rate 02/20 1702 98.2 120 22 121/79 93.2 96 02/20 1649 109 18 144/87 106.0 94 02/20 1355 116 186/123 144.2 94 02/20 0848 18 Room air 02/21 848 98.1 99 172/78 109.2 96 02/20 0739 94 02/19 2014 98.4 74 17 112/71 84.6 94 Room air 02/19 2014 98.4 74 17 112/71 84.6 94 Room air PATIENT WEIGHT: Weight (lb): Weight (oz): Weight (kg): 102.273 Physical Exam General appearance: alert, awake, oriented, tearful Head/Eyes: atraumatic, clear cornea Neck: full range of motion, non-tender Cardiovascular: normal capillary refill, normal heart sounds Respiratory: aerating well, clear to auscultation, symmetric expansion, no distress Abdomen: non-tender, normal bowel sounds Genitourinary: no flank pain Extremities: moves all Musculoskeletal: normal inspection Neuro/TALENT ACQUISITION ASSOCIATE: alert, oriented X 3 Psychiatry: anxious, suicidal ideation Results Findings/Data: Laboratory Tests 02/20 150 1841 Chemistry Sodium (137 - 145 mmol/L) 138 147 H Potassium (3.4 - 5.0 mmol/L) 3.8 3.5 Chloride (98 - 107 mmol/L) 101 107 Carbon Dioxide (22 - 30 mmol/L) 26 28 Anion Gap 15 16 BUN (7 - 17 mg/dL) 6 L 7 Creatinine (0.5 - 1.0 mg/dL) 0.5 0.6 Glomerular Filtr Rate (mL/min) 109 105 Glucose (74 - 106 mg/dL) 86 91 Calcium (8.4 - 10.2 mg/dL) 8.1 L 8.5 Phosphorus (2.5 - 4.5 mg/dL) 3.4 Magnesium (1.6 - 2.3 mg/dL) 1.3 L Total Bilirubin (0.2 - 1.3 mg/dL) 2.1 H 1.2 Conjugated Bilirubin (0 - 0.3 mg/dL) 0 0 Unconjugated Bilirubin (0 - 1.1 mg/dL) 1.0 0.2 GGT (12 - 58 U/L) 662 H AST (15 - 46 U/L) 317 H 510 H ALT (0 - 34 U/L) 89 H 107 H Total Alk Phosphatase (38 - 126 U/L) 153 H 152 H Ammonia (9 - 30 umol/L) < 9 L Total Protein (6.3 - 8.2 g/dL) 7.4 7.6 Albumin (3.5 - 5.0 g/dL) 4.3 4.4 Amylase (30 - 110 U/L) 56 Lipase (23 - 300 U/L) 98 Specimen Hemolysis (0 - 100 Index/DL) < 15 29 Laboratory Tests 02/21 1508 Coagulation INR 1.1 PTT (Jennifer) (23.4 - 37.0 SECONDS) 33.7 PT Patient/Control Mix (9.4 - 12.5 SECONDS) 12.6 H Laboratory Tests 02/20 02/19 150 4125 Hematology WBC (5.0 - 12.0 x10 3/uL) 7.4 8.9 RBC (4.20 - 5.40 x10 6/uL) 4.05 L 4.13 L Hgb (12.0 - 16.0 g/dL) 12.5 12.7 Hct (36.0 - 46.0 %) 37.9 38.2 MCV (81 - 99 fL) 94 93 MCH (27 - 31 pg) 30.9 30.8 MCHC (33 - 37 g/dL) 33.0 33.2 RDW (11.5 - 15.5 %) 18.3 H 18.8 H Plt Count (130 - 400 x10 3/uL) 161 135 MPV (9.4 - 16.4 fL) 10.4 12.4 Neut % (Auto) (43 - 65 %) 76.5 H 43.1 Lymph % (Auto) (20.5 - 45.5 %) 13.7 L 44.8 [place] % (Auto) (5.5 - 11.7 %) 7.5 5.5 Eos % (Auto) (0.9 - 2.9 %) 0.3 L 4.8 H Baso % (Auto) (0.2 - 1.0 %) 1.0 1.1 H Neut # (Auto) (2.2 - 4.8 x10 3/uL) 5.63 H 3.85 Lymph # (Auto) (1.3 - 2.9 x10 3/uL) 1.01 L 4.00 H [place] # (Auto) (0.3 - 0.8 x10 3/uL) 0.55 0.49 Eos # (Auto) (0.0 - 0.2 x10 3/uL) 0.02 0.43 H Baso # (Auto) (0.0 - 0.1 x10 3/uL) 0.07 0.10 Immature Gran % (0.0 - 2.0 %) 1.0 0.7 Nucleated RBC % (0 - 1.0 %) 0.0 0.0 Laboratory Tests 02/20 02/19 02/19 1508 4074 1849 Toxicology Salicylates (mg/dL) < 1.0 Urine Opiates Screen (NEGATIVE) NEGATIVE Acetaminophen (10 - 30 ug/mL) <10 L Ur Barbiturates, Qual (NEGATIVE) NEGATIVE Ur Phencyclidine Scrn (NEGATIVE) NEGATIVE Ur Amphetamines Screen (NEGATIVE) NEGATIVE U Benzodiazepines Scrn (NEGATIVE) NEGATIVE Urine Cocaine Screen (NEGATIVE) NEGATIVE Urine Cannabinoids (NEGATIVE) NEGATIVE Ethyl Alcohol (<10 mg/dL) < 10 394 *H Laboratory Tests 10/04 1849 Urines Urine Color (Yellow) Yellow Urine Appearance (Clear) Clear Urine pH (5.0 - 8.0) 6.0 Ur Specific [place] (<1.030) 1.009 Urine Protein (Negative mg/dL) NEGATIVE Urine Glucose (UA) (Negative) Negative Urine Ketones (Negative mg/dL) Trace H Urine Blood (Negative) Negative Urine Nitrite (Negative) Negative Urine Bilirubin (Negative) Negative Urine Urobilinogen (Negative mg/dL) 4.0 H Ur Leukocyte Esterase (Negative) NEGATIVE Urine RBC (<4 - 5 /HPF) NONE Urine WBC (<4 - 5 /HPF) 0-3 Ur Squamous Epith Cells (0 - 5 (RARE) /HPF) 0-5 (RARE) Urine Bacteria (None - Rare /HPF) None Urine Mucus (<Rare /LPF) Rare H Diagnosis, Assessment Plan Free Text DxA P Notes Free Text DxA P Notes: 57-year-old female with history of depression and alcohol abuse was brought in with suidical ideation by her . #Severe depression -PHQ9 score is 22 -SI on arrival -Psych consulted, appreciate recs -Inpatient voluntarily -sitter 1:1 -Suicidal precautions #Tremors 2/2 alcohol withdrawal #Visual hallucination-improving #Binge drinking -Last drink today in afternoon -CIWA protocol -Thiamine, folate, multivitamin -Check CMP in am #HTN -Resumed home lisinopril #DM -A1c -LDSS, accuchecks Pt is full code DVT ppx lovenox Diet CCB D/w Bridgett Navarro 02/26/23 0030: Attestations Teaching Physician Attestation 1st visit w/ resident: I was present with the resident during the history and exam. I discussed the case with the resident and . . . agree with the findings and plan as documented in the resident's note. agree with the findings and plan as documented in the resident's note EXCEPT: The patietn will be admitted to Med/Tele. She is in guarded condition, and is tachycardic and hypertensive, but otherwise hemodynamically atble. #Suicidal Ideations; Depression - Appreciate psychiatry input. Suicidal precautions, 1:1 sitter to be placed. #Alcohol withdrawals - Actively AAO x3 w/ tremors. Start CIWA; monitor electrolytes - Encourage patient to quit drinking. Time spent on direct patient care: >75 minutes with >50% time spent on patient coordination and counseling [facility] Med Reconciliation [yes] I have utilized all available immediate resources to obtain, update, or review the patient s current medications (including all prescriptions, over-the- counter products, herbals, cannabis/cannabidiol products, and vitamin/mineral/ dietary (nutritional) supplements). [SATISFIES [facility] PERFORMANCE] If Yes, Stop Here [] The patient is not eligible for medication reconciliation; the patient is in an emergent medical situation where delaying treatment would jeopardize the patient s health. [[facility]IPS PERFORMANCE EXCEPTION/EXCLUSION] [] I did NOT confirm, update or review the patient's current list of medications today. [DOES NOT SATISFY [facility] PERFORMANCE] at 1851 at 0033 RPT #:[id number] END OF [id number] 19:10:00 [facility]) EMERGENCY PROVIDER REPORT REPORT#:[id number] REPORT STATUS: Signed DATE:02/19/23 TIME: 1909 PATIENT: ZAK MANDEL UNIT #: [id number] ROOM/BED: [address] AGE: 57 SEX: F PCP PHYS: Willis Storey ORDNANCE OFFICER SERVICE AUTHOR: Angela Diop DO R3 * ALL edits or amendments must be made on the electronic/computer document * Angela Diop 02/19/23 191: HPI-General Illness Free Text HPI Notes Free Text HPI Notes Patient is 57-year-old female history of alcohol use and abuse here with 3 days of increasing suicidality with a plan to shoot herself. She normally has a gun in her bedside table but her had all the firearms in the house. She last was on depression medication many years ago but has been off. She started drinking 1/5 of vodka every day for the last 2 weeks. Last drink was noon today , 7 hours prior to arrival. She has withdrawn from alcohol before but has not had seizures in the past. General Initial Greet Date/Time 02/19/23 1844 Presentation Chief Complaint __ (SI) Past Medical History - Adult Stated Complaint SI Smoking status for patients 13 years old or older: Unknown,if ever smoked Physical Exam Vital Signs Review of Vital Signs Reviewed Free Text PE Notes Free Text PE Notes PE General appearance: no acute distress, well-appearing, mental status normal Head/Eyes: atraumatic, normocephalic, PERRL, EOMI L pupil: reactivity R pupil: reactivity ENT: atraumatic, no malocclusion, mucous membranes moist Neck: atraumatic, full range of motion, non-tender Cardiovascular: regular rate rhythm, no murmurs appreciated, pulses equal bilat, pulses all extremities, Respiratory/chest: aerating well, atraumatic chest wall, lungs clear to auscultation, symmetric expansion, no distress, no rales or wheezing Abdomen: non-distended, soft, non-tender, no guarding, no rebound Back/Spine: Back: atraumatic, inspection NL, non-tender Pelvis: atraumatic, pelvis stable Extremities: pedal pulses intact, moving extremities spontaneously. Neuro/TALENT ACQUISITION ASSOCIATE: alert, oriented X 3, follows commands Psych: Endorses suicidality with plan, denies homicidal ideation, denies audiovisual hallucinations Interpretation Diagnostics Lab Results Interpretation Considerations Independ review imaging Re-Evaluation MDM Free Text MDM Notes Additional Text Patient is 57-year-old with suicidal ideations with alcohol withdrawal. Differentials considered include possibility to develop delirium treatments or seizure activity, no other somatic complaints at this time, patient is not tremulous at time evaluation last drink was 7 hours prior to presentation. Lab work is pending at time of signout to night team, Dr. Rodríguez and Dr. Saeed. On evaluation at signout she is starting to develop tremulous symptoms, she is given 10 mg of p.o. diazepam and observed. Patient is on an emergency penitentiary order, high risk suicide with immediate access to firearms at her house though has had them. Agrees to hold in the ED pending psychiatric evaluation. Risk-Psychiatric Illness Detailed Suicide Risk )( [facility] Risk Screen? Yes Overall level suicide risk: high risk Risk Stratification )( Suicide - Adult Access to firearms, Alcohol use, Substance abuse Harrison Saeed 02/19/232006: HPI-General Illness General Assumed Care at Time 2006 Date 02/19/23 Past Medical History - Adult Allergies Coded Allergies: Penicillins (Mild, ITCHING 02/20/23) REDNESS,RASH Re-Evaluation MDM ED Course Medication(s) Ordered Medication(s) Ordered: Central Nervous System Agents Sig/Aracely Start time Last Medication Dose Route Stop Time Status Admin Lorazepam 1 MG Q6H PRN PRN 02/20 915 AC 02/20 PO 03/02 0916 1447 Diazepam 10 MG X1ED STA 02/20 2004 DC 02/19 PO 02/19 Patient Discharge Departure Discharge/Care Plan (Auto) Prescriptions Current Visit Scripts THIAMINE (VITAMIN B-1) 100 MG PO DAILY 30 Days #30 TABS Ref 2 FOLIC ACID 0.4 MG PO DAILY 30 Days #30 TABS Ref 2 CYANOCOBALAMIN (VITAMIN B-12) 50 MCG PO DAILY 30 Days #30 TABS Ref 1 Supervising Physician Note Resident Saw Pt This patient was seen by a resident. I have personally seen the patient, performed the critical or louis portions of the service, and participated in the management of the patient. I have reviewed and agree with the resident's note, and I have reviewed all labs, ECGs, and imaging studies or reports. I agree with this resident's findings, exam and plan. Jose Rodríguez 02/19/232124: Physical Exam Vital Signs Vital Signs First Documented: Result Date Time Pulse Ox 94 02/19 2014 B/P 112/71 02/19 2014 B/P Mean 84.6 02/19 2014 O2 Delivery Room air 02/19 2014 Temp 36.9 02/19 2014 Pulse 74 02/19 2014 Resp 17 02/19 2014 Last Documented: Result Date Time Pulse Ox 94 02/20 1355 B/P 186/123 02/20 135 B/P Mean 144.2 02/20 1355 Pulse 116 02/20 135 O2 Delivery Room air 02/21 848 Resp 18 02/21 848 Temp 36.7 02/21 848 Interpretation Diagnostics Lab Results Interpretation Results Laboratory Tests 02/19/231848: [Embedded Image Not Available] Laboratory Tests: 02/19 Chemistry Sodium (137 - 145 mmol/L) 147 H Potassium (3.4 - 5.0 mmol/L) 3.5 Chloride (98 - 107 mmol/L) 107 Carbon Dioxide (22 - 30 mmol/L) 28 Anion Gap 16 BUN (7 - 17 mg/dL) 7 Creatinine (0.5 - 1.0 mg/dL) 0.6 Glomerular Filtr Rate (mL/min) 105 Glucose (74 - 106 mg/dL) 91 Calcium (8.4 - 10.2 mg/dL) 8.5 Total Bilirubin (0.2 - 1.3 mg/dL) 1.2 Conjugated Bilirubin (0 - 0.3 mg/dL) 0 Unconjugated Bilirubin (0 - 1.1 mg/dL) 0.2 AST (15 - 46 U/L) 510 H ALT (0 - 34 U/L) 107 H Total Alk Phosphatase (38 - 126 U/L) 152 H Total Protein (6.3 - 8.2 g/dL) 7.6 Albumin (3.5 - 5.0 g/dL) 4.4 Specimen Hemolysis (0 - 100 Index/DL) 29 Hematology WBC (5.0 - 12.0 x10 3/uL) 8.9 RBC (4.20 - 5.40 x10 6/uL) 4.13 L Hgb (12.0 - 16.0 g/dL) 12.7 Hct (36.0 - 46.0 %) 38.2 MCV (81 - 99 fL) 93 MCH (27 - 31 pg) 30.8 MCHC (33 - 37 g/dL) 33.2 RDW (11.5 - 15.5 %) 18.8 H Plt Count (130 - 400 x10 3/uL) 135 MPV (9.4 - 16.4 fL) 12.4 Neut % (Auto) (43 - 65 %) 43.1 Lymph % (Auto) (20.5 - 45.5 %) 44.8 [place] % (Auto) (5.5 - 11.7 %) 5.5 Eos % (Auto) (0.9 - 2.9 %) 4.8 H Baso % (Auto) (0.2 - 1.0 %) 1.1 H Neut # (Auto) (2.2 - 4.8 x10 3/uL) 3.85 Lymph # (Auto) (1.3 - 2.9 x10 3/uL) 4.00 H [place] # (Auto) (0.3 - 0.8 x10 3/uL) 0.49 Eos # (Auto) (0.0 - 0.2 x10 3/uL) 0.43 H Baso # (Auto) (0.0 - 0.1 x10 3/uL) 0.10 Immature Gran % (0.0 - 2.0 %) 0.7 Nucleated RBC % (0 - 1.0 %) 0.0 Toxicology Salicylates (mg/dL) < 1.0 Urine Opiates Screen (NEGATIVE) NEGATIVE Acetaminophen (10 - 30 ug/mL) <10 L Ur Barbiturates, Qual (NEGATIVE) NEGATIVE Ur Phencyclidine Scrn (NEGATIVE) NEGATIVE Ur Amphetamines Screen (NEGATIVE) NEGATIVE U Benzodiazepines Scrn (NEGATIVE) NEGATIVE Urine Cocaine Screen (NEGATIVE) NEGATIVE Urine Cannabinoids (NEGATIVE) NEGATIVE Ethyl Alcohol (<10 mg/dL) 394 *H Urines Urine Color (Yellow) Yellow Urine Appearance (Clear) Clear Urine pH (5.0 - 8.0) 6.0 Ur Specific [place] (<1.030) 1.009 Urine Protein (Negative mg/dL) NEGATIVE Urine Glucose (UA) (Negative) Negative Urine Ketones (Negative mg/dL) Trace H Urine Blood (Negative) Negative Urine Nitrite (Negative) Negative Urine Bilirubin (Negative) Negative Urine Urobilinogen (Negative mg/dL) 4.0 H Ur Leukocyte Esterase (Negative) NEGATIVE Urine RBC (<4 - 5 /HPF) NONE Urine WBC (<4 - 5 /HPF) 0-3 Ur Squamous Epith Cells (0 - 5 (RARE) /HPF) 0-5 (RARE) Urine Bacteria (None - Rare /HPF) None Urine Mucus (<Rare /LPF) Rare H Re-Evaluation MDM Free Text MDM Notes Free Text MDM Notes Assumed care of patient at 2000. Patient showing mild signs of alcohol withdrawal, will medicate with Valium and reassess. Patient doing well after Valium administration. Medically cleared pending psychiatric eval. Patient Discharge Departure Vital Signs/Condition Vital Signs First Documented: Result Date Time Pulse Ox 94 02/19 2014 B/P 112/71 02/19 2014 B/P Mean 84.6 02/19 2014 O2 Delivery Room air 02/19 2014 Temp 36.9 02/19 2014 Pulse 74 02/19 2014 Resp 17 02/19 2014 Last Documented: Result Date Time Pulse Ox 94 02/20 1355 B/P 186/123 02/20 1355 B/P Mean 144.2 02/20 135 Pulse 116 02/20 1355 O2 Delivery Room air 02/21 848 Resp 18 02/21 848 Temp 36.7 02/21 848 All vital signs available at the time of this entry have been reviewed. Jaylon Rushing 02/20/23 144: Past Medical History - Adult Home Medications Reported Medications LISINOPRIL (ZESTRIL) 40 MG PO DAILY ERGOCALCIFEROL (VITAMIN D2) 50,000 UNITS PO Q7D traZODone (DESYREL) 50 MG PO BEDTIME PRN . DIAZEPAM (VALIUM) 2 MG PO BID PRN PRN . Re-Evaluation MDM Re-Evaluation/Progress #1 Text/Dict Note Patient at this time signs symptoms of alcohol withdrawal heart rate has increased into the 120s after benzodiazepine treatment will admit for IV hydration and close evaluation. Patient oriented about the need for admission and she is agreeable plan of care at this time Time of Re-Eval 1445 Re-Eval Status Worsened Patient Discharge Departure Clinical Impression Clinical Impression Primary Impression: Alcohol withdrawal Secondary Impressions: Alcohol abuse, Alcohol dependence, Suicidal ideations Disposition Decision Hospitalize Hosp Physician Name AdkinsMolina tran [facility] Physician Hospitalist Request Time 1453 Request Date 02/20/23 )( Accepts Hospitalization Yes )( Reason for Hospitalization alcohol withdrawal )( Accepted Time 145 )( Accepted Date 02/20/23 Call Information will see patient, agrees with eval, agrees with plan Discharge/Care Plan Counseled Regarding Diagnosis, Lab results, Need for admission Admit Note I have spoken with the patient and/or caregivers. I have explained the patient's condition, diagnoses and treatment plan based on the information available to me at this time. I have answered the patient's and/or caregiver's questions and addressed any concerns. The patient and/or caregivers have as good an understanding of the patient's diagnosis, condition and treatment plan as can be expected at this point. The patient has been stabilized within the capability of the emergency department. The patient will be transported for further care and management or will be moved to an observation or inpatient service. I have communicated with the staff or medical practitioner taking over this patient's care. Supervising Physician Note Resident Saw Pt This patient was seen by a resident. I have personally seen the patient, performed the critical or louis portions of the service, and participated in the management of the patient. I have reviewed and agree with the resident's note, and I have reviewed all labs, ECGs, and imaging studies or reports. I agree with this resident's findings, exam and plan. at 0702 at 0921 at 1916 at 1431 at 0142 RPT #:[id number] END OF [id number] 14:00:00* PROCEDURE INFORMATION: Exam: XR Chest Exam date and time: 01/23/2023 2:29 PM Age: 57 years old Clinical indication: /sharp chest pain TECHNIQUE: Imaging protocol: Radiologic exam of the chest. Views: 1 view. COMPARISON: No relevant prior studies available. FINDINGS: Lungs: No confuent reticular opacities. No consolidation. Pleural spaces: No pleural effusion. No pneumothorax. Heart/Mediastinum: Within normal limits. Bones/joints: Unremarkable as visualized. IMPRESSION: No acute cardiopulmonary findings. Madie Walker DO On 01/23/2023 14:43:17; [id number] [facility]
[2024-08-22 16:37] LABS: Absolute Basophils 0.1 K/uL (0-0.5); Absolute Eosinophils 0.3 K/uL (0-0.5); Absolute Lymphocytes (CBC) 2.7 K/uL (0.7-4.9); Absolute Monocytes 0.7 K/uL (0.1-1.3); Absolute Neutrophil 4.3 K/uL (1.8-8.0); Basophils % 1.1 % (0-1.3); Eosinophils % 3.7 % (0-4.4); Hematocrit 24.6 % (36.0-45.0); Hemoglobin 8.3 g/dL (12.0-15.0); Lymphocytes % 33.1 % (15.3-44.8); MCHC 33.8 g/dL (32.0-36.0); MCV 79.7 fL (80-100); MPV 8.5 fL (7.6-11.3); Monocytes % 9.3 % (3.3-12.3); Neutrophils % 52.8 % (41.7-73.7); Platelets 107 thou/uL (152-406); RBC Red Blood Cell Count 3.08 M/uL (3.86-4.86); Red Cell Distribution Width 18.4 % (12.1-15.2)
[2024-08-22 16:38] LABS: PT Prothrombin Time 18.4 SECONDS (10-13.0); Protime INR 1.65
[2024-08-22 16:57] LABS: Anion Gap 9.4 mEq/L (5.0-15.0); Magnesium 1.3 mg/dL (1.6-2.4); Troponin High Sensitivity 6.5 pg/mL (<58.9)
[2024-08-22 17:06] LABS: Potassium 2.4 mEq/L (3.5-5.1)
[2024-08-22] MEDS ORDERED: POTASSIUM 25 MEQ EFFERV TAB ONE (17:12)
--- NOTE | 2024-08-22 17:20 | ER ---
Nurse's Notes [facility] Name: Chloé Carter Age: 58 yrs Sex: Female : 1965 Arrival Date: 08/22/2024 Time: 16:02 Bed 7 Private MD: Diagnosis: Hypokalemia, generalized weakness Presentation: 08/22 16:09 Chief complaint: EMS states: Sent from [facility] ([place] for AMS x 2-3 days. Last ETOH was hb approx 2 weeks ago, has been taking lactulose daily. Coronavirus screen: At this time, the client does not indicate any symptoms associated with coronavirus-19. Ebola Screen: No symptoms or risks identified at this time. Initial Sepsis Screen: Does the patient meet any 2 criteria? No. Patient's initial sepsis screen is negative. Does the patient have a suspected source of infection? No. Patient's initial sepsis screen is negative. Risk Assessment: Do you want to hurt yourself or someone else? Patient reports no desire to harm self or others. Onset of symptoms is unknown. 16:09 Method Of Arrival: EMS: [facility] hb 16:10 Acuity: JOSEPH 2 hb Triage Assessment: 16:10 General: Appears in no apparent distress. Behavior is calm, cooperative. Pain: Pain hb currently is 3 out of 10 on a pain scale. EENT: No signs and/or symptoms were reported regarding the EENT system. Neuro: Level of Consciousness is obeys commands, lethargic, Oriented to person, place, situation. Cardiovascular: Patient's skin is warm and dry. Respiratory: Respiratory effort is even, unlabored, Respiratory pattern is regular, symmetrical. GI: No signs and/or symptoms were reported involving the gastrointestinal system. : No signs and/or symptoms were reported regarding the genitourinary system. Derm: Skin is pink, warm \T\ dry. Musculoskeletal: Reports CHRONIC BACK PAIN. Historical: - Allergies: 16:10 No Known Allergies; hb - Home Meds: 16:10 Seroquel Oral [Active]; Risperdal Oral [Active]; Lactulose Oral [Active]; hb - PMHx: 16:10 ETOH Abuse; Liver Failure; hb - Immunization history:: Adult Immunizations up to date. - Infectious Disease History:: Denies. - Social history:: Smoking status: Patient/guardian denies using tobacco. Screenin:18 [facility] ED Fall Risk Assessment (Adult) History of falling in the last 3 months, hb including since admission No falls in past 3 months (0 pts) Confusion or Disorientation Yes (5 pts) Intoxicated or Sedated No (0 pts) Impaired Gait Yes (1 pt) Mobility Assist Device Used No (0 pt) Altered Elimination No (0 pt) Score/Fall Risk Level 3 or more points = High Risk Oriented to surroundings, Maintained a safe environment, Educated pt \T\ family on fall prevention, incl call for assistance when getting out of bed, Assessed \T\ reinforced patient's understanding of fall precautions. Abuse screen: Denies threats or abuse. Denies injuries from another. Nutritional screening: No deficits noted. Tuberculosis screening: No symptoms or risk factors identified. Assessment: 16:18 General: SEE TRIAGE ASSESSMENT . hb 17:00 Reassessment: Patient appears in no apparent distress at this time. Patient and/or jb4 family updated on plan of care and expected duration. Pain level reassessed. Patient is alert, oriented x 3, equal unlabored respirations, skin warm/dry/pink. d/c pending completion of IV fluids. 18:50 Reassessment: Patient appears in no apparent distress at this time. Patient and/or jb4 family updated on plan of care and expected duration. Pain level reassessed. Patient is alert, oriented x 3, equal unlabored respirations, skin warm/dry/pink. 19:17 Reassessment: Patient appears in no apparent distress at this time. No changes from jb4 previously documented assessment. Patient and/or family updated on plan of care and expected duration. Pain level reassessed. Patient is alert, oriented x 3, equal unlabored respirations, skin warm/dry/pink. Vital Signs: 16:09 BP 137 / 73; Pulse 91; Resp 14; Temp 98.1; Pulse Ox 100% on R/A; Weight 90.72 kg; hb Height 5 ft. 2 in. ; Pain 3/10; 19:17 BP 119 / 64; Pulse 82; Resp 16; Pulse Ox 100% ; jb4 16:09 Body Mass Index 36.58 (90.72 kg, 157.48 cm) hb 16:09 Pain Scale: Adult ED Course: 16:08 Patient arrived in ED. hb 16:09 Meño Rebollar MD is Attending Physician. sp3 16:11 Arm band placed on. hb 16:14 Triage completed. hb 16:17 Initial lab(s) drawn, by ED staff, sent to lab. Inserted saline lock: 20 gauge in right hb antecubital area, using aseptic technique. ,using aseptic technique. BY GEORGIE PEREZ Blood collected. Flushed with 10 mL NS. 16:18 Patient has correct armband on for positive identification. Bed in low position. Call hb light in reach. Provided Education on: TESTS, RESULT TIMES. Client placed on continuous cardiac and pulse oximetry monitoring. NIBP monitoring applied. 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 Pulse ox on. NIBP on. 16:28 Basic Metabolic Panel Sent. jb4 16:28 CBC with Diff Sent. jb4 16:28 NT PRO-BNP Sent. jb4 16:28 PT-INR Sent. jb4 16:28 Troponin HS Sent. jb4 16:28 AMMONIA Sent. jb4 16:43 EKG done, by ED staff, reviewed by Meño Rebollar MD. hb 16:53 XRAY Chest (1 view) In Process Unspecified. EDMS 19:47 No provider procedures requiring assistance completed. IV discontinued, intact, jb4 bleeding controlled, No redness/swelling at site. Pressure dressing applied. Administered Medications: 17:27 Drug: Potassium PO Effervescent Tablet 50 mEq PO once; dissolve in 4 ounces of water or jb4 juice Route: PO; 19:48 Follow up: Response: No adverse reaction jb4 17:40 Drug: Potassium Chloride IV 20 mEq IV at calculated rate once; administer over 1 hours jb4 Route: IV; Rate: calculated rate; Site: right antecubital; 19:48 Follow up: IV Status: Completed infusion; IV Intake: 1000ml jb4 Medication: 16:18 VIS not applicable for this client. hb Intake: 19:48 IV: 1000ml; Total: 1000ml. jb4 Outcome: 17:19 Discharge ordered by . sp3 19:47 Discharged to home via wheelchair, with significant other, jb4 19:47 Condition: stable 19:47 Discharge instructions given to patient, Instructed on discharge instructions, follow up and referral plans. Demonstrated understanding of instructions, follow-up care, 19:49 Patient left the ED. jb4 Signatures: Dispatcher [facility] Trudy Lindsey RN RN hb Brady Beal RN RN jb4 Meño Rebollar, MD sp3
--- NOTE | 2024-08-22 17:20 | EDPHYS ---
Physician Documentation [facility] Name: Chloé Carter Age: 58 yrs Sex: Female : 1965 Arrival Date: 08/22/2024 Time: 16:02 Bed 7 Private MD: ED Physician Meño Rebollar HPI: 08/22 16:50 This 58 yrs old Female presents to ER via EMS with complaints of Altered Mental Status. sp3 16:50 58-year-old female with history of EtOH abuse and liver failure presents from [place] [id number] rehab for generalized weakness and a resolved confusion. She states she has been taking her lactulose. She denies any fever, headache, chest pain, shortness of breath, abdominal pain, vomiting, diarrhea or any other signs or symptoms on ROS at this time.. Historical: - Allergies: 16:10 No Known Allergies; hb - Home Meds: 16:10 Seroquel Oral [Active]; Risperdal Oral [Active]; Lactulose Oral [Active]; hb - PMHx: 16:10 ETOH Abuse; Liver Failure; hb - Immunization history:: Adult Immunizations up to date. - Infectious Disease History:: Denies. - Social history:: Smoking status: Patient/guardian denies using tobacco. ROS: 16:53 Constitutional: Negative for fever, chills, and weight loss, Eyes: Negative for injury, sp3 pain, redness, and discharge, ENT: Negative for injury, pain, and discharge, Neck: Negative for injury, pain, and swelling, Cardiovascular: Negative for chest pain, palpitations, and edema, Respiratory: Negative for shortness of breath, cough, wheezing, and pleuritic chest pain, Abdomen/GI: Negative for abdominal pain, nausea, vomiting, diarrhea, and constipation, Back: Negative for injury and pain, MS/Extremity: Negative for injury and deformity, Skin: Negative for injury, rash, and discoloration, Allergy/Immunology: Negative for hives, rash, and allergies, Endocrine: Negative for neck swelling, polydipsia, polyuria, polyphagia, and marked weight changes, 16:53 All other systems are negative, Exam: 16:54 Constitutional: This is a well developed, well nourished patient who is awake, alert, sp3 and in no acute distress. Head/Face: Normocephalic, atraumatic. Eyes: Pupils equal round and reactive to light, extra-ocular motions intact. Lids and lashes normal. Conjunctiva and sclera are non-icteric and not injected. Cornea within normal limits. Periorbital areas with no swelling, redness, or edema. ENT: Nares patent. No nasal discharge, no septal abnormalities noted. External auditory canals are clear. Oropharynx with no redness, swelling, or masses, exudates, or evidence of obstruction, uvula midline. Mucous membranes moist. Neck: Trachea midline, no thyromegaly or masses palpated, and no cervical lymphadenopathy. Supple, full range of motion without nuchal rigidity, or vertebral point tenderness. No Meningismus. Chest/axilla: Normal chest wall appearance and motion. Nontender with no deformity. No lesions are appreciated. Cardiovascular: Regular rate and rhythm with a normal S1 and S2. No gallops, murmurs, or rubs. Normal PMI, no JVD. No pulse deficits. Respiratory: Lungs have equal breath sounds bilaterally, clear to auscultation and percussion. No rales, rhonchi or wheezes noted. No increased work of breathing, no retractions or nasal flaring. Abdomen/GI: Soft, non-tender, with normal bowel sounds. No distension or tympany. No guarding or rebound. No evidence of tenderness throughout. Back: No spinal tenderness. No costovertebral tenderness. Full range of motion. Skin: Warm, dry with normal turgor. Normal color with no rashes, no lesions, and no evidence of cellulitis. MS/ Extremity: Pulses equal, no cyanosis. Neurovascular intact. Full, normal range of motion. Neuro: Awake and alert, GCS 15, oriented to person, place, time, and situation. Cranial nerves II-XII grossly intact. Motor strength 5/5 in all extremities. Sensory grossly intact. Cerebellar exam normal. Normal gait. Psych: Awake, alert, with orientation to person, place and time. Behavior, mood, and affect are within normal limits. 16:54 ECG was reviewed by the Attending Physician. EKG demonstrates normal sinus rhythm at 84 bpm with normal intervals except QTc 496, normal QRS, normal axis, nonspecific diffuse ST/T changes without evidence of acute ischemia. Vital Signs: 16:09 BP 137 / 73; Pulse 91; Resp 14; Temp 98.1; Pulse Ox 100% on R/A; Weight 90.72 kg; hb Height 5 ft. 2 in. ; Pain 3/10; 19:17 BP 119 / 64; Pulse 82; Resp 16; Pulse Ox 100% ; jb4 16:09 Body Mass Index 36.58 (90.72 kg, 157.48 cm) hb 16:09 Pain Scale: Adult hb MDM: 16:09 Medical Screening Exam initiated sp3 16:54 Data reviewed: vital signs, nurses notes, lab test result(s), EKG, radiologic studies. sp3 ED course: 58-year-old female with EtOH abuse and liver failure history now with generalized weakness. Patient is alert and oriented and in no acute distress with no complaints currently other than global weakness. Differential diagnosis includes electrolyte abnormality, dehydration, viral illness and to lesser degree hepatic encephalopathy. Will obtain EKG, chest x-ray and general labs including ammonia. Disposition pending workup and patient course. If workup negative we will safely discharge back to the rehab facility.. 17:19 ED course: All labs normal except potassium of 2.4 which I believe is the cause of her sp3 generalized weakness. Ammonia is normal. Will replenish potassium both p.o. and IV and safely discharge patient back to rehab facility.. 08/22 16:10 Order name: Basic Metabolic Panel; Complete Time: 17:17 3 08/22 16:10 Order name: CBC with Diff; Complete Time: 17:06 3 08/22 16:10 Order name: Magnesium; Complete Time: 17:17 3 08/22 16:10 Order name: NT PRO-BNP; Complete Time: 17:17 3 08/22 16:10 Order name: PT-INR; Complete Time: 17:06 3 08/22 16:10 Order name: Troponin HS; Complete Time: 17:17 3 08/22 16:10 Order name: AMMONIA; Complete Time: 17:06 3 08/22 16:10 Order name: XRAY Chest (1 view); Complete Time: 18:32 3 08/22 16:10 Order name: EKG; Complete Time: 16:11 3 08/22 16:10 Order name: Cardiac monitoring; Complete Time: 16:28 [facility] 08/22 16:10 Order name: EKG - Nurse/Tech; Complete Time: 16:43 [facility] 08/22 16:10 Order name: IV Saline Lock; Complete Time: 16:28 sp3 08/22 16:10 Order name: Labs collected and sent; Complete Time: 16:28 sp3 08/22 16:10 Order name: O2 Per Protocol; Complete Time: 16:28 sp3 08/22 16:10 Order name: O2 Sat Monitoring; Complete Time: 16:28 sp3 Administered Medications: 17:27 Drug: Potassium PO Effervescent Tablet 50 mEq PO once; dissolve in 4 ounces of water or jb4 juice Route: PO; 19:48 Follow up: Response: No adverse reaction jb4 17:40 Drug: Potassium Chloride IV 20 mEq IV at calculated rate once; administer over 1 hours jb4 Route: IV; Rate: calculated rate; Site: right antecubital; 19:48 Follow up: IV Status: Completed infusion; IV Intake: 1000ml jb4 Disposition Summary: 08/22/24 17:19 Discharge Ordered Notes: Location: Home sp3 Condition: Stable sp3 Diagnosis - Hypokalemia, generalized weakness sp3 Followup: sp3 - With: Private Physician - When: Upon discharge from the Emergency Department - Reason: Continuance of care Discharge Instructions: - Discharge Summary Sheet sp3 - Hypokalemia sp3 Forms: - Medication Reconciliation Form sp3 - Antibiotic Education sp3 - Prescription Opioid Use sp3 - Patient Portal Instructions sp3 - Leadership Thank You Letter sp3 Signatures: Dispatcher [employer] Trudy Solis RN RN hb Bryson, James, RN RN jb4 Meño Rebollar MD MD sp3
[2024-08-22] MEDS ORDERED: KCL 20 MEQ/100 mL IVPB 100 ML IV ONE (17:38)
--- NOTE | 2024-08-22 18:22 | RAD REPORT ---
EXAMINATION: ONE VIEW CHEST XR CLINICAL INDICATION: Female, 58 years old.,weakness TECHNIQUE: Frontal chest projection is submitted. Examination is limited by patient positioning and t echnique. COMPARISON: No prior exam. FINDINGS: Elevation of the right hemidiaphragm. Crowding of the central vascular markings with streaky opacitie s, which may relate to a degree of central venous congestion and/or atelectasis. No pneumothorax or sizable effusion. The heart is normal in size. Mediastinal contours are unremarkable. IMPRESSION: As above.
[2024-08-22 20:11] VITALS: TEMP 98.1; O2SAT 100
[2024-08-22 20:12] VITALS: BP 119/64
--- NOTE | 2024-08-23 11:30 | EKG ---
Test Date: 2024-08-22 Test Time: 16:41:48 Explosives Handler: HB MEASUREMENT RESULTS: Intervals: Rate: 84 NM: 138 QRSD: 86 QT: 420 QTc: 496 [place]: P: 26 NM: 138 QRS: 29 T: 26 INTERPRETIVE STATEMENTS: Normal sinus rhythm Nonspecific T wave abnormality Prolonged QT Abnormal ECG No previous ECG available for comparison Electronically Signed On 08-23-24 11:28:45 CDT by Jose Bullard
== END 2024-08-22 19:49 | disposition home or self-care (01) ==
LOC: ER 16:02
DX: E87.6 Hypokalemia (principal); K72.90 Hepatic failure, unspecified without coma
CPT/HCPCS: 36415; 71045; 80048; 82140; 83735; 83880; 84484; 85025; 85610; 93005; 96365; 96366; 99285; J3480